=== PATIENT | female | born 1965 | race American Indian/Alaskan Native ===

== ENCOUNTER 2017-12-29 16:37 | Emergency (ER) | payer MEDICAID ==
[2017-12-29 17:24] LABS: Hematocrit 40.2 % (30.3-42.9); Mean Corpuscular HGB Conc 32 % (30-34); Mean Corpuscular Hemoglobin 30 pg (28-32); Mean Corpuscular Volume 94 fl (79-97); Platelet Count 356 K/mm3 (140-440); Red Blood Count 4.29 M/mm3 (3.65-5.03); Red Cell Distribution Width 12.6 % (13.2-15.2)
[2017-12-29 17:25] LABS: Eosinophils # (Auto) 0.4 K/mm3 (0.0-0.4); Eosinophils % (Auto) 2.8 % (0.0-4.3); Lymphocytes % (Auto) 14.1 % (13.4-35.0); Monocytes # (Auto) 0.8 K/mm3 (0.0-0.8); Monocytes % (Auto) 5.6 % (0.0-7.3)
--- NOTE | 2017-12-29 17:28 | XRay Report ---
FINAL REPORT PROCEDURE: XR CHEST ROUTINE 2V TECHNIQUE: PA and lateral chest radiographs were obtained. CPT 20824 HISTORY: Shortness of breath. COMPARISON: No prior studies are available for comparison. FINDINGS: Heart: Normal. Mediastinum/Vessels: Normal. Lungs/Pleural space: Normal. Bony thorax: Cervical spine fusion. Other: IMPRESSION: No radiographic evidence of acute cardiopulmonary disease..
[2017-12-29 17:38] LABS: BUN/Creatinine Ratio 18; Blood Urea Nitrogen 18 mg/dL (7-17); Calcium 9.4 mg/dL (8.4-10.2); Hemolysis Index 0
[2017-12-29] MEDS ORDERED: CLEOCIN 600 MG/50 mL 600 MG/50 ML BAG IV ONE (20:20)
[2017-12-29] MEDS ORDERED: NACL 0.9% 1000 ML IV ONE (20:20)
[2017-12-29] MEDS ORDERED: TORADOL IV ONE (20:22)
[2017-12-29] MEDS ORDERED: XYLOCAINE 1% 20 mL ONE (21:30)
[2017-12-29] MEDS ORDERED: NACL 0.9% 500 ML IR ONE (21:56)
[2017-12-29] MEDS ORDERED: NACL 0.9% IR ONE (22:00)
[2017-12-29] MEDS ORDERED: XYLOCAINE 1% 20 mL INFILTRATI ONE (22:00)
[2017-12-29 22:52] VITALS: BP 115/70
[2017-12-29 23:32] LABS: Bacteria,Urine 3+ /HPF (Negative); Bilirubin,Urine NEG (Negative); Blood,Urine NEG (Negative); Color,Urine Yellow (Yellow); Mucus,Urine FEW /HPF; Urobilinogen,Urine < 2.0 mg/dL (<2.0)
[2017-12-29 23:33] LABS: WBC,Urine > 182.0 /HPF (0.0-6.0)
--- NOTE | 2017-12-29 23:34 | Emergency Department Report ---
- General Chief complaint: Skin/Abscess/Foreign Body Stated complaint: BOIL ON BUTTOCKS Time Seen by Provider: 12/29/17 20:16 Source: patient Mode of arrival: Ambulatory Limitations: No Limitations - History of Present Illness Initial comments: Patient is a 52-year-old [place] female who has a past medical history of diabetes who is presenting with an abscess on her left buttock. Abscess present for approximately 2 weeks and is now draining. Patient states she has 1010 pain in this area as well. Patient denies fever chills nausea vomiting. Patient also states that she has had a cough for approximately 1 month that is productive of green sputum. Patient states she's had some mild body aches were also appetite with this cough. Patient was not seen in for any of these symptoms. Patient states she also is no longer taking her medication for her diabetes. Patient states she threw the pills away. - Related Data Previous Rx's Medication Instructions Recorded Last Taken Type Meloxicam [Mobic] 7.5 mg PO QDAY #30 tablet 02/23/14 Unknown Rx Clindamycin [Clindamycin CAP] 300 mg PO Q8H #30 cap 12/29/17 Unknown Rx HYDROcodone/APAP 7.5-325 [[place] 1 each PO Q6HR PRN #20 tablet 12/29/17 Unknown Rx 7.5-325 mg TAB] metFORMIN [Glucophage] 1,000 mg PO BID #60 tablet 12/29/17 Unknown Rx Allergies Allergy/AdvReac Type Severity Reaction Status Date / Time No Known Allergies Allergy Verified 12/29/17 21:32 Abscess Boil HPI - HPI Chief Complaint: Skin/Abscess/Foreign Body Stated Complaint: BOIL ON BUTTOCKS Time Seen by Provider: 12/29/17 20:16 Home Medications: Previous Rx's Medication Instructions Recorded Last Taken Type Meloxicam [Mobic] 7.5 mg PO QDAY #30 tablet 02/23/14 Unknown Rx Clindamycin [Clindamycin CAP] 300 mg PO Q8H #30 cap 12/29/17 Unknown Rx HYDROcodone/APAP 7.5-325 [[place] 1 each PO Q6HR PRN #20 tablet 12/29/17 Unknown Rx 7.5-325 mg TAB] metFORMIN [Glucophage] 1,000 mg PO BID #60 tablet 12/29/17 Unknown Rx Allergies/Adverse Reactions: Allergies Allergy/AdvReac Type Severity Reaction Status Date / Time No Known Allergies Allergy Verified 12/29/17 21:32 ED Review of Systems ROS: Stated complaint: BOIL ON BUTTOCKS Other details as noted in HPI Comment: All other systems reviewed and negative ED Past Medical Hx - Past Medical History Previous Medical History?: Yes Hx Diabetes: Yes Hx Psychiatric Treatment: Yes (bipolar, schizophrenic, depression) Additional medical history: high cholesterol, - Surgical History Past Surgical History?: No - Social History Smoking Status: Never Smoker - Medications Home Medications: Home Medications Medication Instructions Recorded Confirmed Last Taken Type Meloxicam [Mobic] 7.5 mg PO QDAY #30 tablet 02/23/14 Unknown Rx Clindamycin [Clindamycin CAP] 300 mg PO Q8H #30 cap 12/29/17 Unknown Rx HYDROcodone/APAP 7.5-325 [[place] 1 each PO Q6HR PRN #20 tablet 12/29/17 Unknown Rx 7.5-325 mg TAB] metFORMIN [Glucophage] 1,000 mg PO BID #60 tablet 12/29/17 Unknown Rx ED Physical Exam - General Limitations: No Limitations General appearance: alert, in no apparent distress - Head Head exam: Present: atraumatic, normocephalic - Eye Eye exam: Present: normal appearance - ENT ENT exam: Present: mucous membranes moist - Neck Neck exam: Present: normal inspection - Respiratory Respiratory exam: Present: normal lung sounds bilaterally. Absent: respiratory distress, wheezes, rales - Cardiovascular Cardiovascular Exam: Present: normal rhythm, tachycardia. Absent: systolic murmur, diastolic murmur, rubs, gallop - GI/Abdominal GI/Abdominal exam: Present: soft, normal bowel sounds. Absent: distended, tenderness, guarding, rebound - Extremities Exam Extremities exam: Present: normal inspection - Back Exam Back exam: Present: normal inspection - Neurological Exam Neurological exam: Present: alert, oriented X3 - Psychiatric Psychiatric exam: Present: normal affect, normal mood - Skin Skin exam: Present: warm, dry, intact, normal color, other (patient has a large abscess in the left buttock at the gluteal cleft.). Absent: rash ED Course Vital Signs 12/29/17 12/29/17 12/29/17 16:52 19:17 19:34 Temperature 98 F 99 F Pulse Rate 110 H 102 H Respiratory 18 16 Rate Blood Pressure 92/64 108/78 Blood Pressure 108/78 [Right] O2 Sat by Pulse 100 98 100 Oximetry 12/29/17 12/29/17 12/29/17 20:00 20:15 20:30 Temperature Pulse Rate Respiratory Rate Blood Pressure 110/61 102/63 102/63 Blood Pressure [Right] O2 Sat by Pulse 98 99 Oximetry 12/29/17 12/29/17 12/29/17 20:45 21:01 21:15 Temperature Pulse Rate Respiratory 16 16 Rate Blood Pressure 118/71 124/69 Blood Pressure [Right] O2 Sat by Pulse 99 100 Oximetry 12/29/17 12/29/17 12/29/17 21:16 21:25 21:30 Temperature Pulse Rate Respiratory 16 Rate Blood Pressure 124/69 116/84 Blood Pressure [Right] O2 Sat by Pulse 100 100 100 Oximetry 12/29/17 12/29/17 12/29/17 21:45 22:00 22:15 Temperature Pulse Rate Respiratory Rate Blood Pressure 115/70 108/65 124/80 Blood Pressure [Right] O2 Sat by Pulse 100 100 100 Oximetry 12/29/17 12/29/17 22:30 22:45 Temperature Pulse Rate Respiratory Rate Blood Pressure 122/72 115/70 Blood Pressure [Right] O2 Sat by Pulse 100 Oximetry - I & D Left Buttocks Type of Procedure: Complex Site: 4 Blade Size: 11 I & D Procedure: betadine prep, sterile drapes applied, sterile dressing applied , gauze wick placed ED Medical Decision Making - Lab Data Result diagrams: 12/29/17 17:06 12/29/17 17:06 - Medical Decision Making Patient was started on IV antibiotics and given 2 bags of normal saline. Patient's blood pressure did improve dramatically after fluids and heart rate improved as well. Patient's glucose dropped to 170. I&D was performed. Patient is stable for discharge at this time. Patient will be started on antibiotics pain meds with primary care follow-up. Patient chest x-ray was within normal limits most likely represents a chronic bronchitis. Critical care attestation.: If time is entered above; I have spent that time in minutes in the direct care of this critically ill patient, excluding procedure time. ED Disposition Clinical Impression: Medically noncompliant, Abscess, Hyperglycemia Chronic bronchitis Qualifiers: Chronic bronchitis type: unspecified Qualified Code(s): J42 - Unspecified chronic bronchitis Disposition: DC-01 TO HOME OR SELFCARE Is pt being admited?: No Does the pt Need Aspirin: No Condition: Stable Instructions: Chronic Bronchitis (ED), Abscess (ED) Additional Instructions: Please have drain ribbon removed after 3 days Prescriptions: Clindamycin [Clindamycin CAP] 300 mg PO Q8H #30 cap HYDROcodone/APAP 7.5-325 [[place] 7.5-325 mg TAB] 1 each PO Q6HR PRN #20 tablet PRN Reason: Pain metFORMIN [Glucophage] 1,000 mg PO BID #60 tablet Referrals: ARGELIA JORDAN MD [Staff Physician] - 3-5 Days
[2017-12-29] MEDS ORDERED: NORCO 7.5/325 PO ONE (23:37)
== END 2017-12-30 00:17 | disposition home or self-care (01) ==
LOC: ED 16:37
DX: L02.31 Cutaneous abscess of buttock (principal); J42 Unspecified chronic bronchitis; E11.65 Type 2 diabetes mellitus with hyperglycemia; E78.00 Pure hypercholesterolemia, unspecified; F31.9 Bipolar disorder, unspecified; F20.9 Schizophrenia, unspecified
CPT/HCPCS: 10061; 36415; 71046; 80048; 81001; 82140; 82962; 85025; 87040; 96365; 96366; 96367; 96375; 99284; J1885; J7030

== ENCOUNTER 2020-03-08 15:15 | Emergency (ER) | payer OTHER, MEDICAID ==
[2020-03-08 15:23] VITALS: BP 120/83
== END 2020-03-08 16:11 | disposition left against medical advice (07) ==
LOC: ED 15:15
DX: M54.2 Cervicalgia (principal); M25.511 Pain in right shoulder; V49.59XA Passenger injured in collision with other motor vehicles in traffic accident, initial encounter; Y93.89 Activity, other specified; Y92.410 Unspecified street and highway as the place of occurrence of the external cause; Y99.8 Other external cause status
CPT/HCPCS: 99282

== ENCOUNTER 2021-10-01 10:52 | Emergency (ER) | payer MEDICAID, OTHER ==
[2021-10-01 11:45] VITALS: BP 140/83
--- NOTE | 2021-10-01 13:59 | Emergency Department Report ---
Minor Respiratory - HPI Chief Complaint: Upper Respiratory Infection Stated Complaint: COUGH Time Seen by Provider: 10/01/21 13:42 Duration: one month Severity: mild Minor Respiratory: Yes Able to Tolerate Fluids, Yes Cough, No Rhinorrhea, No Sore Throat, No Sick Contacts, No Shortness of Breath, No Fever Other History: Chief complaint: "I have been sick for a month. I do not like hospitals.". HPI: This is a 56-year-old female with history of tobacco dependence, bipolar disorder, schizophrenia hyperlipidemia who presents with cough body aches. Cough has been present for 1 month. She has had sputum production. She denies shortness of breath. She denies wheezing. She denies chest pain. ED Review of Systems ROS: Stated complaint: COUGH Other details as noted in HPI Comment: All other systems reviewed and negative Constitutional: denies: fever, malaise Eyes: denies: as per HPI Respiratory: cough Gastrointestinal: denies: abdominal pain, nausea, vomiting ED Past Medical Hx - Past Medical History Previous Medical History?: Yes Hx Diabetes: Yes Hx Psychiatric Treatment: Yes (bipolar, schizophrenic, depression) Additional medical history: high cholesterol, - Surgical History Past Surgical History?: No - Social History Smoking Status: Current Every Day Smoker Substance Use Type: Marijuana - Medications Home Medications: Home Medications Medication Instructions Recorded Confirmed Last Taken Type Meloxicam [Mobic] 7.5 mg PO QDAY #30 tablet 02/23/14 Unknown Rx Clindamycin [Clindamycin CAP] 300 mg PO Q8H #30 cap 12/29/17 Unknown Rx HYDROcodone/APAP 7.5-325 [[place] 1 each PO Q6HR PRN #20 tablet 12/29/17 Unknown Rx 7.5-325 mg TAB] metFORMIN [Glucophage] 1,000 mg PO BID #60 tablet 12/29/17 Unknown Rx DOXYCYCLINE Hyclate [Vibramycin 100 mg PO Q12HR 7 Days #14 capsule 10/01/21 Unknown Rx CAP] Minor Respiratory Exam - Exam General: Vital signs noted. No distress. Alert and acting appropriately. HEENT: Yes Moist Mucous Membranes, No Rhinorrhea, No Conjuctival Injection Neck: Yes Supple, No Adenopathy Lungs: Yes Good Air Exchange, No Wheezes, No [place], No Stridor, No Cough, No Labored Respirations, No Retractions, No Use of Accessory Muscles, No Other Abnormal Lung Sounds Heart: Yes Regular, No Murmur Abdomen: Yes Normal Bowel Sounds, No Tenderness, No Peritoneal Signs Skin: No Rash, No Edema Neurologic: Alert and oriented, no deficits. Musculoskeletal: Unremarkable. ED Course Vital Signs 10/01/21 11:43 Temperature 98.5 F Pulse Rate 95 H Respiratory 17 Rate Blood Pressure 140/83 O2 Sat by Pulse 97 Oximetry ED Medical Decision Making - Medical Decision Making Acute bronchitis, antibiotics indicated with history of 1 month of symptoms and tobacco use. Patient prescribed doxycycline. Discharged home. Critical care attestation.: If time is entered above; I have spent that time in minutes in the direct care of this critically ill patient, excluding procedure time. ED Disposition Clinical Impression: Acute bronchitis Disposition: HOME / SELF CARE / HOMELESS Is pt being admited?: No Does the pt Need Aspirin: No Condition: Stable Instructions: Acute Bronchitis (ED), Acute Bronchitis, Adult, Pctd-kg-Jtim Prescriptions: DOXYCYCLINE Hyclate [Vibramycin CAP] 100 mg PO Q12HR 7 Days #14 capsule Referrals: KENDRICK SHAH MD [Staff Physician] - 3-5 Days
== END 2021-10-01 14:09 | disposition home or self-care (01) ==
LOC: ED 10:52
DX: J20.9 Acute bronchitis, unspecified (principal); E11.9 Type 2 diabetes mellitus without complications; F31.9 Bipolar disorder, unspecified
CPT/HCPCS: 99282

== ENCOUNTER 2022-04-17 12:04 | Emergency (ER) | payer MEDICAID ==
[2022-04-17 16:06] LABS: Basophils # (Auto) 0.1 K/mm3 (0.0-0.1); Basophils % (Auto) 0.8 % (0.0-1.8); Eosinophils # (Auto) 0.2 K/mm3 (0.0-0.4); Eosinophils % (Auto) 1.6 % (0.0-4.3); Hematocrit 31.8 % (30.3-42.9); Hemoglobin 10.3 gm/dl (10.1-14.3); Lymphocytes # (Auto) 3.3 K/mm3 (1.2-5.4); Lymphocytes % (Auto) 30.1 % (13.4-35.0); Mean Corpuscular HGB Conc 32 % (30-34); Mean Corpuscular Volume 94 fl (79-97); Monocytes # (Auto) 0.8 K/mm3 (0.0-0.8); Monocytes % (Auto) 7.7 % (0.0-7.3); Platelet Count 409 K/mm3 (140-440); Red Blood Count 3.39 M/mm3 (3.65-5.03); Red Cell Distribution Width 13.7 % (13.2-15.2)
[2022-04-17 16:15] VITALS: BP 132/59
[2022-04-17 16:16] LABS: INR 0.85 (0.87-1.13); Partial Thromboplastin Time 29.1 Sec. (24.2-36.6)
[2022-04-17 16:19] LABS: Alanine Aminotransferase 14 units/L (7-56); Albumin 3.5 g/dL (3.9-5); BUN/Creatinine Ratio 18; Blood Urea Nitrogen 45 mg/dL (7-17); Calcium 9.1 mg/dL (8.4-10.2); Hemolysis Index 4
== END 2022-04-18 15:58 | disposition left against medical advice (07) ==
LOC: ED 12:04
DX: M79.673 Pain in unspecified foot (principal); Z53.21 Procedure and treatment not carried out due to patient leaving prior to being seen by health care provider
CPT/HCPCS: 36415; 80053; 85025; 85610; 85730

== ENCOUNTER 2022-05-05 04:49 | Emergency (ER) | payer MEDICAID ==
[2022-05-05 05:02] VITALS: BP 154/62
[2022-05-05] MEDS ORDERED: KETOROLAC 10 MG TAB PO ONE (09:19)
[2022-05-05] MEDS ORDERED: predniSONE 20 MG TAB PO ONE (09:19)
--- NOTE | 2022-05-05 09:53 | XRay Report ---
LEFT FOOT 2 VIEWS INDICATION / CLINICAL INFORMATION: FOOT PAIN. COMPARISON: None available. FINDINGS: BONES / JOINT(S): No acute fracture or subluxation. Lytic change throughout the distal phalanx of the first digit. SOFT TISSUES: Atherosclerotic vascular calcification. ADDITIONAL FINDINGS: None. Impression: Lytic change throughout the distal phalanx of the first digit. Infection versus tumor. Signer Name: Ezra Madison MD Signed: 05/05/2022 9:49 AM Workstation Name: [email or web address]
[2022-05-05 10:58] LABS: Hematocrit 32.6 % (30.3-42.9); Hemoglobin 10.5 gm/dl (10.1-14.3); Mean Corpuscular HGB Conc 32 % (30-34); Mean Corpuscular Volume 94 fl (79-97); Platelet Count 444 K/mm3 (140-440); Red Blood Count 3.48 M/mm3 (3.65-5.03); Red Cell Distribution Width 13.8 % (13.2-15.2)
[2022-05-05 11:37] LABS: Calcium 8.4 mg/dL (8.4-10.2); Uric Acid 6.1 mg/dL (3.5-7.6)
--- NOTE | 2022-05-05 11:42 | Emergency Department Report ---
<YONG KENYON Thomas - Last Filed: 05/05/22 17:56> ED General Adult HPI - General Chief complaint: Extremity Problem,Nontraumatic Stated complaint: LEFT TOE HURTS Time Seen by Provider: 05/05/22 09:18 Source: patient Mode of arrival: Ambulatory Limitations: No Limitations - History of Present Illness Initial comments: 56 yo comes to ER with toe pain. No trauma. no hx gout. She is ambulatory with a limp. -: Gradual, days(s) Severity scale (0 -10): 8 Associated Symptoms: denies other symptoms Treatments Prior to Arrival: none - Related Data Previous Rx's Medication Instructions Recorded Last Taken Type metFORMIN [Glucophage] 1,000 mg PO BID #60 tablet 12/29/17 Unknown Rx Allergies Allergy/AdvReac Type Severity Reaction Status Date / Time No Known Allergies Allergy Verified 12/29/17 21:32 ED Review of Systems Comment: All other systems reviewed and negative ED Past Medical Hx - Past Medical History Previous Medical History?: Yes Hx Diabetes: Yes Hx Psychiatric Treatment: Yes (bipolar, schizophrenic, depression) Additional medical history: high cholesterol, - Surgical History Past Surgical History?: Yes - Family History Family history: no significant - Social History Smoking Status: Unknown if ever smoked Substance Use Type: Alcohol - Medications Home Medications: Home Medications Medication Instructions Recorded Confirmed Last Taken Type metFORMIN [Glucophage] 1,000 mg PO BID #60 tablet 12/29/17 Unknown Rx ED Physical Exam - General Limitations: No Limitations General appearance: alert, in no apparent distress - Head Head exam: Present: atraumatic, normocephalic - Eye Eye exam: Present: normal appearance - ENT ENT exam: Present: mucous membranes moist - Neck Neck exam: Present: normal inspection - Respiratory Respiratory exam: Present: normal lung sounds bilaterally. Absent: respiratory distress - Cardiovascular Cardiovascular Exam: Present: regular rate, normal rhythm. Absent: systolic murmur, diastolic murmur, rubs, gallop - GI/Abdominal GI/Abdominal exam: Present: soft, normal bowel sounds - Extremities Exam Extremities exam: Present: normal inspection - Back Exam Back exam: Present: normal inspection - Neurological Exam Neurological exam: Present: alert, oriented X3 - Psychiatric Psychiatric exam: Present: normal affect, normal mood - Skin Skin exam: Present: warm, dry, intact, normal color, other (brusing toe). Absent: rash ED Medical Decision Making - Lab Data Result diagrams: 05/05/22 10:05 05/05/22 10:05 - Radiology Data Radiology results: report reviewed, image reviewed see report - Medical Decision Making Lab Results 05/05/22 05/05/22 Range/Units 10:05 10:05 WBC 12.2 H (4.5-11.0) K/mm3 RBC 3.48 L (3.65-5.03) M/mm3 Hgb 10.5 (10.1-14.3) gm/dl Hct 32.6 (30.3-42.9) % MCV 94 (79-97) fl MCH 30 (28-32) pg MCHC 32 (30-34) % RDW 13.8 (13.2-15.2) % Plt Count 444 H (140-440) K/mm3 Sodium 136 L (137-145) mmol/L Potassium 5.1 H (3.6-5.0) mmol/L Chloride 108.9 H (98-107) mmol/L Carbon Dioxide 11 L (22-30) mmol/L Anion Gap 21 mmol/L BUN 67 H (7-17) mg/dL Creatinine 4.5 H (0.6-1.2) mg/dL Estimated GFR 12 ml/min BUN/Creatinine Ratio 15 % Glucose 263 H (65-100) mg/dL Uric Acid 6.1 (3.5-7.6) mg/dL Calcium 8.4 (8.4-10.2) mg/dL Vital Signs 05/05/22 05:00 Temperature 98.3 F Pulse Rate 104 H Respiratory 18 Rate Blood Pressure 154/62 O2 Sat by Pulse 100 Oximetry unable to find pt sp labs being drawn. Last seen in reassessment room. Not in room or wait area. Myself as well as nurses have looked numerous times. Attempt to call pt for Cr unsuccessful. - Differential Diagnosis ro fx/trauma/gout ED Disposition Clinical Impression: Arthritis Disposition: 07 LEFT AWOL/ELOPED Is pt being admited?: No Does the pt Need Aspirin: No Condition: Stable Referrals: KENDRICK SHAH MD [Primary Care Provider] - 3-5 Days <MICHELLE LARSEN - Last Filed: 05/06/22 16:08> ED Review of Systems ROS: Stated complaint: LEFT TOE HURTS Other details as noted in HPI ED Course Vital Signs 05/05/22 05:00 Temperature 98.3 F Pulse Rate 104 H Respiratory 18 Rate Blood Pressure 154/62 O2 Sat by Pulse 100 Oximetry ED Medical Decision Making - Lab Data Result diagrams: 05/05/22 10:05 05/05/22 10:05 - Medical Decision Making Patient was managed independently by the mid level below , I was available for consult but i wasn't directly involved in the care of this patient Critical care attestation.: If time is entered above; I have spent that time in minutes in the direct care of this critically ill patient, excluding procedure time. ED Disposition Is pt being admited?: No Does the pt Need Aspirin: No
[2022-05-05] MEDS ORDERED: CLINDAMYCIN 600 MG/50 mL 600 MG/50 ML BAG IV ONE (12:01)
[2022-05-05] MEDS ORDERED: SODIUM CHLORIDE 0.9% 1000 ML 1,000 ML IV ONE (12:01)
== END 2022-05-05 14:01 | disposition left against medical advice (07) ==
LOC: ED 04:49
DX: S90.112A Contusion of left great toe without damage to nail, initial encounter (principal); M19.90 Unspecified osteoarthritis, unspecified site; E11.9 Type 2 diabetes mellitus without complications; F20.9 Schizophrenia, unspecified; F31.9 Bipolar disorder, unspecified; E78.00 Pure hypercholesterolemia, unspecified; Z72.89 Other problems related to lifestyle; Z79.899 Other long term (current) drug therapy; Z79.84 Long term (current) use of oral hypoglycemic drugs; X58.XXXA Exposure to other specified factors, initial encounter; Y93.89 Activity, other specified; Y92.89 Other specified places as the place of occurrence of the external cause; Y99.8 Other external cause status
CPT/HCPCS: 36415; 80048; 84550; 85027; 99283

== ENCOUNTER 2022-05-18 15:24 | Inpatient (IN) | payer MEDICAID ==
[2022-05-18] MEDS ORDERED: TETANUS,DIPH,PERTUSS(ACELL) VACCINE 0.5 ML SYRINGE IM ONE (16:35)
[2022-05-18] MEDS ORDERED: ONDANSETRON 4 MG/2 ML INJ IV ONE (16:35)
[2022-05-18] MEDS ORDERED: MORPHINE 4 MG/1 ML INJ IV ONE (16:35)
--- NOTE | 2022-05-18 16:53 | XRay Report ---
CHEST 1 VIEW 05/18/2022 3:46 PM INDICATION / CLINICAL INFORMATION: sob, mild wheezing. COMPARISON: One day prior. FINDINGS: SUPPORT DEVICES: Unchanged. HEART / MEDIASTINUM: Stable. LUNGS / PLEURA: Lungs are hyperlucent consistent with emphysematous change. No consolidation. No effu elsa. No pneumothorax. ADDITIONAL FINDINGS: No significant additional findings. IMPRESSION: 1. No acute findings. Signer Name: Zac Catalan MD Signed: 05/18/2022 4:48 PM Workstation Name: [email or web address]
[2022-05-18 17:21] LABS: Basophils # (Auto) 0.1 K/mm3 (0.0-0.1); Basophils % (Auto) 0.6 % (0.0-1.8); Eosinophils # (Auto) 0.2 K/mm3 (0.0-0.4); Eosinophils % (Auto) 1.6 % (0.0-4.3); Hematocrit 29.2 % (30.3-42.9); Hemoglobin 9.3 gm/dl (10.1-14.3); Lymphocytes # (Auto) 2.4 K/mm3 (1.2-5.4); Lymphocytes % (Auto) 15.8 % (13.4-35.0); Mean Corpuscular HGB Conc 32 % (30-34); Mean Corpuscular Volume 93 fl (79-97); Monocytes # (Auto) 1.3 K/mm3 (0.0-0.8); Monocytes % (Auto) 8.4 % (0.0-7.3); Platelet Count 598 K/mm3 (140-440); Red Blood Count 3.13 M/mm3 (3.65-5.03); Red Cell Distribution Width 13.8 % (13.2-15.2)
[2022-05-18 17:32] LABS: Albumin 3.2 g/dL (3.9-5)
[2022-05-18 17:42] LABS: Erythrocyte Sedimentation Rate > 140.0 mm/Hr (0-20)
--- NOTE | 2022-05-18 18:02 | XRay Report ---
Left foot 3 views INDICATION: Left foot pain following infection IMPRESSION: Severe acute osteomyelitis involving the distal phalanx of the great toe with moderate ov erlying soft tissue edema and some areas of subcutaneous gas concerning for adjacent soft tissue infe ction. There is severe osseous destruction involving the great toe distal phalanx. Signer Name: Negro Leigh MD Signed: 05/18/2022 5:57 PM Workstation Name: [email or web address]
[2022-05-18] MEDS ORDERED: VANCOMYCIN 1,250 MG in SODIUM CHLORIDE 0.9% 500 ML 250 ML IV ONE (18:30)
[2022-05-18] MEDS ORDERED: ceFAZolin/Water 2 GM/20 ML 2 GM/20 ML SYRINGE IV ONE (19:44)
[2022-05-18] MEDS ORDERED: SODIUM CHLORIDE 0.9% 1000 ML 1,000 ML IV ONE (19:46)
--- NOTE | 2022-05-18 19:48 | Emergency Department Report ---
ED Extremity Problem HPI - General Chief complaint: Extremity Injury, Lower Stated complaint: LEFT TOE PAIN Source: patient, EMS, old records reviewed Mode of arrival: Stretcher Limitations: No Limitations - History of Present Illness Initial comments: 56-year female the past medical history [id number] diabetes and smoker not currently taking any medications presents to the hospital complain of progressively worsening left great toe pain and infection for the last 1 month.. Patient complains of left foot numbness but pain occurs with pressure during ambulation. Patient denies fever or infectious symptoms. As per medical record review appears that patient was here on April 17 and May 05 for foot pain but left the department both times prior to completing her ED evaluation. Patient has noted purulent drainage to toe area with redness extending to the distal foot. Tetanus status unknown. As per medical record review patient has had progressively worsening renal insufficiency since her April 17 ED visit. Severity scale (0 -10): 3 - Related Data Home Medications Medication Instructions Recorded Confirmed Last Taken No Known Home Medications [No 05/20/22 05/20/22 Unknown Reported Home Medications] Allergies Allergy/AdvReac Type Severity Reaction Status Date / Time No Known Allergies Allergy Verified 05/18/22 15:31 ED Review of Systems ROS: Stated complaint: LEFT TOE PAIN Other details as noted in HPI Comment: All other systems reviewed and negative ED Past Medical Hx - Past Medical History Hx Diabetes: Yes Hx Psychiatric Treatment: Yes (bipolar, schizophrenic, depression) Additional medical history: high cholesterol, - Social History Smoking Status: Current Every Day Smoker Substance Use Type: Marijuana - Medications Home Medications: Home Medications Medication Instructions Recorded Confirmed Last Taken Type No Known Home Medications [No 05/20/22 05/20/22 Unknown History Reported Home Medications] ED Physical Exam - General Limitations: No Limitations - Other Other exam information: General: No acute distress Head: Atraumatic Eyes: normal appearance ENT: Moist mucous membranes Neck: Normal appearance, no midline tenderness Chest: Mild wheeze noted to left lung field without tachypnea CV: Regular rate and rhythm Abdomen: Soft, normal bowel sounds, nontender, nondistended, no rebound or guarding Back: Normal inspection Extremity: Left great toe he yellow skin discoloration with mild purulent drainage. Maggots noted at the lateral side of the left great toe. Limited movement secondary to pain. Erythema extending more proximal to the distal foot area. Mild tenderness to palpation. Mild bleeding noted medially. Unable to palpate left DP pulse but it is audible with Doppler. maggots noted at the medial great toe. 1+ right DP pulse noted. Neuro: Alert O x 3, no facial asymmetry, speech clear, no gross motor sensory deficit Psych: Appropriate behavior Skin: See extremity exam ED Course Vital Signs 05/18/22 05/18/22 05/18/22 15:29 17:08 19:20 Temperature 98.7 F 97.7 F Pulse Rate 109 H 95 H 85 Respiratory 14 14 15 Rate Blood Pressure 163/79 Blood Pressure 126/72 135/71 [Left] O2 Sat by Pulse 98 93 64 L Oximetry 05/18/22 05/18/22 05/18/22 19:30 19:40 19:50 Temperature Pulse Rate 78 74 74 Respiratory 13 15 13 Rate Blood Pressure 173/82 173/82 162/72 Blood Pressure [Left] O2 Sat by Pulse 95 79 L 78 L Oximetry 05/18/22 05/18/22 05/18/22 20:00 20:08 20:10 Temperature 98.4 F Pulse Rate 88 70 74 Respiratory 12 18 17 Rate Blood Pressure 138/42 138/42 Blood Pressure 136/72 [Left] O2 Sat by Pulse 91 97 98 Oximetry 05/18/22 05/18/22 05/18/22 20:18 20:20 20:30 Temperature 98.4 F Pulse Rate 75 83 Respiratory 15 19 Rate Blood Pressure 170/89 158/84 Blood Pressure [Left] O2 Sat by Pulse Oximetry 05/18/22 05/18/22 05/18/22 20:40 20:50 21:00 Temperature Pulse Rate 96 H 74 73 Respiratory 14 17 14 Rate Blood Pressure 158/84 128/63 164/80 Blood Pressure [Left] O2 Sat by Pulse 99 98 Oximetry 05/18/22 05/18/22 05/18/22 21:10 21:20 21:23 Temperature Pulse Rate 83 76 Respiratory 12 12 20 Rate Blood Pressure 164/80 176/77 Blood Pressure [Left] O2 Sat by Pulse 98 98 Oximetry 05/18/22 05/18/22 05/18/22 21:30 21:40 21:50 Temperature Pulse Rate 94 H 106 H 103 H Respiratory 12 15 30 H Rate Blood Pressure 154/101 154/101 154/101 Blood Pressure [Left] O2 Sat by Pulse 90 Oximetry 05/18/22 05/18/22 05/18/22 22:00 22:10 22:20 Temperature Pulse Rate 77 73 75 Respiratory 16 13 12 Rate Blood Pressure 176/77 176/77 176/77 Blood Pressure [Left] O2 Sat by Pulse Oximetry 05/18/22 05/18/22 05/18/22 22:30 22:40 22:50 Temperature Pulse Rate 77 96 H 75 Respiratory 13 14 12 Rate Blood Pressure 154/101 154/101 154/101 Blood Pressure [Left] O2 Sat by Pulse Oximetry 05/18/22 05/18/22 05/18/22 23:00 23:10 23:20 Temperature Pulse Rate 74 80 77 Respiratory 12 13 9 L Rate Blood Pressure 154/101 154/101 150/78 Blood Pressure 150/78 [Left] O2 Sat by Pulse 99 Oximetry 05/18/22 05/18/22 05/18/22 23:30 23:40 23:50 Temperature Pulse Rate 90 101 H 86 Respiratory 17 18 14 Rate Blood Pressure 147/81 147/81 133/79 Blood Pressure [Left] O2 Sat by Pulse 98 89 99 Oximetry 05/19/22 05/19/22 05/19/22 00:00 00:10 00:20 Temperature Pulse Rate 76 77 77 Respiratory 13 12 13 Rate Blood Pressure 153/60 153/60 159/68 Blood Pressure [Left] O2 Sat by Pulse 100 100 100 Oximetry 05/19/22 05/19/22 05/19/22 00:30 00:40 00:50 Temperature Pulse Rate 79 101 H 80 Respiratory 12 16 15 Rate Blood Pressure 161/58 161/58 161/58 Blood Pressure [Left] O2 Sat by Pulse 100 100 Oximetry 05/19/22 05/19/22 05/19/22 01:00 01:10 01:20 Temperature Pulse Rate 95 H 82 Respiratory 14 15 Rate Blood Pressure 161/58 154/101 161/58 Blood Pressure [Left] O2 Sat by Pulse 87 Oximetry - Consultations Consultation #1: 05/18/22 7:30p spoke to DR Sweeney. Recommends vascular consult and possibly Dr Licona to be consulted regarding possible amputation 7:34p Dr Poncho erickson, awaiting call back 05/18/22 20:06 case d/w Dr Isaac, will consult, requests that surgery and ID be consulted 05/18/22 20:16 case d/w DR Silver, she states her partner DR Green can perform amputation if necessary and the will consult. recomemds a wet bulky dressing to the area to help with maggots 05/18/22 20:39 case d/w Dr Nix agree with cefapime and vancomycin as opposed to zosyn due to renal faiilure, will consult ED Medical Decision Making - Lab Data Result diagrams: 05/19/22 06:56 05/20/22 06:13 Lab Results 05/18/22 05/18/22 05/18/22 Range/Units 16:40 16:40 16:40 WBC 15.4 H (4.5-11.0) K/mm3 RBC 3.13 L (3.65-5.03) M/mm3 Hgb 9.3 L (10.1-14.3) gm/dl Hct 29.2 L (30.3-42.9) % MCV 93 (79-97) fl MCH 30 (28-32) pg MCHC 32 (30-34) % RDW 13.8 (13.2-15.2) % Plt Count 598 H (140-440) K/mm3 Lymph % (Auto) 15.8 (13.4-35.0) % [place] % (Auto) 8.4 H (0.0-7.3) % Eos % (Auto) 1.6 (0.0-4.3) % Baso % (Auto) 0.6 (0.0-1.8) % Lymph # (Auto) 2.4 (1.2-5.4) K/mm3 [place] # (Auto) 1.3 H (0.0-0.8) K/mm3 Eos # (Auto) 0.2 (0.0-0.4) K/mm3 Baso # (Auto) 0.1 (0.0-0.1) K/mm3 Seg Neutrophils % 73.6 H (40.0-70.0) % Seg Neutrophils # 11.3 H (1.8-7.7) K/mm3 ESR > 140.0 (0-20) mm/Hr Sodium 134 L (137-145) mmol/L Potassium 4.0 (3.6-5.0) mmol/L Chloride 107.0 (98-107) mmol/L Carbon Dioxide 14 L (22-30) mmol/L Anion Gap 17 mmol/L BUN 75 H (7-17) mg/dL Creatinine 4.1 H (0.6-1.2) mg/dL Estimated GFR 14 ml/min BUN/Creatinine Ratio 18 % Glucose 165 H (65-100) mg/dL Lactic Acid 0.60 L (0.7-2.0) mmol/L Calcium 9.0 (8.4-10.2) mg/dL Total Bilirubin 0.20 (0.1-1.2) mg/dL AST 6 (5-40) units/L ALT 5 L (7-56) units/L Alkaline Phosphatase 118 (35-129) units/L Total Protein 6.4 (6.3-8.2) g/dL Albumin 3.2 L (3.9-5) g/dL Albumin/Globulin Ratio 1.0 % - Radiology Data Radiology results: report reviewed Left foot 3 views INDICATION: Left foot pain following infection IMPRESSION: Severe acute osteomyelitis involving the distal phalanx of the great toe with moderate overlying soft tissue edema and some areas of subcutaneous gas concerning for adjacent soft tissue infection. There is severe osseous destruction involving the great toe distal phalanx. CHEST 1 VIEW 05/18/2022 3:46 PM INDICATION / CLINICAL INFORMATION: sob, mild wheezing. COMPARISON: One day prior. FINDINGS: SUPPORT DEVICES: Unchanged. HEART / MEDIASTINUM: Stable. LUNGS / PLEURA: Lungs are hyperlucent consistent with emphysematous change. No consolidation. No effusion. No pneumothorax. ADDITIONAL FINDINGS: No significant additional findings. IMPRESSION: 1. No acute findings - Medical Decision Making Patient has a progressive worsening left great toe infection for greater than 1 month with signs of osteomyelitis and gas gangrene on x-ray. Patient does not have any findings of severe sepsis or septic shock and has a normal lactic acid. Patient has a diminished but present left DP pulse. Patient's glucose is only mildly elevated without signs of DKA. Patient was treated with IVF, cefepime and vancomycin in the ER. Consults were discussed with vascular surgeon and general surgery. Patient will likely require amputation. ID consult recommended and to be ordered by hospitalist. 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 Critical Care Time: No Critical care attestation.: If time is entered above; I have spent that time in minutes in the direct care of this critically ill patient, excluding procedure time. ED Disposition Clinical Impression: Gangrene of toe, Diabetes, Osteomyelitis of great toe, Noncompliance with medication regimen, Acute renal insufficiency, Smoker Disposition: 09 ADMITTED INPATIENT Is pt being admited?: Yes Condition: Stable Time of Disposition: 20:19 (Dr Caro/hospitalist)
--- NOTE | 2022-05-18 20:17 | History and Physical Report ---
History of Present Illness Chief complaint: My foot hurts and is swollen History of present illness: 56 YO Female with DM, HLD, Schizophrenia, Nicotine Dependence presents to ED for evaluation. Patient reports "my foot hurts and it is really swollen". Patient states that she has experienced pain and swelling to her left foot over the past 1 month with worsening symptoms over the past 3 days. Patient acknowledges redness, purulent discharge, as well as pain. Patient states the pain has gotten progressively worse and she is unable to ambulate due to pain. Patient states that pain is 8/10, constant, worsened with ambulation and weightbearing, relieved with weightbearing. EMS was notified and upon arrival the patient was found to be in distress and subsequent transported to [facility] for further care and evaluation of the aforementioned symptoms. The patient was seen and evaluated in the emergency department. All lab and imaging studies reviewed. Patient underwent x-ray of the left foot and was found to have left foot osteomyelitis complicated by cellulitis as well as sepsis complicated by acute kidney injury. Patient admitted to medical floor due to increased risk of worsening symptoms and for medical stabilization. Patient initiated on sepsis protocol. Nephrology team consulted, surgery team consulted, vascular surgery team consulted. Patient denies fever, chills, chest pain, palpitation, pro ductive cough, skin rash, recent contact, known exposure to COVID-19. No prior admission for review. All medication listed at time of admission has been reconciled. Advanced care planning conducted in ED. Past History Past Medical History: hypertension, hyperlipidemia, other (See HPI) Past Surgical History: No surgical history, Other (Reviewed) Social history: single, smoking. denies: alcohol abuse, prescription drug abuse Family history: diabetes, hypertension Medications and Allergies Allergies Allergy/AdvReac Type Severity Reaction Status Date / Time No Known Allergies Allergy Verified 05/18/22 15:31 Home Medications Medication Instructions Recorded Confirmed Last Taken Type metFORMIN [Glucophage] 1,000 mg PO BID #60 tablet 12/29/17 Unknown Rx Active Meds: Active Medications Vancomycin HCl 1,250 mg/ (Sodium Chloride) 275 mls @ 137.5 mls/hr IV ONCE ONE; Protocol Stop: 05/18/22 20:29 Last Admin: 05/18/22 18:45 Dose: 137.5 mls/hr Sodium Chloride (Nacl 0.9% 1000 Ml) 1,000 mls @ 250 mls/hr IV ONCE ONE Stop: 05/18/22 23:45 Review of Systems Constitutional: no weight gain, no fever, no chills Ears, nose, mouth and throat: no ear pain, no ear discharge, no tinnitis, no no se pain, no nasal congestion, no nasal discharge Breasts: no change in shape, no swelling, no mass Cardiovascular: no chest pain, no orthopnea, no palpitations, no edema, no syncope Respiratory: no cough, no cough with sputum, no excessive sputum, no shortness of breath, no dyspnea on exertion Gastrointestinal: no abdominal pain, no nausea, no vomiting, no diarrhea, no constipation Genitourinary Female: no pelvic pain, no flank pain, no dysuria, no urinary frequency, no urgency Rectal: no pain, no incontinence, no bleeding Musculoskeletal: no neck stiffness, no neck pain, no shooting arm pain, no arm numbness/tingling, no shooting leg pain, no leg numbness/tingling Integumentary: no rash, no pruritis, no redness, no sores, no wounds Neurological: no head injury, no transient paralysis, no weakness, no parathesias, no tingling, no seizures, no syncope Psychiatric: no anxiety, no memory loss, no sleep disturbances, no change in libido, no suicidal ideation Endocrine: no cold intolerance, no heat intolerance, no polyphagia, no excessive thirst, no polydipsia, no polyuria, no nocturia Hematologic/Lymphatic: no easy bruising, no easy bleeding Allergic/Immunologic: no urticaria Exam - Constitutional Vitals: Temp Pulse Resp BP Pulse Ox 97.7 F 95 H 14 135/71 93 05/18/22 17:08 05/18/22 17:08 05/18/22 17:08 05/18/22 17:08 05/18/22 17:08 General appearance: Present: mild distress - EENT Eyes: Present: PERRL ENT: hearing intact, clear oral mucosa - Neck Neck: Present: supple, normal ROM - Respiratory Respiratory effort: normal Respiratory: bilateral: CTA - Cardiovascular Rhythm: other (Tachycardia) Heart Sounds: Present: S1 & S2. Absent: rub, click - Extremities Extremity abnormal: edema, ulceration, erythema, black, tenderness Peripheral Pulses: abnormal (Capillary refill greater than 3.5 seconds) - Abdominal General gastrointestinal: Present: soft, non-tender, non-distended, normal bowel sounds Female genitourinary: Present: normal - Integumentary Integumentary: Present: clear, dry - Musculoskeletal Musculoskeletal: gait normal, strength equal bilaterally - Psychiatric Psychiatric: appropriate mood/affect, intact judgment & insight - Neurologic Neurologic: CNII-XII intact, moves all extremities Results - Labs CBC & Chem 7: 05/18/22 16:40 05/18/22 16:40 Labs: Abnormal lab results 05/18/22 05/18/22 05/18/22 Range/Units 16:40 16:40 16:40 WBC 15.4 H (4.5-11.0) K/mm3 RBC 3.13 L (3.65-5.03) M/mm3 Hgb 9.3 L (10.1-14.3) gm/dl Hct 29.2 L (30.3-42.9) % Plt Count 598 H (140-440) K/mm3 [place] % (Auto) 8.4 H (0.0-7.3) % [place] # (Auto) 1.3 H (0.0-0.8) K/mm3 Seg Neutrophils % 73.6 H (40.0-70.0) % Seg Neutrophils # 11.3 H (1.8-7.7) K/mm3 Sodium 134 L (137-145) mmol/L Carbon Dioxide 14 L (22-30) mmol/L BUN 75 H (7-17) mg/dL Creatinine 4.1 H (0.6-1.2) mg/dL Glucose 165 H (65-100) mg/dL Lactic Acid 0.60 L (0.7-2.0) mmol/L ALT 5 L (7-56) units/L Albumin 3.2 L (3.9-5) g/dL Assessment and Plan - Patient Problems (1) Sepsis Current Visit: Yes Status: Acute Qualifiers: Acute renal failure type: with acute tubular necrosis Plan to address problem: Sepsis Protocol: CBC, foot x-ray, IV antibiotic therapy, IV fluid resuscitation therapy, monitor urine output every shift, blood culture, serial lactic acid level, maintain mean arterial pressure greater than equal to 65, monitor fluid balance. (2) Cellulitis of left foot Current Visit: Yes Status: Acute Plan to address problem: Foot x-ray, IV antibiotic therapy, serial physical exam, serial FAST exam, supportive care. Surgical team consulted. (3) Nicotine dependence Current Visit: Yes Status: Acute Qualifiers: Nicotine product type: cigarettes Substance use status: in withdrawal Qualified Code(s): F17.213 - Nicotine dependence, cigarettes, with withdrawal Plan to address problem: Smoking cessation counseling, supportive care, behavior change counseling, +15 minutes. (4) Diabetes Current Visit: Yes Status: Acute Plan to address problem: Consistent carbohydrate diet, Accu-Chek, insulin protocol, hypoglycemia protocol. (5) Acute kidney injury (CELY) with acute tubular necrosis (ATN) Current Visit: Yes Status: Acute Plan to address problem: Urine electrolytes, IV fluid resuscitation therapy, BMP, repeat BMP in a.m., nephrology team consulted in ED. (6) Metabolic acidosis Current Visit: Yes Status: Acute Plan to address problem: IV fluid resuscitation therapy, BMP, repeat BMP in AM. IV bicarbonate therapy x1. (7) Osteomyelitis of great toe Current Visit: Yes Status: Acute Plan to address problem: X-ray left foot, IV antibiotic therapy, supportive care, vascular team consulted, surgery team consulted. Further care and evaluation as per surgical team. (8) DVT prophylaxis Current Visit: Yes Status: Acute Plan to address problem: SCD to bilateral lower extremities while in bed (9) Advance care planning Current Visit: Yes Status: Acute Plan to address problem: Disease education done, care plan discussed, diagnoses discussed, prognosis discussed, patient is full code. Patient acknowledges understanding and agreement with care plan, +30 minutes. (10) Preventative health care Current Visit: Yes Status: Acute Plan to address problem: Patient counseled regarding smoking cessation, risk factor reduction, blood glucose control, outpatient follow-up with primary care physician for all age and risk factor appropriate screening test. +30 minutes.
[2022-05-18] MEDS ORDERED: ACETAMINOPHEN 325 MG TAB PO PRN (20:20)
[2022-05-18] MEDS ORDERED: ALBUTEROL 2.5 MG/3 ML NEBU IH PRN (20:20)
[2022-05-18] MEDS ORDERED: SODIUM CHLORIDE 0.9% 1000 ML IV SOLN IV SCH (20:20)
[2022-05-18] MEDS ORDERED: ONDANSETRON 4 MG/2 ML INJ IV PRN (20:20)
[2022-05-18] MEDS ORDERED: HYDROmorphone 0.5 MG/0.5 ML INJ IV PRN (20:20)
[2022-05-18] MEDS ORDERED: DEXTROSE 50% IN WATER (25GM) 50 ML SYRINGE IV PRN (20:25)
[2022-05-18] MEDS ORDERED: SODIUM BICARB 8.4% 50 MEQ/50 ML SYRINGE IV ONE (21:00)
[2022-05-18] MEDS ORDERED: PIPERACIL/TAZOBACTA 4.5/NS 100 4.5 GM/100 ML VIAL IV SCH (21:00)
[2022-05-18] MEDS ORDERED: PIPERACIL-TAZO 2.25 GM/50 ML 2.25 GM/50 ML BAG IV SCH (21:00)
[2022-05-18] MEDS ORDERED: CEFEPIME/NS 1 GM/100 ML 1 GM/100 ML BAG IV SCH ×2 (22:00)
[2022-05-18] MEDS: INSULIN LISPRO 100 UNIT/ML SUB-Q SCH (23:24)
[2022-05-18] MEDS: oxyCODONE /ACETAMINOPHEN 5-325MG TAB PO PRN (23:40)
[2022-05-19 00:08] LABS: Color,Urine Colorless (Yellow)
[2022-05-19 00:13] LABS: Mucus,Urine FEW /HPF
[2022-05-19 00:14] LABS: WBC,Urine > 182.0 /HPF (0.0-6.0)
[2022-05-19 07:58] LABS: Hematocrit 28.4 % (30.3-42.9); Hemoglobin 9.3 gm/dl (10.1-14.3); Mean Corpuscular HGB Conc 33 % (30-34); Mean Corpuscular Volume 92 fl (79-97); Platelet Count 642 K/mm3 (140-440); Red Blood Count 3.09 M/mm3 (3.65-5.03); Red Cell Distribution Width 13.6 % (13.2-15.2)
[2022-05-19 07:59] LABS: Mean Platelet Volume 8.1 fl (6-12); Monocytes % (Auto) 6.1 % (0.0-7.3)
[2022-05-19 08:00] LABS: Basophils % (Auto) 0.7 % (0.0-1.8); Eosinophils % (Auto) 1.8 % (0.0-4.3)
[2022-05-19] MEDS ORDERED: VANCOMYCIN PHARMACY TO DOSE IV SCH (08:00)
[2022-05-19 08:01] LABS: Basophils # (Auto) 0.1 K/mm3 (0.0-0.1); Eosinophils # (Auto) 0.3 K/mm3 (0.0-0.4); Lymphocytes # (Auto) 1.9 K/mm3 (1.2-5.4)
[2022-05-19] MEDS: oxyCODONE /ACETAMINOPHEN 5-325MG TAB PO PRN (08:36)
[2022-05-19] MEDS: INSULIN LISPRO 100 UNIT/ML SUB-Q SCH ×4 (09:02→22:08)
[2022-05-19 09:18] LABS: Creatinine,Urine 73.3 mg/dL (0.1-20.0)
[2022-05-19] MEDS ORDERED: SODIUM BICARB 8.4% 50 MEQ/50 ML SYRINGE IV NR (09:20)
[2022-05-19] MEDS ORDERED: SODIUM CHLORIDE 0.9% 1000 ML 1,000 ML IV SCH (09:45)
[2022-05-19] MEDS ORDERED: HYDROmorphone 0.5 MG/0.5 ML INJ IV PRN (09:46)
[2022-05-19] MEDS: HYDROmorphone 1 MG/1 ML INJ IV PRN ×2 (10:27→22:15)
[2022-05-19 10:53] LABS: Alanine Aminotransferase 6 units/L (7-56); Albumin 3.2 g/dL (3.9-5); BUN/Creatinine Ratio 19; Blood Urea Nitrogen 56 mg/dL (7-17); Calcium 8.4 mg/dL (8.4-10.2); Hemolysis Index 16
--- NOTE | 2022-05-19 11:14 | Consultation ---
History of Present Illness - Reason for Consult Consult date: 05/19/22 Left First Toe Ischemia Requesting physician: ANUJA ZAVALA - History of Present Illness The patient is a 56-year-old female with a history of diabetes and diabetic neuropathy. She presented to the emergency department with complaints of left first toe pain and swelling. Per the record she presented to the emergency department 2 previous times within the past 4 weeks however during those times she left the emergency department before evaluation. She states that she hit her left toe, multiple times, while at home and developed dark discoloration and pain of the left toe that progressively worsened over the past several weeks. She does have a history of smoking with approximately half to 1 pack of cigarettes per day. She denies any previous history of claudication but does states she has had burning and pain in the feet which is likely secondary to her diabetic neuropathy. She has significant pain in the left toe but has no additional complaints at this time. Past History Past Medical History: diabetes, hypertension, hyperlipidemia Past Surgical History: No surgical history Social history: single, smoking. denies: alcohol abuse, prescription drug abuse Family history: diabetes, hypertension Medications and Allergies Allergies Allergy/AdvReac Type Severity Reaction Status Date / Time No Known Allergies Allergy Verified 05/18/22 15:31 Home Medications Medication Instructions Recorded Confirmed Last Taken Type metFORMIN [Glucophage] 1,000 mg PO BID #60 tablet 12/29/17 05/19/22 05/18/22 06:00 Rx Active Meds: Active Medications Acetaminophen (Acetaminophen 325 Mg Tab) 650 mg PO Q4H PRN PRN Reason: Pain MILD(1-3)/Fever >100.5/AVILA Albuterol (Albuterol 2.5 Mg/3 Ml Nebu) 2.5 mg IH Q4HRT PRN PRN Reason: Shortness Of Breath Dextrose (Dextrose 50% In Water (25gm) 50 Ml Syringe) 50 ml IV Q30MIN PRN; Protocol PRN Reason: Hypoglycemia Docusate Sodium (Docusate Sodium 100 Mg Cap) 100 mg PO BID [facility] Hydromorphone HCl (Hydromorphone 1 Mg/1 Ml Inj) 1 mg IV Q8H PRN PRN Reason: Pain , Severe (7-10) Last Admin: 05/19/22 10:27 Dose: 1 mg Cefepime HCl (Cefepime/Ns 2 Gm/100 Ml) 2 gm in 100 mls @ 200 mls/hr IV Q24H [facility] Sodium Bicarbonate 150 meq/ (Sterile Water) 1,150 mls @ 150 mls/hr IV DIRECT [facility] Stop: 05/23/22 18:39 Sodium Chloride (Nacl 0.9% 1000 Ml) 1,000 mls @ 100 mls/hr IV DIRECT [facility] Stop: 05/20/22 09:44 Last Admin: 05/19/22 10:24 Dose: 100 mls/hr Insulin Human Lispro (Insulin Lispro 100 Unit/Ml) 0 unit SUB-Q ACHS [facility]; Protocol Last Admin: 05/19/22 09:02 Dose: Not Given Ondansetron HCl (Ondansetron 4 Mg/2 Ml Inj) 4 mg IV Q8H PRN PRN Reason: Nausea And Vomiting Oxycodone/Acetaminophen (Oxycodone /Acetaminophen 5-325mg Tab) 2 tab PO Q6H PRN PRN Reason: Pain, Moderate (4-6) Sodium Bicarbonate (Sodium Bicarb 8.4% 50 Meq/50 Ml Syringe) 100 meq IV ONCE@0920 NR Stop: 05/19/22 14:00 Sodium Chloride (Sodium Chloride 0.9% 10 Ml Flush Syringe) 10 ml IV BID [facility] Last Admin: 05/19/22 10:29 Dose: 10 ml Sodium Chloride (Sodium Chloride 0.9% 10 Ml Flush Syringe) 10 ml IV PRN PRN PRN Reason: LINE FLUSH Review of Systems All systems: negative Exam - Constitutional Vitals: Temp Pulse Resp BP Pulse Ox 97.6 F 64 10 L 119/92 98 05/19/22 04:51 05/19/22 05:40 05/19/22 05:40 05/19/22 05:40 05/19/22 08:42 General appearance: Present: no acute distress - EENT ENT: other (Missing multiple teeth throughout her mouth.) - Respiratory Respiratory effort: normal - Cardiovascular Rhythm: regular - Extremities Extremities: pulses intact (Palpable left posterior tibial pulse with a nonpalpa ble dorsalis pedis pulse. Nonpalpable right pedal pulses), abnormal (Left first toe with cyanotic changes, swelling, and serosanguineous drainage from the nailbed) - Abdominal General gastrointestinal: Present: soft, non-tender Female genitourinary: Present: deferred - Rectal Rectal Exam: deferred Results - Labs CBC & Chem 7: 05/19/22 06:56 05/19/22 06:56 Labs: Abnormal lab results 05/18/22 05/18/22 05/18/22 Range/Units 16:40 16:40 16:40 WBC 15.4 H (4.5-11.0) K/mm3 RBC 3.13 L (3.65-5.03) M/mm3 Hgb 9.3 L (10.1-14.3) gm/dl Hct 29.2 L (30.3-42.9) % Plt Count 598 H (140-440) K/mm3 Lymph % (Auto) (13.4-35.0) % [place] % (Auto) 8.4 H (0.0-7.3) % [place] # (Auto) 1.3 H (0.0-0.8) K/mm3 Seg Neutrophils % 73.6 H (40.0-70.0) % Seg Neutrophils # 11.3 H (1.8-7.7) K/mm3 Sodium 134 L (137-145) mmol/L Carbon Dioxide 14 L (22-30) mmol/L BUN 75 H (7-17) mg/dL Creatinine 4.1 H (0.6-1.2) mg/dL Glucose 165 H (65-100) mg/dL Lactic Acid 0.60 L (0.7-2.0) mmol/L ALT 5 L (7-56) units/L Albumin 3.2 L (3.9-5) g/dL Urine WBC (Auto) (0.0-6.0) /HPF Urine Creatinine (0.1-20.0) mg/dL 05/18/22 05/18/22 05/19/22 Range/Units 23:18 23:18 06:56 WBC 17.3 H (4.5-11.0) K/mm3 RBC 3.09 L (3.65-5.03) M/mm3 Hgb 9.3 L (10.1-14.3) gm/dl Hct 28.4 L (30.3-42.9) % Plt Count 642 H (140-440) K/mm3 Lymph % (Auto) 11.0 L (13.4-35.0) % [place] % (Auto) (0.0-7.3) % [place] # (Auto) 1.0 H (0.0-0.8) K/mm3 Seg Neutrophils % 80.4 H (40.0-70.0) % Seg Neutrophils # 13.9 H (1.8-7.7) K/mm3 Sodium (137-145) mmol/L Carbon Dioxide (22-30) mmol/L BUN (7-17) mg/dL Creatinine (0.6-1.2) mg/dL Glucose (65-100) mg/dL Lactic Acid (0.7-2.0) mmol/L ALT (7-56) units/L Albumin (3.9-5) g/dL Urine WBC (Auto) > 182.0 H (0.0-6.0) /HPF Urine Creatinine 73.3 H (0.1-20.0) mg/dL / Range/Units 06:56 WBC (4.5-11.0) K/mm3 RBC (3.65-5.03) M/mm3 Hgb (10.1-14.3) gm/dl Hct (30.3-42.9) % Plt Count (140-440) K/mm3 Lymph % (Auto) (13.4-35.0) % [place] % (Auto) (0.0-7.3) % [place] # (Auto) (0.0-0.8) K/mm3 Seg Neutrophils % (40.0-70.0) % Seg Neutrophils # (1.8-7.7) K/mm3 Sodium 133 L (137-145) mmol/L Carbon Dioxide 14 L (22-30) mmol/L BUN 56 H (7-17) mg/dL Creatinine 2.9 H (0.6-1.2) mg/dL Glucose 240 H (65-100) mg/dL Lactic Acid (0.7-2.0) mmol/L ALT 6 L (7-56) units/L Albumin 3.2 L (3.9-5) g/dL Urine WBC (Auto) (0.0-6.0) /HPF Urine Creatinine (0.1-20.0) mg/dL Assessment and Plan The patient is a 56-year-old female with diabetes and diabetic neuropathy who presents with ulceration and cyanotic changes to her left first toe. Although she has a palpable posterior tibial pulse I am unable to palpate the dorsalis pedis pulse. The patient will require an arterial duplex with ABIs to evaluate for adequate arterial flow to heal a left first toe amputation. I discussed this plan with the patient including the need for a left first toe amputation and possible angiogram depending on the findings of the ultrasound. The patient has expressed understanding and agrees with the plan.
[2022-05-19] MEDS: CEFEPIME/NS 2 GM/100 ML 2 GM/100 ML BAG IV SCH (12:52)
[2022-05-19] MEDS: DOCUSATE SODIUM 100 MG CAP PO SCH ×3 (12:52→21:55)
--- NOTE | 2022-05-19 13:13 | Consultation ---
History of Present Illness Consult date: 05/19/22 Chief complaint: left great toe infection - History of present illness History of present illness: 56 yo F with hx of poorly controlled DM, neuropathy who presented to ER with c/o pain and swelling in her left great toe. The symptoms have been ongoing for at least 1 month. She has hit the toe multiple times at home. The toe then became disolored and painful. No f/c, cp, sob. She has never had anything like this before. When she presented to ER, there was purulent drainage from the toe and maggots present per ER physician. The patient smoke 1 PPD. Past History Past Medical History: diabetes, hypertension, hyperlipidemia Past Surgical History: No surgical history Social history: single, smoking. denies: alcohol abuse, prescription drug abuse Family history: diabetes, hypertension Medications and Allergies Allergies Allergy/AdvReac Type Severity Reaction Status Date / Time No Known Allergies Allergy Verified 05/18/22 15:31 Home Medications Medication Instructions Recorded Confirmed Last Taken Type metFORMIN [Glucophage] 1,000 mg PO BID #60 tablet 12/29/17 05/19/22 05/18/22 06:00 Rx Active Meds: Active Medications Acetaminophen (Acetaminophen 325 Mg Tab) 650 mg PO Q4H PRN PRN Reason: Pain MILD(1-3)/Fever >100.5/AVILA Albuterol (Albuterol 2.5 Mg/3 Ml Nebu) 2.5 mg IH Q4HRT PRN PRN Reason: Shortness Of Breath Dextrose (Dextrose 50% In Water (25gm) 50 Ml Syringe) 50 ml IV Q30MIN PRN; Protocol PRN Reason: Hypoglycemia Docusate Sodium (Docusate Sodium 100 Mg Cap) 100 mg PO BID [facility] Last Admin: 05/19/22 12:52 Dose: 100 mg Hydromorphone HCl (Hydromorphone 1 Mg/1 Ml Inj) 1 mg IV Q8H PRN PRN Reason: Pain , Severe (7-10) Last Admin: 05/19/22 10:27 Dose: 1 mg Cefepime HCl (Cefepime/Ns 2 Gm/100 Ml) 2 gm in 100 mls @ 200 mls/hr IV Q24H [facility] Last Admin: 05/19/22 12:52 Dose: 200 mls/hr Sodium Bicarbonate 150 meq/ (Sterile Water) 1,150 mls @ 150 mls/hr IV DIRECT [facility] Stop: 05/23/22 18:39 Sodium Chloride (Nacl 0.9% 1000 Ml) 1,000 mls @ 100 mls/hr IV DIRECT [facility] Stop: 05/20/22 09:44 Last Admin: 05/19/22 10:24 Dose: 100 mls/hr Insulin Human Lispro (Insulin Lispro 100 Unit/Ml) 0 unit SUB-Q ACHS [facility]; Protocol Last Admin: 05/19/22 12:51 Dose: 2 unit Ondansetron HCl (Ondansetron 4 Mg/2 Ml Inj) 4 mg IV Q8H PRN PRN Reason: Nausea And Vomiting Oxycodone/Acetaminophen (Oxycodone /Acetaminophen 5-325mg Tab) 2 tab PO Q6H PRN PRN Reason: Pain, Moderate (4-6) Sodium Bicarbonate (Sodium Bicarb 8.4% 50 Meq/50 Ml Syringe) 100 meq IV ONCE@0920 NR Stop: 05/19/22 14:00 Last Admin: 05/19/22 13:04 Dose: 100 meq Sodium Chloride (Sodium Chloride 0.9% 10 Ml Flush Syringe) 10 ml IV BID [facility] Last Admin: 05/19/22 10:29 Dose: 10 ml Sodium Chloride (Sodium Chloride 0.9% 10 Ml Flush Syringe) 10 ml IV PRN PRN PRN Reason: LINE FLUSH Review of Systems All systems: negative (10 pt ros performed and negative except for that listed in HPI) Exam Vital Signs Temp Pulse Resp BP Pulse Ox 98.7 F 109 H 14 126/72 98 05/18/22 15:29 05/18/22 15:29 05/18/22 15:29 05/18/22 15:29 05/18/22 15:29 Narrative exam: Gen; AAOx3. NAD ENT: no scleral icterus or conjunctival pallor CV: S1, S2+ Resp; even and unlabored Ext; L great toe is swollen with erythema extending over MTP and cyanosis at distal aspect. No active drainage. Foot warm. Results - Labs 05/19/22 06:56 05/19/22 06:56 Abnormal lab results 05/18/22 05/18/22 05/18/22 Range/Units 16:40 16:40 16:40 WBC 15.4 H (4.5-11.0) K/mm3 RBC 3.13 L (3.65-5.03) M/mm3 Hgb 9.3 L (10.1-14.3) gm/dl Hct 29.2 L (30.3-42.9) % Plt Count 598 H (140-440) K/mm3 Lymph % (Auto) (13.4-35.0) % [place] % (Auto) 8.4 H (0.0-7.3) % [place] # (Auto) 1.3 H (0.0-0.8) K/mm3 Seg Neutrophils % 73.6 H (40.0-70.0) % Seg Neutrophils # 11.3 H (1.8-7.7) K/mm3 Sodium 134 L (137-145) mmol/L Carbon Dioxide 14 L (22-30) mmol/L BUN 75 H (7-17) mg/dL Creatinine 4.1 H (0.6-1.2) mg/dL Glucose 165 H (65-100) mg/dL Lactic Acid 0.60 L (0.7-2.0) mmol/L ALT 5 L (7-56) units/L Albumin 3.2 L (3.9-5) g/dL Urine WBC (Auto) (0.0-6.0) /HPF Urine Creatinine (0.1-20.0) mg/dL 05/18/22 05/18/22 05/19/22 Range/Units 23:18 23:18 06:56 WBC 17.3 H (4.5-11.0) K/mm3 RBC 3.09 L (3.65-5.03) M/mm3 Hgb 9.3 L (10.1-14.3) gm/dl Hct 28.4 L (30.3-42.9) % Plt Count 642 H (140-440) K/mm3 Lymph % (Auto) 11.0 L (13.4-35.0) % [place] % (Auto) (0.0-7.3) % [place] # (Auto) 1.0 H (0.0-0.8) K/mm3 Seg Neutrophils % 80.4 H (40.0-70.0) % Seg Neutrophils # 13.9 H (1.8-7.7) K/mm3 Sodium (137-145) mmol/L Carbon Dioxide (22-30) mmol/L BUN (7-17) mg/dL Creatinine (0.6-1.2) mg/dL Glucose (65-100) mg/dL Lactic Acid (0.7-2.0) mmol/L ALT (7-56) units/L Albumin (3.9-5) g/dL Urine WBC (Auto) > 182.0 H (0.0-6.0) /HPF Urine Creatinine 73.3 H (0.1-20.0) mg/dL 05/19/22 Range/Units 06:56 WBC (4.5-11.0) K/mm3 RBC (3.65-5.03) M/mm3 Hgb (10.1-14.3) gm/dl Hct (30.3-42.9) % Plt Count (140-440) K/mm3 Lymph % (Auto) (13.4-35.0) % [place] % (Auto) (0.0-7.3) % [place] # (Auto) (0.0-0.8) K/mm3 Seg Neutrophils % (40.0-70.0) % Seg Neutrophils # (1.8-7.7) K/mm3 Sodium 133 L (137-145) mmol/L Carbon Dioxide 14 L (22-30) mmol/L BUN 56 H (7-17) mg/dL Creatinine 2.9 H (0.6-1.2) mg/dL Glucose 240 H (65-100) mg/dL Lactic Acid (0.7-2.0) mmol/L ALT 6 L (7-56) units/L Albumin 3.2 L (3.9-5) g/dL Urine WBC (Auto) (0.0-6.0) /HPF Urine Creatinine (0.1-20.0) mg/dL Diabetes panel 05/18/22 05/19/22 Range/Units 16:40 06:56 Sodium 134 L 133 L (137-145) mmol/L Potassium 4.0 4.2 (3.6-5.0) mmol/L Chloride 107.0 106.0 (98-107) mmol/L Carbon Dioxide 14 L 14 L (22-30) mmol/L BUN 75 H 56 H (7-17) mg/dL Creatinine 4.1 H 2.9 H (0.6-1.2) mg/dL Glucose 165 H 240 H (65-100) mg/dL Calcium 9.0 8.4 (8.4-10.2) mg/dL AST 6 8 (5-40) units/L ALT 5 L 6 L (7-56) units/L Alkaline Phosphatase 118 120 (35-129) units/L Total Protein 6.4 6.3 (6.3-8.2) g/dL Albumin 3.2 L 3.2 L (3.9-5) g/dL Calcium panel 05/18/22 05/19/22 Range/Units 16:40 06:56 Calcium 9.0 8.4 (8.4-10.2) mg/dL Albumin 3.2 L 3.2 L (3.9-5) g/dL Pituitary panel 05/18/22 05/19/22 Range/Units 16:40 06:56 Sodium 134 L 133 L (137-145) mmol/L Potassium 4.0 4.2 (3.6-5.0) mmol/L Chloride 107.0 106.0 (98-107) mmol/L Carbon Dioxide 14 L 14 L (22-30) mmol/L BUN 75 H 56 H (7-17) mg/dL Creatinine 4.1 H 2.9 H (0.6-1.2) mg/dL Glucose 165 H 240 H (65-100) mg/dL Calcium 9.0 8.4 (8.4-10.2) mg/dL Adrenal panel 05/18/22 05/19/22 Range/Units 16:40 06:56 Sodium 134 L 133 L (137-145) mmol/L Potassium 4.0 4.2 (3.6-5.0) mmol/L Chloride 107.0 106.0 (98-107) mmol/L Carbon Dioxide 14 L 14 L (22-30) mmol/L BUN 75 H 56 H (7-17) mg/dL Creatinine 4.1 H 2.9 H (0.6-1.2) mg/dL Glucose 165 H 240 H (65-100) mg/dL Calcium 9.0 8.4 (8.4-10.2) mg/dL Total Bilirubin 0.20 < 0.20 (0.1-1.2) mg/dL AST 6 8 (5-40) units/L ALT 5 L 6 L (7-56) units/L Alkaline Phosphatase 118 120 (35-129) units/L Total Protein 6.4 6.3 (6.3-8.2) g/dL Albumin 3.2 L 3.2 L (3.9-5) g/dL - Imaging Additional studies: Xray L foot Assessment and Plan 56 yo F with 1. Gangrene of left great toe 2. PAD 3. Osteomyelitis 4. Diabetes mellitus 5. CELY Plan: 1. Vascular u/s pending 2. Vascular surgery on board 3. prn pain control 4. IV abx 5. wound care 6. strict glucose control. Obtain HbA1C 7. Nephro consult pending 8. Recommend ID consult 9. Recommend amputation of left great toe. Pending vascular eval to ensure this amp will heal. Thank you for this consultation, please call with questions
[2022-05-19] MEDS: SODIUM BICARBONATE 150 MEQ in WATER FOR INJECTION (PF) 1,000 ML IV SCH ×2 (13:25→23:30)
--- NOTE | 2022-05-19 15:51 | Vascular Lab Report ---
DUPLEX DOPPLER LOWER EXTREMITY ARTERIAL, BILATERAL INDICATION / CLINICAL INFORMATION: left foot gangrene. TECHNIQUE: Arterial duplex examination of both lower extremities performed using B-mode, color flow and spectral Doppler assessment. FINDINGS: RIGHT: Common Femoral Artery: PSV 384 cm/sec. Biphasic waveform. Proximal SFA: PSV 161 cm/sec. Monophasic waveform. Mid SFA: PSV 152 cm/sec. Monophasic waveform. Distal SFA: PSV 60 cm/sec. Monophasic waveform. Popliteal artery: PSV 39 cm/sec. Monophasic waveform. Posterior tibial artery: PSV 32 cm/sec. Monophasic waveform. Dorsalis Pedis Artery: PSV 18 cm/sec. Monophasic waveform. LEFT: Common Femoral Artery: PSV 253 cm/sec. Triphasic waveform. Proximal SFA: PSV 125 cm/sec. Monophasic waveform. Mid SFA: PSV 53 cm/sec. Monophasic waveform. Distal SFA: PSV 44 cm/sec. Monophasic waveform. Popliteal artery: PSV 50 cm/sec. Monophasic waveform. Posterior tibial artery: PSV 25 cm/sec. Monophasic waveform. Dorsalis Pedis Artery: PSV 31 cm/sec. Monophasic waveform. IMPRESSION: 1. Hemodynamically significant bilateral peripheral arterial disease with increased velocities in the femoral arteries and monophasic waveforms with decreased velocity in the distal arteries. Doppler Waveform: - Triphasic is normal. - Biphasic is abnormal if clear transition from triphasic signal along vascular tree. - Monophasic is abnormal. Signer Name: Román Mead MD Signed: 05/19/2022 3:46 PM Workstation Name: [id number]
--- NOTE | 2022-05-19 15:52 | Progress Note ---
Assessment and Plan 56 yo F with hx of poorly controlled DM, neuropathy, tobacco abuse who presented to ER with c/o pain and swelling in her left great toe for at least 1 month. When she presented to ER, there was purulent drainage from the toe and maggots present per ER physician. In the ER Patient underwent x-ray of the left foot and was found to have left foot osteomyelitis complicated by cellulitis, sepsis and also found to have acute kidney injury. 05/19: cont iv abx, follow blood cx. pending doppler study. Cr improving, cont bicarbonate fluid. may need amputation Assessment and plan: --Sepsis with cellulitis of left foot --Osteomylitis and Gangrene of left great toe -- PAD with tobacco abuse -- Diabetic neuropathy -- Diabetes mellitus type 2 uncontrolled -- CELY with possible ATN --Metabolic acidosis Plan: -- cont empiric abx --Vascular/GS/nephrology consult placed --Vascular u/s pending -- prn pain control -- Wound care, strict glucose control. Obtain HbA1C --will do ID consult, may need amputation of left great toe. Pending vascular eval to ensure this amp will heal. --Monitor BMP,iv fluid , avoid nephrotoxic -- follow blood cx Subjective Date of service: 05/19/22 Interval history: Patient seen and examined. Medical records and medication list reviewed. No acute event overnight noted by the RN. Patient denies any chest pain or difficulty breathing. Patient is tolerating diet. Complains of left foot pain Discussed plan of care at bedside with patient. Objective - Exam Narrative Exam: GENERAL: WF lying on bed appeared to be in no discomfort. HEENT: Normocephalic. Atraumatic. No conjunctival congestion or icterus. Patient has moist mucous membranes. NECK: Supple. Trachea midline. CHEST/LUNGS: Clear to auscultated bilaterally, breathing nonlabored. No wheezes crackles or rhonchi. HEART/CARDIOVASCULAR: Regular in rate and rhythm. S1 and S2 positive. ABDOMEN: Abdomen is soft, nontender. Patient has normal bowel sounds. SKIN: There is no rash. Warm and dry. NEURO: No focal motor deficit. Follows command. MUSCULOSKELETAL: left great toe swelling and tenderness EXTRIMITY: L great toe is swollen with erythema extending over MTP and cyanosis at distal aspect. No active drainage. Foot warm. PSYCH: Cooperative. - Constitutional Vitals: Vital Signs - 12hr 05/19/22 05/19/22 05/19/22 04:00 04:10 04:20 Temperature Pulse Rate 78 69 70 Respiratory 16 12 14 Rate Blood Pressure 119/92 119/92 119/92 O2 Sat by Pulse 97 96 96 Oximetry 05/19/22 05/19/22 05/19/22 04:30 04:40 04:50 Temperature Pulse Rate 69 71 76 Respiratory 13 11 L 14 Rate Blood Pressure 119/92 119/92 119/92 O2 Sat by Pulse 96 96 96 Oximetry 05/19/22 05/19/22 05/19/22 04:51 05:00 05:10 Temperature 97.6 F Pulse Rate 73 69 Respiratory 14 14 Rate Blood Pressure 119/92 119/92 O2 Sat by Pulse 96 96 Oximetry 05/19/22 05/19/22 05/19/22 05:20 05:30 05:40 Temperature Pulse Rate 76 68 64 Respiratory 14 14 10 L Rate Blood Pressure 119/92 119/92 119/92 O2 Sat by Pulse 97 97 98 Oximetry 05/19/22 08:42 Temperature Pulse Rate Respiratory Rate Blood Pressure O2 Sat by Pulse 98 Oximetry - Labs CBC & Chem 7: 05/19/22 06:56 05/21/22 05:41 Labs: Abnormal lab results 05/18/22 05/18/22 05/18/22 Range/Units 16:40 16:40 16:40 WBC 15.4 H (4.5-11.0) K/mm3 RBC 3.13 L (3.65-5.03) M/mm3 Hgb 9.3 L (10.1-14.3) gm/dl Hct 29.2 L (30.3-42.9) % Plt Count 598 H (140-440) K/mm3 Lymph % (Auto) (13.4-35.0) % [place] % (Auto) 8.4 H (0.0-7.3) % [place] # (Auto) 1.3 H (0.0-0.8) K/mm3 Seg Neutrophils % 73.6 H (40.0-70.0) % Seg Neutrophils # 11.3 H (1.8-7.7) K/mm3 Sodium 134 L (137-145) mmol/L Carbon Dioxide 14 L (22-30) mmol/L BUN 75 H (7-17) mg/dL Creatinine 4.1 H (0.6-1.2) mg/dL Glucose 165 H (65-100) mg/dL Hemoglobin A1c (4-6) % Lactic Acid 0.60 L (0.7-2.0) mmol/L ALT 5 L (7-56) units/L Albumin 3.2 L (3.9-5) g/dL Urine WBC (Auto) (0.0-6.0) /HPF Urine Creatinine (0.1-20.0) mg/dL 05/18/22 05/18/22 05/19/22 Range/Units 23:18 23:18 06:56 WBC 17.3 H (4.5-11.0) K/mm3 RBC 3.09 L (3.65-5.03) M/mm3 Hgb 9.3 L (10.1-14.3) gm/dl Hct 28.4 L (30.3-42.9) % Plt Count 642 H (140-440) K/mm3 Lymph % (Auto) 11.0 L (13.4-35.0) % [place] % (Auto) (0.0-7.3) % [place] # (Auto) 1.0 H (0.0-0.8) K/mm3 Seg Neutrophils % 80.4 H (40.0-70.0) % Seg Neutrophils # 13.9 H (1.8-7.7) K/mm3 Sodium (137-145) mmol/L Carbon Dioxide (22-30) mmol/L BUN (7-17) mg/dL Creatinine (0.6-1.2) mg/dL Glucose (65-100) mg/dL Hemoglobin A1c (4-6) % Lactic Acid (0.7-2.0) mmol/L ALT (7-56) units/L Albumin (3.9-5) g/dL Urine WBC (Auto) > 182.0 H (0.0-6.0) /HPF Urine Creatinine 73.3 H (0.1-20.0) mg/dL 05/19/22 05/19/22 Range/Units 06:56 06:56 WBC (4.5-11.0) K/mm3 RBC (3.65-5.03) M/mm3 Hgb (10.1-14.3) gm/dl Hct (30.3-42.9) % Plt Count (140-440) K/mm3 Lymph % (Auto) (13.4-35.0) % [place] % (Auto) (0.0-7.3) % [place] # (Auto) (0.0-0.8) K/mm3 Seg Neutrophils % (40.0-70.0) % Seg Neutrophils # (1.8-7.7) K/mm3 Sodium 133 L (137-145) mmol/L Carbon Dioxide 14 L (22-30) mmol/L BUN 56 H (7-17) mg/dL Creatinine 2.9 H (0.6-1.2) mg/dL Glucose 240 H (65-100) mg/dL Hemoglobin A1c 9.1 H (4-6) % Lactic Acid (0.7-2.0) mmol/L ALT 6 L (7-56) units/L Albumin 3.2 L (3.9-5) g/dL Urine WBC (Auto) (0.0-6.0) /HPF Urine Creatinine (0.1-20.0) mg/dL
--- NOTE | 2022-05-19 18:07 | Vascular Lab Report ---
Limited JAYY Ultrasound HISTORY: left foot gangrene. TECHNIQUE: Grayscale and Doppler imaging performed. COMPARISON: Arterial ultrasound from the same date FINDINGS: Right-sided JAYY is 0.7 and the left is 1.0. IMPRESSION: Abnormal right-sided JAYY suggesting moderate atherosclerotic disease. The left-sided JAYY is technically normal. Signer Name: Urban Doshi MD Signed: 05/19/2022 6:03 PM Workstation Name: [id number]
--- NOTE | 2022-05-19 18:43 | Consultation ---
History of Present Illness - Reason for Consult Consult date: 05/19/22 acute renal failure - History of Present Illness This is a 56-year-old with history of hypertension, diabetes, hyperlipidemia and schizophrenia who presented to the emergency department with foot pain, patient was subsequently admitted with osteomyelitis. Nephrology was consulted for acute kidney injury. Patient notes history of NSAID use. She denies hematuria, dysuria and history of kidney stones Past History Past Medical History: diabetes, hypertension, hyperlipidemia Past Surgical History: No surgical history Social history: single, smoking. denies: alcohol abuse, prescription drug abuse Family history: diabetes, hypertension Medications and Allergies Allergies Allergy/AdvReac Type Severity Reaction Status Date / Time No Known Allergies Allergy Verified 05/18/22 15:31 Home Medications Medication Instructions Recorded Confirmed Last Taken Type metFORMIN [Glucophage] 1,000 mg PO BID #60 tablet 12/29/17 05/19/22 05/18/22 06:00 Rx Active Meds: Active Medications Acetaminophen (Acetaminophen 325 Mg Tab) 650 mg PO Q4H PRN PRN Reason: Pain MILD(1-3)/Fever >100.5/AVILA Albuterol (Albuterol 2.5 Mg/3 Ml Nebu) 2.5 mg IH Q4HRT PRN PRN Reason: Shortness Of Breath Dextrose (Dextrose 50% In Water (25gm) 50 Ml Syringe) 50 ml IV Q30MIN PRN; Protocol PRN Reason: Hypoglycemia Docusate Sodium (Docusate Sodium 100 Mg Cap) 100 mg PO BID [facility] Last Admin: 05/19/22 18:30 Dose: Not Given Hydromorphone HCl (Hydromorphone 1 Mg/1 Ml Inj) 1 mg IV Q8H PRN PRN Reason: Pain , Severe (7-10) Last Admin: 05/19/22 10:27 Dose: 1 mg Cefepime HCl (Cefepime/Ns 2 Gm/100 Ml) 2 gm in 100 mls @ 200 mls/hr IV Q24H [facility] Last Admin: 05/19/22 12:52 Dose: 200 mls/hr Sodium Bicarbonate 150 meq/ (Sterile Water) 1,150 mls @ 150 mls/hr IV DIRECT TATUM Stop: 05/23/22 18:39 Last Admin: 05/19/22 13:25 Dose: 150 mls/hr Sodium Chloride (Nacl 0.9% 1000 Ml) 1,000 mls @ 100 mls/hr IV DIRECT TATUM Stop: 05/20/22 09:44 Last Admin: 05/19/22 10:24 Dose: 100 mls/hr Insulin Human Lispro (Insulin Lispro 100 Unit/Ml) 0 unit SUB-Q ACHS TATUM; Protocol Last Admin: 05/19/22 17:06 Dose: 2 unit Ondansetron HCl (Ondansetron 4 Mg/2 Ml Inj) 4 mg IV Q8H PRN PRN Reason: Nausea And Vomiting Oxycodone/Acetaminophen (Oxycodone /Acetaminophen 5-325mg Tab) 2 tab PO Q6H PRN PRN Reason: Pain, Moderate (4-6) Sodium Chloride (Sodium Chloride 0.9% 10 Ml Flush Syringe) 10 ml IV BID [facility] Last Admin: 05/19/22 10:29 Dose: 10 ml Sodium Chloride (Sodium Chloride 0.9% 10 Ml Flush Syringe) 10 ml IV PRN PRN PRN Reason: LINE FLUSH Review of Systems All systems: negative Musculoskeletal: other (foot pain) Exam - Vital Signs Vital signs: Vital Signs Temp Pulse Resp BP Pulse Ox 98.7 F 109 H 14 126/72 98 05/18/22 15:29 05/18/22 15:29 05/18/22 15:29 05/18/22 15:29 05/18/22 15:29 - Physical Exam Narrative exam: General: No acute distress HEENT: Oral mucosa moist Neck: Supple, no JVD Chest: Clear to auscultation bilaterally Heart: RRR, S1 and S2, no pericardial rub Abdomen: Soft, nontender, no renal bruit Extremity: No peripheral cyanosis, edema Neurological: Alert, awake, no asterixis Dermatology: No skin rash Psych: No agitation Musculoskeletal: No joint effusion Results - Lab Results 05/19/22 06:56 05/19/22 06:56 Most recent lab results Calcium 8.4 mg/dL (8.4-10.2) 05/19/22 06:56 Urine Creatinine 73.3 mg/dL (0.1-20.0) H 05/18/22 23:18 Urine Sodium 55 mmol/L 05/18/22 23:18 Assessment and Plan Acute kidney injury Hyponatremia Acidosis Osteomyelitis Check urinalysis, UPCR Check renal ultrasound S/p sodium bicarb push 1 Start sodium bicarb tabs Renally dose medications Avoid nephrotoxins Renal diet Keep glucose < 180 mg/dl Strict I/O
[2022-05-19] MEDS: SODIUM BICARBONATE 650 MG TAB PO SCH (21:55)
[2022-05-20] MEDS: HYDROmorphone 1 MG/1 ML INJ IV PRN ×2 (06:17→17:47)
[2022-05-20 07:26] LABS: Calcium 8.2 mg/dL (8.4-10.2)
[2022-05-20] MEDS: INSULIN LISPRO 100 UNIT/ML SUB-Q SCH ×4 (07:30→22:16)
[2022-05-20] MEDS: SODIUM BICARBONATE 650 MG TAB PO SCH ×3 (08:00→22:15)
--- NOTE | 2022-05-20 08:34 | Ultrasound Report ---
ULTRASOUND RENAL INDICATION: CELY. COMPARISON: No relevant prior imaging study available. FINDINGS: RIGHT KIDNEY: Size: 11.3 cm. Echogenicity: Normal. Cortical thickness: Normal. Stones: None. Hydronephrosis: None. Cyst or mass: None. LEFT KIDNEY: Size: 10.2 cm. Echogenicity: Normal. Cortical thickness: Normal. Stones: None. Hydronephrosis: None. Cyst or mass: None. Urinary Bladder: No significant abnormality. Free Fluid: None. Additional Findings: None. IMPRESSION 1. Suboptimal visualization the left kidney due to overlying bowel gas. Accounting for this, no acute findings. Signer Name: Zac Catalan MD Signed: 05/20/2022 8:30 AM Workstation Name: [email or web address]
[2022-05-20] MEDS: oxyCODONE /ACETAMINOPHEN 5-325MG TAB PO PRN ×2 (09:04→22:19)
[2022-05-20] MEDS: DOCUSATE SODIUM 100 MG CAP PO SCH ×2 (09:08→22:15)
[2022-05-20] MEDS: POTASSIUM CHLORIDE 10 MEQ 10 MEQ/100 ML BAG IV SCH ×2 (10:58→12:00)
--- NOTE | 2022-05-20 11:50 | Event Note ---
Date: 05/20/22 Pt chart reviewed. B/L LE duplex revealed hemodynamically significant bilateral PAD with increased velocities in the femoral arteries and monophasic waveforms and decreased velocities in distal arteries. 56 yo F with 1. Gangrene of left great toe 2. PAD 3. Osteomyelitis 4. Poorly controlled diabetes mellitus - Hb 9.1 5. CELY Plan: 1. Vascular surgery on board 2. prn pain control 3. IV abx 4. wound care 5. strict glucose control. 6. Nephro on board 7. Recommend ID consult 8. Recommend amputation of left great toe. Await vascular surgery plans for revasc Thank you for this consultation, please call with questions
[2022-05-20] MEDS: CEFEPIME/NS 2 GM/100 ML 2 GM/100 ML BAG IV SCH (12:00)
--- NOTE | 2022-05-20 13:01 | Progress Note ---
Assessment and Plan Acute kidney injury Hyponatremia Hypokalemia Acidosis Osteomyelitis Toe gangrene Renal ultrasound unremarkable, concerns for poor visualization noted Replete K to goal range S/p sodium bicarb push 1 Stop sodium bicarb IVF Renally dose medications Avoid nephrotoxins Renal diet Keep glucose < 180 mg/dl Strict I/O Subjective Date of service: 05/20/22 Principal diagnosis: Gangerene Interval history: Sleeping on visit, awakens to verbal stimuli. Nursing, interdisciplinary and consult notes were reviewed Vitals, input and output, medications and labs were reviewed Objective - Exam Narrative Exam: General: No acute distress HEENT: Oral mucosa moist Neck: Supple, no JVD Chest: Clear to auscultation bilaterally Heart: RRR, S1 and S2, no pericardial rub Abdomen: Soft, nontender, no renal bruit Extremity: No peripheral cyanosis, edema Neurological: Alert, awake, no asterixis Dermatology: No skin rash Psych: No agitation Musculoskeletal: No joint effusion - Vital Signs Vital signs: Vital Signs - 12hr 05/20/22 03:34 Temperature 97.9 F Pulse Rate 78 Respiratory 16 Rate Blood Pressure 138/67 [Left] O2 Sat by Pulse 100 Oximetry - Lab 05/19/22 06:56 05/20/22 06:13 Most recent lab results Calcium 8.2 mg/dL (8.4-10.2) L 05/20/22 06:13 Urine Creatinine 73.3 mg/dL (0.1-20.0) H 05/18/22 23:18 Urine Sodium 55 mmol/L 05/18/22 23:18 Medications & Allergies - Medications Allergies/Adverse Reactions: Allergies No Known Allergies Allergy (Verified 05/18/22 15:31) Home Medications: Home Medications Medication Instructions Recorded Confirmed Last Taken Type No Known Home Medications [No 05/20/22 05/20/22 Unknown History Reported Home Medications] Active Medications: Generic Name Dose Route Start Last Admin Trade Name Freq PRN Reason Stop Dose Admin Acetaminophen 650 mg 05/18/22 20:20 Acetaminophen 325 Mg Tab PO Q4H PRN Pain MILD(1-3)/Fever >100.5/AVILA Albuterol 2.5 mg 05/18/22 20:20 Albuterol 2.5 Mg/3 Ml Nebu IH Q4HRT PRN Shortness Of Breath Dextrose 50 ml 05/18/22 20:25 Dextrose 50% In Water (25gm) 50 Ml Syringe IV Q30MIN PRN Hypoglycemia Protocol Docusate Sodium 100 mg 05/19/22 10:00 05/20/22 09:08 Docusate Sodium 100 Mg Cap PO Not Given BID TATUM Hydromorphone HCl 1 mg 05/19/22 09:55 05/20/22 06:17 Hydromorphone 1 Mg/1 Ml Inj IV 1 mg Q8H PRN Administration Pain , Severe (7-10) Cefepime HCl 2 gm in 100 mls @ 200 mls/hr 05/19/22 12:00 05/19/22 12:52 Cefepime/Ns 2 Gm/100 Ml IV 200 mls/hr Q24H [facility]ATUM Administration Sodium Bicarbonate 150 meq/ 1,150 mls @ 150 mls/hr 05/19/22 11:00 05/19/22 23:30 Sterile Water IV 05/23/22 18:39 150 mls/hr DIRECT TATUM Administration Potassium Chloride 10 meq in 100 mls @ 100 mls/hr 05/20/22 11:00 05/20/22 10:58 Kcl 10meq/100ml IV 05/20/22 12:59 100 mls/hr Q1H TATUM Administration Vancomycin HCl 1,250 mg/ 275 mls @ 166.667 mls/hr 05/20/22 18:00 Sodium Chloride IV 05/20/22 19:38 ONCE ONE Insulin Human Lispro 0 unit 05/18/22 22:00 05/20/22 07:30 Insulin Lispro 100 Unit/Ml SUB-Q Not Given ACHS TATUM Protocol Ondansetron HCl 4 mg 05/18/22 20:20 Ondansetron 4 Mg/2 Ml Inj IV Q8H PRN Nausea And Vomiting Oxycodone/Acetaminophen 2 tab 05/19/22 09:46 05/20/22 09:04 Oxycodone /Acetaminophen 5-325mg Tab PO 2 tab Q6H PRN Administration Pain, Moderate (4-6) Sodium Bicarbonate 1,300 mg 05/19/22 20:00 05/20/22 08:00 Sodium Bicarbonate 650 Mg Tab PO 1,300 mg TID TATUM Administration Sodium Chloride 10 ml 05/18/22 22:00 05/20/22 09:04 Sodium Chloride 0.9% 10 Ml Flush Syringe IV 10 ml BID TATUM Administration Sodium Chloride 10 ml 05/18/22 20:20 Sodium Chloride 0.9% 10 Ml Flush Syringe IV PRN PRN LINE FLUSH
--- NOTE | 2022-05-20 13:18 | Progress Note ---
Assessment and Plan Patient underwent arterial duplex with ABIs. She has elevated velocities proximally would likely falsely elevated ABIs on the left. Patient will be scheduled for a left lower extremity angiogram with possible revascularization tomorrow to allow adequate arterial inflow to heal a planned first toe amputation with general surgery. Subjective Date of service: 05/20/22 Principal diagnosis: Gangerene Interval history: Patient with a history of left first toe gangrene. On examination, the patient had infiltration of her right upper arm IV with preserved pulses in her wrist on the right. Patient does complain of some pain secondary to swelling in her upper arm. Bandage in place covering left first toe gangrene. Objective - Constitutional Vitals: Vital Signs - 12hr 05/20/22 03:34 Temperature 97.9 F Pulse Rate 78 Respiratory 16 Rate Blood Pressure 138/67 [Left] O2 Sat by Pulse 100 Oximetry General appearance: Present: no acute distress - EENT Eyes: EOM intact - Neck Neck: normal ROM - Respiratory Respiratory effort: normal Extremities: abnormal - Gastrointestinal General gastrointestinal: Present: deferred Rectal Exam: deferred - Genitourinary Female genitourinary: deferred - Psychiatric Psychiatric: cooperative - Labs CBC & Chem 7: 05/19/22 06:56 05/20/22 06:13 Labs: Abnormal lab results 05/19/22 05/19/22 05/19/22 Range/Units 06:56 08:59 11:40 Potassium (3.6-5.0) mmol/L BUN (7-17) mg/dL Creatinine (0.6-1.2) mg/dL POC Glucose 187 H 160 H (70-105) mg/dL Hemoglobin A1c 9.1 H (4-6) % Calcium (8.4-10.2) mg/dL 05/19/22 05/19/22 05/20/22 Range/Units 16:22 21:14 06:13 Potassium 3.2 L D (3.6-5.0) mmol/L BUN 38 H (7-17) mg/dL Creatinine 2.2 H (0.6-1.2) mg/dL POC Glucose 173 H 184 H (70-105) mg/dL Hemoglobin A1c (4-6) % Calcium 8.2 L (8.4-10.2) mg/dL 05/20/22 Range/Units 11:33 Potassium (3.6-5.0) mmol/L BUN (7-17) mg/dL Creatinine (0.6-1.2) mg/dL POC Glucose 132 H (70-105) mg/dL Hemoglobin A1c (4-6) % Calcium (8.4-10.2) mg/dL Medications & Allergies - Medications Allergies/Adverse Reactions: Allergies No Known Allergies Allergy (Verified 05/18/22 15:31) Home Medications: Home Medications Medication Instructions Recorded Confirmed Last Taken Type No Known Home Medications [No 05/20/22 05/20/22 Unknown History Reported Home Medications] Active Medications: Generic Name Dose Route Start Last Admin Trade Name Freq PRN Reason Stop Dose Admin Acetaminophen 650 mg 05/18/22 20:20 Acetaminophen 325 Mg Tab PO Q4H PRN Pain MILD(1-3)/Fever >100.5/AVILA Albuterol 2.5 mg 05/18/22 20:20 Albuterol 2.5 Mg/3 Ml Nebu IH Q4HRT PRN Shortness Of Breath Dextrose 50 ml 05/18/22 20:25 Dextrose 50% In Water (25gm) 50 Ml Syringe IV Q30MIN PRN Hypoglycemia Protocol Docusate Sodium 100 mg 05/19/22 10:00 05/20/22 09:08 Docusate Sodium 100 Mg Cap PO Not Given BID TATUM Hydromorphone HCl 1 mg 05/19/22 09:55 05/20/22 06:17 Hydromorphone 1 Mg/1 Ml Inj IV 1 mg Q8H PRN Administration Pain , Severe (7-10) Cefepime HCl 2 gm in 100 mls @ 200 mls/hr 05/19/22 12:00 05/19/22 12:52 Cefepime/Ns 2 Gm/100 Ml IV 200 mls/hr Q24H [facility] Administration Vancomycin HCl 1,250 mg/ 275 mls @ 166.667 mls/hr 05/20/22 18:00 Sodium Chloride IV 05/20/22 19:38 ONCE ONE Insulin Human Lispro 0 unit 05/18/22 22:00 05/20/22 11:30 Insulin Lispro 100 Unit/Ml SUB-Q Not Given ACHS TATUM Protocol Ondansetron HCl 4 mg 05/18/22 20:20 Ondansetron 4 Mg/2 Ml Inj IV Q8H PRN Nausea And Vomiting Oxycodone/Acetaminophen 2 tab 05/19/22 09:46 05/20/22 09:04 Oxycodone /Acetaminophen 5-325mg Tab PO 2 tab Q6H PRN Administration Pain, Moderate (4-6) Sodium Bicarbonate 1,300 mg 05/19/22 20:00 05/20/22 08:00 Sodium Bicarbonate 650 Mg Tab PO 1,300 mg TID TATUM Administration Sodium Chloride 10 ml 05/18/22 22:00 05/20/22 09:04 Sodium Chloride 0.9% 10 Ml Flush Syringe IV 10 ml BID [facility]ATUM Administration Sodium Chloride 10 ml 05/18/22 20:20 Sodium Chloride 0.9% 10 Ml Flush Syringe IV PRN PRN LINE FLUSH
--- NOTE | 2022-05-20 16:22 | Progress Note ---
Assessment and Plan 56 yo F with hx of poorly controlled DM, neuropathy, tobacco abuse who presented to ER with c/o pain and swelling in her left great toe for at least 1 month. When she presented to ER, there was purulent drainage from the toe and maggots present per ER physician. In the ER Patient underwent x-ray of the left foot and was found to have left foot osteomyelitis complicated by cellulitis, sepsis and also found to have acute kidney injury. 05/19: cont iv abx, follow blood cx. pending doppler study. Cr improving, cont bicarbonate fluid. may need amputation 05/20: blood cx neg. cont empiric abx. B/L LE duplex revealed hemodynamically significant bilateral PAD with increased velocities in the femoral arteries and monophasic waveforms and decreased velocities in distal arteries. Patient will be scheduled for a left lower extremity angiogram with possible revascularization tomorrow to allow adequate arterial inflow to heal a planned first toe amputation with general surgery. Assessment and plan: --Sepsis with cellulitis of left foot --Osteomylitis and Gangrene of left great toe -- PAD with tobacco abuse -- Diabetic neuropathy -- Diabetes mellitus type 2 uncontrolled -- CELY with possible ATN --Metabolic acidosis Plan: -- cont empiric abx --Vascular/GS/nephrology consult placed --Vascular u/s suggestive for sig b/l PAD -- prn pain control -- Wound care, strict glucose control. Obtain HbA1C --will do ID consult, will need amputation of left great toe. plan for vascularization tomorrow --Monitor BMP,iv fluid , avoid nephrotoxic -- follow blood cx Subjective Date of service: 05/20/22 Principal diagnosis: Gangerene Interval history: Patient seen and examined. Medical records and medication list reviewed. No acute event overnight noted by the RN. Patient denies any chest pain or difficulty breathing. Patient is tolerating diet. Complains of left foot pain Discussed plan of care at bedside with patient. Objective - Exam Narrative Exam: GENERAL: WF lying on bed appeared to be in no discomfort. HEENT: Normocephalic. Atraumatic. No conjunctival congestion or icterus. Patient has moist mucous membranes. NECK: Supple. Trachea midline. CHEST/LUNGS: Clear to auscultated bilaterally, breathing nonlabored. No wheezes crackles or rhonchi. HEART/CARDIOVASCULAR: Regular in rate and rhythm. S1 and S2 positive. ABDOMEN: Abdomen is soft, nontender. Patient has normal bowel sounds. SKIN: There is no rash. Warm and dry. NEURO: No focal motor deficit. Follows command. MUSCULOSKELETAL: left great toe swelling and tenderness EXTRIMITY: L great toe is swollen with erythema extending over MTP and cyanosis at distal aspect. No active drainage. Foot warm. PSYCH: Cooperative. - Constitutional Vitals: Vital Signs - 12hr 05/20/22 05/20/22 10:00 10:09 Temperature 98.7 F Pulse Rate 82 Respiratory 16 Rate Blood Pressure 121/64 O2 Sat by Pulse 100 99 Oximetry - Labs CBC & Chem 7: 05/19/22 06:56 05/21/22 05:41 Labs: Abnormal lab results 05/19/22 05/19/22 05/19/22 Range/Units 08:59 11:40 16:22 Potassium (3.6-5.0) mmol/L BUN (7-17) mg/dL Creatinine (0.6-1.2) mg/dL POC Glucose 187 H 160 H 173 H (70-105) mg/dL Calcium (8.4-10.2) mg/dL 05/19/22 05/20/22 05/20/22 Range/Units 21:14 06:13 11:33 Potassium 3.2 L D (3.6-5.0) mmol/L BUN 38 H (7-17) mg/dL Creatinine 2.2 H (0.6-1.2) mg/dL POC Glucose 184 H 132 H (70-105) mg/dL Calcium 8.2 L (8.4-10.2) mg/dL
[2022-05-20] MEDS ORDERED: VANCOMYCIN 1,250 MG in SODIUM CHLORIDE 0.9% 250ML 250 ML IV ONE (18:00)
[2022-05-21 07:23] LABS: Calcium 7.7 mg/dL (8.4-10.2)
[2022-05-21] MEDS: INSULIN LISPRO 100 UNIT/ML SUB-Q SCH ×4 (07:30→22:14)
[2022-05-21] MEDS: SODIUM BICARBONATE 650 MG TAB PO SCH ×3 (08:00→22:12)
[2022-05-21] MEDS ORDERED: SODIUM CHLORIDE 0.9% 500 ML 500 ML ONE (09:57)
[2022-05-21] MEDS ORDERED: SODIUM CHLORIDE 0.9% 500 ML 500 ML IV SCH (10:00)
[2022-05-21] MEDS: DOCUSATE SODIUM 100 MG CAP PO SCH (10:00)
--- NOTE | 2022-05-21 10:03 | Event Note ---
Date: 05/21/22 Went to see patient but off floor for procedure. Chart reviewed - no change in condition. 56 yo F with 1. Gangrene of left great toe 2. PAD 3. Osteomyelitis 4. Poorly controlled diabetes mellitus - Hb 9.1 5. CELY Plan: 1. Angiogram today 2. prn pain control 3. IV abx 4. daily wound care 5. strict glucose control. 6. Nephro on board 7. Recommend ID consult 8. Recommend amputation of left great toe. Await results of angio today. If blood flow adequate to heal left great toe amp, will schedule for early next week. Thank you for this consultation, please call with questions
[2022-05-21] MEDS ORDERED: HEPARIN/NS 5000 UNIT/500ML 1,000 ML IR ONE (10:24)
[2022-05-21] MEDS ORDERED: LIDOCAINE (2%) 20 MG/1 ML VIAL 20 ML MDV INFILTRATI ONE (10:25)
--- NOTE | 2022-05-21 10:33 | Event Note ---
Date: 05/21/22 ID consult received for left great toe gangrene. Patient is off the floor for procedure. Chart reviewed. No fever. Labs showed leukocytosis. General surgery and vascular are on board. Recommendations: Continue empiric cefepime and vancomycin, renally adjusted Belkis Milian MD, FACP, [facility] O: [phone] F: [phone] C: [phone]
--- NOTE | 2022-05-21 10:46 | Operative Report ---
Operative Report Operative Report: Date of Procedure: 05/21/2022 Pre-operative Diagnosis: Peripheral Vascular Disease with Left First Toe Gangren e Post-operative Diagnosis: Same Procedure(s): 1. Ultrasound-Guided Access Right Common Femoral Artery 2. Diagnostic Aortogram (No Previous Films for Comparison) 3. Diagnostic Left Lower Extremity Angiogram (No Previous Films or Comparison) 4. Atherectomy with Angioplasty of Left SFA and Popliteal Artery with 2.1/3.0 Jetstream Atherectomy Catheter and 5.0 x 200 Marston Drug-Coated Balloon (x3) 5. Angioplasty of Left Anterior Tibial Artery with 4.0 x 150 Marston Drug-Coated Balloon 6. Closure of Right Femoral Arteriotomy with PerClose ProStyle Closure Device 7. Radiologic Supervision with Interpretation 8. Monitored Moderate Sedation (Total Anesthesia Time: 60 Minutes) Surgeon: Marshall Douglas M.D. Entry Level Programmer: None Anesthesia: Local/Monitored Moderate Sedation Total Anesthesia Time: 60 Minutes EBL: Minimal Counts: Correct Complications: None Condition: Stable Specimen: None Indication: The patient is a 56-year-old female with a history of poorly controlled diabetes and severe diabetic neuropathy who presented with complaints of hitting her left first toe and developing pain and darkness in the toe. Her arterial duplex demonstrated monophasic flow within bilateral lower extremities. She will likely require an amputation of the left first toe however prior to that amputation she requires an angiogram with possible intervention to ensure healing of the amputation site. She was given the risk, benefits, and alternative procedures and consented to the procedure. Angiographic Findings: The diagnostic aortogram revealed approximately 30% stenosis of a short segment in the infrarenal aorta just proximal to the inferior mesenteric artery. The remainder of the aorta was patent without evidence of aneurysmal dilatation or flow-limiting stenosis. The diagnostic left lower extremity angiogram revealed approximately 40% stenosis of the common femoral artery. There was diffuse stenosis throughout the SFA with 50 to 90% stenosis in the proximal mid SFA and a short segment occlusion in the distal SFA. The popliteal artery was diffusely diseased with 40 to 60% stenosis as well as a short segment occlusion in the mid popliteal artery. The anterior tibial artery was diffusely diseased in the proximal segment with 70 to 95% stenosis. The mid and distal segments were patent without significant flow-limiting stenosis. The tibioperoneal trunk had approxi mately 60% stenosis. The the posterior tibial artery occluded in the midsegment and reconstituted through collaterals from the peroneal artery which had approximately 50 to 60% stenosis in the proximal segment. After intervention the common femoral artery was patent with less than 15% residual stenosis. The majority of the SFA was patent with less than 15% residual stenosis however there was a short segment with approximately 25% residual stenosis that was not flow-limiting. The popliteal artery was patent with less than 15% residual stenosis however there was a segment behind the knee with approximately 25% residual stenosis that was nonflow limiting. The anterior tibial artery and peroneal artery were both patent with less than 20% residual stenosis. Description of Procedure: The patient was brought to the Full Stack Web Developer and laid in supine position. After timeout was performed her right groin was prepped and draped in normal sterile fashion. Ultrasound was used to identify the right common femoral artery and confirm patency. Once patency was confirmed the overlying skin and soft tissue was anesthetized lidocaine. An 11 blade was used to make a small stab incision and then a curved hemostat was used with ultrasound guidance to bluntly dissect down to the anterior surface of the right common femoral artery. A 21-gauge micropuncture needle was used ultrasound guidance to access the right common femoral artery in retrograde fashion. 0.018 micropuncture wire was advanced to the artery and after removing the needle a micropuncture sheath was placed by Seldinger technique. The dilator and wire were removed and a 0.035 J-wire was advanced to the artery. The micropuncture sheath was exchanged for 5 Czech sheath by Seldinger technique. An Omni Flush catheter and Bentson wire were advanced into the infrarenal aorta and a diagnostic aortogram was performed to previously described findings. The catheter and wire were advanced up and over the bifurcation and the left lower extremity angiogram was performed to previously described findings. I advanced the Bentson wire into the SFA and exchanged the 5 Czech sheath for a 7 Czech 45 cm destination sheath and at t hat point the patient was systemically heparinized with 5000 units of heparin IV. I used a vertebral catheter and a 0.018 V18 wire to traverse all occlusions and advanced a wire and catheter into the anterior tibial artery which was confirmed by angiogram. I exchanged the V 18 wire for 0.014 Thruway wire and then performed atherectomy of the SFA and popliteal artery using a 2.1/3.0 Jetstream Atherectomy Catheter. I then performed angioplasty of the popliteal artery and SFA using 5.0 x 200 Marston Drug-Coated Balloons (x3). This resulted in less than 15% residual stenosis throughout both arteries except for 2 short segment areas with 1 in the mid SFA and the other in the mid popliteal artery with a proximal 25% residual stenosis however this would not flow-limiting. I then performed angioplasty of the anterior tibial artery using a 4.0 x 150 Marston Drug-Coated Balloon which resulted in less than 20% residual stenosis. I pulled the wire back and advanced into the peroneal artery and performed angioplasty with a 3.0 x 220 Mitch Balloon which resulted in less than 20% residual stenosis. There was a significant amount of spasm within the anterior tibial and peroneal arteries so I injected a total of 1200 mcg of nitroglycerin which resulted in breaking of the spasm. At that point the wire was removed and I pulled the sheath back into the right external iliac artery. I advanced the Flotypeson wire to the aorta and then remove the sheath and used a PerClose ProStyle Closure Device to close the right femoral arteriotomy. A sterile dressing was then applied to the groin entry site and the patient was transported to the recovery area in stable condition.
[2022-05-21] MEDS: fentaNYL 100 MCG/2 ML INJ ONE ×2 (11:01→11:29)
[2022-05-21] MEDS: MIDAZOLAM 2 MG/2 ML INJ ONE ×2 (11:01→11:29)
[2022-05-21] MEDS ORDERED: HEPARIN 10,000 UNITS/10 ML VIAL ONE (11:15)
[2022-05-21] MEDS ORDERED: SODIUM CHLORIDE 0.9% 1000 ML 1,000 ML ONE (11:18)
[2022-05-21] MEDS ORDERED: NITROGLYCERIN DRIP 50 MG/250 ML BOTTLE ONE (11:49)
[2022-05-21] MEDS ORDERED: MIDAZOLAM 2 MG/2 ML INJ ONE (11:50)
[2022-05-21] MEDS ORDERED: fentaNYL 100 MCG/2 ML INJ ONE (11:51)
[2022-05-21] MEDS: CEFEPIME/NS 2 GM/100 ML 2 GM/100 ML BAG IV SCH (12:00)
[2022-05-21] MEDS ORDERED: CLOPIDOGREL 300 MG TAB ONE (12:11)
[2022-05-21] MEDS: HYDROmorphone 1 MG/1 ML INJ IV PRN (13:59)
--- NOTE | 2022-05-21 18:46 | Progress Note ---
Assessment and Plan Acute kidney injury. Cr. 4.1-->2.9-->2.2 Hyponatremia Hypokalemia Acidosis Osteomyelitis Toe gangrene Renal ultrasound unremarkable, concerns for poor visualization noted S/p K repletion to goal range S/p sodium bicarb push 1 Encouraged PO hydration Renally dose medications Avoid nephrotoxins Renal diet Keep glucose < 180 mg/dl Strict I/O Subjective Date of service: 05/21/22 Principal diagnosis: Gangerene Interval history: Resting in bed, more alert today. Nursing, interdisciplinary and consult notes were reviewed Vitals, input and output, medications and labs were reviewed Objective - Exam Narrative Exam: General: No acute distress HEENT: Oral mucosa moist Neck: Supple, no JVD Chest: Clear to auscultation bilaterally Heart: RRR, S1 and S2, no pericardial rub Abdomen: Soft, nontender, no renal bruit Extremity: No peripheral cyanosis, edema Neurological: Alert, awake, no asterixis Dermatology: No skin rash Psych: No agitation Musculoskeletal: No joint effusion - Vital Signs Vital signs: Vital Signs - 12hr 05/21/22 10:00 O2 Sat by Pulse 99 Oximetry - Lab 05/19/22 06:56 05/21/22 05:41 Most recent lab results Calcium 7.7 mg/dL (8.4-10.2) L 05/21/22 05:41 Urine Creatinine 73.3 mg/dL (0.1-20.0) H 05/18/22 23:18 Urine Sodium 55 mmol/L 05/18/22 23:18 Medications & Allergies - Medications Allergies/Adverse Reactions: Allergies No Known Allergies Allergy (Verified 05/18/22 15:31) Home Medications: Home Medications Medication Instructions Recorded Confirmed Last Taken Type No Known Home Medications [No 05/20/22 05/20/22 Unknown History Reported Home Medications] Active Medications: Generic Name Dose Route Start Last Admin Trade Name Freq PRN Reason Stop Dose Admin Acetaminophen 650 mg 05/18/22 20:20 Acetaminophen 325 Mg Tab PO Q4H PRN Pain MILD(1-3)/Fever >100.5/AVILA Albuterol 2.5 mg 05/18/22 20:20 Albuterol 2.5 Mg/3 Ml Nebu IH Q4HRT PRN Shortness Of Breath Apixaban 2.5 mg 05/21/22 22:00 Apixaban 2.5 Mg Tab PO Q12HR [facility] Protocol Aspirin 81 mg 05/22/22 10:00 Aspirin Ec 81 Mg Tab PO QDAY [facility] Atorvastatin Calcium 20 mg 05/21/22 22:00 Atorvastatin 20 Mg Tab PO QHS [facility] Clopidogrel Bisulfate 75 mg 05/22/22 10:00 Clopidogrel 75 Mg Tab PO QDAY [facility] Dextrose 50 ml 05/18/22 20:25 Dextrose 50% In Water (25gm) 50 Ml Syringe IV Q30MIN PRN Hypoglycemia Protocol Docusate Sodium 100 mg 05/19/22 10:00 05/21/22 10:00 Docusate Sodium 100 Mg Cap PO Not Given BID [facility] Hydromorphone HCl 1 mg 05/19/22 09:55 05/21/22 13:59 Hydromorphone 1 Mg/1 Ml Inj IV 1 mg Q8H PRN Administration Pain , Severe (7-10) Cefepime HCl 2 gm in 100 mls @ 200 mls/hr 05/19/22 12:00 05/21/22 12:00 Cefepime/Ns 2 Gm/100 Ml IV 200 mls/hr Q24H [facility] Administration Sodium Chloride 500 mls @ 50 mls/hr 05/21/22 10:00 Nacl 0.9% 500 Ml IV DIRECT [facility] Sodium Chloride 1,000 mls @ 75 mls/hr 05/21/22 12:45 Nacl 0.9% 1000 Ml IV DIRECT [facility] Insulin Glargine 10 units 05/21/22 22:00 Insulin Glargine 100 Units/Ml SUB-Q QHS [facility] Insulin Human Lispro 0 unit 05/18/22 22:00 05/21/22 16:30 Insulin Lispro 100 Unit/Ml SUB-Q Not Given ACHS [facility] Protocol Ondansetron HCl 4 mg 05/18/22 20:20 Ondansetron 4 Mg/2 Ml Inj IV Q8H PRN Nausea And Vomiting Oxycodone/Acetaminophen 2 tab 05/19/22 09:46 05/20/22 22:19 Oxycodone /Acetaminophen 5-325mg Tab PO 2 tab Q6H PRN Administration Pain, Moderate (4-6) Pantoprazole Sodium 40 mg 05/22/22 07:30 Pantoprazole 40 Mg Tab PO QDAC [facility] Sodium Bicarbonate 1,300 mg 05/19/22 20:00 05/21/22 14:03 Sodium Bicarbonate 650 Mg Tab PO 1,300 mg TID [facility] Administration Sodium Chloride 10 ml 05/18/22 22:00 05/21/22 10:00 Sodium Chloride 0.9% 10 Ml Flush Syringe IV 10 ml BID [facility] Administration Sodium Chloride 10 ml 05/18/22 20:20 Sodium Chloride 0.9% 10 Ml Flush Syringe IV PRN PRN LINE FLUSH
[2022-05-21] MEDS ORDERED: INSULIN GLARGINE 100 UNITS/ML SUB-Q SCH (22:00)
[2022-05-21] MEDS: APIXABAN 2.5 MG TAB PO SCH (22:13)
[2022-05-22] MEDS: oxyCODONE /ACETAMINOPHEN 5-325MG TAB PO PRN ×3 (01:15→21:30)
[2022-05-22] MEDS: DOCUSATE SODIUM 100 MG CAP PO SCH ×2 (01:18→09:26)
[2022-05-22] MEDS: INSULIN LISPRO 100 UNIT/ML SUB-Q SCH ×4 (08:36→22:31)
[2022-05-22] MEDS: SODIUM BICARBONATE 650 MG TAB PO SCH ×4 (08:37→22:29)
[2022-05-22] MEDS: PANTOPRAZOLE 40 MG TAB PO SCH (08:38)
[2022-05-22] MEDS: ASPIRIN EC 81 MG TAB PO SCH (09:26)
[2022-05-22] MEDS: CLOPIDOGREL 75 MG TAB PO SCH (09:26)
[2022-05-22] MEDS: APIXABAN 2.5 MG TAB PO SCH ×2 (09:26→21:28)
[2022-05-22] MEDS: SODIUM CHLORIDE 0.9% 1000 ML 1,000 ML IV SCH (12:14)
[2022-05-22] MEDS: CEFEPIME/NS 2 GM/100 ML 2 GM/100 ML BAG IV SCH (12:14)
--- NOTE | 2022-05-22 12:50 | Progress Note ---
Assessment and Plan Assessment and plan: --Sepsis with cellulitis of left foot --Osteomylitis and Gangrene of left great toe -- PAD with tobacco abuse -- Diabetic neuropathy -- Diabetes mellitus type 2 uncontrolled -- CELY with possible ATN --Metabolic acidosis Plan: --S/p Angioplasty --LLE -- cont empiric abx --Vascular/GS/nephrology consult and f/u appreciated --Vascular u/s suggestive for sig b/l PAD -- prn pain control -- Wound care, strict glucose control. 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 Patient reports "my foot hurts and it is really swollen". Patient states that she has experienced pain and swelling to her left foot over the past 1 month with worsening symptoms over the past 3 days. Patient acknowledges redness, purulent discharge, as well as pain. Patient states the pain has gotten progressively worse and she is unable to ambulate due to pain. Patient states that pain is 8/10, constant, worsened with ambulation and weightbearing, relieved with weightbearing. EMS was notified and upon arrival the patient was found to be in distress and subsequent transported to [facility] for further care and evaluation of the aforementioned symptoms. The patient was see n and evaluated in the emergency department. All lab and imaging studies reviewed. Patient underwent x-ray of the left foot and was found to have left foot osteomyelitis complicated by cellulitis as well as sepsis complicated by acute kidney injury. Patient admitted to medical floor due to increased risk of worsening symptoms and for medical stabilization. Patient initiated on sepsis protocol. Nephrology team consulted, surgery team consulted, vascular surgery team consulted. Patient denies fever, chills, chest pain, palpitation, productive cough, skin rash, recent contact, known exposure to COVID-19. No prior admission for review. All medication listed at time of admission has been reconciled. Advanced care planning conducted in ED. 05/21/22 S/p Angioplasty of LLE Pre-operative Diagnosis: Peripheral Vascular Disease with Left First Toe Gangrene Post-operative Diagnosis: Same Procedure(s): 1. Ultrasound-Guided Access Right Common Femoral Artery 2. Diagnostic Aortogram (No Previous Films for Comparison) 3. Diagnostic Left Lower Extremity Angiogram (No Previous Films or Comparison) 4. Atherectomy with Angioplasty of Left SFA and Popliteal Artery with 2.1/3.0 Jetstream Atherectomy Catheter and 5.0 x 200 [place] Drug-Coated Balloon (x3) 5. Angioplasty of Left Anterior Tibial Artery with 4.0 x 150 [place] Drug-Coated Balloon 6. Closure of Right Femoral Arteriotomy with PerClose ProStyle Closure Device Objective - Constitutional Vitals: Vital Signs - 12hr 05/22/22 05/22/22 05/22/22 01:15 02:15 05:54 Temperature 100.2 F H Pulse Rate 101 H Respiratory 17 17 17 Rate Blood Pressure Blood Pressure 140/65 [Left] O2 Sat by Pulse 98 Oximetry 05/22/22 05/22/22 06:05 11:14 Temperature 98.1 F Pulse Rate 100 H Respiratory 17 18 Rate Blood Pressure 107/48 Blood Pressure [Left] O2 Sat by Pulse 98 Oximetry General appearance: Present: no acute distress, well-nourished - EENT Eyes: PERRL, EOM intact ENT: hearing intact, clear oral mucosa Ears: bilateral: normal - Neck Neck: supple, normal ROM - Respiratory Respiratory effort: normal Respiratory: bilateral: CTA - Breasts Breasts: normal - Cardiovascular Heart rate: 78 Rhythm: regular Heart Sounds: Present: S1 & S2. Absent: gallop, rub Extremities: pulses intact, No edema, normal color, Full ROM, abnormal (Left great toe gangrene) Extremity abnormal: other (Left great toe gangrene) - Gastrointestinal General gastrointestinal: Present: soft, non-tender, non-distended, normal bowel sounds - Genitourinary Female genitourinary: normal - Integumentary Integumentary: clear, warm, dry - Musculoskeletal Musculoskeletal: 1, strength equal bilaterally - Neurologic Neurologic: moves all extremities - Psychiatric Psychiatric: memory intact, appropriate mood/affect, intact judgment & insight - Labs CBC & Chem 7: 05/19/22 06:56 05/21/22 05:41 Labs: Abnormal lab results 05/21/22 05/21/22 05/21/22 Range/Units 07:41 13:26 16:48 POC Glucose 220 H 183 H 159 H (70-105) mg/dL 05/21/22 05/22/22 Range/Units 21:09 07:19 POC Glucose 289 H 391 H (70-105) mg/dL
--- NOTE | 2022-05-22 13:11 | Progress Note ---
Assessment and Plan Patient without any new complaints. She understands the plans for amputation of first left toe. We will see the patient again tomorrow to make n.p.o. after midnight. Plan amputation first toe on Tuesday. Subjective Date of service: 05/22/22 Narrative: Patient without any new complaints. She understands the plans for amputation of first left toe. We will see the patient again tomorrow to make n.p.o. after midnight. Plan amputation first toe on Tuesday. Objective Vital Signs - 12hr 05/22/22 05/22/22 05/22/22 01:15 02:15 05:54 Temperature 100.2 F H Pulse Rate 101 H Respiratory 17 17 17 Rate Blood Pressure Blood Pressure 140/65 [Left] O2 Sat by Pulse 98 Oximetry 05/22/22 05/22/22 06:05 11:14 Temperature 98.1 F Pulse Rate 100 H Respiratory 17 18 Rate Blood Pressure 107/48 Blood Pressure [Left] O2 Sat by Pulse 98 Oximetry - Labs 05/19/22 06:56 05/21/22 05:41
--- NOTE | 2022-05-22 13:15 | Progress Note ---
Assessment and Plan Assessment and plan: --Sepsis with cellulitis of left foot --Osteomylitis and Gangrene of left great toe -- PAD with tobacco abuse -- Diabetic neuropathy -- Diabetes mellitus type 2 uncontrolled -- CELY with possible ATN --Metabolic acidosis Plan: --S/p Angioplasty --LLE -- cont empiric abx --Vascular/GS/nephrology consult and f/u appreciated --Vascular u/s suggestive for sig b/l PAD -- prn pain control -- Wound care, strict glucose control. 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 Patient reports "my foot hurts and it is really swollen". Patient states that she has experienced pain and swelling to her left foot over the past 1 month with worsening symptoms over the past 3 days. Patient acknowledges redness, purulent discharge, as well as pain. Patient states the pain has gotten progressively worse and she is unable to ambulate due to pain. Patient states that pain is 8/10, constant, worsened with ambulation and weightbearing, relieved with weightbearing. EMS was notified and upon arrival the patient was found to be in distress and subsequent transported to [facility] for further care and evaluation of the aforementioned symptoms. The patient was seen and evaluated in the emergency department. All lab and imaging studies reviewed. Patient underwent x-ray of the left foot and was found to have left foot osteomyelitis complicated by cellulitis as well as sepsis complicated by acute kidney injury. Patient admitted to medical floor due to increased risk of worsening symptoms and for medical stabilization. Patient initiated on sepsis protocol. Nephrology team consulted, surgery team consulted, vascular surgery team consulted. Patient denies fever, chills, chest pain, palpitation, productive cough, skin rash, recent contact, known exposure to COVID-19. No prior admission for review. All medication listed at time of admission has been reconciled. Advanced care planning conducted in ED. 05/21/22 S/p Angioplasty of LLE Pre-operative Diagnosis: Peripheral Vascular Disease with Left First Toe Gangrene Post-operative Diagnosis: Same Procedure(s): 1. Ultrasound-Guided Access Right Common Femoral Artery 2. Diagnostic Aortogram (No Previous Films for Comparison) 3. Diagnostic Left Lower Extremity Angiogram (No Previous Films or Comparison) 4. Atherectomy with Angioplasty of Left SFA and Popliteal Artery with 2.1/3.0 Jetstream Atherectomy Catheter and 5.0 x 200 [place] Drug-Coated Balloon (x3) 5. Angioplasty of Left Anterior Tibial Artery with 4.0 x 150 [place] Drug-Coated Balloon 6. Closure of Right Femoral Arteriotomy with PerClose ProStyle Closure Device 05/22/2022 S/p angioplasty of left lower extremity yesterday Scheduled for amputation of left great toe on 05/24/2022 Objective - Constitutional Vitals: Vital Signs - 12hr 05/22/22 05/22/22 05/22/22 01:15 02:15 05:54 Temperature 100.2 F H Pulse Rate 101 H Respiratory 17 17 17 Rate Blood Pressure Blood Pressure 140/65 [Left] O2 Sat by Pulse 98 Oximetry 05/22/22 05/22/22 06:05 11:14 Temperature 98.1 F Pulse Rate 100 H Respiratory 17 18 Rate Blood Pressure 107/48 Blood Pressure [Left] O2 Sat by Pulse 98 Oximetry General appearance: Present: no acute distress, well-nourished - EENT Eyes: PERRL, EOM intact ENT: hearing intact, clear oral mucosa Ears: bilateral: normal - Neck Neck: supple, normal ROM - Respiratory Respiratory effort: normal Respiratory: bilateral: CTA - Breasts Breasts: normal - Cardiovascular Heart rate: 78 Rhythm: regular Heart Sounds: Present: S1 & S2. Absent: gallop, rub Extremities: pulses intact, No edema, normal color, Full ROM, abnormal (Left great toe gangrene) Extremity abnormal: other (Left great toe gangrene) - Gastrointestinal General gastrointestinal: Present: soft, non-tender, non-distended, normal bowel sounds - Genitourinary Female genitourinary: normal - Integumentary Integumentary: clear, warm, dry - Musculoskeletal Musculoskeletal: 1, strength equal bilaterally - Neurologic Neurologic: moves all extremities - Psychiatric Psychiatric: memory intact, appropriate mood/affect, intact judgment & insight - Labs CBC & Chem 7: 05/19/22 06:56 05/21/22 05:41 Labs: Abnormal lab results 05/21/22 05/21/22 05/21/22 Range/Units 07:41 13:26 16:48 POC Glucose 220 H 183 H 159 H (70-105) mg/dL 05/21/22 05/22/22 Range/Units 21:09 07:19 POC Glucose 289 H 391 H (70-105) mg/dL
[2022-05-22] MEDS: HYDROmorphone 1 MG/1 ML INJ IV PRN (14:59)
--- NOTE | 2022-05-22 15:10 | Progress Note ---
Assessment and Plan 56-year-old female with severe peripheral vascular disease and left first digit gangrene and PVD status post revascularization with palpable left dorsalis pedis pulse. Cleared from vascular perspective for left first digit amputation. Betadine applied to left first digit. Left first digit is nonsalvageable. Follow-up with Dr. Douglas in 2 weeks. Continue antiplatelet therapy. Subjective Date of service: 05/22/22 Principal diagnosis: Gangerene L Great toe,S/p Angiogram ,PVD Interval history: Palpable left dorsalis pedis artery. No hematoma or pseudoaneurysm of the right groin. Left first digit edematous and purulent. Asked nurse to apply Betadine to the wound. Instructed patient on follow-up and importance of antiplatelet therapy. Objective - Constitutional Vitals: Vital Signs - 12hr 05/22/22 05/22/22 05/22/22 05:54 06:05 10:00 Temperature 100.2 F H Pulse Rate 101 H Respiratory 17 17 Rate Blood Pressure Blood Pressure 140/65 [Left] O2 Sat by Pulse 98 99 Oximetry 05/22/22 11:14 Temperature 98.1 F Pulse Rate 100 H Respiratory 18 Rate Blood Pressure 107/48 Blood Pressure [Left] O2 Sat by Pulse 98 Oximetry General appearance: Present: mild distress (Left first digit pain.) - EENT Eyes: EOM intact ENT: hearing intact - Neck Neck: supple - Respiratory Respiratory effort: normal Extremities: pulses intact (Left dorsalis pedis palpable), normal temperature, normal color, abnormal (Left first digit edematous and purulent) Extremity abnormal: pulses diminished (Right pedal pulses nonpalpable, no hematoma, or pseudoaneurysm of the right common femoral artery.) - Gastrointestinal General gastrointestinal: Present: soft, non-tender - Psychiatric Psychiatric: appropriate mood/affect, cooperative - Labs CBC & Chem 7: 05/19/22 06:56 05/21/22 05:41 Labs: Abnormal lab results 05/21/22 05/21/22 05/21/22 Range/Units 07:41 13:26 16:48 POC Glucose 220 H 183 H 159 H (70-105) mg/dL 05/21/22 05/22/22 Range/Units 21:09 07:19 POC Glucose 289 H 391 H (70-105) mg/dL Medications & Allergies - Medications Allergies/Adverse Reactions: Allergies No Known Allergies Allergy (Verified 05/18/22 15:31) Home Medications: Home Medications Medication Instructions Recorded Confirmed Last Taken Type No Known Home Medications [No 05/20/22 05/20/22 Unknown History Reported Home Medications] Active Medications: Generic Name Dose Route Start Last Admin Trade Name Freq PRN Reason Stop Dose Admin Acetaminophen 650 mg 05/18/22 20:20 05/22/22 06:05 Acetaminophen 325 Mg Tab PO 650 mg Q4H PRN Administration Pain MILD(1-3)/Fever >100.5/AVILA Albuterol 2.5 mg 05/18/22 20:20 Albuterol 2.5 Mg/3 Ml Nebu IH Q4HRT PRN Shortness Of Breath Apixaban 2.5 mg 05/21/22 22:00 05/22/22 09:26 Apixaban 2.5 Mg Tab PO 2.5 mg Q12HR [facility] Administration Protocol Aspirin 81 mg 05/22/22 10:00 05/22/22 09:26 Aspirin Ec 81 Mg Tab PO 81 mg QDAY [facility] Administration Atorvastatin Calcium 20 mg 05/21/22 22:00 05/21/22 22:13 Atorvastatin 20 Mg Tab PO 20 mg QHS [facility] Administration Clopidogrel Bisulfate 75 mg 05/22/22 10:00 05/22/22 09:26 Clopidogrel 75 Mg Tab PO 75 mg QDAY [facility] Administration Dextrose 50 ml 05/18/22 20:25 Dextrose 50% In Water (25gm) 50 Ml Syringe IV Q30MIN PRN Hypoglycemia Protocol Docusate Sodium 100 mg 05/19/22 10:00 05/22/22 09:26 Docusate Sodium 100 Mg Cap PO 100 mg BID [facility] Administration Hydromorphone HCl 1 mg 05/19/22 09:55 05/22/22 14:59 Hydromorphone 1 Mg/1 Ml Inj IV 1 mg Q8H PRN Administration Pain , Severe (7-10) Cefepime HCl 2 gm in 100 mls @ 200 mls/hr 05/19/22 12:00 05/22/22 12:14 Cefepime/Ns 2 Gm/100 Ml IV 200 mls/hr Q24H [facility] Administration Sodium Chloride 500 mls @ 50 mls/hr 05/21/22 10:00 Nacl 0.9% 500 Ml IV DIRECT [facility] Sodium Chloride 1,000 mls @ 75 mls/hr 05/21/22 12:45 05/22/22 12:14 Nacl 0.9% 1000 Ml IV 75 mls/hr DIRECT [facility] Administration Vancomycin HCl 1 gm in 250 mls @ 167.007 mls/hr 05/22/22 18:00 Vancomycin/Ns 1 Gm/250 Ml IV 05/22/22 19:29 ONCE ONE Insulin Glargine 30 units 05/22/22 13:15 Insulin Glargine 100 Units/Ml SUB-Q QHS [facility] Insulin Human Lispro 0 unit 05/18/22 22:00 05/22/22 12:15 Insulin Lispro 100 Unit/Ml SUB-Q 2 unit ACHS [facility] Administration Protocol Ondansetron HCl 4 mg 05/18/22 20:20 Ondansetron 4 Mg/2 Ml Inj IV Q8H PRN Nausea And Vomiting Oxycodone/Acetaminophen 2 tab 05/19/22 09:46 05/22/22 09:26 Oxycodone /Acetaminophen 5-325mg Tab PO 2 tab Q6H PRN Administration Pain, Moderate (4-6) Pantoprazole Sodium 40 mg 05/22/22 07:30 05/22/22 08:38 Pantoprazole 40 Mg Tab PO 40 mg QDAC [facility] Administration Sodium Bicarbonate 1,300 mg 05/19/22 20:00 05/22/22 14:33 Sodium Bicarbonate 650 Mg Tab PO Not Given TID [facility] Sodium Chloride 10 ml 05/18/22 22:00 05/22/22 15:01 Sodium Chloride 0.9% 10 Ml Flush Syringe IV 10 ml BID [facility] Administration Sodium Chloride 10 ml 05/18/22 20:20 Sodium Chloride 0.9% 10 Ml Flush Syringe IV PRN PRN LINE FLUSH
[2022-05-22] MEDS ORDERED: VANCOMYCIN/NS 1 GM/250 ML 1 GM/250 ML BAG IV ONE (18:00)
--- NOTE | 2022-05-22 22:05 | Progress Note ---
Assessment and Plan Acute kidney injury. Cr. 4.1-->2.9-->2.2-->2.2 Hyponatremia Hypokalemia Acidosis Osteomyelitis Toe gangrene Renal ultrasound unremarkable, concerns for poor visualization noted S/p K repletion to goal range S/p sodium bicarb push 1 Encouraged PO hydration Renally dose medications Avoid nephrotoxins Renal diet Keep glucose < 180 mg/dl Strict I/O Subjective Date of service: 05/22/22 Principal diagnosis: Gangerene L Great toe,S/p Angiogram ,PVD Interval history: Resting in bed, conversant this morning. Nursing, interdisciplinary and consult notes were reviewed Vitals, input and output, medications and labs were reviewed Objective - Exam Narrative Exam: General: No acute distress HEENT: Oral mucosa moist Neck: Supple, no JVD Chest: Clear to auscultation bilaterally Heart: RRR, S1 and S2, no pericardial rub Abdomen: Soft, nontender, no renal bruit Extremity: No peripheral cyanosis, edema Neurological: Alert, awake, no asterixis Dermatology: No skin rash Psych: No agitation Musculoskeletal: No joint effusion - Vital Signs Vital signs: Vital Signs - 12hr 05/22/22 05/22/22 05/22/22 11:14 15:59 20:49 Temperature 98.1 F 98.3 F Pulse Rate 100 H 91 H Respiratory 18 18 Rate Blood Pressure 107/48 116/53 Blood Pressure [Left] O2 Sat by Pulse 98 96 97 Oximetry 05/22/22 21:32 Temperature 97.9 F Pulse Rate 103 H Respiratory 17 Rate Blood Pressure Blood Pressure 129/100 [Left] O2 Sat by Pulse 97 Oximetry - Lab 05/19/22 06:56 05/21/22 05:41 Most recent lab results Calcium 7.7 mg/dL (8.4-10.2) L 05/21/22 05:41 Urine Creatinine 73.3 mg/dL (0.1-20.0) H 05/18/22 23:18 Urine Sodium 55 mmol/L 05/18/22 23:18 Medications & Allergies - Medications Allergies/Adverse Reactions: Allergies No Known Allergies Allergy (Verified 05/18/22 15:31) Home Medications: Home Medications Medication Instructions Recorded Confirmed Last Taken Type No Known Home Medications [No 05/20/22 05/20/22 Unknown History Reported Home Medications] Active Medications: Generic Name Dose Route Start Last Admin Trade Name Freq PRN Reason Stop Dose Admin Acetaminophen 650 mg 05/18/22 20:20 05/22/22 06:05 Acetaminophen 325 Mg Tab PO 650 mg Q4H PRN Administration Pain MILD(1-3)/Fever >100.5/AVILA Albuterol 2.5 mg 05/18/22 20:20 Albuterol 2.5 Mg/3 Ml Nebu IH Q4HRT PRN Shortness Of Breath Apixaban 2.5 mg 05/21/22 22:00 05/22/22 21:28 Apixaban 2.5 Mg Tab PO 2.5 mg Q12HR [facility] Administration Protocol Aspirin 81 mg 05/22/22 10:00 05/22/22 09:26 Aspirin Ec 81 Mg Tab PO 81 mg QDAY [facility] Administration Atorvastatin Calcium 20 mg 05/21/22 22:00 05/22/22 21:28 Atorvastatin 20 Mg Tab PO 20 mg QHS [facility] Administration Clopidogrel Bisulfate 75 mg 05/22/22 10:00 05/22/22 09:26 Clopidogrel 75 Mg Tab PO 75 mg QDAY [facility] Administration Dextrose 50 ml 05/18/22 20:25 Dextrose 50% In Water (25gm) 50 Ml Syringe IV Q30MIN PRN Hypoglycemia Protocol Docusate Sodium 100 mg 05/19/22 10:00 05/22/22 09:26 Docusate Sodium 100 Mg Cap PO 100 mg BID [facility] Administration Hydromorphone HCl 1 mg 05/19/22 09:55 05/22/22 14:59 Hydromorphone 1 Mg/1 Ml Inj IV 1 mg Q8H PRN Administration Pain , Severe (7-10) Cefepime HCl 2 gm in 100 mls @ 200 mls/hr 05/19/22 12:00 05/22/22 12:14 Cefepime/Ns 2 Gm/100 Ml IV 200 mls/hr Q24H [facility] Administration Sodium Chloride 500 mls @ 50 mls/hr 05/21/22 10:00 Nacl 0.9% 500 Ml IV DIRECT [facility] Sodium Chloride 1,000 mls @ 75 mls/hr 05/21/22 12:45 05/22/22 12:14 Nacl 0.9% 1000 Ml IV 75 mls/hr DIRECT [facility] Administration Insulin Glargine 30 units 05/22/22 13:15 Insulin Glargine 100 Units/Ml SUB-Q QHS [facility] Insulin Human Lispro 0 unit 05/18/22 22:00 05/22/22 18:15 Insulin Lispro 100 Unit/Ml SUB-Q Not Given ACHS [facility] Protocol Ondansetron HCl 4 mg 05/18/22 20:20 Ondansetron 4 Mg/2 Ml Inj IV Q8H PRN Nausea And Vomiting Oxycodone/Acetaminophen 2 tab 05/19/22 09:46 05/22/22 21:30 Oxycodone /Acetaminophen 5-325mg Tab PO 2 tab Q6H PRN Administration Pain, Moderate (4-6) Pantoprazole Sodium 40 mg 05/22/22 07:30 05/22/22 08:38 Pantoprazole 40 Mg Tab PO 40 mg QDAC [facility] Administration Sodium Bicarbonate 1,300 mg 05/19/22 20:00 05/22/22 14:33 Sodium Bicarbonate 650 Mg Tab PO Not Given TID [facility] Sodium Chloride 10 ml 05/18/22 22:00 05/22/22 21:30 Sodium Chloride 0.9% 10 Ml Flush Syringe IV 10 ml BID [facility] Administration Sodium Chloride 10 ml 05/18/22 20:20 Sodium Chloride 0.9% 10 Ml Flush Syringe IV PRN PRN LINE FLUSH
[2022-05-22] MEDS: INSULIN GLARGINE 100 UNITS/ML SUB-Q SCH (22:30)
[2022-05-23] MEDS: HYDROmorphone 1 MG/1 ML INJ IV PRN ×3 (02:54→23:56)
[2022-05-23] MEDS: DOCUSATE SODIUM 100 MG CAP PO SCH ×3 (02:57→21:36)
[2022-05-23] MEDS: oxyCODONE /ACETAMINOPHEN 5-325MG TAB PO PRN ×2 (06:17→17:00)
[2022-05-23] MEDS: INSULIN LISPRO 100 UNIT/ML SUB-Q SCH ×4 (08:30→21:36)
[2022-05-23] MEDS: SODIUM BICARBONATE 650 MG TAB PO SCH ×3 (09:26→21:35)
[2022-05-23] MEDS: PANTOPRAZOLE 40 MG TAB PO SCH (11:25)
[2022-05-23] MEDS: APIXABAN 2.5 MG TAB PO SCH ×2 (11:26→21:35)
[2022-05-23] MEDS: CLOPIDOGREL 75 MG TAB PO SCH (11:26)
[2022-05-23] MEDS: ASPIRIN EC 81 MG TAB PO SCH (11:27)
--- NOTE | 2022-05-23 12:43 | Progress Note ---
Assessment and Plan Patient without any new complaints. She understands the plans for amputation of first left toe. 56 yo with gangrene of the left first toe. Pt with pvd and a smoker. Plan amputation of the left first toe in the am. NPO post midnight. Pl an amputation first toe on Tuesday. Subjective Date of service: 05/23/22 Patient Reports: Positive: no new complaints Narrative: 56 yo with gangrene of the left first toe. Pt with pvd and a smoker. Plan amputa tion of the left first toe in the am. NPO post midnight. Objective Vital Signs - 12hr 05/23/22 05/23/22 05/23/22 02:54 03:24 06:16 Temperature 98.7 F Pulse Rate 97 H Respiratory 17 17 17 Rate Blood Pressure 141/70 [Left] 05/23/22 06:17 Temperature Pulse Rate Respiratory 17 Rate Blood Pressure [Left] - Labs 05/19/22 06:56 05/21/22 05:41
--- NOTE | 2022-05-23 13:13 | Progress Note ---
Assessment and Plan 56 yo F with hx of poorly controlled DM, neuropathy, tobacco abuse who presented to ER with c/o pain and swelling in her left great toe for at least 1 month. When she presented to ER, there was purulent drainage from the toe and maggots present per ER physician. In the ER Patient underwent x-ray of the left foot and was found to have left foot osteomyelitis complicated by cellulitis, sepsis and also found to have acute kidney injury. 05/19: cont iv abx, follow blood cx. pending doppler study. Cr improving, cont bicarbonate fluid. may need amputation 05/20: blood cx neg. cont empiric abx. B/L LE duplex revealed hemodynamically significant bilateral PAD with increased velocities in the femoral arteries and monophasic waveforms and decreased velocities in distal arteries. Patient will be scheduled for a left lower extremity angiogram with possible revascularization tomorrow to allow adequate arterial inflow to heal a planned first toe amputation with general surgery. 05/21: s/p angioplasy, cont empiric abx, follow clinically, will need amputation 05/22: Glucose levels are high--Lantus increased from 10 units to 30 units subcu at bedtime, also high-dose sliding scale coverage. Guillotine amputation of left great toe on Tuesday. 05/23: cont abx, follow BG level. plan for amputation tomorrow Assessment and plan: --Sepsis with cellulitis of left foot --Osteomylitis and Gangrene of left great toe -- PAD with tobacco abuse -- Diabetic neuropathy -- Diabetes mellitus type 2 uncontrolled -- CELY with possible ATN --Metabolic acidosis Plan: -- cont empiric abx, consulted ID --Vascular/GS/nephrology consult placed --Vascular u/s suggestive for sig b/l PAD --S/p Angioplasty --LLE -- prn pain control -- Wound care, strict glucose control. Obtain HbA1C --Monitor BMP,iv fluid , avoid nephrotoxic -- follow blood cx Subjective Date of service: 05/23/22 Principal diagnosis: Gangerene L Great toe,S/p Angiogram ,PVD Interval history: Patient seen and examined. Medical records and medication list reviewed. No acute event overnight noted by the RN. Patient denies any chest pain or difficulty breathing. Patient is tolerating diet. Complains of left foot pain Discussed plan of care at bedside with patient. Objective - Exam Narrative Exam: GENERAL: WF lying on bed appeared to be in no discomfort. HEENT: Normocephalic. Atraumatic. No conjunctival congestion or icterus. Patient has moist mucous membranes. NECK: Supple. Trachea midline. CHEST/LUNGS: Clear to auscultated bilaterally, breathing nonlabored. No wheezes crackles or rhonchi. HEART/CARDIOVASCULAR: Regular in rate and rhythm. S1 and S2 positive. ABDOMEN: Abdomen is soft, nontender. Patient has normal bowel sounds. SKIN: There is no rash. Warm and dry. NEURO: No focal motor deficit. Follows command. MUSCULOSKELETAL: left great toe swelling and tenderness EXTRIMITY: left foot with wound dressing. Foot warm. PSYCH: Cooperative. - Constitutional Vitals: Vital Signs - 12hr 05/23/22 05/23/22 05/23/22 02:54 03:24 06:16 Temperature 98.7 F Pulse Rate 97 H Respiratory 17 17 17 Rate Blood Pressure 141/70 [Left] 05/23/22 06:17 Temperature Pulse Rate Respiratory 17 Rate Blood Pressure [Left] - Labs CBC & Chem 7: 05/24/22 05:53 05/24/22 05:53 Labs: Abnormal lab results 05/22/22 05/22/22 05/23/22 Range/Units 12:04 21:20 08:05 POC Glucose 190 H 263 H 153 H (70-105) mg/dL
[2022-05-23] MEDS: CEFEPIME/NS 2 GM/100 ML 2 GM/100 ML BAG IV SCH (14:46)
--- NOTE | 2022-05-23 18:47 | Progress Note ---
Assessment and Plan Acute kidney injury. Cr. 4.1-->2.9-->2.2-->2.2 Hyponatremia Hypokalemia Acidosis Osteomyelitis Toe gangrene Renal ultrasound unremarkable, concerns for poor visualization noted Check BMP tomorrow morning S/p K repletion to goal range S/p sodium bicarb push 1 Encouraged PO hydration Renally dose medications Avoid nephrotoxins Renal diet Keep glucose < 180 mg/dl Strict I/O Plans for left toe amputation noted Subjective Date of service: 05/23/22 Principal diagnosis: Gangerene L Great toe,S/p Angiogram ,PVD Interval history: Resting in bed Left toe amputation planned for tomorrow morning Nursing, interdisciplinary and consult notes were reviewed Vitals, input and output, medications and labs were reviewed Objective - Exam Narrative Exam: General: No acute distress HEENT: Oral mucosa moist Neck: Supple, no JVD Chest: Clear to auscultation bilaterally Heart: RRR, S1 and S2, no pericardial rub Abdomen: Soft, nontender, no renal bruit Extremity: No peripheral cyanosis, edema Neurological: Alert, awake, no asterixis Dermatology: No skin rash Psych: No agitation Musculoskeletal: No joint effusion - Lab 05/19/22 06:56 05/21/22 05:41 Most recent lab results Calcium 7.7 mg/dL (8.4-10.2) L 05/21/22 05:41 Urine Creatinine 73.3 mg/dL (0.1-20.0) H 05/18/22 23:18 Urine Sodium 55 mmol/L 05/18/22 23:18 Medications & Allergies - Medications Allergies/Adverse Reactions: Allergies No Known Allergies Allergy (Verified 05/18/22 15:31) Home Medications: Home Medications Medication Instructions Recorded Confirmed Last Taken Type No Known Home Medications [No 05/20/22 05/20/22 Unknown History Reported Home Medications] Active Medications: Generic Name Dose Route Start Last Admin Trade Name Freq PRN Reason Stop Dose Admin Acetaminophen 650 mg 05/18/22 20:20 05/22/22 06:05 Acetaminophen 325 Mg Tab PO 650 mg Q4H PRN Administration Pain MILD(1-3)/Fever >100.5/AVILA Albuterol 2.5 mg 05/18/22 20:20 Albuterol 2.5 Mg/3 Ml Nebu IH Q4HRT PRN Shortness Of Breath Apixaban 2.5 mg 05/21/22 22:00 05/23/22 11:26 Apixaban 2.5 Mg Tab PO 2.5 mg Q12HR TATUM Administration Protocol Aspirin 81 mg 05/22/22 10:00 05/23/22 11:27 Aspirin Ec 81 Mg Tab PO 81 mg QDAY TATUM Administration Atorvastatin Calcium 20 mg 05/21/22 22:00 05/22/22 21:28 Atorvastatin 20 Mg Tab PO 20 mg QHS TATUM Administration Clopidogrel Bisulfate 75 mg 05/22/22 10:00 05/23/22 11:26 Clopidogrel 75 Mg Tab PO 75 mg QDAY TATUM Administration Dextrose 50 ml 05/18/22 20:25 Dextrose 50% In Water (25gm) 50 Ml Syringe IV Q30MIN PRN Hypoglycemia Protocol Docusate Sodium 100 mg 05/19/22 10:00 05/23/22 11:29 Docusate Sodium 100 Mg Cap PO Not Given BID TATUM Hydromorphone HCl 1 mg 05/19/22 09:55 05/23/22 11:15 Hydromorphone 1 Mg/1 Ml Inj IV 1 mg Q8H PRN Administration Pain , Severe (7-10) Cefepime HCl 2 gm in 100 mls @ 200 mls/hr 05/19/22 12:00 05/22/22 12:14 Cefepime/Ns 2 Gm/100 Ml IV 200 mls/hr Q24H TATUM Administration Sodium Chloride 1,000 mls @ 75 mls/hr 05/21/22 12:45 05/22/22 12:14 Nacl 0.9% 1000 Ml IV 75 mls/hr DIRECT TATUM Administration Insulin Glargine 30 units 05/22/22 13:15 05/22/22 22:30 Insulin Glargine 100 Units/Ml SUB-Q 30 units QHS TATUM Administration Insulin Human Lispro 0 unit 05/18/22 22:00 05/23/22 11:30 Insulin Lispro 100 Unit/Ml SUB-Q 3 unit ACHS TATUM Administration Protocol Ondansetron HCl 4 mg 05/18/22 20:20 Ondansetron 4 Mg/2 Ml Inj IV Q8H PRN Nausea And Vomiting Oxycodone/Acetaminophen 2 tab 05/19/22 09:46 05/23/22 17:00 Oxycodone /Acetaminophen 5-325mg Tab PO 2 tab Q6H PRN Administration Pain, Moderate (4-6) Pantoprazole Sodium 40 mg 05/22/22 07:30 05/23/22 11:25 Pantoprazole 40 Mg Tab PO 40 mg QDAC TATUM Administration Sodium Bicarbonate 1,300 mg 05/19/22 20:00 05/23/22 09:26 Sodium Bicarbonate 650 Mg Tab PO 1,300 mg TID TATUM Administration Sodium Chloride 10 ml 05/18/22 22:00 05/23/22 11:27 Sodium Chloride 0.9% 10 Ml Flush Syringe IV 10 ml BID TATUM Administration Sodium Chloride 10 ml 05/18/22 20:20 Sodium Chloride 0.9% 10 Ml Flush Syringe IV PRN PRN LINE FLUSH
[2022-05-23] MEDS: INSULIN GLARGINE 100 UNITS/ML SUB-Q SCH (21:35)
[2022-05-24 06:21] LABS: Hematocrit 25.3 % (30.3-42.9); Hemoglobin 8.1 gm/dl (10.1-14.3); Mean Corpuscular HGB Conc 32 % (30-34); Mean Corpuscular Volume 92 fl (79-97); Platelet Count 540 K/mm3 (140-440); Red Blood Count 2.76 M/mm3 (3.65-5.03)
[2022-05-24 06:32] LABS: Calcium 8.3 mg/dL (8.4-10.2)
--- NOTE | 2022-05-24 10:12 | Progress Note ---
Assessment and Plan Impression: Acute kidney injury Hyponatremia Hypokalemia - likely exacerbated by metabolic alkalosis Metabolic alkalosis Osteomyelitis Toe gangrene Plan: Renal function gradually improved. No indication for renal replacement therapy Will order KCl 20meq x 1 dose Discontinue NaBicarbonate for now Dose meidcations for renal function Glycemic control Avoid nephrotoxins Subjective Date of service: 05/24/22 Principal diagnosis: Gangerene L Great toe,S/p Angiogram ,PVD Interval history: Patient has no complaints. Objective - Vital Signs Vital signs: Vital Signs - 12hr 05/23/22 05/24/22 05/24/22 23:56 00:26 05:35 Temperature 99.3 F Pulse Rate 100 H Respiratory 17 17 17 Rate Blood Pressure 150/64 [Left] O2 Sat by Pulse 100 Oximetry - General Appearance General appearance: well-developed, well-nourished EENT: ATNC Respiratory: Present: Clear to Ascultation Cardiology: regular, S1S2 Gastrointestinal: normal, no tenderness, no distended Integumentary: warm and dry Musculoskeletal: other (left foot bandaged) - Lab 05/24/22 05:53 05/24/22 05:53 Most recent lab results Calcium 8.3 mg/dL (8.4-10.2) L 05/24/22 05:53 Urine Creatinine 73.3 mg/dL (0.1-20.0) H 05/18/22 23:18 Urine Sodium 55 mmol/L 05/18/22 23:18 Medications & Allergies - Medications Allergies/Adverse Reactions: Allergies No Known Allergies Allergy (Verified 05/18/22 15:31) Home Medications: Home Medications Medication Instructions Recorded Confirmed Last Taken Type No Known Home Medications [No 05/20/22 05/20/22 Unknown History Reported Home Medications] Active Medications: Generic Name Dose Route Start Last Admin Trade Name Freq PRN Reason Stop Dose Admin Acetaminophen 650 mg 05/18/22 20:20 05/22/22 06:05 Acetaminophen 325 Mg Tab PO 650 mg Q4H PRN Administration Pain MILD(1-3)/Fever >100.5/AVILA Albuterol 2.5 mg 05/18/22 20:20 Albuterol 2.5 Mg/3 Ml Nebu IH Q4HRT PRN Shortness Of Breath Apixaban 2.5 mg 05/21/22 22:00 05/23/22 21:35 Apixaban 2.5 Mg Tab PO 2.5 mg Q12HR TATUM Administration Protocol Aspirin 81 mg 05/22/22 10:00 05/23/22 11:27 Aspirin Ec 81 Mg Tab PO 81 mg QDAY TATUM Administration Atorvastatin Calcium 20 mg 05/21/22 22:00 05/23/22 21:35 Atorvastatin 20 Mg Tab PO 20 mg QHS TATUM Administration Clopidogrel Bisulfate 75 mg 05/22/22 10:00 05/23/22 11:26 Clopidogrel 75 Mg Tab PO 75 mg QDAY TATUM Administration Dextrose 50 ml 05/18/22 20:25 Dextrose 50% In Water (25gm) 50 Ml Syringe IV Q30MIN PRN Hypoglycemia Protocol Docusate Sodium 100 mg 05/19/22 10:00 05/23/22 21:36 Docusate Sodium 100 Mg Cap PO Not Given BID TATUM Hydromorphone HCl 1 mg 05/19/22 09:55 05/23/22 23:56 Hydromorphone 1 Mg/1 Ml Inj IV 1 mg Q8H PRN Administration Pain , Severe (7-10) Cefepime HCl 2 gm in 100 mls @ 200 mls/hr 05/19/22 12:00 05/23/22 14:46 Cefepime/Ns 2 Gm/100 Ml IV 200 mls/hr Q24H TATUM Administration Sodium Chloride 1,000 mls @ 75 mls/hr 05/21/22 12:45 05/22/22 12:14 Nacl 0.9% 1000 Ml IV 75 mls/hr DIRECT TATUM Administration Insulin Glargine 30 units 05/22/22 13:15 05/23/22 21:35 Insulin Glargine 100 Units/Ml SUB-Q 30 units QHS TATUM Administration Insulin Human Lispro 0 unit 05/18/22 22:00 05/23/22 21:36 Insulin Lispro 100 Unit/Ml SUB-Q Not Given ACHS [facility] Protocol Ondansetron HCl 4 mg 05/18/22 20:20 Ondansetron 4 Mg/2 Ml Inj IV Q8H PRN Nausea And Vomiting Oxycodone/Acetaminophen 2 tab 05/19/22 09:46 05/23/22 17:00 Oxycodone /Acetaminophen 5-325mg Tab PO 2 tab Q6H PRN Administration Pain, Moderate (4-6) Pantoprazole Sodium 40 mg 05/22/22 07:30 05/23/22 11:25 Pantoprazole 40 Mg Tab PO 40 mg QDAC TATUM Administration Sodium Bicarbonate 1,300 mg 05/19/22 20:00 05/23/22 21:35 Sodium Bicarbonate 650 Mg Tab PO 1,300 mg TID TATUM Administration Sodium Chloride 10 ml 05/18/22 22:00 05/23/22 21:36 Sodium Chloride 0.9% 10 Ml Flush Syringe IV 10 ml BID TATUM Administration Sodium Chloride 10 ml 05/18/22 20:20 Sodium Chloride 0.9% 10 Ml Flush Syringe IV PRN PRN LINE FLUSH
[2022-05-24] MEDS: INSULIN LISPRO 100 UNIT/ML SUB-Q SCH ×4 (10:21→22:14)
[2022-05-24] MEDS ORDERED: POTASSIUM CHLORIDE ER 20 MEQ TAB PO NR (11:00)
[2022-05-24] MEDS: CLOPIDOGREL 75 MG TAB PO SCH (13:03)
[2022-05-24] MEDS: DOCUSATE SODIUM 100 MG CAP PO SCH ×2 (13:03→22:13)
[2022-05-24] MEDS: ASPIRIN EC 81 MG TAB PO SCH (13:03)
[2022-05-24] MEDS: PANTOPRAZOLE 40 MG TAB PO SCH (13:03)
[2022-05-24] MEDS: APIXABAN 2.5 MG TAB PO SCH ×2 (13:03→22:13)
[2022-05-24] MEDS: SODIUM BICARBONATE 650 MG TAB PO SCH (13:04)
[2022-05-24] MEDS: SODIUM CHLORIDE 0.9% 1000 ML 1,000 ML IV SCH (14:20)
--- NOTE | 2022-05-24 14:37 | Anesthesia Consultation ---
Anesthesia Consult and Med Hx Date of service: 05/24/22 - Airway Anesthetic Teeth Evaluation: Poor (multiple missing teeth) ROM Head & Neck: Adequate Mental/Hyoid Distance: Adequate Mallampati Class: Class II Intubation Access Assessment: Probably Good - Pre-Operative Health Status ASA Pre-Surgery Classification: ASA3 Proposed Anesthetic Plan: General - Pulmonary Hx Smoking: Yes (1/2 pack/day x 40 years) Hx Asthma: No COPD: No Hx Pneumonia: No - Cardiovascular System Hx Peripheral Vascular Disease: Yes (left great toe gangrene) - Central Nervous System Hx Psychiatric Problems: Yes (schizophrenia) - Endocrine Hx End Stage Renal Disease: No Hx Non-Insulin Dependent Diabetes: Yes (poorly controlled, on sliding scale) - Other Systems Hx Alcohol Use: No Hx Cancer: No
--- NOTE | 2022-05-24 14:38 | Anesthesia Day of Surgery ---
Anesthesia Day of Surgery - Day of Surgery Patient Examined: Yes Patient H&P Reviewed: Yes Patient is NPO: Yes
[2022-05-24] MEDS ORDERED: LIDOCAINE MPF (2%) 20 MG/1 ML VIAL 5 ML ONE (15:02)
[2022-05-24] MEDS ORDERED: HYDROmorphone 1 MG/1 ML INJ ONE (15:02)
[2022-05-24] MEDS ORDERED: propofoL 200 MG/20 ML VIAL IV ONE (15:02)
--- NOTE | 2022-05-24 15:15 | Progress Note ---
Assessment and Plan 56 yo F with hx of poorly controlled DM, neuropathy, tobacco abuse who presented to ER with c/o pain and swelling in her left great toe for at least 1 month. When she presented to ER, there was purulent drainage from the toe and maggots present per ER physician. In the ER Patient underwent x-ray of the left foot and was found to have left foot osteomyelitis complicated by cellulitis, sepsis and also found to have acute kidney injury. 05/19: cont iv abx, follow blood cx. pending doppler study. Cr improving, cont bicarbonate fluid. may need amputation 05/20: blood cx neg. cont empiric abx. B/L LE duplex revealed hemodynamically significant bilateral PAD with increased velocities in the femoral arteries and monophasic waveforms and decreased velocities in distal arteries. Patient will be scheduled for a left lower extremity angiogram with possible revascularization tomorrow to allow adequate arterial inflow to heal a planned first toe amputation with general surgery. 05/21: s/p angioplasy, cont empiric abx, follow clinically, will need amputation 05/22: Glucose levels are high--Lantus increased from 10 units to 30 units subcu at bedtime, also high-dose sliding scale coverage. Guillotine amputation of left great toe on Tuesday. 05/23: cont abx, follow BG level. plan for amputation tomorrow 05/24: plan for amputation today, cont iv abx. follow blood cx Assessment and plan: -- Sepsis with cellulites of left foot -- Osteomylitis and Gangrene of left great toe -- PAD with tobacco abuse -- Diabetic neuropathy -- Diabetes mellitus type 2 uncontrolled -- CELY with possible ATN -- Metabolic acidosis Plan: -- cont empiric abx, consulted ID --Vascular/GS/nephrology consult placed --Vascular u/s suggestive for sig b/l PAD --S/p Angioplasty --LLE -- prn pain control -- Wound care, strict glucose control. Obtain HbA1C --Monitor BMP,iv fluid , avoid nephrotoxic -- follow blood cx Subjective Date of service: 05/24/22 Principal diagnosis: Gangerene L Great toe,S/p Angiogram ,PVD Interval history: Patient seen and examined. Medical records and medication list reviewed. No acute event overnight noted by the RN. Patient denies any chest pain or difficulty breathing. Patient is tolerating diet. Complains of left foot pain, planned for amputation today Discussed plan of care at bedside with patient. Objective - Exam Narrative Exam: GENERAL: WF lying on bed appeared to be in no discomfort. HEENT: Normocephalic. Atraumatic. No conjunctival congestion or icterus. Patient has moist mucous membranes. NECK: Supple. Trachea midline. CHEST/LUNGS: Clear to auscultated bilaterally, breathing nonlabored. No wheezes crackles or rhonchi. HEART/CARDIOVASCULAR: Regular in rate and rhythm. S1 and S2 positive. ABDOMEN: Abdomen is soft, nontender. Patient has normal bowel sounds. SKIN: There is no rash. Warm and dry. NEURO: No focal motor deficit. Follows command. MUSCULOSKELETAL: left great toe swelling and tenderness EXTRIMITY: left foot with wound dressing. Foot warm. PSYCH: Cooperative. - Constitutional Vitals: Vital Signs - 12hr 05/24/22 05/24/22 05/24/22 05:35 10:00 12:45 Temperature 99.3 F 99.1 F Pulse Rate 100 H 95 H Respiratory 17 16 Rate Blood Pressure 109/54 Blood Pressure 150/64 [Left] O2 Sat by Pulse 100 97 95 Oximetry - Labs CBC & Chem 7: 05/24/22 05:53 05/24/22 05:53 Labs: Abnormal lab results 05/23/22 05/23/22 05/23/22 Range/Units 11:29 16:15 21:03 WBC (4.5-11.0) K/mm3 RBC (3.65-5.03) M/mm3 Hgb (10.1-14.3) gm/dl Hct (30.3-42.9) % RDW (13.2-15.2) % Plt Count (140-440) K/mm3 Potassium (3.6-5.0) mmol/L BUN (7-17) mg/dL Creatinine (0.6-1.2) mg/dL Glucose (65-100) mg/dL POC Glucose 198 H 113 H 197 H (70-105) mg/dL Calcium (8.4-10.2) mg/dL 05/24/22 05/24/22 05/24/22 Range/Units 05:53 05:53 07:26 WBC 15.7 H (4.5-11.0) K/mm3 RBC 2.76 L (3.65-5.03) M/mm3 Hgb 8.1 L (10.1-14.3) gm/dl Hct 25.3 L (30.3-42.9) % RDW 13.0 L (13.2-15.2) % Plt Count 540 H (140-440) K/mm3 Potassium 3.2 L D (3.6-5.0) mmol/L BUN 30 H (7-17) mg/dL Creatinine 2.0 H (0.6-1.2) mg/dL Glucose 159 H (65-100) mg/dL POC Glucose 121 H (70-105) mg/dL Calcium 8.3 L (8.4-10.2) mg/dL
[2022-05-24] MEDS ORDERED: PHENYLEPHRINE/NS 1,000 MCG/10 ML SYRINGE (OR USE) IV ONE (16:02)
[2022-05-24] MEDS ORDERED: SODIUM CHLORIDE 0.9% 1000 ML 1,000 ML ONE (16:06)
[2022-05-24] MEDS ORDERED: ONDANSETRON 4 MG/2 ML INJ ONE (16:49)
[2022-05-24] MEDS ORDERED: KETOROLAC 30 MG/1 ML INJ ONE (16:49)
--- NOTE | 2022-05-24 16:50 | Operative Report ---
Operative Report Operative Report: Date of procedure: 05/24/2022 Preop diagnosis: Gas gangrene of left first toe with osteomyelitis and periphera l vascular disease Postop diagnosis: Same Procedure: Transmetatarsal amputation of first toe of left foot Surgeon: Dr. Salvador Anesthesia: General endotracheal anesthesia Estimated blood blood loss: 10 cc Specimen: First toe left foot. Culture sensitivity of deep tissue from gas gangrene area. Findings: The patient is taken to the OR and under general endotracheal anesthesia timeouts completed consents on the chart. The left foot is prepped with Betadine draped in the station sterile fashion. Trapped gas is evident under the skin of the first toe. Teardrop incision with extension down the medial aspect of the left foot is made with a #10 scalpel. Clearly necrotic tissue is excised sharply with a scalpel. Initial area of the amputation is through the first metatarsal phalangeal joint. After debridement of the soft tissue it was clear that a transmit amputation of the first metatarsal was required for soft tissue approximation. Periosteal elevators were used to lift the periosteum and soft tissue away from the distal end of the first metatarsal. Oscillating bone saw was used to divide the first metatarsal bone at its distal one third. The tissue was then irrigated with copious amounts of saline. Electrocautery was used for hemostasis. A loose approximation of the tissue over the metatarsal is done with 2-0 nylon sutures in a vertical mattress stitch. The remaining open areas left open. Dressing is applied using Xeroform gauze followed by dry gauze applied sterilely.
[2022-05-24] MEDS ORDERED: DEXTROSE 50% IN WATER (25GM) 50 ML SYRINGE IV ONE (17:06)
[2022-05-24] MEDS: HYDROmorphone 0.5 MG/0.5 ML INJ IV PRN ×2 (17:31→17:44)
[2022-05-24] MEDS: CEFEPIME/NS 2 GM/100 ML 2 GM/100 ML BAG IV SCH (17:39)
--- NOTE | 2022-05-24 20:13 | Consultation ---
History of Present Illness - Reason for Consult Consult date: 05/24/22 - History of Present Illness 56-year-old female past medical history diabetes, schizophrenia, nicotine dependence presented to hospital complaining of foot pain. The pains been in her left foot for the past 1 month, but is acutely worsened over the past 3 days. She complains of redness, purulent discharge from the wound. She is been unable to ambulate due to the pain. She did have osteomyelitis on admission, and was taken to the OR today for transmetatarsal amputation of the hallux of the left foot. Afebrile since admission with a white count of 15.7. Decreased renal function, EGFR 31. Currently on cefepime, vancomycin. Blood cultures no growth so far. Imaging personally reviewed: Foot x-ray: Severe acute osteomyelitis of the distal phalanx of the great toe with subcutaneous gas. Review of Systems: Bold if positive, otherwise negative General: fevers, chills, rigors HEENT: visual disturbance, diplopia, eye pain Respiratory: cough, sputum, hemoptysis, shortness of breath Cardiovascular: chest pain, syncope Gastrointestinal: nausea, vomiting, diarrhea, abdominal pain Genitourinary: dysuria, hematuria, flank pain Musculoskeletal: neck pain, back pain, joint pain, edema Neurologic: headaches, seizures Hematologic: easy bruising or bleeding Endocrine: night sweats, acute weight loss Skin: rash, jaundice, redness Psychiatric: suicidal, homicidal ideation Past History Past Medical History: diabetes, hypertension, hyperlipidemia Past Surgical History: No surgical history Social history: single, smoking. denies: alcohol abuse, prescription drug abuse Family history: diabetes, hypertension Medications and Allergies Allergies Allergy/AdvReac Type Severity Reaction Status Date / Time No Known Allergies Allergy Verified 05/18/22 15:31 Home Medications Medication Instructions Recorded Confirmed Last Taken Type No Known Home Medications [No 05/20/22 05/20/22 Unknown History Reported Home Medications] Active Meds: Active Medications Acetaminophen (Acetaminophen 325 Mg Tab) 650 mg PO Q4H PRN PRN Reason: Pain MILD(1-3)/Fever >100.5/AVILA Last Admin: 05/22/22 06:05 Dose: 650 mg Albuterol (Albuterol 2.5 Mg/3 Ml Nebu) 2.5 mg IH Q4HRT PRN PRN Reason: Shortness Of Breath Apixaban (Apixaban 2.5 Mg Tab) 2.5 mg PO Q12HR [facility]; Protocol Last Admin: 05/24/22 13:03 Dose: Not Given Aspirin (Aspirin Ec 81 Mg Tab) 81 mg PO QDAY [facility] Last Admin: 05/24/22 13:03 Dose: Not Given Atorvastatin Calcium (Atorvastatin 20 Mg Tab) 20 mg PO QHS [facility] Last Admin: 05/23/22 21:35 Dose: 20 mg Clopidogrel Bisulfate (Clopidogrel 75 Mg Tab) 75 mg PO QDAY [facility] Last Admin: 05/24/22 13:03 Dose: Not Given Dextrose (Dextrose 50% In Water (25gm) 50 Ml Syringe) 50 ml IV Q30MIN PRN; Protocol PRN Reason: Hypoglycemia Docusate Sodium (Docusate Sodium 100 Mg Cap) 100 mg PO BID [facility] Last Admin: 05/24/22 13:03 Dose: Not Given Hydromorphone HCl (Hydromorphone 1 Mg/1 Ml Inj) 1 mg IV Q8H PRN PRN Reason: Pain , Severe (7-10) Last Admin: 05/23/22 23:56 Dose: 1 mg Hydromorphone HCl (Hydromorphone 0.5 Mg/0.5 Ml Inj) 0.5 mg IV Q10MIN PRN PRN Reason: Pain , Severe (7-10) Last Admin: 05/24/22 17:44 Dose: 0.5 mg Cefepime HCl (Cefepime/Ns 2 Gm/100 Ml) 2 gm in 100 mls @ 200 mls/hr IV Q24H [facility] Last Admin: 05/24/22 17:39 Dose: Not Given Sodium Chloride (Nacl 0.9% 1000 Ml) 1,000 mls @ 75 mls/hr IV DIRECT [facility] Last Admin: 05/24/22 14:20 Dose: 75 mls/hr Vancomycin HCl (Vancomycin/Ns 1 Gm/250 Ml) 1 gm in 250 mls @ 167.007 mls/hr IV ONCE ONE Stop: 05/24/22 23:29 Insulin Glargine (Insulin Glargine 100 Units/Ml) 30 units SUB-Q QHS [facility] Last Admin: 05/23/22 21:35 Dose: 30 units Insulin Human Lispro (Insulin Lispro 100 Unit/Ml) 0 unit SUB-Q ACHS [facility]; Protocol Last Admin: 05/24/22 17:39 Dose: Not Given Ondansetron HCl (Ondansetron 4 Mg/2 Ml Inj) 4 mg IV Q8H PRN PRN Reason: Nausea And Vomiting Oxycodone/Acetaminophen (Oxycodone /Acetaminophen 5-325mg Tab) 2 tab PO Q6H PRN PRN Reason: Pain, Moderate (4-6) Last Admin: 05/23/22 17:00 Dose: 2 tab Pantoprazole Sodium (Pantoprazole 40 Mg Tab) 40 mg PO QDAC [facility] Last Admin: 05/24/22 13:03 Dose: Not Given Sodium Chloride (Sodium Chloride 0.9% 10 Ml Flush Syringe) 10 ml IV BID [facility] Last Admin: 05/24/22 13:03 Dose: 10 ml Sodium Chloride (Sodium Chloride 0.9% 10 Ml Flush Syringe) 10 ml IV PRN PRN PRN Reason: LINE FLUSH Physical Examination - Physical Exam Narrative exam: Physical Exam: Constitutional: Alert, cooperative. No acute distress Head, Ears, Nose: Normocephalic, atraumatic. External ears, nose normal Eyes: Conjunctivae/corneas clear. No icterus. No ptosis. Neck: Supple, no meningeal signs Oral: dentition fair, no thrush Cardiovascular: S1, S2 normal. Respiratory: Good air entry, clear to auscultation bilaterally GI: Soft, non-tender; bowel sounds normal. No peritoneal signs. Musculoskeletal: Dusky left great toe Skin: No rash or abscess Hem/Lymphatic: No palpable cervical or supraclavicular nodes. No lymphangitis Psych: Mood ok. Affect normal Neurological: Awake, alert, oriented. No gross abnormality - Constitutional Vitals: Vital Signs Temp Pulse Resp BP Pulse Ox 98.8 F 87 12 139/72 100 05/24/22 17:45 05/24/22 17:45 05/24/22 17:45 05/24/22 17:45 05/24/22 17:45 Temperature -Last 24 Hours Temperature 98.8 F Temperature 96.8 F Temperature 99.1 F Temperature 99.3 F Temperature 98.9 F Results - Labs CBC & Chem 7: 05/24/22 05:53 05/24/22 05:53 Labs: Abnormal lab results 05/23/22 05/23/22 05/24/22 Range/Units 16:15 21:03 05:53 WBC (4.5-11.0) K/mm3 RBC (3.65-5.03) M/mm3 Hgb (10.1-14.3) gm/dl Hct (30.3-42.9) % RDW (13.2-15.2) % Plt Count (140-440) K/mm3 Potassium 3.2 L D (3.6-5.0) mmol/L BUN 30 H (7-17) mg/dL Creatinine 2.0 H (0.6-1.2) mg/dL Glucose 159 H (65-100) mg/dL POC Glucose 113 H 197 H (70-105) mg/dL Calcium 8.3 L (8.4-10.2) mg/dL 05/24/22 05/24/22 05/24/22 Range/Units 05:53 07:26 11:29 WBC 15.7 H (4.5-11.0) K/mm3 RBC 2.76 L (3.65-5.03) M/mm3 Hgb 8.1 L (10.1-14.3) gm/dl Hct 25.3 L (30.3-42.9) % RDW 13.0 L (13.2-15.2) % Plt Count 540 H (140-440) K/mm3 Potassium (3.6-5.0) mmol/L BUN (7-17) mg/dL Creatinine (0.6-1.2) mg/dL Glucose (65-100) mg/dL POC Glucose 121 H 68 L (70-105) mg/dL Calcium (8.4-10.2) mg/dL 05/24/22 05/24/22 05/24/22 Range/Units 17:02 17:09 17:42 WBC (4.5-11.0) K/mm3 RBC (3.65-5.03) M/mm3 Hgb (10.1-14.3) gm/dl Hct (30.3-42.9) % RDW (13.2-15.2) % Plt Count (140-440) K/mm3 Potassium (3.6-5.0) mmol/L BUN (7-17) mg/dL Creatinine (0.6-1.2) mg/dL Glucose (65-100) mg/dL POC Glucose 58 L 50 L 128 H (70-105) mg/dL Calcium (8.4-10.2) mg/dL Assessment and Plan Cultures: Blood culture no growth so far A/P: 56-year-old female past medical history diabetes, nicotine abuse, schizophrenia now with: #Acute sepsis: With leukocytosis, tachycardia. 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 Per operative note, cultures obtained. We will follow-up. Hopefully surgical cure obtained given transmetatarsal amputation performed. #Diabetes type 2: Glycemic control for best outcomes #CELY: Renally dose medications Recs: -Continue vancomycin, cefepime for now. Renally dose medications -Follow-up surgical cultures from amputation -Follow-up surgical pathology Thank you for the consult, we will continue to follow. MD [facility] ([facility]) O: [phone] F: [phone]
[2022-05-24] MEDS ORDERED: VANCOMYCIN/NS 1 GM/250 ML 1 GM/250 ML BAG IV ONE (22:00)
[2022-05-24] MEDS: INSULIN GLARGINE 100 UNITS/ML SUB-Q SCH (22:14)
[2022-05-24] MEDS: oxyCODONE /ACETAMINOPHEN 5-325MG TAB PO PRN (22:40)
[2022-05-25 07:18] LABS: Basophils # (Auto) 0.1 K/mm3 (0.0-0.1); Basophils % (Auto) 0.9 % (0.0-1.8); Eosinophils # (Auto) 0.6 K/mm3 (0.0-0.4); Eosinophils % (Auto) 4.2 % (0.0-4.3); Hematocrit 22.2 % (30.3-42.9); Hemoglobin 7.1 gm/dl (10.1-14.3); Lymphocytes % (Auto) 15.6 % (13.4-35.0); Mean Corpuscular HGB Conc 32 % (30-34); Mean Corpuscular Volume 92 fl (79-97); Monocytes # (Auto) 0.8 K/mm3 (0.0-0.8); Monocytes % (Auto) 6.5 % (0.0-7.3); Platelet Count 496 K/mm3 (140-440); Red Blood Count 2.41 M/mm3 (3.65-5.03); Red Cell Distribution Width 13.3 % (13.2-15.2)
[2022-05-25 07:41] LABS: Calcium 7.8 mg/dL (8.4-10.2)
[2022-05-25] MEDS: oxyCODONE /ACETAMINOPHEN 5-325MG TAB PO PRN ×2 (08:59→21:49)
[2022-05-25] MEDS: CLOPIDOGREL 75 MG TAB PO SCH (09:20)
[2022-05-25] MEDS: APIXABAN 2.5 MG TAB PO SCH ×2 (09:20→21:33)
[2022-05-25] MEDS: PANTOPRAZOLE 40 MG TAB PO SCH (09:20)
[2022-05-25] MEDS: INSULIN LISPRO 100 UNIT/ML SUB-Q SCH ×4 (09:21→21:46)
[2022-05-25] MEDS: DOCUSATE SODIUM 100 MG CAP PO SCH ×2 (09:21→21:33)
[2022-05-25] MEDS: ASPIRIN EC 81 MG TAB PO SCH (09:21)
--- NOTE | 2022-05-25 09:30 | Progress Note ---
Assessment and Plan Impression: * Acute kidney injury secondary to ATN * Hyponatremia * Hypokalemia - likely exacerbated by metabolic alkalosis, resolved * Metabolic alkalosis, resolved * Osteomyelitis * Gangrene, left toe --s/pTransmetatarsal amputation of first toe of left foot Plan: * Stop IVF * Give Lasix 20mg IV x 1 dose * Renal function gradually improved. No indication for renal replacement therapy * Dose medications for renal function * Glycemic control * Avoid nephrotoxins Subjective Date of service: 05/25/22 Principal diagnosis: Gangerene L Great toe,S/p Angiogram ,PVD Interval history: Patient c/o SOB. On 4L NC oxygen Objective - Vital Signs Vital signs: Vital Signs - 12hr 05/24/22 05/25/22 22:00 08:47 Respiratory 20 Rate O2 Sat by Pulse 98 96 Oximetry - General Appearance General appearance: well-developed Respiratory: Present: Other (inspiratory crackles) Cardiology: regular, S1S2 Gastrointestinal: normal, no tenderness, no distended Integumentary: warm and dry Neurologic: alert and oriented x3 Psychiatric: cooperative - Lab 05/25/22 06:32 05/25/22 06:32 Most recent lab results Calcium 7.8 mg/dL (8.4-10.2) L 05/25/22 06:32 Urine Creatinine 73.3 mg/dL (0.1-20.0) H 05/18/22 23:18 Urine Sodium 55 mmol/L 05/18/22 23:18 Medications & Allergies - Medications Allergies/Adverse Reactions: Allergies No Known Allergies Allergy (Verified 05/18/22 15:31) Home Medications: Home Medications Medication Instructions Recorded Confirmed Last Taken Type No Known Home Medications [No 05/20/22 05/20/22 Unknown History Reported Home Medications] Active Medications: Generic Name Dose Route Start Last Admin Trade Name Freq PRN Reason Stop Dose Admin Acetaminophen 650 mg 05/18/22 20:20 05/22/22 06:05 Acetaminophen 325 Mg Tab PO 650 mg Q4H PRN Administration Pain MILD(1-3)/Fever >100.5/AVILA Albuterol 2.5 mg 05/18/22 20:20 Albuterol 2.5 Mg/3 Ml Nebu IH Q4HRT PRN Shortness Of Breath Apixaban 2.5 mg 05/21/22 22:00 05/25/22 09:20 Apixaban 2.5 Mg Tab PO 2.5 mg Q12HR [facility] Administration Protocol Aspirin 81 mg 05/22/22 10:00 05/25/22 09:21 Aspirin Ec 81 Mg Tab PO 81 mg QDAY [facility] Administration Atorvastatin Calcium 20 mg 05/21/22 22:00 05/24/22 22:13 Atorvastatin 20 Mg Tab PO 20 mg QHS [facility] Administration Clopidogrel Bisulfate 75 mg 05/22/22 10:00 05/25/22 09:20 Clopidogrel 75 Mg Tab PO 75 mg QDAY [facility] Administration Dextrose 50 ml 05/18/22 20:25 Dextrose 50% In Water (25gm) 50 Ml Syringe IV Q30MIN PRN Hypoglycemia Protocol Docusate Sodium 100 mg 05/19/22 10:00 05/25/22 09:21 Docusate Sodium 100 Mg Cap PO 100 mg BID [facility] Administration Hydromorphone HCl 1 mg 05/19/22 09:55 05/23/22 23:56 Hydromorphone 1 Mg/1 Ml Inj IV 1 mg Q8H PRN Administration Pain , Severe (7-10) Hydromorphone HCl 0.5 mg 05/24/22 16:58 05/24/22 17:44 Hydromorphone 0.5 Mg/0.5 Ml Inj IV 0.5 mg Q10MIN PRN Administration Pain , Severe (7-10) Cefepime HCl 2 gm in 100 mls @ 200 mls/hr 05/19/22 12:00 05/24/22 17:39 Cefepime/Ns 2 Gm/100 Ml IV Not Given Q24H [facility] Sodium Chloride 1,000 mls @ 75 mls/hr 05/21/22 12:45 05/24/22 14:20 Nacl 0.9% 1000 Ml IV 75 mls/hr DIRECT [facility] Administration Insulin Glargine 30 units 05/22/22 13:15 05/24/22 22:14 Insulin Glargine 100 Units/Ml SUB-Q Not Given QHS [facility] Insulin Human Lispro 0 unit 05/18/22 22:00 05/25/22 09:21 Insulin Lispro 100 Unit/Ml SUB-Q Not Given ACHS [facility] Protocol Ondansetron HCl 4 mg 05/18/22 20:20 Ondansetron 4 Mg/2 Ml Inj IV Q8H PRN Nausea And Vomiting Oxycodone/Acetaminophen 2 tab 05/19/22 09:46 05/25/22 08:59 Oxycodone /Acetaminophen 5-325mg Tab PO 2 tab Q6H PRN Administration Pain, Moderate (4-6) Pantoprazole Sodium 40 mg 05/22/22 07:30 05/25/22 09:20 Pantoprazole 40 Mg Tab PO 40 mg QDAC [facility] Administration Sodium Chloride 10 ml 05/18/22 22:00 05/25/22 09:20 Sodium Chloride 0.9% 10 Ml Flush Syringe IV 10 ml BID [facility] Administration Sodium Chloride 10 ml 05/18/22 20:20 Sodium Chloride 0.9% 10 Ml Flush Syringe IV PRN PRN LINE FLUSH
--- NOTE | 2022-05-25 10:20 | Progress Note ---
Assessment and Plan Marianna is postop day #1 status post amputation of her left first toe and the distal metatarsal. Extensive soft tissue necrosis and air forming organisms were encountered. Patient will need IV antibiotics and local wound care intensively for the next few days. She will also need help with discharge because she lives at home without electricity. She has cold running water only. She will need home health nursing potentially resources for postop and wound care. Subjective Date of service: 05/25/22 Patient Reports: Positive: still having pain Narrative: Marianna is postop day #1 status post amputation of her left first toe and the distal metatarsal. Extensive soft tissue necrosis and air forming organisms were encountered. Patient will need IV antibiotics and local wound care intensively for the next few days. She will also need help with discharge because she lives at home without electricity. She has cold running water only. She will need home health nursing potentially resources for postop and wound care. Objective Vital Signs - 12hr 05/25/22 08:47 O2 Sat by Pulse 96 Oximetry - Labs 05/25/22 06:32 05/25/22 06:32 Diabetes panel 05/25/22 Range/Units 06:32 Sodium 142 (137-145) mmol/L Potassium 3.8 (3.6-5.0) mmol/L Chloride 104.1 (98-107) mmol/L Carbon Dioxide 25 (22-30) mmol/L BUN 28 H (7-17) mg/dL Creatinine 2.2 H (0.6-1.2) mg/dL Glucose 145 H (65-100) mg/dL Calcium 7.8 L (8.4-10.2) mg/dL Calcium panel 05/25/22 Range/Units 06:32 Calcium 7.8 L (8.4-10.2) mg/dL Pituitary panel 05/25/22 Range/Units 06:32 Sodium 142 (137-145) mmol/L Potassium 3.8 (3.6-5.0) mmol/L Chloride 104.1 (98-107) mmol/L Carbon Dioxide 25 (22-30) mmol/L BUN 28 H (7-17) mg/dL Creatinine 2.2 H (0.6-1.2) mg/dL Glucose 145 H (65-100) mg/dL Calcium 7.8 L (8.4-10.2) mg/dL Adrenal panel 05/25/22 Range/Units 06:32 Sodium 142 (137-145) mmol/L Potassium 3.8 (3.6-5.0) mmol/L Chloride 104.1 (98-107) mmol/L Carbon Dioxide 25 (22-30) mmol/L BUN 28 H (7-17) mg/dL Creatinine 2.2 H (0.6-1.2) mg/dL Glucose 145 H (65-100) mg/dL Calcium 7.8 L (8.4-10.2) mg/dL
[2022-05-25] MEDS ORDERED: FUROSEMIDE 40 MG/4 ML INJ IV NR (10:30)
[2022-05-25] MEDS: CEFEPIME/NS 2 GM/100 ML 2 GM/100 ML BAG IV SCH (12:19)
--- NOTE | 2022-05-25 13:25 | Progress Note ---
Assessment and Plan Cultures: Blood culture no growth so far A/P: 56-year-old female past medical history diabetes, nicotine abuse, schizophrenia now with: #Acute sepsis: With leukocytosis, tachycardia. 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 Per operative note, cultures obtained. We will follow-up. Hopefully surgical cure obtained given transmetatarsal amputation performed. #Diabetes type 2: Glycemic control for best outcomes #CELY: Renally dose medications Recs: -Continue vancomycin, cefepime for now. Renally dose medications -added PO metronidazole -Follow-up surgical cultures from amputation -Follow-up surgical pathology Thank you for the consult, we will continue to follow. Cristy Barraza MD [facility] ([facility]) O: [phone] F: [phone] Subjective Date of service: 05/25/22 Principal diagnosis: Gangerene L Great toe,S/p Angiogram ,PVD Interval history: Afebrile, white count 13.1. Blood cultures no growth so far. Of note she does not have electricity at home. Objective - Exam Narrative Exam: Physical Exam: Constitutional: Alert, cooperative. No acute distress Head, Ears, Nose: Normocephalic, atraumatic. External ears, nose normal Eyes: Conjunctivae/corneas clear. No icterus. No ptosis. Neck: Supple, no meningeal signs Oral: dentition fair, no thrush Cardiovascular: S1, S2 normal. Respiratory: Good air entry, clear to auscultation bilaterally GI: Soft, non-tender; bowel sounds normal. No peritoneal signs. Musculoskeletal: s/p left hallux amputation Skin: No rash or abscess Hem/Lymphatic: No palpable cervical or supraclavicular nodes. No lymphangitis Psych: Mood ok. Affect normal Neurological: Awake, alert, oriented. No gross abnormality - Constitutional Vitals: Vital Signs Temp Pulse Resp BP Pulse Ox 97.4 F L 88 20 113/54 97 05/24/22 21:10 05/24/22 21:10 05/24/22 22:00 05/24/22 21:10 05/25/22 10:00 Temperature -Last 24 Hours Temperature 97.4 F Temperature 98.8 F Temperature 96.8 F - Labs CBC & Chem 7: 05/25/22 06:32 05/25/22 06:32 Labs: Abnormal lab results 05/24/22 05/24/22 05/24/22 Range/Units 11:29 17:02 17:09 WBC (4.5-11.0) K/mm3 RBC (3.65-5.03) M/mm3 Hgb (10.1-14.3) gm/dl Hct (30.3-42.9) % Plt Count (140-440) K/mm3 Eos # (Auto) (0.0-0.4) K/mm3 Seg Neutrophils % (40.0-70.0) % Seg Neutrophils # (1.8-7.7) K/mm3 BUN (7-17) mg/dL Creatinine (0.6-1.2) mg/dL Glucose (65-100) mg/dL POC Glucose 68 L 58 L 50 L (70-105) mg/dL Calcium (8.4-10.2) mg/dL 05/24/22 05/24/22 05/25/22 Range/Units 17:42 21:59 06:32 WBC 13.1 H (4.5-11.0) K/mm3 RBC 2.41 L (3.65-5.03) M/mm3 Hgb 7.1 L (10.1-14.3) gm/dl Hct 22.2 L (30.3-42.9) % Plt Count 496 H (140-440) K/mm3 Eos # (Auto) 0.6 H (0.0-0.4) K/mm3 Seg Neutrophils % 72.8 H (40.0-70.0) % Seg Neutrophils # 9.5 H (1.8-7.7) K/mm3 BUN (7-17) mg/dL Creatinine (0.6-1.2) mg/dL Glucose (65-100) mg/dL POC Glucose 128 H 148 H (70-105) mg/dL Calcium (8.4-10.2) mg/dL 05/25/22 Range/Units 06:32 WBC (4.5-11.0) K/mm3 RBC (3.65-5.03) M/mm3 Hgb (10.1-14.3) gm/dl Hct (30.3-42.9) % Plt Count (140-440) K/mm3 Eos # (Auto) (0.0-0.4) K/mm3 Seg Neutrophils % (40.0-70.0) % Seg Neutrophils # (1.8-7.7) K/mm3 BUN 28 H (7-17) mg/dL Creatinine 2.2 H (0.6-1.2) mg/dL Glucose 145 H (65-100) mg/dL POC Glucose (70-105) mg/dL Calcium 7.8 L (8.4-10.2) mg/dL
[2022-05-25] MEDS: metroNIDAZOLE 500 MG TAB PO SCH ×2 (14:21→21:32)
[2022-05-25] MEDS: HYDROmorphone 1 MG/1 ML INJ IV PRN ×2 (15:01→19:56)
[2022-05-25] MEDS: SODIUM HYPOCHLORITE, DAKIN'S 1/2 STRENGTH (0.25%) 473 ML TOPICAL SOLN TP SCH ×2 (15:07→21:40)
--- NOTE | 2022-05-25 18:15 | Progress Note ---
Assessment and Plan Assessment and plan: 56 yo F with hx of poorly controlled DM, neuropathy, tobacco abuse who presented to ER with c/o pain and swelling in her left great toe for at least 1 month. When she presented to ER, there was purulent drainage from the toe and maggots present per ER physician. In the ER Patient underwent x-ray of the left foot and was found to have left foot osteomyelitis complicated by cellulitis, sepsis and also found to have acute kidney injury. 05/19: cont iv abx, follow blood cx. pending doppler study. Cr improving, cont bicarbonate fluid. may need amputation 05/20: blood cx neg. cont empiric abx. B/L LE duplex revealed hemodynamically significant bilateral PAD with increased velocities in the femoral arteries and monophasic waveforms and decreased velocities in distal arteries. Patient will be scheduled for a left lower extremity angiogram with possible revascularization tomorrow to allow adequate arterial inflow to heal a planned first toe amputation with general surgery. 05/21: s/p angioplasy, cont empiric abx, follow clinically, will need amputation 05/22: Glucose levels are high--Lantus increased from 10 units to 30 units subcu at bedtime, also high-dose sliding scale coverage. Guillotine amputation of left great toe on Tuesday. 05/23: cont abx, follow BG level. plan for amputation tomorrow 05/24: plan for amputation today, cont iv abx. follow blood cx 05/25;s/p TMA left great toe[first toe] Assessment and plan: -- Sepsis with cellulites of left foot; Elevate the limb, status post TMA amputation of the left first toe Continue IV antibiotics, pain medications, supportive care -- Osteomylitis and Gangrene of left great toe 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 Elevate the limb, pain medications, wound dressing PT OT -- PAD with tobacco abuse; --S/p Angioplasty --LLE Smoking cessation counseling Nicotine patch as needed Strongly advised the importance of quitting tobacco use Sequelae of chronic tobacco use explained to the patient and discussed in detail I spent 25 minutes counseling the patient -- Diabetic neuropathy; Continue gabapentin, supportive care -- Diabetes mellitus type 2 uncontrolled; Accu-Chek, sliding scale coverage, ADA diet Insulin as needed -- CELY with possible ATN; Closely monitor renal function, avoid nephrotoxin Renal dose of medications, renal ultrasound if needed -- Metabolic acidosis; IV fluids and supportive care --DVT prophylaxis;SCDs Hold subcu heparin[patient postop.] Closely monitor the patient and adjust management as needed Plan of care reviewed with the patient, her nurse, and the case database management specialist recommendations noted and appreciated Advance care planning; +35 minutes Discussed in detail with the patient his condition, patient's tests and reports discussed Patient's diagnosis discussed with him, I discussed treatment plan, I also discussed consultants input I discussed treatment plan, I discussed prognosis, I also discussed discharge planning when patient is medically stable. I discussed with the patient case management's recommendations and DC planning. Patient had some questions , I answered all of them .patient verbalized understanding, History Interval history: I have seen and examined the patient at the bedside Patient's chart and medications reviewed Patient had amputation of first toe of the left foot status post TMA on 05/24/2022 Patient has an open wound[wound care Patient complains of pain at the surgical site No fever Vital signs noted Hospitalist Physical - Constitutional Vitals: Temp Pulse Resp BP Pulse Ox 97.4 F L 88 20 113/54 97 05/24/22 21:10 05/24/22 21:10 05/24/22 22:00 05/24/22 21:10 05/25/22 10:00 General appearance: Present: mild distress (Left first toe TMA amputation), well-nourished - EENT Eyes: Present: PERRL, EOM intact - Neck Neck: Present: supple, normal ROM - Respiratory Respiratory effort: normal Respiratory: bilateral: diminished, negative: rales, rhonchi, wheezing - Cardiovascular Rhythm: regular Heart Sounds: Present: S1 & S2 - Extremities Extremities: no ischemia, No edema - Abdominal General gastrointestinal: soft, non-tender, non-distended, normal bowel sounds - Integumentary Integumentary: Present: clear, warm - Psychiatric Psychiatric: appropriate mood/affect, cooperative - Neurologic Neurologic: CNII-XII intact, moves all extremities Results - Labs CBC & Chem 7: 05/25/22 06:32 05/25/22 06:32 Labs: Laboratory Last Values WBC 13.1 K/mm3 (4.5-11.0) H 05/25/22 06:32 RBC 2.41 M/mm3 (3.65-5.03) L 05/25/22 06:32 Hgb 7.1 gm/dl (10.1-14.3) L 05/25/22 06:32 Hct 22.2 % (30.3-42.9) L 05/25/22 06:32 MCV 92 fl (79-97) 05/25/22 06:32 MCH 30 pg (28-32) 05/25/22 06:32 MCHC 32 % (30-34) 05/25/22 06:32 RDW 13.3 % (13.2-15.2) 05/25/22 06:32 Plt Count 496 K/mm3 (140-440) H 05/25/22 06:32 Lymph % (Auto) 15.6 % (13.4-35.0) 05/25/22 06:32 [place] % (Auto) 6.5 % (0.0-7.3) 05/25/22 06:32 Eos % (Auto) 4.2 % (0.0-4.3) 05/25/22 06:32 Baso % (Auto) 0.9 % (0.0-1.8) 05/25/22 06:32 Lymph # (Auto) 2.0 K/mm3 (1.2-5.4) 05/25/22 06:32 [place] # (Auto) 0.8 K/mm3 (0.0-0.8) 05/25/22 06:32 Eos # (Auto) 0.6 K/mm3 (0.0-0.4) H 05/25/22 06:32 Baso # (Auto) 0.1 K/mm3 (0.0-0.1) 05/25/22 06:32 Seg Neutrophils % 72.8 % (40.0-70.0) H 05/25/22 06:32 Seg Neutrophils # 9.5 K/mm3 (1.8-7.7) H 05/25/22 06:32 ESR > 140.0 mm/Hr (0-20) 05/18/22 16:40 Sodium 142 mmol/L (137-145) 05/25/22 06:32 Potassium 3.8 mmol/L (3.6-5.0) 05/25/22 06:32 Chloride 104.1 mmol/L (98-107) 05/25/22 06:32 Carbon Dioxide 25 mmol/L (22-30) 05/25/22 06:32 Anion Gap 17 mmol/L 05/25/22 06:32 BUN 28 mg/dL (7-17) H 05/25/22 06:32 Creatinine 2.2 mg/dL (0.6-1.2) H 05/25/22 06:32 Estimated GFR 28 ml/min 05/25/22 06:32 BUN/Creatinine Ratio 13 % 05/25/22 06:32 Glucose 145 mg/dL (65-100) H 05/25/22 06:32 POC Glucose 148 mg/dL (70-105) H 05/24/22 21:59 Hemoglobin A1c 9.1 % (4-6) H 05/19/22 06:56 Lactic Acid 0.80 mmol/L (0.7-2.0) 05/19/22 06:56 Calcium 7.8 mg/dL (8.4-10.2) L 05/25/22 06:32 Total Bilirubin < 0.20 mg/dL (0.1-1.2) 05/19/22 06:56 AST 8 units/L (5-40) 05/19/22 06:56 ALT 6 units/L (7-56) L 05/19/22 06:56 Alkaline Phosphatase 120 units/L (35-129) 05/19/22 06:56 Total Protein 6.3 g/dL (6.3-8.2) 05/19/22 06:56 Albumin 3.2 g/dL (3.9-5) L 05/19/22 06:56 Albumin/Globulin Ratio 1.0 % 05/19/22 06:56 Urine Color Colorless (Yellow) 05/18/22 23:18 Urine Turbidity Cloudy (Clear) 05/18/22 23:18 Specific [place] (Man) 1.015 (1.003-1.030) 05/18/22 23:18 Ur Protein (Man) 3+ mg/dL (Negative) 05/18/22 23:18 Ur Ketones (Man) Negative (Negative) 05/18/22 23:18 Urine Bilirubin (Man) Negative (Negative) 05/18/22 23:18 Urine WBC (Auto) > 182.0 /HPF (0.0-6.0) H 05/18/22 23:18 Urine RBC (Auto) 2.0 /HPF (0.0-6.0) 05/18/22 23:18 U Epithel Cells (Auto) < 1.0 /HPF (0-13.0) 05/18/22 23:18 Urine RBC (Manual) 1+ (Negative) 05/18/22 23:18 Urine Mucus Few /HPF 05/18/22 23:18 Urine Creatinine 73.3 mg/dL (0.1-20.0) H 05/18/22 23:18 Urine Sodium 55 mmol/L 05/18/22 23:18 Random Vancomycin 14.3 ug/mL (0-40.0) 05/24/22 05:53 Blood Type O POSITIVE 05/18/22 Unknown Antibody Screen Negative 05/18/22 Unknown Strickland/IV: Voiding Method External Female Catheter Active Medications - Current Medications Current Medications: Generic Name Dose Route Start Last Admin Trade Name Freq PRN Reason Stop Dose Admin Acetaminophen 650 mg 05/18/22 20:20 05/22/22 06:05 Acetaminophen 325 Mg Tab PO 650 mg Q4H PRN Administration Pain MILD(1-3)/Fever >100.5/AVILA Albuterol 2.5 mg 05/18/22 20:20 Albuterol 2.5 Mg/3 Ml Nebu IH Q4HRT PRN Shortness Of Breath Apixaban 2.5 mg 05/21/22 22:00 05/25/22 09:20 Apixaban 2.5 Mg Tab PO 2.5 mg Q12HR TATUM Administration Protocol Aspirin 81 mg 05/22/22 10:00 05/25/22 09:21 Aspirin Ec 81 Mg Tab PO 81 mg QDAY TATUM Administration Atorvastatin Calcium 20 mg 05/21/22 22:00 05/24/22 22:13 Atorvastatin 20 Mg Tab PO 20 mg QHS TATUM Administration Clopidogrel Bisulfate 75 mg 05/22/22 10:00 05/25/22 09:20 Clopidogrel 75 Mg Tab PO 75 mg QDAY TATUM Administration Dextrose 50 ml 05/18/22 20:25 Dextrose 50% In Water (25gm) 50 Ml Syringe IV Q30MIN PRN Hypoglycemia Protocol Docusate Sodium 100 mg 05/19/22 10:00 05/25/22 09:21 Docusate Sodium 100 Mg Cap PO 100 mg BID TATUM Administration Hydromorphone HCl 1 mg 05/19/22 09:55 05/25/22 15:01 Hydromorphone 1 Mg/1 Ml Inj IV 1 mg Q8H PRN Administration Pain , Severe (7-10) Hydromorphone HCl 0.5 mg 05/24/22 16:58 05/24/22 17:44 Hydromorphone 0.5 Mg/0.5 Ml Inj IV 0.5 mg Q10MIN PRN Administration Pain , Severe (7-10) Cefepime HCl 2 gm in 100 mls @ 200 mls/hr 05/19/22 12:00 05/25/22 12:19 Cefepime/Ns 2 Gm/100 Ml IV 200 mls/hr Q24H TATUM Administration Insulin Glargine 30 units 05/22/22 13:15 05/24/22 22:14 Insulin Glargine 100 Units/Ml SUB-Q Not Given QHS [facility] Insulin Human Lispro 0 unit 05/18/22 22:00 05/25/22 16:20 Insulin Lispro 100 Unit/Ml SUB-Q 6 unit ACHS TATUM Administration Protocol Metronidazole 500 mg 05/25/22 14:00 05/25/22 14:21 Metronidazole 500 Mg Tab PO 500 mg Q8HR [facility] Administration Protocol Ondansetron HCl 4 mg 05/18/22 20:20 Ondansetron 4 Mg/2 Ml Inj IV Q8H PRN Nausea And Vomiting Oxycodone/Acetaminophen 2 tab 05/19/22 09:46 05/25/22 08:59 Oxycodone /Acetaminophen 5-325mg Tab PO 2 tab Q6H PRN Administration Pain, Moderate (4-6) Pantoprazole Sodium 40 mg 05/22/22 07:30 05/25/22 09:20 Pantoprazole 40 Mg Tab PO 40 mg QDAC TATUM Administration Sodium Chloride 10 ml 05/18/22 22:00 05/25/22 09:20 Sodium Chloride 0.9% 10 Ml Flush Syringe IV 10 ml BID TATUM Administration Sodium Chloride 10 ml 05/18/22 20:20 Sodium Chloride 0.9% 10 Ml Flush Syringe IV PRN PRN LINE FLUSH Sodium Hypochlorite 1 applic 05/25/22 12:00 05/25/22 15:07 Sodium Hypochlorite, Dakin's 1/2 Strength (0.25%) 473 Ml Topical Soln TP 1 1000units BID TATUM Administration Nutrition/Malnutrition Assess - Dietary Evaluation Nutrition/Malnutrition Findings: Nutrition Notes Start: 05/20/22 11:53 Freq: Status: Active Protocol: Document 05/20/22 11:53 GEOVANY (Rec: 05/20/22 12:24 GEOVANY [email or web address]) Nutrition Notes Need for Assessment generated from: school psychometrist Initial or Follow up Assessment Current Diagnosis Acute Kidney Injury,Diabetes, Sepsis,Hypertension Other Pertinent Diagnosis L-Foot Osteomyelitis/ Cellulitis/Gangrene, PAD, Schizophrenia. Current Diet Consistent Carbohydrates - Renal, Chopped Meats- Diet+D Suppl (from D 05/20) Labs/Tests 05/20: K 3.2, BUN 38, Crea 2.2 , Ca 8.2, HbA1c 9.1%. Pertinent Medications 05/20: KCl 10mEq, others nutritionally unremarkable. Height 5 ft 5 in Weight 61.2 kg [place] Body Weight (kg) 56.81 BMI 22.4 Intake Prior to Admission Good Weight change and time frame Pt denies having loss body weight [employer]. Weight Status Appropriate Subjective/Other Information RD consult for difficulty chewing and skin risk assessments. Pt's PO intake of meals has been Poor (25%), according to ADL notes. I will prescribe dietary supplements to compensate for poor or onsufficient PO intake of meals during LOS. Pt has missing teeth, according to Physical Assessment History notes. I will recommend mechanical modification to Pt's meals to facilitate chewing process during LOS. I will prescribe Consistent Carbohydrates restriction to Pt's current diet to support Pt's T2DM condition during LOS . Pt is on Room Air, o2 saturation @ 96%, according to Physical Assessment History notes. Pt presents a diabetic ulcer on her L-Foot as sign of concern for skin risk at the time, according to Physical Assessment History notes. Pt presents L-Foot non-pitting edema 1+, according to Physical Assessment History notes. Percent of energy/protein needs met: Prescribed Consistent Carbohydrates -Renal, Chopped Meats- Diet provides for energy/protein needs (2,061 Kcal/91 g) during LOS; additionally, Dietary Supplements will compensate for possible poor or insufficient PO intake of meals with 660 Kcal and 30 g of protein. Burn Absent Trauma Absent GI Symptoms None Difficulty In Chewing Food Allergy No Skin Integrity/Comment Diabetic ulcer on her L-Foot. Current % PO Poor (25-49%) Minimum of two criteria No Fluid Accumulation N/A Reduced [place] Inspector Strength N/A (non-severe) Protein-Calorie Malnutrition N\A #3 Nutrition Diagnosis Altered nutrition-related laboratory values Etiology CELY, T2DM. As Evidenced by Signs and Symptoms 05/20: K 3.2, BUN 38, Crea 2.2 , Ca 8.2, HbA1c 9.1%. #2 Nutrition Diagnosis Inadequate protein-energy intake Etiology Possibly associated with missing teeth. As Evidenced by Signs and Symptoms Pt's PO intake of meals has been Poor (25%), according to ADL notes. #1 Nutrition Diagnosis Inadequate protein-energy intake Etiology Uncertain. As Evidenced by Signs and Symptoms Pt has missing teeth, according to Physical Assessment History notes. Is patient on ventilator? No Is Patient Ambulatory and/or Out of Bed No REE-([facility]-confined to bed) 1453.992 Kcal/Kg value to use for calculation 25 Approximate Energy Requirements Using 1530 kcal/Kg Calculation Used for Recommendations Kcal/kg Additional Notes Protein: 0.8-1.2 g/Kg ABW; 49- 73 g/day. Fluids: 1 ml/Kcal, or as per MD. Nutrition Intervention Change Diet Order: Modify to Consistent Carbohydrates -Renal, Chopped Meats- Diet as tolerated. Add Supplement/Snack (indicate name/kcal Start 8 fl oz Glucerna; TID /protein ) Provides kCal: 660 Provides Protein (gm) 30 Goal #1 Compensate, through dietary supplementation, for possible poor or insufficient PO intake of meals during LOS. Goal #2 Facilitate PO intake of meals with elemental, textural, or mechanical modification during LOS. Goal #3 Help reach and maintain acceptable chemistry lab values during LOS. Goal #4 Adjust the dietary intervention to better serve Pt's needs and clinical conditions during LOS. Follow-Up By: 05/27/22 Additional Comments Continue monitoring food tolerance, %PO intake of meals , dietary supplements, and BM.
[2022-05-25] MEDS: INSULIN GLARGINE 100 UNITS/ML SUB-Q SCH (21:35)
[2022-05-26] MEDS: metroNIDAZOLE 500 MG TAB PO SCH ×3 (05:10→21:37)
[2022-05-26] MEDS: HYDROmorphone 1 MG/1 ML INJ IV PRN ×2 (05:16→13:01)
[2022-05-26 07:23] LABS: Calcium 8.1 mg/dL (8.4-10.2)
[2022-05-26] MEDS: INSULIN LISPRO 100 UNIT/ML SUB-Q SCH ×4 (08:27→21:39)
--- NOTE | 2022-05-26 09:06 | Progress Note ---
Assessment and Plan Assessment and plan: 56 yo F with hx of poorly controlled DM, neuropathy, tobacco abuse who presented to ER with c/o pain and swelling in her left great toe for at least 1 month. When she presented to ER, there was purulent drainage from the toe and maggots present per ER physician. In the ER Patient underwent x-ray of the left foot and was found to have left foot osteomyelitis complicated by cellulitis, sepsis and also found to have acute kidney injury. 05/19: cont iv abx, follow blood cx. pending doppler study. Cr improving, cont bicarbonate fluid. may need amputation 05/20: blood cx neg. cont empiric abx. B/L LE duplex revealed hemodynamically significant bilateral PAD with increased velocities in the femoral arteries and monophasic waveforms and decreased velocities in distal arteries. Patient will be scheduled for a left lower extremity angiogram with possible revascularization tomorrow to allow adequate arterial inflow to heal a planned first toe amputation with general surgery. 05/21: s/p angioplasy, cont empiric abx, follow clinically, will need amputation 05/22: Glucose levels are high--Lantus increased from 10 units to 30 units subcu at bedtime, also high-dose sliding scale coverage. Guillotine amputation of left great toe on Tuesday. 05/23: cont abx, follow BG level. plan for amputation tomorrow 05/24: plan for amputation today, cont iv abx. follow blood cx 05/25;s/p TMA left great toe[first toe] 05/26; follow cultures, identification of organism and sensitivities Continue Vanco cefepime and adjust as needed ID recommendations noted and appreciated Assessment and plan: -- Sepsis with cellulites of left foot; Elevate the limb, status post TMA amputation of the left first toe Continue IV antibiotics, pain medications, supportive care -- Osteomylitis and Gangrene of left great toe 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 Elevate the limb, pain medications, wound dressing PT OT -- PAD with tobacco abuse; --S/p Angioplasty --LLE Smoking cessation counseling Nicotine patch as needed Strongly advised the importance of quitting tobacco use Sequelae of chronic tobacco use explained to the patient and discussed in detail I spent 25 minutes counseling the patient -- Diabetic neuropathy; Continue gabapentin, supportive care -- Diabetes mellitus type 2 uncontrolled; Accu-Chek, sliding scale coverage, ADA diet Insulin as needed -- CELY with possible ATN; Closely monitor renal function, avoid nephrotoxin Renal dose of medications, renal ultrasound if needed -- Metabolic acidosis; IV fluids and supportive care --DVT prophylaxis;SCDs Hold subcu heparin[patient postop.] Closely monitor the patient and adjust management as needed Plan of care reviewed with the patient, her nurse, and the case senior safety management consultant recommendations noted and appreciated Advance care planning; +35 minutes Discussed in detail with the patient his condition, patient's tests and reports discussed Patient's diagnosis discussed with him, I discussed treatment plan, I also discussed consultants input I discussed treatment plan, I discussed prognosis, I also discussed discharge planning when patient is medically stable. I discussed with the patient case management's recommendations and DC planning. Patient had some questions , I answered all of them .patient verbalized understanding, Preventive health care counseling; 30 minutes Patient strongly advised to be compliant with medications, diet, follow-up visits Patient advised smoking cessation, patient also advised, to adhere to diabetic diet plan And closely monitor blood sugars and adjust insulin as needed Patient had some questions answered all of them History Interval history: I have seen and examined the patient at the bedside Patient's chart and medications reviewed Patient complains of some pain at the amputated toe Afebrile, vital signs reviewed Hospitalist Physical - Constitutional Vitals: Temp Pulse Resp BP Pulse Ox 98.6 F 101 H 18 124/74 97 05/26/22 04:48 05/26/22 04:48 05/26/22 07:10 05/26/22 04:48 05/26/22 08:33 General appearance: Present: mild distress (Left first toe TMA amputation), well-nourished - EENT Eyes: Present: PERRL, EOM intact - Neck Neck: Present: supple, normal ROM - Respiratory Respiratory effort: normal Respiratory: bilateral: diminished, negative: rales, rhonchi, wheezing - Cardiovascular Rhythm: regular Heart Sounds: Present: S1 & S2 - Extremities Extremities: no ischemia, No edema, abnormal (TMA left first toe) Extremity abnormal: other (Dressing in place) - Abdominal General gastrointestinal: soft, non-tender, non-distended, normal bowel sounds - Integumentary Integumentary: Present: clear, warm - Psychiatric Psychiatric: appropriate mood/affect, cooperative - Neurologic Neurologic: moves all extremities Results - Labs CBC & Chem 7: 05/25/22 06:32 05/26/22 06:22 Labs: Laboratory Last Values WBC 13.1 K/mm3 (4.5-11.0) H 05/25/22 06:32 RBC 2.41 M/mm3 (3.65-5.03) L 05/25/22 06:32 Hgb 7.1 gm/dl (10.1-14.3) L 05/25/22 06:32 Hct 22.2 % (30.3-42.9) L 05/25/22 06:32 MCV 92 fl (79-97) 05/25/22 06:32 MCH 30 pg (28-32) 05/25/22 06:32 MCHC 32 % (30-34) 05/25/22 06:32 RDW 13.3 % (13.2-15.2) 05/25/22 06:32 Plt Count 496 K/mm3 (140-440) H 05/25/22 06:32 Lymph % (Auto) 15.6 % (13.4-35.0) 05/25/22 06:32 [place] % (Auto) 6.5 % (0.0-7.3) 05/25/22 06:32 Eos % (Auto) 4.2 % (0.0-4.3) 05/25/22 06:32 Baso % (Auto) 0.9 % (0.0-1.8) 05/25/22 06:32 Lymph # (Auto) 2.0 K/mm3 (1.2-5.4) 05/25/22 06:32 [place] # (Auto) 0.8 K/mm3 (0.0-0.8) 05/25/22 06:32 Eos # (Auto) 0.6 K/mm3 (0.0-0.4) H 05/25/22 06:32 Baso # (Auto) 0.1 K/mm3 (0.0-0.1) 05/25/22 06:32 Seg Neutrophils % 72.8 % (40.0-70.0) H 05/25/22 06:32 Seg Neutrophils # 9.5 K/mm3 (1.8-7.7) H 05/25/22 06:32 ESR > 140.0 mm/Hr (0-20) 05/18/22 16:40 Sodium 136 mmol/L (137-145) L 05/26/22 06:22 Potassium 4.2 mmol/L (3.6-5.0) 05/26/22 06:22 Chloride 101.3 mmol/L (98-107) 05/26/22 06:22 Carbon Dioxide 26 mmol/L (22-30) 05/26/22 06:22 Anion Gap 13 mmol/L 05/26/22 06:22 BUN 36 mg/dL (7-17) H 05/26/22 06:22 Creatinine 2.6 mg/dL (0.6-1.2) H 05/26/22 06:22 Estimated GFR 23 ml/min 05/26/22 06:22 BUN/Creatinine Ratio 14 % 05/26/22 06:22 Glucose 113 mg/dL (65-100) H 05/26/22 06:22 POC Glucose 233 mg/dL (70-105) H 05/25/22 21:19 Hemoglobin A1c 9.1 % (4-6) H 05/19/22 06:56 Lactic Acid 0.80 mmol/L (0.7-2.0) 05/19/22 06:56 Calcium 8.1 mg/dL (8.4-10.2) L 05/26/22 06:22 Total Bilirubin < 0.20 mg/dL (0.1-1.2) 05/19/22 06:56 AST 8 units/L (5-40) 05/19/22 06:56 ALT 6 units/L (7-56) L 05/19/22 06:56 Alkaline Phosphatase 120 units/L (35-129) 05/19/22 06:56 Total Protein 6.3 g/dL (6.3-8.2) 05/19/22 06:56 Albumin 3.2 g/dL (3.9-5) L 05/19/22 06:56 Albumin/Globulin Ratio 1.0 % 05/19/22 06:56 Urine Color Colorless (Yellow) 05/18/22 23:18 Urine Turbidity Cloudy (Clear) 05/18/22 23:18 Specific [place] (Man) 1.015 (1.003-1.030) 05/18/22 23:18 Ur Protein (Man) 3+ mg/dL (Negative) 05/18/22 23:18 Ur Ketones (Man) Negative (Negative) 05/18/22 23:18 Urine Bilirubin (Man) Negative (Negative) 05/18/22 23:18 Urine WBC (Auto) > 182.0 /HPF (0.0-6.0) H 05/18/22 23:18 Urine RBC (Auto) 2.0 /HPF (0.0-6.0) 05/18/22 23:18 U Epithel Cells (Auto) < 1.0 /HPF (0-13.0) 05/18/22 23:18 Urine RBC (Manual) 1+ (Negative) 05/18/22 23:18 Urine Mucus Few /HPF 05/18/22 23:18 Urine Creatinine 73.3 mg/dL (0.1-20.0) H 05/18/22 23:18 Urine Sodium 55 mmol/L 05/18/22 23:18 Random Vancomycin 17.0 ug/mL (0-40.0) 05/26/22 06:22 Blood Type O POSITIVE 05/18/22 Unknown Antibody Screen Negative 05/18/22 Unknown Strickland/IV: Voiding Method External Female Catheter Active Medications - Current Medications Current Medications: Generic Name Dose Route Start Last Admin Trade Name Freq PRN Reason Stop Dose Admin Acetaminophen 650 mg 05/18/22 20:20 05/22/22 06:05 Acetaminophen 325 Mg Tab PO 650 mg Q4H PRN Administration Pain MILD(1-3)/Fever >100.5/AVILA Albuterol 2.5 mg 05/18/22 20:20 Albuterol 2.5 Mg/3 Ml Nebu IH Q4HRT PRN Shortness Of Breath Apixaban 2.5 mg 05/21/22 22:00 05/25/22 21:33 Apixaban 2.5 Mg Tab PO 2.5 mg Q12HR TATUM Administration Protocol Aspirin 81 mg 05/22/22 10:00 05/25/22 09:21 Aspirin Ec 81 Mg Tab PO 81 mg QDAY TATUM Administration Atorvastatin Calcium 20 mg 05/21/22 22:00 05/25/22 21:33 Atorvastatin 20 Mg Tab PO 20 mg QHS TATUM Administration Clopidogrel Bisulfate 75 mg 05/22/22 10:00 05/25/22 09:20 Clopidogrel 75 Mg Tab PO 75 mg QDAY TATUM Administration Dextrose 50 ml 05/18/22 20:25 Dextrose 50% In Water (25gm) 50 Ml Syringe IV Q30MIN PRN Hypoglycemia Protocol Docusate Sodium 100 mg 05/19/22 10:00 05/25/22 21:33 Docusate Sodium 100 Mg Cap PO 100 mg BID TATUM Administration Hydromorphone HCl 1 mg 05/19/22 09:55 05/26/22 05:16 Hydromorphone 1 Mg/1 Ml Inj IV 1 mg Q8H PRN Administration Pain , Severe (7-10) Hydromorphone HCl 0.5 mg 05/24/22 16:58 05/24/22 17:44 Hydromorphone 0.5 Mg/0.5 Ml Inj IV 0.5 mg Q10MIN PRN Administration Pain , Severe (7-10) Cefepime HCl 2 gm in 100 mls @ 200 mls/hr 05/19/22 12:00 05/25/22 21:39 Cefepime/Ns 2 Gm/100 Ml IV Infused Q24H TATUM Infusion Insulin Glargine 30 units 05/22/22 13:15 05/25/22 21:35 Insulin Glargine 100 Units/Ml SUB-Q 30 units QHS TATUM Administration Insulin Human Lispro 0 unit 05/18/22 22:00 05/26/22 08:27 Insulin Lispro 100 Unit/Ml SUB-Q Not Given ACHS [facility] Protocol Metronidazole 500 mg 05/25/22 14:00 05/26/22 05:10 Metronidazole 500 Mg Tab PO 500 mg Q8HR TATUM Administration Protocol Ondansetron HCl 4 mg 05/18/22 20:20 Ondansetron 4 Mg/2 Ml Inj IV Q8H PRN Nausea And Vomiting Oxycodone/Acetaminophen 2 tab 05/19/22 09:46 05/25/22 21:49 Oxycodone /Acetaminophen 5-325mg Tab PO 2 tab Q6H PRN Administration Pain, Moderate (4-6) Pantoprazole Sodium 40 mg 05/22/22 07:30 05/25/22 09:20 Pantoprazole 40 Mg Tab PO 40 mg QDAC TATUM Administration Sodium Chloride 10 ml 05/18/22 22:00 05/25/22 21:47 Sodium Chloride 0.9% 10 Ml Flush Syringe IV 10 ml BID TATUM Administration Sodium Chloride 10 ml 05/18/22 20:20 Sodium Chloride 0.9% 10 Ml Flush Syringe IV PRN PRN LINE FLUSH Sodium Hypochlorite 1 applic 05/25/22 12:00 05/25/22 21:40 Sodium Hypochlorite, Dakin's 1/2 Strength (0.25%) 473 Ml Topical Soln TP 1 1000units BID TATUM Administration Nutrition/Malnutrition Assess - Dietary Evaluation Nutrition/Malnutrition Findings: Nutrition Notes Start: 05/20/22 11:53 Freq: Status: Active Protocol: Document 05/20/22 11:53 GEOVANY (Rec: 05/20/22 12:24 GEOVANY [email or web address]) Nutrition Notes Need for Assessment generated from: supervisor food checkers and cashiers Initial or Follow up Assessment Current Diagnosis Acute Kidney Injury,Diabetes, Sepsis,Hypertension Other Pertinent Diagnosis L-Foot Osteomyelitis/ Cellulitis/Gangrene, PAD, Schizophrenia. Current Diet Consistent Carbohydrates - Renal, Chopped Meats- Diet+D Suppl (from D 05/20) Labs/Tests 05/20: K 3.2, BUN 38, Crea 2.2 , Ca 8.2, HbA1c 9.1%. Pertinent Medications 05/20: KCl 10mEq, others nutritionally unremarkable. 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 Weight Status Appropriate Subjective/Other Information RD consult for difficulty chewing and skin risk assessments. Pt's PO intake of meals has been Poor (25%), according to ADL notes. I will prescribe dietary supplements to compensate for poor or onsufficient PO intake of meals during LOS. Pt has missing teeth, according to Physical Assessment History notes. I will recommend mechanical modification to Pt's meals to facilitate chewing process during LOS. I will prescribe Consistent Carbohydrates restriction to Pt's current diet to support Pt's T2DM condition during LOS . Pt is on Room Air, o2 saturation @ 96%, according to Physical Assessment History notes. Pt presents a diabetic ulcer on her L-Foot as sign of concern for skin risk at the time, according to Physical Assessment History notes. Pt presents L-Foot non-pitting edema 1+, according to Physical Assessment History notes. Percent of energy/protein needs met: Prescribed Consistent Carbohydrates -Renal, Chopped Meats- Diet provides for energy/protein needs (2,061 Kcal/91 g) during LOS; additionally, Dietary Supplements will compensate for possible poor or insufficient PO intake of meals with 660 Kcal and 30 g of protein. Burn Absent Trauma Absent GI Symptoms None Difficulty In Chewing Food Allergy No Skin Integrity/Comment Diabetic ulcer on her L-Foot. Current % PO Poor (25-49%) Minimum of two criteria No Fluid Accumulation N/A Reduced [employer] Strength N/A (non-severe) Protein-Calorie Malnutrition N\A #3 Nutrition Diagnosis Altered nutrition-related laboratory values Etiology CELY, T2DM. As Evidenced by Signs and Symptoms 05/20: K 3.2, BUN 38, Crea 2.2 , Ca 8.2, HbA1c 9.1%. #2 Nutrition Diagnosis Inadequate protein-energy intake Etiology Possibly associated with missing teeth. As Evidenced by Signs and Symptoms Pt's PO intake of meals has been Poor (25%), according to ADL notes. #1 Nutrition Diagnosis Inadequate protein-energy intake Etiology Uncertain. As Evidenced by Signs and Symptoms Pt has missing teeth, according to Physical Assessment History notes. Is patient on ventilator? No Is Patient Ambulatory and/or Out of Bed No REE-([facility]-confined to bed) 1453.992 Kcal/Kg value to use for calculation 25 Approximate Energy Requirements Using 1530 kcal/Kg Calculation Used for Recommendations Kcal/kg Additional Notes Protein: 0.8-1.2 g/Kg ABW; 49- 73 g/day. Fluids: 1 ml/Kcal, or as per MD. Nutrition Intervention Change Diet Order: Modify to Consistent Carbohydrates -Renal, Chopped Meats- Diet as tolerated. Add Supplement/Snack (indicate name/kcal Start 8 fl oz Glucerna; TID /protein ) Provides kCal: 660 Provides Protein (gm) 30 Goal #1 Compensate, through dietary supplementation, for possible poor or insufficient PO intake of meals during LOS. Goal #2 Facilitate PO intake of meals with elemental, textural, or mechanical modification during LOS. Goal #3 Help reach and maintain acceptable chemistry lab values during LOS. Goal #4 Adjust the dietary intervention to better serve Pt's needs and clinical conditions during LOS. Follow-Up By: 05/27/22 Additional Comments Continue monitoring food tolerance, %PO intake of meals , dietary supplements, and BM.
--- NOTE | 2022-05-26 09:47 | Progress Note ---
Assessment and Plan Impression: * Acute kidney injury secondary to ATN * Hyponatremia * Hypokalemia - likely exacerbated by metabolic alkalosis, resolved * Metabolic alkalosis, resolved * Osteomyelitis * Gangrene, left toe --s/pTransmetatarsal amputation of first toe of left foot Plan: * Note rise in SCr - patient is s/p IV lasix yesterday for fluid overload * Hold additional IV diuretics * No indication for renal replacement therapy * Dose medications for renal function * Glycemic control * Avoid nephrotoxins Subjective Date of service: 05/26/22 Principal diagnosis: Gangerene L Great toe,S/p Angiogram ,PVD Objective - Vital Signs Vital signs: Vital Signs - 12hr 05/25/22 05/26/22 05/26/22 22:00 04:48 07:10 Temperature 98.6 F Pulse Rate 101 H Respiratory 16 18 Rate Blood Pressure 124/74 O2 Sat by Pulse 97 98 Oximetry 05/26/22 08:33 Temperature Pulse Rate Respiratory Rate Blood Pressure O2 Sat by Pulse 97 Oximetry - General Appearance General appearance: well-developed, well-nourished EENT: ATNC Respiratory: Present: Clear to Ascultation Cardiology: regular, S1S2 Gastrointestinal: normal, no tenderness, no distended - Lab 05/25/22 06:32 05/27/22 07:12 Most recent lab results Calcium 8.1 mg/dL (8.4-10.2) L 05/26/22 06:22 Urine Creatinine 73.3 mg/dL (0.1-20.0) H 05/18/22 23:18 Urine Sodium 55 mmol/L 05/18/22 23:18 Medications & Allergies - Medications Allergies/Adverse Reactions: Allergies No Known Allergies Allergy (Verified 05/18/22 15:31) Home Medications: Home Medications Medication Instructions Recorded Confirmed Last Taken Type No Known Home Medications [No 05/20/22 05/20/22 Unknown History Reported Home Medications] Active Medications: Generic Name Dose Route Start Last Admin Trade Name Freq PRN Reason Stop Dose Admin Acetaminophen 650 mg 05/18/22 20:20 05/22/22 06:05 Acetaminophen 325 Mg Tab PO 650 mg Q4H PRN Administration Pain MILD(1-3)/Fever >100.5/AVILA Albuterol 2.5 mg 05/18/22 20:20 Albuterol 2.5 Mg/3 Ml Nebu IH Q4HRT PRN Shortness Of Breath Apixaban 2.5 mg 05/21/22 22:00 05/25/22 21:33 Apixaban 2.5 Mg Tab PO 2.5 mg Q12HR TATUM Administration Protocol Aspirin 81 mg 05/22/22 10:00 05/25/22 09:21 Aspirin Ec 81 Mg Tab PO 81 mg QDAY TATUM Administration Atorvastatin Calcium 20 mg 05/21/22 22:00 05/25/22 21:33 Atorvastatin 20 Mg Tab PO 20 mg QHS TATUM Administration Clopidogrel Bisulfate 75 mg 05/22/22 10:00 05/25/22 09:20 Clopidogrel 75 Mg Tab PO 75 mg QDAY TATUM Administration Dextrose 50 ml 05/18/22 20:25 Dextrose 50% In Water (25gm) 50 Ml Syringe IV Q30MIN PRN Hypoglycemia Protocol Docusate Sodium 100 mg 05/19/22 10:00 05/25/22 21:33 Docusate Sodium 100 Mg Cap PO 100 mg BID TATUM Administration Hydromorphone HCl 1 mg 05/19/22 09:55 05/26/22 05:16 Hydromorphone 1 Mg/1 Ml Inj IV 1 mg Q8H PRN Administration Pain , Severe (7-10) Hydromorphone HCl 0.5 mg 05/24/22 16:58 05/24/22 17:44 Hydromorphone 0.5 Mg/0.5 Ml Inj IV 0.5 mg Q10MIN PRN Administration Pain , Severe (7-10) Cefepime HCl 2 gm in 100 mls @ 200 mls/hr 05/19/22 12:00 05/25/22 21:39 Cefepime/Ns 2 Gm/100 Ml IV Infused Q24H TATUM Infusion Insulin Glargine 30 units 05/22/22 13:15 05/25/22 21:35 Insulin Glargine 100 Units/Ml SUB-Q 30 units QHS TATUM Administration Insulin Human Lispro 0 unit 05/18/22 22:00 05/26/22 08:27 Insulin Lispro 100 Unit/Ml SUB-Q Not Given ACHS [facility] Protocol Metronidazole 500 mg 05/25/22 14:00 05/26/22 05:10 Metronidazole 500 Mg Tab PO 500 mg Q8HR TATUM Administration Protocol Ondansetron HCl 4 mg 05/18/22 20:20 Ondansetron 4 Mg/2 Ml Inj IV Q8H PRN Nausea And Vomiting Oxycodone/Acetaminophen 2 tab 05/19/22 09:46 05/25/22 21:49 Oxycodone /Acetaminophen 5-325mg Tab PO 2 tab Q6H PRN Administration Pain, Moderate (4-6) Pantoprazole Sodium 40 mg 05/22/22 07:30 05/25/22 09:20 Pantoprazole 40 Mg Tab PO 40 mg QDAC TATUM Administration Sodium Chloride 10 ml 05/18/22 22:00 05/25/22 21:47 Sodium Chloride 0.9% 10 Ml Flush Syringe IV 10 ml BID TATUM Administration Sodium Chloride 10 ml 05/18/22 20:20 Sodium Chloride 0.9% 10 Ml Flush Syringe IV PRN PRN LINE FLUSH Sodium Hypochlorite 1 applic 05/25/22 12:00 05/25/22 21:40 Sodium Hypochlorite, Dakin's 1/2 Strength (0.25%) 473 Ml Topical Soln TP 1 1000units BID TATUM Administration
[2022-05-26] MEDS: oxyCODONE /ACETAMINOPHEN 5-325MG TAB PO PRN ×3 (10:22→23:59)
[2022-05-26] MEDS: PANTOPRAZOLE 40 MG TAB PO SCH (10:23)
[2022-05-26] MEDS: DOCUSATE SODIUM 100 MG CAP PO SCH ×2 (10:23→21:37)
[2022-05-26] MEDS: ASPIRIN EC 81 MG TAB PO SCH (10:23)
[2022-05-26] MEDS: APIXABAN 2.5 MG TAB PO SCH ×2 (10:23→21:37)
[2022-05-26] MEDS: CLOPIDOGREL 75 MG TAB PO SCH (10:23)
--- NOTE | 2022-05-26 10:25 | Progress Note ---
Assessment and Plan Marianna is postop day #2 status post amputation of her left first toe and the distal metatarsal, dos 05/24/22. Extensive soft tissue necrosis and air forming organisms were encountered. Patient will need IV antibiotics and local wound ca re intensively for the next few days. She will also need help with discharge because she lives at home without electricity. She has cold running water only. She will need home health nursing potentially resources for postop and wound care. Patient is status post amputation of first toe on the left foot. She wants to try ambulating at this time. We will consult physical therapy. Continue local wound care for now with IV antibiotics. Subjective Date of service: 05/26/22 Patient Reports: Positive: no new complaints Narrative: Patient is status post amputation of first toe on the left foot. She wants to try ambulating at this time. We will consult physical therapy. Continue local wound care for now with IV antibiotics. Objective Vital Signs - 12hr 05/26/22 05/26/22 05/26/22 04:48 07:10 08:33 Temperature 98.6 F Pulse Rate 101 H Respiratory 16 18 Rate Blood Pressure 124/74 O2 Sat by Pulse 98 97 Oximetry - Labs 05/25/22 06:32 05/26/22 06:22 Diabetes panel 05/26/22 Range/Units 06:22 Sodium 136 L (137-145) mmol/L Potassium 4.2 (3.6-5.0) mmol/L Chloride 101.3 (98-107) mmol/L Carbon Dioxide 26 (22-30) mmol/L BUN 36 H (7-17) mg/dL Creatinine 2.6 H (0.6-1.2) mg/dL Glucose 113 H (65-100) mg/dL Calcium 8.1 L (8.4-10.2) mg/dL Calcium panel 05/26/22 Range/Units 06:22 Calcium 8.1 L (8.4-10.2) mg/dL Pituitary panel 05/26/22 Range/Units 06:22 Sodium 136 L (137-145) mmol/L Potassium 4.2 (3.6-5.0) mmol/L Chloride 101.3 (98-107) mmol/L Carbon Dioxide 26 (22-30) mmol/L BUN 36 H (7-17) mg/dL Creatinine 2.6 H (0.6-1.2) mg/dL Glucose 113 H (65-100) mg/dL Calcium 8.1 L (8.4-10.2) mg/dL Adrenal panel 05/26/22 Range/Units 06:22 Sodium 136 L (137-145) mmol/L Potassium 4.2 (3.6-5.0) mmol/L Chloride 101.3 (98-107) mmol/L Carbon Dioxide 26 (22-30) mmol/L BUN 36 H (7-17) mg/dL Creatinine 2.6 H (0.6-1.2) mg/dL Glucose 113 H (65-100) mg/dL Calcium 8.1 L (8.4-10.2) mg/dL
[2022-05-26] MEDS: CEFEPIME/NS 2 GM/100 ML 2 GM/100 ML BAG IV SCH (11:56)
[2022-05-26] MEDS: SODIUM HYPOCHLORITE, DAKIN'S 1/2 STRENGTH (0.25%) 473 ML TOPICAL SOLN TP SCH ×2 (11:57→21:38)
--- NOTE | 2022-05-26 18:26 | Progress Note ---
Assessment and Plan Cultures: Blood culture no growth so far A/P: 56-year-old female past medical history diabetes, nicotine abuse, schizophrenia now with: #Acute sepsis: With leukocytosis, tachycardia. 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 Per operative note, cultures obtained. We will follow-up. Hopefully surgical cure obtained given transmetatarsal amputation performed. #Diabetes type 2: Glycemic control for best outcomes #CELY: Renally dose medications Recs: -Continue vancomycin, cefepime for now. Renally dose medications -added PO metronidazole -Follow-up surgical cultures from amputation -Follow-up surgical pathology Thank you for the consult, we will continue to follow. Cristy Barraza MD [facility] ([facility]) O: [phone] F: [phone] Subjective Date of service: 05/26/22 Principal diagnosis: Gangerene L Great toe,S/p Angiogram ,PVD Interval history: Afebrile, normal white count. Surgical culture remains pending Objective - Exam Narrative Exam: Physical Exam: Constitutional: Alert, cooperative. No acute distress Head, Ears, Nose: Normocephalic, atraumatic. External ears, nose normal Eyes: Conjunctivae/corneas clear. No icterus. No ptosis. Neck: Supple, no meningeal signs Oral: dentition fair, no thrush Cardiovascular: S1, S2 normal. Respiratory: Good air entry, clear to auscultation bilaterally GI: Soft, non-tender; bowel sounds normal. No peritoneal signs. Musculoskeletal: s/p left hallux amputation Skin: No rash or abscess Hem/Lymphatic: No palpable cervical or supraclavicular nodes. No lymphangitis Psych: Mood ok. Affect normal Neurological: Awake, alert, oriented. No gross abnormality - Constitutional Vitals: Vital Signs Temp Pulse Resp BP Pulse Ox 98.7 F 99 H 18 139/74 98 05/26/22 16:45 05/26/22 16:45 05/26/22 17:04 05/26/22 16:45 05/26/22 16:45 Temperature -Last 24 Hours Temperature 98.7 F Temperature 97.8 F Temperature 98.6 F Temperature 99.4 F - Labs CBC & Chem 7: 05/25/22 06:32 05/26/22 06:22 Labs: Abnormal lab results 05/25/22 05/25/22 05/25/22 Range/Units 07:19 11:18 15:55 Sodium (137-145) mmol/L BUN (7-17) mg/dL Creatinine (0.6-1.2) mg/dL Glucose (65-100) mg/dL POC Glucose 110 H 277 H 279 H (70-105) mg/dL Calcium (8.4-10.2) mg/dL 05/25/22 05/26/22 05/26/22 Range/Units 21:19 06:22 11:22 Sodium 136 L (137-145) mmol/L BUN 36 H (7-17) mg/dL Creatinine 2.6 H (0.6-1.2) mg/dL Glucose 113 H (65-100) mg/dL POC Glucose 233 H 172 H (70-105) mg/dL Calcium 8.1 L (8.4-10.2) mg/dL
[2022-05-26] MEDS: INSULIN GLARGINE 100 UNITS/ML SUB-Q SCH (21:38)
[2022-05-27] MEDS ORDERED: GLUCAGON (HUMAN RECOMBINANT) 1 MG/ML INJ IV ONE (04:41)
[2022-05-27] MEDS: metroNIDAZOLE 500 MG TAB PO SCH ×3 (05:26→22:32)
[2022-05-27 08:19] LABS: Calcium 8.6 mg/dL (8.4-10.2)
--- NOTE | 2022-05-27 09:43 | Progress Note ---
Assessment and Plan Impression: * Acute kidney injury secondary to ATN * Hyponatremia * Hypokalemia - likely exacerbated by metabolic alkalosis, resolved * Metabolic alkalosis, resolved * Osteomyelitis * Gangrene, left toe --s/pTransmetatarsal amputation of first toe of left foot Plan: * SCr improved * Continue to hold additional IV diuretics * Kayexelate x 1 dose * No indication for renal replacement therapy * Dose medications for renal function * Glycemic control * Avoid nephrotoxins Subjective Date of service: 05/27/22 Principal diagnosis: Gangerene L Great toe,S/p Angiogram ,PVD Interval history: Patient has no complaints today Objective - Vital Signs Vital signs: Vital Signs - 12hr 05/26/22 22:00 O2 Sat by Pulse 95 Oximetry - General Appearance General appearance: well-developed EENT: ATNC Respiratory: Present: Clear to Ascultation Cardiology: regular, S1S2 Gastrointestinal: normal, no tenderness Integumentary: warm and dry - Lab 05/25/22 06:32 05/27/22 07:12 Most recent lab results Calcium 8.6 mg/dL (8.4-10.2) 05/27/22 07:12 Urine Creatinine 73.3 mg/dL (0.1-20.0) H 05/18/22 23:18 Urine Sodium 55 mmol/L 05/18/22 23:18 Medications & Allergies - Medications Allergies/Adverse Reactions: Allergies No Known Allergies Allergy (Verified 05/18/22 15:31) Home Medications: Home Medications Medication Instructions Recorded Confirmed Last Taken Type No Known Home Medications [No 05/20/22 05/20/22 Unknown History Reported Home Medications] Active Medications: Generic Name Dose Route Start Last Admin Trade Name Freq PRN Reason Stop Dose Admin Acetaminophen 650 mg 05/18/22 20:20 05/22/22 06:05 Acetaminophen 325 Mg Tab PO 650 mg Q4H PRN Administration Pain MILD(1-3)/Fever >100.5/AVILA Albuterol 2.5 mg 05/18/22 20:20 Albuterol 2.5 Mg/3 Ml Nebu IH Q4HRT PRN Shortness Of Breath Apixaban 2.5 mg 05/21/22 22:00 05/26/22 21:37 Apixaban 2.5 Mg Tab PO 2.5 mg Q12HR TATUM Administration Protocol Aspirin 81 mg 05/22/22 10:00 05/26/22 10:23 Aspirin Ec 81 Mg Tab PO 81 mg QDAY TATUM Administration Atorvastatin Calcium 20 mg 05/21/22 22:00 05/26/22 21:37 Atorvastatin 20 Mg Tab PO 20 mg QHS TATUM Administration Clopidogrel Bisulfate 75 mg 05/22/22 10:00 05/26/22 10:23 Clopidogrel 75 Mg Tab PO 75 mg QDAY TATUM Administration Dextrose 50 ml 05/18/22 20:25 05/27/22 03:45 Dextrose 50% In Water (25gm) 50 Ml Syringe IV 50 ml Q30MIN PRN Administration Hypoglycemia Protocol Docusate Sodium 100 mg 05/19/22 10:00 05/26/22 21:37 Docusate Sodium 100 Mg Cap PO 100 mg BID TATUM Administration Hydromorphone HCl 1 mg 05/19/22 09:55 05/26/22 13:01 Hydromorphone 1 Mg/1 Ml Inj IV 1 mg Q8H PRN Administration Pain , Severe (7-10) Hydromorphone HCl 0.5 mg 05/24/22 16:58 05/24/22 17:44 Hydromorphone 0.5 Mg/0.5 Ml Inj IV 0.5 mg Q10MIN PRN Administration Pain , Severe (7-10) Cefepime HCl 2 gm in 100 mls @ 200 mls/hr 05/19/22 12:00 05/27/22 04:14 Cefepime/Ns 2 Gm/100 Ml IV Infused Q24H [facility] Infusion Insulin Glargine 30 units 05/22/22 13:15 05/26/22 21:38 Insulin Glargine 100 Units/Ml SUB-Q 30 units QHS [facility] Administration Insulin Human Lispro 0 unit 05/18/22 22:00 05/26/22 21:39 Insulin Lispro 100 Unit/Ml SUB-Q 3 unit ACHS [facility] Administration Protocol Metronidazole 500 mg 05/25/22 14:00 05/27/22 05:26 Metronidazole 500 Mg Tab PO 500 mg Q8HR [facility] Administration Protocol Ondansetron HCl 4 mg 05/18/22 20:20 Ondansetron 4 Mg/2 Ml Inj IV Q8H PRN Nausea And Vomiting Oxycodone/Acetaminophen 2 tab 05/19/22 09:46 05/26/22 23:59 Oxycodone /Acetaminophen 5-325mg Tab PO 2 tab Q6H PRN Administration Pain, Moderate (4-6) Pantoprazole Sodium 40 mg 05/22/22 07:30 05/26/22 10:23 Pantoprazole 40 Mg Tab PO 40 mg QDAC TATUM Administration Sodium Chloride 10 ml 05/18/22 22:00 05/26/22 21:40 Sodium Chloride 0.9% 10 Ml Flush Syringe IV 10 ml BID TATUM Administration Sodium Chloride 10 ml 05/18/22 20:20 Sodium Chloride 0.9% 10 Ml Flush Syringe IV PRN PRN LINE FLUSH Sodium Hypochlorite 1 applic 05/25/22 12:00 05/26/22 21:38 Sodium Hypochlorite, Dakin's 1/2 Strength (0.25%) 473 Ml Topical Soln TP Not Given BID TATUM
[2022-05-27] MEDS: ASPIRIN EC 81 MG TAB PO SCH (09:45)
[2022-05-27] MEDS: APIXABAN 2.5 MG TAB PO SCH ×2 (09:45→22:49)
[2022-05-27] MEDS: PANTOPRAZOLE 40 MG TAB PO SCH (09:45)
[2022-05-27] MEDS: DOCUSATE SODIUM 100 MG CAP PO SCH ×2 (09:45→22:50)
[2022-05-27] MEDS: SODIUM HYPOCHLORITE, DAKIN'S 1/2 STRENGTH (0.25%) 473 ML TOPICAL SOLN TP SCH ×2 (09:45→22:49)
[2022-05-27] MEDS: CLOPIDOGREL 75 MG TAB PO SCH (09:46)
[2022-05-27] MEDS: INSULIN LISPRO 100 UNIT/ML SUB-Q SCH ×4 (09:49→22:00)
[2022-05-27] MEDS: SODIUM POLYSTYRENE 15 GM/60 ML ORAL LIQD PO SCH ×2 (09:56→12:18)
[2022-05-27] MEDS: HYDROmorphone 1 MG/1 ML INJ IV PRN (12:00)
[2022-05-27] MEDS: CEFEPIME/NS 2 GM/100 ML 2 GM/100 ML BAG IV SCH (12:17)
[2022-05-27] MEDS: oxyCODONE /ACETAMINOPHEN 5-325MG TAB PO PRN ×2 (13:45→22:33)
--- NOTE | 2022-05-27 17:38 | Progress Note ---
Assessment and Plan Cultures: Blood culture no growth so far A/P: 56-year-old female past medical history diabetes, nicotine abuse, schizophrenia now with: #Acute sepsis: With leukocytosis, tachycardia. 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 Per operative note, cultures obtained. We will follow-up. Hopefully surgical cure obtained given transmetatarsal amputation performed. #Diabetes type 2: Glycemic control for best outcomes #CELY: Renally dose medications Recs: -Continue cefepime for now. Renally dose medications -added PO metronidazole -Stop vancomycin, no gram-positive's on surgical culture. -Follow-up surgical cultures from amputation -Follow-up surgical pathology Thank you for the consult, we will continue to follow. Cristy Barraza MD [facility] O: [phone] F: [phone] Subjective Date of service: 05/27/22 Principal diagnosis: Gangerene L Great toe,S/p Angiogram ,PVD Interval history: Afebrile, white count improving at 13.1. Surgical culture with Proteus. Objective - Exam Narrative Exam: Physical Exam: Constitutional: Alert, cooperative. No acute distress Head, Ears, Nose: Normocephalic, atraumatic. External ears, nose normal Eyes: Conjunctivae/corneas clear. No icterus. No ptosis. Neck: Supple, no meningeal signs Oral: dentition fair, no thrush Cardiovascular: S1, S2 normal. Respiratory: Good air entry, clear to auscultation bilaterally GI: Soft, non-tender; bowel sounds normal. No peritoneal signs. Musculoskeletal: s/p left hallux amputation Skin: No rash or abscess Hem/Lymphatic: No palpable cervical or supraclavicular nodes. No lymphangitis Psych: Mood ok. Affect normal Neurological: Awake, alert, oriented. No gross abnormality - Constitutional Vitals: Vital Signs Temp Pulse Resp BP Pulse Ox 97.8 F 100 H 18 135/68 96 05/26/22 21:08 05/26/22 21:08 05/27/22 13:45 05/26/22 21:08 05/27/22 10:00 Temperature -Last 24 Hours Temperature 97.8 F - Labs CBC & Chem 7: 05/25/22 06:32 05/27/22 07:12 Labs: Abnormal lab results 05/26/22 05/26/22 05/27/22 Range/Units 16:56 21:17 03:39 Sodium (137-145) mmol/L Potassium (3.6-5.0) mmol/L BUN (7-17) mg/dL Creatinine (0.6-1.2) mg/dL Glucose (65-100) mg/dL POC Glucose 201 H 194 H 42 L (70-105) mg/dL 05/27/22 05/27/22 05/27/22 Range/Units 03:58 04:13 06:38 Sodium (137-145) mmol/L Potassium (3.6-5.0) mmol/L BUN (7-17) mg/dL Creatinine (0.6-1.2) mg/dL Glucose (65-100) mg/dL POC Glucose 39 L 46 L 201 H (70-105) mg/dL 05/27/22 05/27/22 05/27/22 Range/Units 07:12 07:28 11:37 Sodium 136 L (137-145) mmol/L Potassium 5.3 H D (3.6-5.0) mmol/L BUN 39 H (7-17) mg/dL Creatinine 2.4 H (0.6-1.2) mg/dL Glucose 294 H (65-100) mg/dL POC Glucose 228 H 245 H (70-105) mg/dL
--- NOTE | 2022-05-27 17:41 | Progress Note ---
Assessment and Plan Assessment and plan: 56 yo F with hx of poorly controlled DM, neuropathy, tobacco abuse who presented to ER with c/o pain and swelling in her left great toe for at least 1 month. When she presented to ER, there was purulent drainage from the toe and maggots present per ER physician. In the ER Patient underwent x-ray of the left foot and was found to have left foot osteomyelitis complicated by cellulitis, sepsis and also found to have acute kidney injury. 05/19: cont iv abx, follow blood cx. pending doppler study. Cr improving, cont bicarbonate fluid. may need amputation 05/20: blood cx neg. cont empiric abx. B/L LE duplex revealed hemodynamically significant bilateral PAD with increased velocities in the femoral arteries and monophasic waveforms and decreased velocities in distal arteries. Patient will be scheduled for a left lower extremity angiogram with possible revascularization tomorrow to allow adequate arterial inflow to heal a planned first toe amputation with general surgery. 05/21: s/p angioplasy, cont empiric abx, follow clinically, will need amputation 05/22: Glucose levels are high--Lantus increased from 10 units to 30 units subcu at bedtime, also high-dose sliding scale coverage. Guillotine amputation of left great toe on Tuesday. 05/23: cont abx, follow BG level. plan for amputation tomorrow 05/24: plan for amputation today, cont iv abx. 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/s/p TMA 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 Elevate the limb, pain medications, wound dressing, PT OT -- PAD with tobacco abuse; --S/p Angioplasty --LLE Smoking cessation counseling Nicotine patch as needed Strongly advised the importance of quitting tobacco use Sequelae of chronic tobacco use explained to the patient and discussed in detail I spent 25 minutes counseling the patient -- Diabetic neuropathy; Continue gabapentin, supportive care -- Diabetes mellitus type 2 uncontrolled; Accu-Chek, sliding scale coverage, ADA diet Insulin as needed -- CELY with possible ATN; Closely monitor renal function, avoid nephrotoxin Renal dose of medications, renal ultrasound if needed -- Metabolic acidosis; IV fluids and supportive care --DVT prophylaxis;SCDs Hold subcu heparin[patient postop.] PT evaluation; home health PT rolling walker OT evaluation; home health PT follow-up Closely monitor the patient and adjust management as needed Plan of care reviewed with the patient, her nurse, and the case document management consultant recommendations noted and appreciated Advance care planning; +35 minutes Discussed in detail with the patient his condition, patient's tests and reports discussed Patient's diagnosis discussed with him, I discussed treatment plan, I also discussed consultants input I discussed treatment plan, I discussed prognosis, I also discussed discharge planning when patient is medically stable. I discussed with the patient case management's recommendations and DC planning. Patient had some questions , I answered all of them .patient verbalized understanding, Preventive health care counseling; 30 minutes Patient strongly advised to be compliant with medications, diet, follow-up visits Patient advised smoking cessation, patient also advised, to adhere to diabetic diet plan And closely monitor blood sugars and adjust insulin as needed Patient had some questions answered all of them History Interval history: I have seen and examined the patient in the bedside Patient's chart and medications reviewed Patient complains of severe pain at the surgical site Requesting more pain medications Vital signs noted Surgical cultures report reviewed Antibiotics per ID Hospitalist Physical - Constitutional Vitals: Temp Pulse Resp BP Pulse Ox 97.8 F 100 H 18 135/68 96 05/26/22 21:08 05/26/22 21:08 05/27/22 13:45 05/26/22 21:08 05/27/22 10:00 General appearance: Present: mild distress (Left first toe TMA amputation), well-nourished - EENT Eyes: Present: PERRL, EOM intact - Neck Neck: Present: supple, normal ROM - Respiratory Respiratory effort: normal Respiratory: bilateral: diminished, negative: rales, rhonchi, wheezing - Cardiovascular Rhythm: regular Heart Sounds: Present: S1 & S2 - Extremities Extremities: no ischemia, No edema, abnormal (Left first wound dressing intact) - Abdominal General gastrointestinal: soft, non-tender, non-distended, normal bowel sounds - Integumentary Integumentary: Present: clear, warm - Psychiatric Psychiatric: appropriate mood/affect, cooperative - Neurologic Neurologic: moves all extremities Results - Labs CBC & Chem 7: 05/25/22 06:32 05/27/22 07:12 Labs: Laboratory Last Values WBC 13.1 K/mm3 (4.5-11.0) H 05/25/22 06:32 RBC 2.41 M/mm3 (3.65-5.03) L 05/25/22 06:32 Hgb 7.1 gm/dl (10.1-14.3) L 05/25/22 06:32 Hct 22.2 % (30.3-42.9) L 05/25/22 06:32 MCV 92 fl (79-97) 05/25/22 06:32 MCH 30 pg (28-32) 05/25/22 06:32 MCHC 32 % (30-34) 05/25/22 06:32 RDW 13.3 % (13.2-15.2) 05/25/22 06:32 Plt Count 496 K/mm3 (140-440) H 05/25/22 06:32 Lymph % (Auto) 15.6 % (13.4-35.0) 05/25/22 06:32 [place] % (Auto) 6.5 % (0.0-7.3) 05/25/22 06:32 Eos % (Auto) 4.2 % (0.0-4.3) 05/25/22 06:32 Baso % (Auto) 0.9 % (0.0-1.8) 05/25/22 06:32 Lymph # (Auto) 2.0 K/mm3 (1.2-5.4) 05/25/22 06:32 [place] # (Auto) 0.8 K/mm3 (0.0-0.8) 05/25/22 06:32 Eos # (Auto) 0.6 K/mm3 (0.0-0.4) H 05/25/22 06:32 Baso # (Auto) 0.1 K/mm3 (0.0-0.1) 05/25/22 06:32 Seg Neutrophils % 72.8 % (40.0-70.0) H 05/25/22 06:32 Seg Neutrophils # 9.5 K/mm3 (1.8-7.7) H 05/25/22 06:32 ESR > 140.0 mm/Hr (0-20) 05/18/22 16:40 Sodium 136 mmol/L (137-145) L 05/27/22 07:12 Potassium 5.3 mmol/L (3.6-5.0) H D 05/27/22 07:12 Chloride 100.5 mmol/L (98-107) 05/27/22 07:12 Carbon Dioxide 24 mmol/L (22-30) 05/27/22 07:12 Anion Gap 17 mmol/L 05/27/22 07:12 BUN 39 mg/dL (7-17) H 05/27/22 07:12 Creatinine 2.4 mg/dL (0.6-1.2) H 05/27/22 07:12 Estimated GFR 25 ml/min 05/27/22 07:12 BUN/Creatinine Ratio 16 % 05/27/22 07:12 Glucose 294 mg/dL (65-100) H 05/27/22 07:12 POC Glucose 245 mg/dL (70-105) H 05/27/22 11:37 Hemoglobin A1c 9.1 % (4-6) H 05/19/22 06:56 Lactic Acid 0.80 mmol/L (0.7-2.0) 05/19/22 06:56 Calcium 8.6 mg/dL (8.4-10.2) 05/27/22 07:12 Total Bilirubin < 0.20 mg/dL (0.1-1.2) 05/19/22 06:56 AST 8 units/L (5-40) 05/19/22 06:56 ALT 6 units/L (7-56) L 05/19/22 06:56 Alkaline Phosphatase 120 units/L (35-129) 05/19/22 06:56 Total Protein 6.3 g/dL (6.3-8.2) 05/19/22 06:56 Albumin 3.2 g/dL (3.9-5) L 05/19/22 06:56 Albumin/Globulin Ratio 1.0 % 05/19/22 06:56 Urine Color Colorless (Yellow) 05/18/22 23:18 Urine Turbidity Cloudy (Clear) 05/18/22 23:18 Specific [place] (Man) 1.015 (1.003-1.030) 05/18/22 23:18 Ur Protein (Man) 3+ mg/dL (Negative) 05/18/22 23:18 Ur Ketones (Man) Negative (Negative) 05/18/22 23:18 Urine Bilirubin (Man) Negative (Negative) 05/18/22 23:18 Urine WBC (Auto) > 182.0 /HPF (0.0-6.0) H 05/18/22 23:18 Urine RBC (Auto) 2.0 /HPF (0.0-6.0) 05/18/22 23:18 U Epithel Cells (Auto) < 1.0 /HPF (0-13.0) 05/18/22 23:18 Urine RBC (Manual) 1+ (Negative) 05/18/22 23:18 Urine Mucus Few /HPF 05/18/22 23:18 Urine Creatinine 73.3 mg/dL (0.1-20.0) H 05/18/22 23:18 Urine Sodium 55 mmol/L 05/18/22 23:18 Random Vancomycin 17.0 ug/mL (0-40.0) 05/26/22 06:22 Blood Type O POSITIVE 05/18/22 Unknown Antibody Screen Negative 05/18/22 Unknown Microbiology: Microbiology 05/24/22 17:00 Toe - Left Big Anaerobic Culture - Preliminary 05/24/22 17:00 Toe - Left Big Surgical Culture - Final Proteus Penneri Strickland/IV: Voiding Method External Female Catheter Active Medications - Current Medications Current Medications: Generic Name Dose Route Start Last Admin Trade Name Freq PRN Reason Stop Dose Admin Acetaminophen 650 mg 05/18/22 20:20 05/22/22 06:05 Acetaminophen 325 Mg Tab PO 650 mg Q4H PRN Administration Pain MILD(1-3)/Fever >100.5/AVILA Albuterol 2.5 mg 05/18/22 20:20 Albuterol 2.5 Mg/3 Ml Nebu IH Q4HRT PRN Shortness Of Breath Apixaban 2.5 mg 05/21/22 22:00 05/27/22 09:45 Apixaban 2.5 Mg Tab PO 2.5 mg Q12HR [facility]UM Administration Protocol Aspirin 81 mg 05/22/22 10:00 05/27/22 09:45 Aspirin Ec 81 Mg Tab PO 81 mg QDAY [facility]UM Administration Atorvastatin Calcium 20 mg 05/21/22 22:00 05/26/22 21:37 Atorvastatin 20 Mg Tab PO 20 mg QHS [facility] Administration Clopidogrel Bisulfate 75 mg 05/22/22 10:00 05/27/22 09:46 Clopidogrel 75 Mg Tab PO 75 mg QDAY [facility] Administration Dextrose 50 ml 05/18/22 20:25 05/27/22 03:45 Dextrose 50% In Water (25gm) 50 Ml Syringe IV 50 ml Q30MIN PRN Administration Hypoglycemia Protocol Docusate Sodium 100 mg 05/19/22 10:00 05/27/22 09:45 Docusate Sodium 100 Mg Cap PO 100 mg BID TATUM Administration Hydromorphone HCl 1 mg 05/19/22 09:55 05/27/22 12:00 Hydromorphone 1 Mg/1 Ml Inj IV 1 mg Q8H PRN Administration Pain , Severe (7-10) Cefepime HCl 2 gm in 100 mls @ 200 mls/hr 05/19/22 12:00 05/27/22 12:17 Cefepime/Ns 2 Gm/100 Ml IV 200 mls/hr Q24H [facility] Administration Insulin Glargine 30 units 05/22/22 13:15 05/26/22 21:38 Insulin Glargine 100 Units/Ml SUB-Q 30 units QHS [facility] Administration Insulin Human Lispro 0 unit 05/18/22 22:00 05/27/22 12:18 Insulin Lispro 100 Unit/Ml SUB-Q 4 unit ACHS [facility] Administration Protocol Metronidazole 500 mg 05/25/22 14:00 05/27/22 13:47 Metronidazole 500 Mg Tab PO 500 mg Q8HR [facility]ATUM Administration Protocol Ondansetron HCl 4 mg 05/18/22 20:20 Ondansetron 4 Mg/2 Ml Inj IV Q8H PRN Nausea And Vomiting Oxycodone/Acetaminophen 2 tab 05/19/22 09:46 05/27/22 13:45 Oxycodone /Acetaminophen 5-325mg Tab PO 2 tab Q6H PRN Administration Pain, Moderate (4-6) Pantoprazole Sodium 40 mg 05/22/22 07:30 05/27/22 09:45 Pantoprazole 40 Mg Tab PO 40 mg QDAC TATUM Administration Sodium Chloride 10 ml 05/18/22 22:00 05/27/22 09:46 Sodium Chloride 0.9% 10 Ml Flush Syringe IV 10 ml BID TATUM Administration Sodium Chloride 10 ml 05/18/22 20:20 Sodium Chloride 0.9% 10 Ml Flush Syringe IV PRN PRN LINE FLUSH Sodium Hypochlorite 1 applic 05/25/22 12:00 05/27/22 09:45 Sodium Hypochlorite, Dakin's 1/2 Strength (0.25%) 473 Ml Topical Soln TP Not Given BID TATUM Nutrition/Malnutrition Assess - Dietary Evaluation Nutrition/Malnutrition Findings: Nutrition Notes Start: 05/20/22 11:53 Freq: Status: Active Protocol: Document 05/27/22 10:54 GEOVANY (Rec: 05/27/22 11:28 GEOVANY [id number]) Nutrition Notes Initial or Follow up Reassessment Current Diagnosis Acute Kidney Injury,Diabetes, Sepsis,Hypertension Other Pertinent Diagnosis s/p L-1st Toe TMA, Hyponatremia, Hypokalemia, PAD , PVD, Schizophrenia... Current Diet Consistent Carbohydrates - Renal, Chopped Meats- Diet ( from D 05/27) Labs/Tests 05/27: Na 136, K 5.3, BUN 39, Crea 2.4, Glu 294. Pertinent Medications 05/27: Lantus 30U, others nutritionally unremarkable. Height 5 ft 5 in Weight 62.2 kg [place] Body Weight (kg) 56.81 BMI 22.8 Weight change and time frame 1 Kg body weight gain reported in 1 week. Weight Status Appropriate Subjective/Other Information RD consult for routine F/U on dietary advancement. Diet resumed after surgery on 05/24, Pt's PO intake of meals has been Good (>75%) and well tolerated, according to ADL notes. I will recommend mechanical modification to Pt's meals to facilitate chewing process during LOS. I will prescribe Consistent Carbohydrates restriction to Pt's current diet to support Pt's T2DM condition during LOS . Pt is on Room Air, O2 saturation @ 97%, according to Physical Assessment History notes. Procedure on 05/24: L-1st Toe Transmetatarsal Amputation, well tolerated, according to Operative Report notes. Pt eager to ambulate, PT assessment pewnding, according to Progress notes. Percent of energy/protein needs met: Prescribed Consistent Carbohydrates -Renal, Chopped Meats- Diet provides for energy/protein needs (2,061 Kcal/91 g) during LOS. Burn Absent Trauma Absent GI Symptoms None Difficulty In Chewing Food Allergy No Skin Integrity/Comment L-Foot surgical wound. Current % PO Good (75-100%) Minimum of two criteria No Fluid Accumulation N/A Reduced Fine Arts Chair Strength N/A (non-severe) Protein-Calorie Malnutrition N\A #3 Nutrition Diagnosis Altered nutrition-related laboratory values Comments: 05/27: Na 136, K 5.3, BUN 39, Crea 2.4, Glu 294. Diagnosis Progress(for reassessment Continues documentation) #2 Nutrition Diagnosis Inadequate protein-energy intake Comments: Diet resumed after surgery on 05/24, Pt's PO intake of meals has been Good (>75%) and well tolerated, according to ADL notes. Diagnosis Progress(for reassessment Resolved documentation) #1 Nutrition Diagnosis Biting/Chewing (masticatory) difficulty Diagnosis Progress(for reassessment Continues documentation) Is patient on ventilator? No Is Patient Ambulatory and/or Out of Bed No REE-([facility]-confined to bed) 1465.980 Kcal/Kg value to use for calculation 25 Approximate Energy Requirements Using 1555 kcal/Kg Calculation Used for Recommendations Kcal/kg Additional Notes Protein: 0.8-1.2 g/Kg ABW; 49- 73 g/day. Fluids: 1 ml/Kcal, or as per MD. Nutrition Intervention Change Diet Order: Modify to Consistent Carbohydrates -Renal, Chopped Meats- Diet as tolerated. Add Supplement/Snack (indicate name/kcal Discontinued. /protein ) Goal #1 Facilitate PO intake of meals with elemental, textural, or mechanical modification during LOS. Goal #2 Help reach and maintain acceptable chemistry lab values during LOS. Goal #3 Adjust the dietary intervention to better serve Pt's needs and clinical conditions during LOS. Follow-Up By: 06/03/22 Additional Comments Continue monitoring food tolerance, %PO intake of meals , and BM.
[2022-05-27] MEDS: INSULIN GLARGINE 100 UNITS/ML SUB-Q SCH (22:00)
[2022-05-28] MEDS: metroNIDAZOLE 500 MG TAB PO SCH ×3 (06:17→21:36)
[2022-05-28] MEDS: oxyCODONE /ACETAMINOPHEN 5-325MG TAB PO PRN ×3 (06:28→21:44)
[2022-05-28] MEDS: INSULIN LISPRO 100 UNIT/ML SUB-Q SCH ×4 (08:30→21:38)
[2022-05-28] MEDS: PANTOPRAZOLE 40 MG TAB PO SCH (09:03)
[2022-05-28] MEDS: CLOPIDOGREL 75 MG TAB PO SCH (09:03)
[2022-05-28] MEDS: DOCUSATE SODIUM 100 MG CAP PO SCH ×2 (09:03→21:37)
[2022-05-28] MEDS: ASPIRIN EC 81 MG TAB PO SCH (09:03)
[2022-05-28] MEDS: APIXABAN 2.5 MG TAB PO SCH ×2 (09:04→21:41)
[2022-05-28] MEDS: SODIUM HYPOCHLORITE, DAKIN'S 1/2 STRENGTH (0.25%) 473 ML TOPICAL SOLN TP SCH ×2 (09:04→21:37)
[2022-05-28] MEDS: HYDROmorphone 1 MG/1 ML INJ IV PRN (09:10)
[2022-05-28] MEDS: CEFEPIME/NS 2 GM/100 ML 2 GM/100 ML BAG IV SCH (12:31)
--- NOTE | 2022-05-28 16:58 | Progress Note ---
Assessment and Plan Assessment and plan: 56 yo F with hx of poorly controlled DM, neuropathy, tobacco abuse who presented to ER with c/o pain and swelling in her left great toe for at least 1 month. When she presented to ER, there was purulent drainage from the toe and maggots present per ER physician. In the ER Patient underwent x-ray of the left foot and was found to have left foot osteomyelitis complicated by cellulitis, sepsis and also found to have acute kidney injury. 05/19: cont iv abx, follow blood cx. pending doppler study. Cr improving, cont bicarbonate fluid. may need amputation 05/20: blood cx neg. cont empiric abx. B/L LE duplex revealed hemodynamically significant bilateral PAD with increased velocities in the femoral arteries and monophasic waveforms and decreased velocities in distal arteries. Patient will be scheduled for a left lower extremity angiogram with possible revascularization tomorrow to allow adequate arterial inflow to heal a planned first toe amputation with general surgery. 05/21: s/p angioplasy, cont empiric abx, follow clinically, will need amputation 05/22: Glucose levels are high--Lantus increased from 10 units to 30 units subcu at bedtime, also high-dose sliding scale coverage. Guillotine amputation of left great toe on Tuesday. 05/23: cont abx, follow BG level. plan for amputation tomorrow 05/24: plan for amputation today, cont iv abx. 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/s/p TMA 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 Elevate the limb, pain medications, wound dressing, PT OT -- PAD with tobacco abuse; --S/p Angioplasty --LLE Smoking cessation counseling Nicotine patch as needed Strongly advised the importance of quitting tobacco use Sequelae of chronic tobacco use explained to the patient and discussed in detail I spent 25 minutes counseling the patient -- Diabetic neuropathy; Continue gabapentin, supportive care -- Diabetes mellitus type 2 uncontrolled; Accu-Chek, sliding scale coverage, ADA diet Insulin as needed -- CELY with possible ATN; Closely monitor renal function, avoid nephrotoxin Renal dose of medications, renal ultrasound if needed -- Metabolic acidosis; IV fluids and supportive care --DVT prophylaxis;SCDs Hold subcu heparin[patient postop.] PT evaluation; home health PT rolling walker OT evaluation; home health PT follow-up Closely monitor the patient and adjust management as needed Plan of care reviewed with the patient, her nurse, and the case systems management consultant recommendations noted and appreciated Advance care planning; +35 minutes Discussed in detail with the patient his condition, patient's tests and reports discussed Patient's diagnosis discussed with him, I discussed treatment plan, I also discussed consultants input I discussed treatment plan, I discussed prognosis, I also discussed discharge planning when patient is medically stable. I discussed with the patient case management's recommendations and DC planning. Patient had some questions , I answered all of them .patient verbalized understanding, Preventive health care counseling; 30 minutes Patient strongly advised to be compliant with medications, diet, follow-up visits Patient advised smoking cessation, patient also advised, to adhere to diabetic diet plan And closely monitor blood sugars and adjust insulin as needed Patient had some questions answered all of them History Interval history: I have seen and examined the patient at the bedside Patient complains of severe toe pain Asking for more pain medications Vital signs noted Hospitalist Physical - Constitutional Vitals: Temp Pulse Resp BP Pulse Ox 98.0 F 96 H 18 120/65 97 05/28/22 04:38 05/28/22 04:38 05/28/22 10:00 05/28/22 04:38 05/28/22 10:00 General appearance: Present: no acute distress, well-nourished - EENT Eyes: Present: PERRL, EOM intact - Neck Neck: Present: supple, normal ROM - Respiratory Respiratory effort: normal Respiratory: bilateral: diminished, negative: rales, rhonchi, wheezing - Cardiovascular Rhythm: regular Heart Sounds: Present: S1 & S2 - Extremities Extremities: no ischemia, No edema, abnormal (Foot dressing in place) - Abdominal General gastrointestinal: soft, non-tender, non-distended, normal bowel sounds - Integumentary Integumentary: Present: clear, warm - Psychiatric Psychiatric: appropriate mood/affect, cooperative - Neurologic Neurologic: moves all extremities Results - Labs CBC & Chem 7: 05/25/22 06:32 05/27/22 07:12 Labs: Laboratory Last Values WBC 13.1 K/mm3 (4.5-11.0) H 05/25/22 06:32 RBC 2.41 M/mm3 (3.65-5.03) L 05/25/22 06:32 Hgb 7.1 gm/dl (10.1-14.3) L 05/25/22 06:32 Hct 22.2 % (30.3-42.9) L 05/25/22 06:32 MCV 92 fl (79-97) 05/25/22 06:32 MCH 30 pg (28-32) 05/25/22 06:32 MCHC 32 % (30-34) 05/25/22 06:32 RDW 13.3 % (13.2-15.2) 05/25/22 06:32 Plt Count 496 K/mm3 (140-440) H 05/25/22 06:32 Lymph % (Auto) 15.6 % (13.4-35.0) 05/25/22 06:32 [place] % (Auto) 6.5 % (0.0-7.3) 05/25/22 06:32 Eos % (Auto) 4.2 % (0.0-4.3) 05/25/22 06:32 Baso % (Auto) 0.9 % (0.0-1.8) 05/25/22 06:32 Lymph # (Auto) 2.0 K/mm3 (1.2-5.4) 05/25/22 06:32 [place] # (Auto) 0.8 K/mm3 (0.0-0.8) 05/25/22 06:32 Eos # (Auto) 0.6 K/mm3 (0.0-0.4) H 05/25/22 06:32 Baso # (Auto) 0.1 K/mm3 (0.0-0.1) 05/25/22 06:32 Seg Neutrophils % 72.8 % (40.0-70.0) H 05/25/22 06:32 Seg Neutrophils # 9.5 K/mm3 (1.8-7.7) H 05/25/22 06:32 ESR > 140.0 mm/Hr (0-20) 05/18/22 16:40 Sodium 136 mmol/L (137-145) L 05/27/22 07:12 Potassium 5.3 mmol/L (3.6-5.0) H D 05/27/22 07:12 Chloride 100.5 mmol/L (98-107) 05/27/22 07:12 Carbon Dioxide 24 mmol/L (22-30) 05/27/22 07:12 Anion Gap 17 mmol/L 05/27/22 07:12 BUN 39 mg/dL (7-17) H 05/27/22 07:12 Creatinine 2.4 mg/dL (0.6-1.2) H 05/27/22 07:12 Estimated GFR 25 ml/min 05/27/22 07:12 BUN/Creatinine Ratio 16 % 05/27/22 07:12 Glucose 294 mg/dL (65-100) H 05/27/22 07:12 POC Glucose 200 mg/dL (70-105) H 05/28/22 12:24 Hemoglobin A1c 9.1 % (4-6) H 05/19/22 06:56 Lactic Acid 0.80 mmol/L (0.7-2.0) 05/19/22 06:56 Calcium 8.6 mg/dL (8.4-10.2) 05/27/22 07:12 Total Bilirubin < 0.20 mg/dL (0.1-1.2) 05/19/22 06:56 AST 8 units/L (5-40) 05/19/22 06:56 ALT 6 units/L (7-56) L 05/19/22 06:56 Alkaline Phosphatase 120 units/L (35-129) 05/19/22 06:56 Total Protein 6.3 g/dL (6.3-8.2) 05/19/22 06:56 Albumin 3.2 g/dL (3.9-5) L 05/19/22 06:56 Albumin/Globulin Ratio 1.0 % 05/19/22 06:56 Urine Color Colorless (Yellow) 05/18/22 23:18 Urine Turbidity Cloudy (Clear) 05/18/22 23:18 Specific [place] (Man) 1.015 (1.003-1.030) 05/18/22 23:18 Ur Protein (Man) 3+ mg/dL (Negative) 05/18/22 23:18 Ur Ketones (Man) Negative (Negative) 05/18/22 23:18 Urine Bilirubin (Man) Negative (Negative) 05/18/22 23:18 Urine WBC (Auto) > 182.0 /HPF (0.0-6.0) H 05/18/22 23:18 Urine RBC (Auto) 2.0 /HPF (0.0-6.0) 05/18/22 23:18 U Epithel Cells (Auto) < 1.0 /HPF (0-13.0) 05/18/22 23:18 Urine RBC (Manual) 1+ (Negative) 05/18/22 23:18 Urine Mucus Few /HPF 05/18/22 23:18 Urine Creatinine 73.3 mg/dL (0.1-20.0) H 05/18/22 23:18 Urine Sodium 55 mmol/L 05/18/22 23:18 Random Vancomycin 17.0 ug/mL (0-40.0) 05/26/22 06:22 Blood Type O POSITIVE 05/18/22 Unknown Antibody Screen Negative 05/18/22 Unknown Microbiology: Microbiology 05/24/22 17:00 Toe - Left Big Anaerobic Culture - Preliminary 05/24/22 17:00 Toe - Left Big Surgical Culture - Final Proteus Penneri Strickland/IV: Voiding Method External Female Catheter Active Medications - Current Medications Current Medications: Generic Name Dose Route Start Last Admin Trade Name Freq PRN Reason Stop Dose Admin Acetaminophen 650 mg 05/18/22 20:20 05/22/22 06:05 Acetaminophen 325 Mg Tab PO 650 mg Q4H PRN Administration Pain MILD(1-3)/Fever >100.5/AVILA Albuterol 2.5 mg 05/18/22 20:20 Albuterol 2.5 Mg/3 Ml Nebu IH Q4HRT PRN Shortness Of Breath Apixaban 2.5 mg 05/21/22 22:00 05/28/22 09:04 Apixaban 2.5 Mg Tab PO 2.5 mg Q12HR TATUM Administration Protocol Aspirin 81 mg 05/22/22 10:00 05/28/22 09:03 Aspirin Ec 81 Mg Tab PO 81 mg QDAY TATUM Administration Atorvastatin Calcium 20 mg 05/21/22 22:00 05/27/22 22:32 Atorvastatin 20 Mg Tab PO 20 mg QHS TATUM Administration Clopidogrel Bisulfate 75 mg 05/22/22 10:00 05/28/22 09:03 Clopidogrel 75 Mg Tab PO 75 mg QDAY TATUM Administration Dextrose 50 ml 05/18/22 20:25 05/27/22 03:45 Dextrose 50% In Water (25gm) 50 Ml Syringe IV 50 ml Q30MIN PRN Administration Hypoglycemia Protocol Docusate Sodium 100 mg 05/19/22 10:00 05/28/22 09:03 Docusate Sodium 100 Mg Cap PO 100 mg BID TATUM Administration Hydromorphone HCl 1 mg 05/19/22 09:55 05/28/22 09:10 Hydromorphone 1 Mg/1 Ml Inj IV 1 mg Q8H PRN Administration Pain , Severe (7-10) Cefepime HCl 2 gm in 100 mls @ 200 mls/hr 05/19/22 12:00 05/28/22 12:31 Cefepime/Ns 2 Gm/100 Ml IV 200 mls/hr Q24H TATUM Administration Insulin Glargine 30 units 05/22/22 13:15 05/27/22 22:00 Insulin Glargine 100 Units/Ml SUB-Q Not Given QHS [facility] Insulin Human Lispro 0 unit 05/18/22 22:00 05/28/22 12:30 Insulin Lispro 100 Unit/Ml SUB-Q 4 unit ACHS TATUM Administration Protocol Metronidazole 500 mg 05/25/22 14:00 05/28/22 13:20 Metronidazole 500 Mg Tab PO 500 mg Q8HR TATUM Administration Protocol Ondansetron HCl 4 mg 05/18/22 20:20 Ondansetron 4 Mg/2 Ml Inj IV Q8H PRN Nausea And Vomiting Oxycodone/Acetaminophen 2 tab 05/19/22 09:46 05/28/22 13:31 Oxycodone /Acetaminophen 5-325mg Tab PO 2 tab Q6H PRN Administration Pain, Moderate (4-6) Pantoprazole Sodium 40 mg 05/22/22 07:30 05/28/22 09:03 Pantoprazole 40 Mg Tab PO 40 mg QDAC TATUM Administration Sodium Chloride 10 ml 05/18/22 22:00 05/28/22 09:04 Sodium Chloride 0.9% 10 Ml Flush Syringe IV 10 ml BID TATUM Administration Sodium Chloride 10 ml 05/18/22 20:20 Sodium Chloride 0.9% 10 Ml Flush Syringe IV PRN PRN LINE FLUSH Sodium Hypochlorite 1 applic 05/25/22 12:00 05/28/22 09:04 Sodium Hypochlorite, Dakin's 1/2 Strength (0.25%) 473 Ml Topical Soln TP 1 1000units BID TATUM Administration Nutrition/Malnutrition Assess - Dietary Evaluation Nutrition/Malnutrition Findings: Nutrition Notes Start: 05/20/22 11:53 Freq: Status: Active Protocol: Document 05/27/22 10:54 GEOVANY (Rec: 05/27/22 11:28 GEOVANY [id number]) Nutrition Notes Initial or Follow up Reassessment Current Diagnosis Acute Kidney Injury,Diabetes, Sepsis,Hypertension Other Pertinent Diagnosis s/p L-1st Toe TMA, Hyponatremia, Hypokalemia, PAD , PVD, Schizophrenia... Current Diet Consistent Carbohydrates - Renal, Chopped Meats- Diet ( from D 05/27) Labs/Tests 05/27: Na 136, K 5.3, BUN 39, Crea 2.4, Glu 294. Pertinent Medications 05/27: Lantus 30U, others nutritionally unremarkable. Height 5 ft 5 in Weight 62.2 kg [place] Body Weight (kg) 56.81 BMI 22.8 Weight change and time frame 1 Kg body weight gain reported in 1 week. Weight Status Appropriate Subjective/Other Information RD consult for routine F/U on dietary advancement. Diet resumed after surgery on 05/24, Pt's PO intake of meals has been Good (>75%) and well tolerated, according to ADL notes. I will recommend mechanical modification to Pt's meals to facilitate chewing process during LOS. I will prescribe Consistent Carbohydrates restriction to Pt's current diet to support Pt's T2DM condition during LOS . Pt is on Room Air, O2 saturation @ 97%, according to Physical Assessment History notes. Procedure on 05/24: L-1st Toe Transmetatarsal Amputation, well tolerated, according to Operative Report notes. Pt eager to ambulate, PT assessment pewnding, according to Progress notes. Percent of energy/protein needs met: Prescribed Consistent Carbohydrates -Renal, Chopped Meats- Diet provides for energy/protein needs (2,061 Kcal/91 g) during LOS. Burn Absent Trauma Absent GI Symptoms None Difficulty In Chewing Food Allergy No Skin Integrity/Comment L-Foot surgical wound. Current % PO Good (75-100%) Minimum of two criteria No Fluid Accumulation N/A Reduced Loom Tuner Strength N/A (non-severe) Protein-Calorie Malnutrition N\A #3 Nutrition Diagnosis Altered nutrition-related laboratory values Comments: 05/27: Na 136, K 5.3, BUN 39, Crea 2.4, Glu 294. Diagnosis Progress(for reassessment Continues documentation) #2 Nutrition Diagnosis Inadequate protein-energy intake Comments: Diet resumed after surgery on 05/24, Pt's PO intake of meals has been Good (>75%) and well tolerated, according to ADL notes. Diagnosis Progress(for reassessment Resolved documentation) #1 Nutrition Diagnosis Biting/Chewing (masticatory) difficulty Diagnosis Progress(for reassessment Continues documentation) Is patient on ventilator? No Is Patient Ambulatory and/or Out of Bed No REE-([facility]-confined to bed) 1465.980 Kcal/Kg value to use for calculation 25 Approximate Energy Requirements Using 1555 kcal/Kg Calculation Used for Recommendations Kcal/kg Additional Notes Protein: 0.8-1.2 g/Kg ABW; 49- 73 g/day. Fluids: 1 ml/Kcal, or as per MD. Nutrition Intervention Change Diet Order: Modify to Consistent Carbohydrates -Renal, Chopped Meats- Diet as tolerated. Add Supplement/Snack (indicate name/kcal Discontinued. /protein ) Goal #1 Facilitate PO intake of meals with elemental, textural, or mechanical modification during LOS. Goal #2 Help reach and maintain acceptable chemistry lab values during LOS. Goal #3 Adjust the dietary intervention to better serve Pt's needs and clinical conditions during LOS. Follow-Up By: 06/03/22 Additional Comments Continue monitoring food tolerance, %PO intake of meals , and BM.
--- NOTE | 2022-05-28 17:39 | Progress Note ---
Assessment and Plan Cultures: Blood culture no growth so far A/P: 56-year-old female past medical history diabetes, nicotine abuse, schizophrenia now with: #Acute sepsis: With leukocytosis, tachycardia. 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 Per operative note, cultures obtained. We will follow-up. Hopefully surgical cure obtained given transmetatarsal amputation performed. #Diabetes type 2: Glycemic control for best outcomes #CELY: Renally dose medications Recs: -Continue cefepime for now. Renally dose medications -added PO metronidazole -Follow-up surgical cultures from amputation -Follow-up surgical pathology -OK to DC with Levaquin 750mg q24h ad metronidazole 500mg q8h for 2 weeks -Follow upsurg path as an outpatient Thank you for the consult, ID will sign off. Cristy Barraza MD [facility] ([facility]) O: [phone] F: [phone] Subjective Date of service: 05/28/22 Principal diagnosis: Gangerene L Great toe,S/p Angiogram ,PVD Interval history: afebrile, no new issues. Objective - Exam Narrative Exam: Physical Exam: Constitutional: Alert, cooperative. No acute distress Head, Ears, Nose: Normocephalic, atraumatic. External ears, nose normal Eyes: Conjunctivae/corneas clear. No icterus. No ptosis. Neck: Supple, no meningeal signs Oral: dentition fair, no thrush Cardiovascular: S1, S2 normal. Respiratory: Good air entry, clear to auscultation bilaterally GI: Soft, non-tender; bowel sounds normal. No peritoneal signs. Musculoskeletal: s/p left hallux amputation Skin: No rash or abscess Hem/Lymphatic: No palpable cervical or supraclavicular nodes. No lymphangitis Psych: Mood ok. Affect normal Neurological: Awake, alert, oriented. No gross abnormality - Constitutional Vitals: Vital Signs Temp Pulse Resp BP Pulse Ox 98.0 F 96 H 18 120/65 97 05/28/22 04:38 05/28/22 04:38 05/28/22 10:00 05/28/22 04:38 05/28/22 10:00 Temperature -Last 24 Hours Temperature 98.0 F Temperature 98.3 F Temperature 98.3 F - Labs CBC & Chem 7: 05/25/22 06:32 05/27/22 07:12 Labs: Abnormal lab results 05/27/22 05/27/22 05/28/22 Range/Units 15:27 18:22 07:42 POC Glucose 151 H 128 H 125 H (70-105) mg/dL 05/28/22 05/28/22 Range/Units 12:24 16:46 POC Glucose 200 H 145 H (70-105) mg/dL
[2022-05-28] MEDS: INSULIN GLARGINE 100 UNITS/ML SUB-Q SCH (21:37)
[2022-05-29] MEDS: HYDROmorphone 1 MG/1 ML INJ IV PRN ×2 (00:57→09:51)
--- NOTE | 2022-05-29 05:23 | Progress Note ---
Assessment and Plan Impression: * Acute kidney injury secondary to ATN * Hyponatremia * Hypokalemia - likely exacerbated by metabolic alkalosis, resolved * Metabolic alkalosis, resolved * Osteomyelitis * Gangrene, left toe --s/pTransmetatarsal amputation of first toe of left foot Plan: * AM labs not available at time of visit * Diuretics prn * Abx per ID * Dose medications for renal function * Glycemic control * Avoid nephrotoxins Subjective Date of service: 05/28/22 Principal diagnosis: Gangerene L Great toe,S/p Angiogram ,PVD Interval history: Patient has no complaints. Objective - Vital Signs Vital signs: Vital Signs - 12hr 05/28/22 05/28/22 05/29/22 22:00 22:44 00:57 Respiratory 17 17 Rate O2 Sat by Pulse 97 Oximetry - General Appearance General appearance: well-developed, well-nourished EENT: ATNC Respiratory: Present: Clear to Ascultation Cardiology: regular, S1S2 Gastrointestinal: normal, no tenderness, no distended Neurologic: alert and oriented x3 - Lab 05/25/22 06:32 05/27/22 07:12 Most recent lab results Calcium 8.6 mg/dL (8.4-10.2) 05/27/22 07:12 Urine Creatinine 73.3 mg/dL (0.1-20.0) H 05/18/22 23:18 Urine Sodium 55 mmol/L 05/18/22 23:18 Medications & Allergies - Medications Allergies/Adverse Reactions: Allergies No Known Allergies Allergy (Verified 05/18/22 15:31) Home Medications: Home Medications Medication Instructions Recorded Confirmed Last Taken Type No Known Home Medications [No 05/20/22 05/20/22 Unknown History Reported Home Medications] Active Medications: Generic Name Dose Route Start Last Admin Trade Name Freq PRN Reason Stop Dose Admin Acetaminophen 650 mg 05/18/22 20:20 05/22/22 06:05 Acetaminophen 325 Mg Tab PO 650 mg Q4H PRN Administration Pain MILD(1-3)/Fever >100.5/AVILA Albuterol 2.5 mg 05/18/22 20:20 Albuterol 2.5 Mg/3 Ml Nebu IH Q4HRT PRN Shortness Of Breath Apixaban 2.5 mg 05/21/22 22:00 05/28/22 21:41 Apixaban 2.5 Mg Tab PO 2.5 mg Q12HR TATUM Administration Protocol Aspirin 81 mg 05/22/22 10:00 05/28/22 09:03 Aspirin Ec 81 Mg Tab PO 81 mg QDAY TATUM Administration Atorvastatin Calcium 20 mg 05/21/22 22:00 05/28/22 21:36 Atorvastatin 20 Mg Tab PO 20 mg QHS TATUM Administration Clopidogrel Bisulfate 75 mg 05/22/22 10:00 05/28/22 09:03 Clopidogrel 75 Mg Tab PO 75 mg QDAY TATUM Administration Dextrose 50 ml 05/18/22 20:25 05/27/22 03:45 Dextrose 50% In Water (25gm) 50 Ml Syringe IV 50 ml Q30MIN PRN Administration Hypoglycemia Protocol Docusate Sodium 100 mg 05/19/22 10:00 05/28/22 21:37 Docusate Sodium 100 Mg Cap PO Not Given BID TATUM Hydromorphone HCl 1 mg 05/19/22 09:55 05/29/22 00:57 Hydromorphone 1 Mg/1 Ml Inj IV 1 mg Q8H PRN Administration Pain , Severe (7-10) Cefepime HCl 2 gm in 100 mls @ 200 mls/hr 05/19/22 12:00 05/28/22 12:31 Cefepime/Ns 2 Gm/100 Ml IV 200 mls/hr Q24H TATUM Administration Insulin Glargine 30 units 05/22/22 13:15 05/28/22 21:37 Insulin Glargine 100 Units/Ml SUB-Q 30 units QHS [facility] Administration Insulin Human Lispro 0 unit 05/18/22 22:00 05/28/22 21:38 Insulin Lispro 100 Unit/Ml SUB-Q Not Given ACHS TATUM Protocol Metronidazole 500 mg 05/25/22 14:00 05/28/22 21:36 Metronidazole 500 Mg Tab PO 500 mg Q8HR TATUM Administration Protocol Ondansetron HCl 4 mg 05/18/22 20:20 Ondansetron 4 Mg/2 Ml Inj IV Q8H PRN Nausea And Vomiting Oxycodone/Acetaminophen 2 tab 05/19/22 09:46 05/28/22 21:44 Oxycodone /Acetaminophen 5-325mg Tab PO 2 tab Q6H PRN Administration Pain, Moderate (4-6) Pantoprazole Sodium 40 mg 05/22/22 07:30 05/28/22 09:03 Pantoprazole 40 Mg Tab PO 40 mg QDAC TATUM Administration Sodium Chloride 10 ml 05/18/22 22:00 05/28/22 21:38 Sodium Chloride 0.9% 10 Ml Flush Syringe IV 10 ml BID TATUM Administration Sodium Chloride 10 ml 05/18/22 20:20 Sodium Chloride 0.9% 10 Ml Flush Syringe IV PRN PRN LINE FLUSH Sodium Hypochlorite 1 applic 05/25/22 12:00 05/28/22 21:37 Sodium Hypochlorite, Dakin's 1/2 Strength (0.25%) 473 Ml Topical Soln TP Not Given BID TATUM
[2022-05-29] MEDS: metroNIDAZOLE 500 MG TAB PO SCH ×2 (07:00→14:00)
[2022-05-29 07:39] LABS: Calcium 8.4 mg/dL (8.4-10.2)
[2022-05-29] MEDS: INSULIN LISPRO 100 UNIT/ML SUB-Q SCH ×2 (08:00→12:35)
[2022-05-29] MEDS: APIXABAN 2.5 MG TAB PO SCH (09:36)
[2022-05-29] MEDS: PANTOPRAZOLE 40 MG TAB PO SCH (09:36)
[2022-05-29] MEDS: DOCUSATE SODIUM 100 MG CAP PO SCH (09:36)
[2022-05-29] MEDS: ASPIRIN EC 81 MG TAB PO SCH (09:36)
[2022-05-29] MEDS: CLOPIDOGREL 75 MG TAB PO SCH (09:36)
[2022-05-29] MEDS: CEFEPIME/NS 2 GM/100 ML 2 GM/100 ML BAG IV SCH (12:35)
--- NOTE | 2022-05-29 13:03 | Discharge Summary ---
Providers - Providers Date of Admission: 05/18/22 20:20 Date of discharge: 05/29/22 Attending physician: JULY HENRIQUEZ 05/18/22 20:07 Consult to Physician [CONS] Urgent Comment: Consulting Provider: ANAHI ZIMMER Physician Instructions: Reason For Exam: left great toe gangrene 05/18/22 20:18 Consult to Physician [CONS] Urgent Comment: Consulting Provider: DELORIS CRANDALL Physician Instructions: Reason For Exam: left great toe gangrene Consult to Physician [CONS] Urgent Comment: Consulting Provider: DAVID CARABALLO Physician Instructions: Reason For Exam: acute renal failure 05/21/22 09:26 Consult to Physician [CONS] Routine Comment: Consulting Provider: KAITLYNN GAGNON Physician Instructions: Reason For Exam: left foot gangrene 05/26/22 09:08 Occupational Therapy Evaluate and Treat [CONS] Routine Comment: DC needs Reason For Exam: Gangrene left first toe/s/p TMA/evaluate and treat Physical Therapy Evaluation and Treat [CONS] Routine Comment: Evaluate and treat/DC needs Reason For Exam: Gangrene toe/TMA left first toe Primary care physician: IN HOME AIDE Hospitalization Reason for admission: Cellulitis left foot Condition: Stable Pertinent studies: Foot x-ray Chest x-ray renal ultrasound Lower extremity arterial Doppler Venous Doppler Procedures: Vascular procedure; revascularization 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 Hospital course: -- Sepsis with cellulites of left foot; Elevate the limb, status post TMA amputation of the left first toe Continue IV cefepime, Vanco discontinued, ID added oral metronidazole pain medications, supportive care -- Osteomylitis and Gangrene of left great toe/s/p TMA 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 Elevate the limb, pain medications, wound dressing, PT OT -- PAD with tobacco abuse; --S/p Angioplasty --LLE Smoking cessation counseling Nicotine patch as needed Strongly advised the importance of quitting tobacco use Sequelae of chronic tobacco use explained to the patient and discussed in detail I spent 25 minutes counseling the patient -- Diabetic neuropathy; Continue gabapentin, supportive care -- Diabetes mellitus type 2 uncontrolled; Accu-Chek, sliding scale coverage, ADA diet Insulin as needed -- CELY with possible ATN; Closely monitor renal function, avoid nephrotoxin Renal dose of medications, renal ultrasound if needed -- Metabolic acidosis; IV fluids and supportive care --DVT prophylaxis;SCDs Hold subcu heparin[patient postop.] PT evaluation; home health PT rolling walker OT evaluation; home health PT follow-up Closely monitor the patient and adjust management as needed Plan of care reviewed with the patient, her nurse, and the case portfolio management marketing recommendations noted and appreciated Advance care planning; +35 minutes Discussed in detail with the patient his condition, patient's tests and reports discussed Patient's diagnosis discussed with him, I discussed treatment plan, I also discussed consultants input I discussed treatment plan, I discussed prognosis, I also discussed discharge planning when patient is medically stable. I discussed with the patient case management's recommendations and DC planning. Patient had some questions , I answered all of them .patient verbalized understanding, Preventive health care counseling; 30 minutes Patient strongly advised to be compliant with medications, diet, follow-up visits Patient advised smoking cessation, patient also advised, to adhere to diabetic diet plan And closely monitor blood sugars and adjust insulin as needed Patient had some questions answered all of them Disposition: 06 HOME HEALTH CARE SERVICE Final Discharge Diagnosis (Prints w/discharge instructions): Sepsis with cellulitis of the left foot treated. Osteomyelitis and gangrene of the left great toe. 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 Peripheral arterial disease. Ongoing tobacco use. Diabetic neuropathy. Type 2 diabetes mellitus. Acute kidney injury possible ATN. Metabolic acidosis. DVT prophylaxis Time spent for discharge: 35 min Core Measure Documentation - Palliative Care Palliative Care/ Comfort Measures: Not Applicable - Core Measures Any of the following diagnoses?: none Exam - Constitutional Vitals: Temp Pulse Resp BP Pulse Ox 97.9 F 92 H 17 141/77 98 05/29/22 06:09 05/29/22 06:09 05/29/22 06:09 05/29/22 06:09 05/29/22 11:34 General appearance: Present: no acute distress, well-nourished - EENT Eyes: Present: PERRL, EOM intact - Neck Neck: Present: supple, normal ROM - Respiratory Respiratory effort: normal Respiratory: bilateral: diminished, negative: rales, rhonchi, wheezing - Cardiovascular Rhythm: regular Heart Sounds: Present: S1 & S2 - Extremities Extremities: abnormal (Left foot dressing in place) - Abdominal General gastrointestinal: Present: soft, non-tender, non-distended, normal bowel sounds - Integumentary Integumentary: Present: clear, warm - Musculoskeletal Musculoskeletal: strength equal bilaterally - Psychiatric Psychiatric: appropriate mood/affect, cooperative - Neurologic Neurologic: moves all extremities Plan Activity: advance as tolerated, fall precautions Diet: low carbohydrate Additional Instructions: If you have worsening symptoms contact MD or go to emergency room as needed. Fall precautions. Wound care per instructions. Follow-up primary care physician in [address] Salvador in 1 week Follow up with: PRIMARY CARE, [Primary Care Provider] - 3-5 Days DAVID CARABALLO MD [Staff Physician] - 7 Days CHRISTIAN SALVADOR MD [Staff Physician] - 7 Days Prescriptions: Docusate Sodium [Colace CAP] 100 mg PO BID #60 capsule Sodium Hypochlorite [Dakin's Half Strength] 1 applic TP BID #2 bottle Apixaban [Eliquis] 2.5 mg PO Q12HR #60 tablet Aspirin EC [Halfprin EC] 81 mg PO QDAY #30 tablet Lispro Insulin [HumaLOG] 5 unit SUB-Q ACHS 30 Days #2 vial Insulin Glargine [Lantus VIAL] 30 units SUB-Q QHS 30 Days #2 vial AtorvaSTATin [Lipitor] 20 mg PO QHS #30 tablet oxyCODONE /ACETAMINOPHEN [Percocet 5/325 mg] 1 tab PO Q6H PRN #20 tablet PRN Reason: Pain, Moderate (4-6) Clopidogrel [Plavix] 75 mg PO QDAY #30 tablet Pantoprazole [Protonix TAB] 40 mg PO QDAC #14 tablet
[2022-05-29 13:53] VITALS: BP 143/75
== END 2022-05-29 16:09 | disposition home health service (06) | DRG 853 ==
LOC: ED 15:24 → 3A 20:20
PROVIDERS: ADMIT Internal Medicine; ATTEND Internal Medicine
PROC: 04CN3ZZ Extirpation of Matter from Left Popliteal Artery, Percutaneous Approach (ICD-10-PCS; principal; 2022-05-21)
PROC: 04CL3ZZ Extirpation of Matter from Left Femoral Artery, Percutaneous Approach (ICD-10-PCS; 2022-05-21)
PROC: 047N3Z1 Dilation of Left Popliteal Artery using Drug-Coated Balloon, Percutaneous Approach (ICD-10-PCS; 2022-05-21)
PROC: 047L3Z1 Dilation of Left Femoral Artery using Drug-Coated Balloon, Percutaneous Approach (ICD-10-PCS; 2022-05-21)
PROC: 047Q3Z1 Dilation of Left Anterior Tibial Artery using Drug-Coated Balloon, Percutaneous Approach (ICD-10-PCS; 2022-05-21)
PROC: B4101ZZ Fluoroscopy of Abdominal Aorta using Low Osmolar Contrast (ICD-10-PCS; 2022-05-21)
PROC: B41G1ZZ Fluoroscopy of Left Lower Extremity Arteries using Low Osmolar Contrast (ICD-10-PCS; 2022-05-21)
PROC: 0Y6N0Z9 Detachment at Left Foot, Partial 1st Ray, Open Approach (ICD-10-PCS; 2022-05-24)
DX: A41.9 Sepsis, unspecified organism (principal); N17.0 Acute kidney failure with tubular necrosis; A48.0 Gas gangrene; L03.116 Cellulitis of left lower limb; E87.1 Hypo-osmolality and hyponatremia; E11.40 Type 2 diabetes mellitus with diabetic neuropathy, unspecified; E11.65 Type 2 diabetes mellitus with hyperglycemia; I10 Essential (primary) hypertension; E87.3 Alkalosis; E87.6 Hypokalemia; E78.5 Hyperlipidemia, unspecified; B96.89 Other specified bacterial agents as the cause of diseases classified elsewhere; M86.8X7 Other osteomyelitis, ankle and foot; F31.9 Bipolar disorder, unspecified; F20.9 Schizophrenia, unspecified; E78.00 Pure hypercholesterolemia, unspecified; E11.52 Type 2 diabetes mellitus with diabetic peripheral angiopathy with gangrene; Z91.19 Patient's noncompliance with other medical treatment and regimen; E11.69 Type 2 diabetes mellitus with other specified complication; F17.213 Nicotine dependence, cigarettes, with withdrawal; Z79.84 Long term (current) use of oral hypoglycemic drugs; Z83.3 Family history of diabetes mellitus; Z82.49 Family history of ischemic heart disease and other diseases of the circulatory system
CPT/HCPCS: 36415; 37225; 37228; 71045; 75625; 75710; 76770; 76937; 80048; 80053; 80202; 81001; 82140; 82570; 82962; 83036; 84300; 85025; 85027; 85652; 86850; 86900; 86901; 87040; 87075; 87076; 87116; 87186; 88305; 88311; 90715; 93922; 93925; 94760; G0378; J3490; Q9967; C1724; C1725; C1760; C1769; C1887; C2623; J0690; J0692; J1170; J1610; J1644; J1815; J1885; J1940; J2250; J2270; J2370; J2405; J2704; J3010; J3370; J3480; J7030; J7040; J7050

== ENCOUNTER 2022-06-10 10:03 | Inpatient (IN) | payer MEDICAID ==
--- NOTE | 2022-06-10 11:34 | Emergency Department Report ---
ED General Adult HPI - General Chief complaint: Dyspnea/Respdistress Stated complaint: SOB Time Seen by Provider: 06/10/22 11:00 Source: patient, EMS Mode of arrival: Stretcher Limitations: No Limitations - History of Present Illness Initial comments: The patient presents to the emergency department chief complaint of increased shortness of breath over the last 7 to 10 days. Patient states she has been short of breath since she was discharged from the hospital on May 30 for left great toe amputation. Patient states at that time she was diagnosed with a DVT and is not aware of which anticoagulant she is on. Patient states her shortness of breath is worse with ambulation and also complains of mild chest pain. Patient's O2 sats on arrival to the ED was 89% thus the patient was placed on O2 -: unknown Location: chest Radiation: non-radiation Severity scale (0 -10): 2 Quality: sharp Consistency: constant Improves with: none Worsens with: none Associated Symptoms: denies other symptoms Treatments Prior to Arrival: none - Related Data Previous Rx's Medication Instructions Recorded Last Taken Type Apixaban [Eliquis] 2.5 mg PO Q12HR #60 tablet 05/29/22 Unknown Rx Aspirin EC [Halfprin EC] 81 mg PO QDAY #30 tablet 05/29/22 Unknown Rx AtorvaSTATin [Lipitor] 20 mg PO QHS #30 tablet 05/29/22 Unknown Rx Clopidogrel [Plavix] 75 mg PO QDAY #30 tablet 05/29/22 Unknown Rx Docusate Sodium [Colace CAP] 100 mg PO BID #60 capsule 05/29/22 Unknown Rx Insulin Glargine [Lantus VIAL] 30 units SUB-Q QHS 30 Days #2 vial 05/29/22 Unknown Rx Lispro Insulin [HumaLOG] 5 unit SUB-Q ACHS 30 Days #2 vial 05/29/22 Unknown Rx Pantoprazole [Protonix TAB] 40 mg PO QDAC #14 tablet 05/29/22 Unknown Rx Sodium Hypochlorite [Dakin's Half 1 applic TP BID #2 bottle 05/29/22 Unknown Rx Strength] levoFLOXacin [Levaquin TAB] 500 mg PO QDAY #14 tablet 05/29/22 Unknown Rx metroNIDAZOLE [Flagyl] 500 mg PO Q8HR 14 Days #42 tablet 05/29/22 Unknown Rx oxyCODONE /ACETAMINOPHEN [Percocet 1 tab PO Q6H PRN #20 tablet 05/29/22 Unknown Rx 5/325 mg] Allergies Allergy/AdvReac Type Severity Reaction Status Date / Time No Known Allergies Allergy Verified 05/18/22 15:31 ED Review of Systems ROS: Stated complaint: SOB Other details as noted in HPI Comment: All other systems reviewed and negative Constitutional: denies: chills, fever Eyes: denies: eye pain, eye discharge, vision change ENT: denies: ear pain, throat pain Respiratory: shortness of breath. denies: cough, wheezing Cardiovascular: denies: chest pain, palpitations Endocrine: no symptoms reported Gastrointestinal: denies: abdominal pain, nausea, diarrhea Genitourinary: denies: urgency, dysuria, discharge Musculoskeletal: denies: back pain, joint swelling, arthralgia Skin: denies: rash, lesions Neurological: denies: headache, weakness, paresthesias Psychiatric: denies: anxiety, depression Hematological/Lymphatic: denies: easy bleeding, easy bruising ED Past Medical Hx - Past Medical History Previous Medical History?: Yes Hx Congestive Heart Failure: No Hx Diabetes: Yes Hx Psychiatric Treatment: Yes (bipolar, schizophrenic, depression) Hx Asthma: No Hx COPD: No Additional medical history: high cholesterol, - Social History Smoking Status: Never Smoker Substance Use Type: None - Medications Home Medications: Home Medications Medication Instructions Recorded Confirmed Last Taken Type Apixaban [Eliquis] 2.5 mg PO Q12HR #60 tablet 05/29/22 Unknown Rx Aspirin EC [Halfprin EC] 81 mg PO QDAY #30 tablet 05/29/22 Unknown Rx AtorvaSTATin [Lipitor] 20 mg PO QHS #30 tablet 05/29/22 Unknown Rx Clopidogrel [Plavix] 75 mg PO QDAY #30 tablet 05/29/22 Unknown Rx Docusate Sodium [Colace CAP] 100 mg PO BID #60 capsule 05/29/22 Unknown Rx Insulin Glargine [Lantus VIAL] 30 units SUB-Q QHS 30 Days #2 vial 05/29/22 Unknown Rx Lispro Insulin [HumaLOG] 5 unit SUB-Q ACHS 30 Days #2 vial 05/29/22 Unknown Rx Pantoprazole [Protonix TAB] 40 mg PO QDAC #14 tablet 05/29/22 Unknown Rx Sodium Hypochlorite [Dakin's Half 1 applic TP BID #2 bottle 05/29/22 Unknown Rx Strength] levoFLOXacin [Levaquin TAB] 500 mg PO QDAY #14 tablet 05/29/22 Unknown Rx metroNIDAZOLE [Flagyl] 500 mg PO Q8HR 14 Days #42 tablet 05/29/22 Unknown Rx oxyCODONE /ACETAMINOPHEN [Percocet 1 tab PO Q6H PRN #20 tablet 05/29/22 Unknown Rx 5/325 mg] ED Physical Exam - General Limitations: No Limitations General appearance: alert, in no apparent distress - Head Head exam: Present: atraumatic, normocephalic - Eye Eye exam: Present: normal appearance, PERRL, EOMI - ENT ENT exam: Present: mucous membranes moist - Neck Neck exam: Present: normal inspection - Respiratory Respiratory exam: Present: respiratory distress (Patient is in mild respiratory distress with tachypnea), decreased breath sounds - Cardiovascular Cardiovascular Exam: Present: normal rhythm, tachycardia. Absent: systolic murmur, diastolic murmur, rubs, gallop - GI/Abdominal GI/Abdominal exam: Present: soft, normal bowel sounds. Absent: distended, tenderness - Extremities Exam Extremities exam: Present: normal inspection - Back Exam Back exam: Present: normal inspection - Neurological Exam Neurological exam: Present: alert, oriented X3, CN II-XII intact. Absent: motor sensory deficit - Psychiatric Psychiatric exam: Present: normal affect, normal mood - Skin Skin exam: Present: warm, dry, intact, normal color. Absent: rash ED Course Vital Signs 06/10/22 06/10/22 06/10/22 10:03 10:21 10:45 Temperature 98.0 F Pulse Rate 92 H 102 H Respiratory 18 24 Rate Blood Pressure 167/99 Blood Pressure 150/89 167/99 [Left] O2 Sat by Pulse 100 94 92 Oximetry 06/10/22 06/10/22 06/10/22 11:00 11:15 11:30 Temperature Pulse Rate 102 H 105 H 104 H Respiratory 20 24 28 H Rate Blood Pressure 167/99 166/96 Blood Pressure [Left] O2 Sat by Pulse 91 95 Oximetry 06/10/22 06/10/22 06/10/22 11:45 12:01 12:15 Temperature Pulse Rate 104 H 105 H 104 H Respiratory 24 29 H 26 H Rate Blood Pressure 166/96 166/96 166/96 Blood Pressure [Left] O2 Sat by Pulse 100 96 94 Oximetry 06/10/22 06/10/22 06/10/22 12:31 12:45 13:01 Temperature Pulse Rate 103 H 99 H 113 H Respiratory 19 22 31 H Rate Blood Pressure 166/96 166/96 166/96 Blood Pressure [Left] O2 Sat by Pulse 94 100 100 Oximetry 06/10/22 06/10/22 06/10/22 13:15 13:31 13:45 Temperature Pulse Rate 100 H 104 H 112 H Respiratory 23 26 H 29 H Rate Blood Pressure 166/96 166/96 163/97 Blood Pressure [Left] O2 Sat by Pulse 99 99 100 Oximetry 06/10/22 06/10/22 06/10/22 14:01 14:16 14:57 Temperature Pulse Rate 112 H 111 H 109 H Respiratory 24 27 H 19 Rate Blood Pressure 163/97 163/97 163/97 Blood Pressure [Left] O2 Sat by Pulse 96 100 100 Oximetry 06/10/22 06/10/22 06/10/22 15:01 15:15 15:31 Temperature Pulse Rate 107 H 114 H 105 H Respiratory 39 H 21 19 Rate Blood Pressure 163/97 161/95 161/95 Blood Pressure [Left] O2 Sat by Pulse 98 100 Oximetry 06/10/22 06/10/22 15:45 16:01 Temperature Pulse Rate 104 H 107 H Respiratory 22 21 Rate Blood Pressure 161/95 161/95 Blood Pressure [Left] O2 Sat by Pulse Oximetry ED Medical Decision Making - Lab Data Result diagrams: 06/10/22 12:08 06/10/22 12:08 Lab Results 06/10/22 06/10/22 06/10/22 Range/Units 12:08 12:08 12:08 WBC 8.7 (4.5-11.0) K/mm3 RBC 2.64 L (3.65-5.03) M/mm3 Hgb 7.9 L (10.1-14.3) gm/dl Hct 25.3 L (30.3-42.9) % MCV 96 (79-97) fl MCH 30 (28-32) pg MCHC 31 (30-34) % RDW 15.7 H (13.2-15.2) % Plt Count 766 H (140-440) K/mm3 Lymph % (Auto) 23.9 (13.4-35.0) % [place] % (Auto) 6.9 (0.0-7.3) % Eos % (Auto) 2.9 (0.0-4.3) % Baso % (Auto) 0.9 (0.0-1.8) % Lymph # (Auto) 2.1 (1.2-5.4) K/mm3 [place] # (Auto) 0.6 (0.0-0.8) K/mm3 Eos # (Auto) 0.3 (0.0-0.4) K/mm3 Baso # (Auto) 0.1 (0.0-0.1) K/mm3 Seg Neutrophils % 65.4 (40.0-70.0) % Seg Neutrophils # 5.7 (1.8-7.7) K/mm3 PT 16.0 H (12.2-14.9) Sec. INR 1.15 H (0.87-1.13) APTT 31.7 (24.2-36.6) Sec. Sodium 138 (137-145) mmol/L Potassium 4.6 (3.6-5.0) mmol/L Chloride 104.6 (98-107) mmol/L Carbon Dioxide 25 (22-30) mmol/L Anion Gap 13 mmol/L BUN 25 H (7-17) mg/dL Creatinine 2.3 H (0.6-1.2) mg/dL Estimated GFR 27 ml/min BUN/Creatinine Ratio 11 % Glucose 245 H (65-100) mg/dL Calcium 8.1 L (8.4-10.2) mg/dL Magnesium 1.60 L (1.7-2.3) mg/dL Total Bilirubin 0.30 (0.1-1.2) mg/dL AST 20 (5-40) units/L ALT 68 H (7-56) units/L Alkaline Phosphatase 209 H (35-129) units/L Troponin T 0.039 H (0.00-0.029) ng/mL NT-Pro-B Natriuret Pep 77596 H (0-900) pg/mL Total Protein 6.7 (6.3-8.2) g/dL Albumin 3.3 L (3.9-5) g/dL Albumin/Globulin Ratio 1.0 % Triglycerides 82 (2-149) mg/dL Cholesterol 146 (50-199) mg/dL LDL Cholesterol Direct 72 (50-130) mg/dL HDL Cholesterol 62 H (40-59) mg/dL Cholesterol/HDL Ratio 2.35 % - EKG Data -: EKG Interpreted by Me EKG shows normal: sinus rhythm Rate: tachycardia - Radiology Data Radiology results: report reviewed - Medical Decision Making Results discussed with patient Elevated troponin is likely secondary to new onset congestive heart failure VQ scan is concerning for PE and with the patient recently being diagnosed with a DVT and with hypoxia patient was started on a heparin drip Critical Care Time: Yes Critical care time in (mins) excluding proc time.: 35 Critical care attestation.: If time is entered above; I have spent that time in minutes in the direct care of this critically ill patient, excluding procedure time. ED Disposition Clinical Impression: Pulmonary edema, Dyspnea Disposition: 09 ADMITTED INPATIENT Is pt being admited?: Yes Does the pt Need Aspirin: Yes Condition: Fair Instructions: Pulmonary Edema (ED) Referrals: KENDRICK SHAH MD [Primary Care Provider] - 3-5 Days
[2022-06-10 12:21] LABS: Basophils # (Auto) 0.1 K/mm3 (0.0-0.1); Basophils % (Auto) 0.9 % (0.0-1.8); Eosinophils # (Auto) 0.3 K/mm3 (0.0-0.4); Eosinophils % (Auto) 2.9 % (0.0-4.3); Hematocrit 25.3 % (30.3-42.9); Hemoglobin 7.9 gm/dl (10.1-14.3); Lymphocytes # (Auto) 2.1 K/mm3 (1.2-5.4); Lymphocytes % (Auto) 23.9 % (13.4-35.0); Mean Corpuscular HGB Conc 31 % (30-34); Mean Corpuscular Volume 96 fl (79-97); Monocytes # (Auto) 0.6 K/mm3 (0.0-0.8); Monocytes % (Auto) 6.9 % (0.0-7.3); Platelet Count 766 K/mm3 (140-440); Red Blood Count 2.64 M/mm3 (3.65-5.03); Red Cell Distribution Width 15.7 % (13.2-15.2)
--- NOTE | 2022-06-10 12:24 | XRay Report ---
CHEST 1 VIEW 06/10/2022 11:09 AM INDICATION / CLINICAL INFORMATION: sob. COMPARISON: Chest radiograph 05/18/2022 FINDINGS: SUPPORT DEVICES: None. HEART / MEDIASTINUM: Moderate cardiomegaly with central pulmonary vascular prominence. LUNGS / PLEURA: Basilar predominant diffuse interstitial prominence with likely right greater than th e left pleural effusions. No pneumothorax. ADDITIONAL FINDINGS: No significant additional findings. IMPRESSION: 1. Cardiomegaly with findings of pulmonary edema, indicative of CHF. Signer Name: Pasha Louie MD Signed: 06/10/2022 12:20 PM Workstation Name: [id number]
[2022-06-10 12:30] LABS: INR 1.15 (0.87-1.13)
[2022-06-10 12:31] LABS: Partial Thromboplastin Time 31.7 Sec. (24.2-36.6)
[2022-06-10 12:43] LABS: Albumin 3.3 g/dL (3.9-5); Calcium 8.1 mg/dL (8.4-10.2)
[2022-06-10 12:55] LABS: Chol/HDL Ratio 2.35 %
--- NOTE | 2022-06-10 15:09 | Nuclear Medicine Report ---
NUCLEAR MEDICINE PERFUSION LUNG SCAN INDICATION / CLINICAL INFORMATION: sob/hypoxia/dvt. TECHNIQUE: 5.0 mCi of Tc-99m MAA were given by IV. COMPARISON: Chest radiograph dated 06/10/2022. FINDINGS: PERFUSION: There are multiple perfusion defects involving the regions of the left apical posterior, s uperior lingular, and inferior lingular segments of the left upper lobe. This could be seen in the se tting of acute pulmonary emboli. There is relative hypoperfusion to the bilateral lung apices, which could be seen in the setting of c hronic lung disease. ADDITIONAL FINDINGS: None. IMPRESSION: 1. Intermediate probability for pulmonary embolism although this study is less sensitive in the absen ce of ventilation imaging. Signer Name: Pasha Louie MD Signed: 06/10/2022 3:05 PM Workstation Name: [id number]
[2022-06-10] MEDS ORDERED: FUROSEMIDE 20 MG/2 ML INJ IV ONE (16:44)
[2022-06-10] MEDS ORDERED: HEPARIN 10,000 UNITS/10 ML VIAL IV ONE ×3 (16:48→16:55)
[2022-06-10] MEDS ORDERED: HEPARIN 10,000 UNITS/10 ML VIAL IV PRN (16:48)
[2022-06-10] MEDS ORDERED: ONDANSETRON 4 MG/2 ML INJ IV PRN ×2 (16:59→22:06)
[2022-06-10] MEDS ORDERED: ACETAMINOPHEN 325 MG TAB PO PRN ×2 (16:59→22:06)
[2022-06-10] MEDS ORDERED: HEPARIN/ 0.45% NACL DRIP 25,000 UNIT/500 ML BAG IV SCH (17:00)
[2022-06-10] MEDS ORDERED: ASPIRIN 81 MG TAB CHEW PO ONE (17:06)
[2022-06-10] MEDS ORDERED: ASPIRIN 81 MG TAB CHEW ONE (20:44)
[2022-06-10] MEDS ORDERED: METOCLOPRAMIDE 10 MG/2 ML INJ IV PRN ×2 (22:06→22:15)
--- NOTE | 2022-06-10 22:13 | History and Physical Report ---
History of Present Illness Date of examination: 06/10/22 Date of admission: 06/10/22 17:00 Chief complaint: Increasing shortness of breath 2 days History of present illness: 55-year-old -Citizen Of [place] female with history of congestive heart failure, insulin-dependent diabetes, GERD and DVT comes in for increasing shortness of breath for the last 7 to 10 days. Patient has orthopnea. Patient was recently discharged on May 30 after left great toe amputation. Patient had DVT at that time. Patient is noncompliant with her Eliquis. Shortness of breath and o rthopnea present. Shortness of breath on minimal exertion. No fever or chills. Minimal exercises are exacerbating factor. Rest is an relieving factor. No chest pain or diaphoresis. - Past Medical History --Congestive Heart Failure --Diabetes: Yes --Psychiatric Treatment: Yes (bipolar, schizophrenic, depression) --Additional medical history: high cholesterol, -Past surgical history --left great toe amputation -Family history --Htn - Social History --Smoking Status: Never Smoker --Substance Use Type: None --Review of Systems --ROS: --Stated complaint: SOB --Other details as noted in HPI Comment: All other systems reviewed and negative Constitutional: denies: chills, fever Eyes: denies: eye pain, eye discharge, vision change ENT: denies: ear pain, throat pain Respiratory: shortness of breath. denies: cough, wheezing Cardiovascular: Increasing shortness of breath and orthopnea. Endocrine: no symptoms reported Gastrointestinal: denies: abdominal pain, nausea, diarrhea Genitourinary: denies: urgency, dysuria, discharge Musculoskeletal: denies: back pain, joint swelling, arthralgia Skin: denies: rash, lesions Neurological: denies: headache, weakness, paresthesias Psychiatric: denies: anxiety, depression Hematological/Lymphatic: denies: easy bleeding, easy bruising Medications and Allergies Allergies Allergy/AdvReac Type Severity Reaction Status Date / Time No Known Allergies Allergy Verified 05/18/22 15:31 Home Medications Medication Instructions Recorded Confirmed Last Taken Type Apixaban [Eliquis] 2.5 mg PO Q12HR #60 tablet 05/29/22 06/11/22 Unknown Rx Aspirin EC [Halfprin EC] 81 mg PO QDAY #30 tablet 05/29/22 06/11/22 Unknown Rx AtorvaSTATin [Lipitor] 20 mg PO QHS #30 tablet 05/29/22 06/11/22 Unknown Rx Clopidogrel [Plavix] 75 mg PO QDAY #30 tablet 05/29/22 06/11/22 Unknown Rx Docusate Sodium [Colace CAP] 100 mg PO BID #60 capsule 05/29/22 06/11/22 Unknown Rx Insulin Glargine [Lantus VIAL] 30 units SUB-Q QHS 30 Days #2 vial 05/29/22 06/11/22 Unknown Rx Lispro Insulin [HumaLOG] 5 unit SUB-Q ACHS 30 Days #2 vial 05/29/22 06/11/22 Unknown Rx Pantoprazole [Protonix TAB] 40 mg PO QDAC #14 tablet 05/29/22 06/11/22 Unknown Rx Sodium Hypochlorite [Dakin's Half 1 applic TP BID #2 bottle 05/29/22 06/11/22 Unknown Rx Strength] levoFLOXacin [Levaquin TAB] 500 mg PO QDAY #14 tablet 05/29/22 06/11/22 Unknown Rx metroNIDAZOLE [Flagyl] 500 mg PO Q8HR 14 Days #42 tablet 05/29/22 06/11/22 Unknown Rx oxyCODONE /ACETAMINOPHEN [Percocet 1 tab PO Q6H PRN #20 tablet 05/29/22 06/11/22 Unknown Rx 5/325 mg] Active Meds: Active Medications Acetaminophen (Acetaminophen 325 Mg Tab) 650 mg PO Q4H PRN PRN Reason: Pain MILD(1-3)/Fever >100.5/AVILA Heparin Sodium/Sodium Chloride (Heparin/ 0.45% Nacl-25,000 Unit/500 Ml) 25,000 unit in 500 mls @ 18 mls/hr IV TITRATE TATUM; Protocol Last Admin: 06/10/22 17:28 Dose: 900 units/hr, 18 mls/hr Morphine Sulfate (Morphine 2 Mg/1 Ml Inj) 2 mg IV Q4H PRN PRN Reason: Pain, Moderate (4-6) Ondansetron HCl (Ondansetron 4 Mg/2 Ml Inj) 4 mg IV Q8H PRN PRN Reason: Nausea And Vomiting Sodium Chloride (Sodium Chloride 0.9% 10 Ml Flush Syringe) 10 ml IV BID TATUM Sodium Chloride (Sodium Chloride 0.9% 10 Ml Flush Syringe) 10 ml IV PRN PRN PRN Reason: LINE FLUSH Exam - Constitutional Vitals: Temp Pulse Resp BP Pulse Ox 98.0 F 104 H 20 172/112 95 06/10/22 10:03 06/10/22 19:15 06/10/22 19:15 06/10/22 19:15 06/10/22 19:15 General appearance: Present: no acute distress, well-nourished - EENT Eyes: Present: PERRL ENT: hearing intact, clear oral mucosa - Neck Neck: Present: supple, normal ROM - Respiratory Respiratory effort: normal Respiratory: bilateral: rales - Cardiovascular Heart rate: 78 Rhythm: regular Heart Sounds: Present: S1 & S2. Absent: rub, click - Extremities Extremities: no ischemia, pulses intact, pulses symmetrical, No edema Peripheral Pulses: within normal limits - Abdominal General gastrointestinal: Present: soft, non-tender, non-distended, normal bowel sounds Female genitourinary: Present: normal - Rectal Rectal Exam: deferred - Integumentary Integumentary: Present: clear, warm, dry - Musculoskeletal Musculoskeletal: gait normal, strength equal bilaterally - Psychiatric Psychiatric: appropriate mood/affect, intact judgment & insight - Neurologic Neurologic: CNII-XII intact, moves all extremities - Allied Health Allied health notes reviewed: nursing, case management HEART Score - HEART Score History: Moderately suspicious Age: 45-65 Risk factors: > 3 risk factors or hx of atherosclerotic disease Troponin: Troponin T 0.039 ng/mL (0.00-0.029) H 06/10/22 12:08 Troponin: 1-3x normal limit - Critical Actions Critical Actions: 4-6 pts:12-16.6% risk of adverse cardiac event. Should be admitted Results - Labs CBC & Chem 7: 06/11/22 04:53 06/11/22 04:53 Labs: Laboratory Last Values WBC 8.7 K/mm3 (4.5-11.0) 06/10/22 12:08 RBC 2.64 M/mm3 (3.65-5.03) L 06/10/22 12:08 Hgb 7.9 gm/dl (10.1-14.3) L 06/10/22 12:08 Hct 25.3 % (30.3-42.9) L 06/10/22 12:08 MCV 96 fl (79-97) 06/10/22 12:08 MCH 30 pg (28-32) 06/10/22 12:08 MCHC 31 % (30-34) 06/10/22 12:08 RDW 15.7 % (13.2-15.2) H 06/10/22 12:08 Plt Count 766 K/mm3 (140-440) H 06/10/22 12:08 Lymph % (Auto) 23.9 % (13.4-35.0) 06/10/22 12:08 [place] % (Auto) 6.9 % (0.0-7.3) 06/10/22 12:08 Eos % (Auto) 2.9 % (0.0-4.3) 06/10/22 12:08 Baso % (Auto) 0.9 % (0.0-1.8) 06/10/22 12:08 Lymph # (Auto) 2.1 K/mm3 (1.2-5.4) 06/10/22 12:08 [place] # (Auto) 0.6 K/mm3 (0.0-0.8) 06/10/22 12:08 Eos # (Auto) 0.3 K/mm3 (0.0-0.4) 06/10/22 12:08 Baso # (Auto) 0.1 K/mm3 (0.0-0.1) 06/10/22 12:08 Seg Neutrophils % 65.4 % (40.0-70.0) 06/10/22 12:08 Seg Neutrophils # 5.7 K/mm3 (1.8-7.7) 06/10/22 12:08 PT 16.0 Sec. (12.2-14.9) H 06/10/22 12:08 INR 1.15 (0.87-1.13) H 06/10/22 12:08 APTT 31.7 Sec. (24.2-36.6) 06/10/22 12:08 Sodium 138 mmol/L (137-145) 06/10/22 12:08 Potassium 4.6 mmol/L (3.6-5.0) 06/10/22 12:08 Chloride 104.6 mmol/L (98-107) 06/10/22 12:08 Carbon Dioxide 25 mmol/L (22-30) 06/10/22 12:08 Anion Gap 13 mmol/L 06/10/22 12:08 BUN 25 mg/dL (7-17) H 06/10/22 12:08 Creatinine 2.3 mg/dL (0.6-1.2) H 06/10/22 12:08 Estimated GFR 27 ml/min 06/10/22 12:08 BUN/Creatinine Ratio 11 % 06/10/22 12:08 Glucose 245 mg/dL (65-100) H 06/10/22 12:08 Calcium 8.1 mg/dL (8.4-10.2) L 06/10/22 12:08 Magnesium 1.60 mg/dL (1.7-2.3) L 06/10/22 12:08 Total Bilirubin 0.30 mg/dL (0.1-1.2) 06/10/22 12:08 AST 20 units/L (5-40) 06/10/22 12:08 ALT 68 units/L (7-56) H 06/10/22 12:08 Alkaline Phosphatase 209 units/L (35-129) H 06/10/22 12:08 Troponin T 0.039 ng/mL (0.00-0.029) H 06/10/22 12:08 NT-Pro-B Natriuret Pep 79116 pg/mL (0-900) H 06/10/22 12:08 Total Protein 6.7 g/dL (6.3-8.2) 06/10/22 12:08 Albumin 3.3 g/dL (3.9-5) L 06/10/22 12:08 Albumin/Globulin Ratio 1.0 % 06/10/22 12:08 Triglycerides 82 mg/dL (2-149) 06/10/22 12:08 Cholesterol 146 mg/dL (50-199) 06/10/22 12:08 LDL Cholesterol Direct 72 mg/dL (50-130) 06/10/22 12:08 HDL Cholesterol 62 mg/dL (40-59) H 06/10/22 12:08 Cholesterol/HDL Ratio 2.35 % 06/10/22 12:08 - Imaging and Cardiology EKG: report reviewed Imaging and Cardiology: Chest x-ray Cardiomegaly with findings of pulmonary edema indicative of CHF VQ scan Intermediate probability for pulmonary embolism although the study is less sensitive in the absence of ventilation imaging Assessment and Plan Advance Directives: Yes (Full code) VTE prophylaxis?: Chemical Plan of care discussed with patient/family: Yes - Patient Problems (1) Acute respiratory failure with hypoxia Current Visit: Yes Status: Acute Plan to address problem: Patient was hypoxic in the emergency room Improved with oxygen supplementation (2) Acute exacerbation of CHF (congestive heart failure) Current Visit: Yes Status: Acute Qualifiers: Heart failure type: combined systolic and diastolic Qualified Code(s): I50.43 - Acute on chronic combined systolic (congestive) and diastolic (congestive) heart failure Plan to address problem: IV Lasix and Aldactone initiated Cardiology consult requested Daily weights and intake and output Echocardiogram for ejection fraction and valvular abnormalities and wall motion abnormalities (3) Acute pulmonary embolism Current Visit: Yes Status: Acute Plan to address problem: VQ scan was medium probability Patient was started on IV heparin Will defer to primary team regarding stopping the heparin and restarting Eliquis (4) Acute kidney injury superimposed on CKD Current Visit: Yes Status: Acute Plan to address problem: Nephrology consult requested Could not give IV fluids because of the CHF (5) Hypertension Current Visit: Yes Status: Chronic Plan to address problem: Continue antihypertensives and adjust medications as necessary (6) T2DM (type 2 diabetes mellitus) Current Visit: Yes Status: Chronic Qualifiers: Diabetes mellitus intermediate insulin use: unspecified intermediate insulin use status Plan to address problem: Coverage for now Check hemoglobin A1c (7) Hyperlipidemia Current Visit: Yes Status: Chronic Qualifiers: Hyperlipidemia type: mixed hyperlipidemia Qualified Code(s): E78.2 - Mixed hyperlipidemia Plan to address problem: Continue statins (8) Anemia Current Visit: Yes Status: Chronic Qualifiers: Anemia type: unspecified type Qualified Code(s): D64.9 - Anemia, unspecified Plan to address problem: Anemia work-up (9) Malnutrition Current Visit: Yes Status: Acute Qualifiers: Malnutrition type: protein-calorie malnutrition Protein-calorie malnutrition severity: mild Qualified Code(s): E44.1 - Mild protein-calorie malnutrition Plan to address problem: Dietary supplements requested (10) DVT prophylaxis Current Visit: Yes Status: Acute Plan to address problem: On heparin and GI prophylaxis (11) Advance care planning Current Visit: Yes Status: Acute Plan to address problem: Disease education conducted care plan discussed prognosis discussed and diagnosis discussed. Patient acknowledged understanding with care plan. +30 minutes.
[2022-06-11] MEDS: FUROSEMIDE 40 MG/4 ML INJ IV SCH ×3 (01:23→17:38)
[2022-06-11] MEDS: oxyCODONE /ACETAMINOPHEN 5-325MG TAB PO PRN ×3 (01:35→17:38)
[2022-06-11 05:13] LABS: Basophils # (Auto) 0.1 K/mm3 (0.0-0.1); Basophils % (Auto) 1.4 % (0.0-1.8); Eosinophils # (Auto) 0.4 K/mm3 (0.0-0.4); Eosinophils % (Auto) 3.8 % (0.0-4.3); Hematocrit 23.3 % (30.3-42.9); Hemoglobin 7.5 gm/dl (10.1-14.3); Lymphocytes # (Auto) 2.5 K/mm3 (1.2-5.4); Mean Corpuscular HGB Conc 32 % (30-34); Mean Corpuscular Volume 93 fl (79-97); Monocytes # (Auto) 0.7 K/mm3 (0.0-0.8); Monocytes % (Auto) 7.1 % (0.0-7.3); Platelet Count 662 K/mm3 (140-440); Red Cell Distribution Width 15.2 % (13.2-15.2)
[2022-06-11 05:33] LABS: Albumin 2.6 g/dL (3.9-5); Calcium 7.6 mg/dL (8.4-10.2)
[2022-06-11] MEDS: FAMOTIDINE 10 MG TAB PO SCH ×2 (09:11→22:25)
[2022-06-11] MEDS: SPIRONOLACTONE 50 MG TAB PO SCH (09:12)
--- NOTE | 2022-06-11 09:14 | Progress Note ---
Assessment and Plan Assessment and plan: -- Acute respiratory failure with hypoxia Patient was hypoxic in the emergency room Improved with oxygen supplementation --Acute exacerbation of CHF (congestive heart failure) Unknown ejection fraction, follow equal for LV function ejection fraction IV Lasix and Aldactone initiated Daily weights and intake and output Echo; LV function and ejection fraction , abnormal wall motion Cardiology consult requested --Acute pulmonary embolism VQ scan was intermediate probability for PE Patient is already on Eliquis 2.5 mg twice a day for peripheral vascular disease Will DC heparin drip, increase dose to 5 mg every 12[check with pharmacy agreed] Home or to evaluation prior to discharge --Acute kidney injury superimposed on CKD Nephrology consult requested Gentle hydration, avoid nephrotoxins Renal dosing of medications -- Hypertension Continue current antihypertensives As needed medications --T2DM (type 2 diabetes mellitus) Accu-Chek, sliding scale coverage, ADA diet Insulin as needed --Hyperlipidemia Continue statins, low-cholesterol diet -- Anemia Probably iron deficiency anemia Closely monitor H&H and transfuse as needed Check stool for occult blood Patient on anticoagulation Eliquis at home for PVD -- Severe protein calorie malnutrition; Nutrition supplements, nutrition consult And supportive care -- DVT prophylaxis Patient is on Eliquis --Advance care planning Disease education conducted care plan discussed prognosis discussed and diagnosis discussed. Patient acknowledged understanding with care plan. +30 minutes. History Interval history: Have seen and examined the patient at the bedside Patient's chart and medications reviewed Patient was admitted medication shortness of gait VQ scan intermediate probability for PE Patient is started on heparin drip Patient was already on Eliquis for peripheral vascular disease Patient feels slightly better no new complaints Vital signs noted Hospitalist Physical - Constitutional Vitals: Temp Pulse Resp BP Pulse Ox 98.8 F 92 H 20 149/84 99 06/11/22 08:06 06/11/22 08:06 06/11/22 08:06 06/11/22 08:06 06/11/22 08:23 General appearance: Present: no acute distress, well-nourished - EENT Eyes: Present: PERRL, EOM intact - Neck Neck: Present: supple, normal ROM - Respiratory Respiratory effort: normal Respiratory: bilateral: diminished, negative: rales, rhonchi, wheezing - Cardiovascular Rhythm: regular Heart Sounds: Present: S1 & S2 - Extremities Extremities: no ischemia, No edema - Abdominal General gastrointestinal: soft, non-tender, non-distended, normal bowel sounds - Integumentary Integumentary: Present: clear, warm - Psychiatric Psychiatric: appropriate mood/affect, cooperative - Neurologic Neurologic: moves all extremities HEART Score - HEART Score Age: 45-65 Risk factors: > 3 risk factors or hx of atherosclerotic disease Troponin: Troponin T 0.039 ng/mL (0.00-0.029) H 06/10/22 12:08 Troponin: 1-3x normal limit - Critical Actions Critical Actions: 4-6 pts:12-16.6% risk of adverse cardiac event. Should be admitted Results - Labs CBC & Chem 7: 06/11/22 04:53 06/11/22 04:53 Labs: Laboratory Last Values WBC 9.6 K/mm3 (4.5-11.0) 06/11/22 04:53 RBC 2.50 M/mm3 (3.65-5.03) L 06/11/22 04:53 Hgb 7.5 gm/dl (10.1-14.3) L 06/11/22 04:53 Hct 23.3 % (30.3-42.9) L 06/11/22 04:53 MCV 93 fl (79-97) 06/11/22 04:53 MCH 30 pg (28-32) 06/11/22 04:53 MCHC 32 % (30-34) 06/11/22 04:53 RDW 15.2 % (13.2-15.2) 06/11/22 04:53 Plt Count 662 K/mm3 (140-440) H 06/11/22 04:53 Lymph % (Auto) 26.0 % (13.4-35.0) 06/11/22 04:53 [place] % (Auto) 7.1 % (0.0-7.3) 06/11/22 04:53 Eos % (Auto) 3.8 % (0.0-4.3) 06/11/22 04:53 Baso % (Auto) 1.4 % (0.0-1.8) 06/11/22 04:53 Lymph # (Auto) 2.5 K/mm3 (1.2-5.4) 06/11/22 04:53 [place] # (Auto) 0.7 K/mm3 (0.0-0.8) 06/11/22 04:53 Eos # (Auto) 0.4 K/mm3 (0.0-0.4) 06/11/22 04:53 Baso # (Auto) 0.1 K/mm3 (0.0-0.1) 06/11/22 04:53 Seg Neutrophils % 61.7 % (40.0-70.0) 06/11/22 04:53 Seg Neutrophils # 5.9 K/mm3 (1.8-7.7) 06/11/22 04:53 PT 16.0 Sec. (12.2-14.9) H 06/10/22 12:08 INR 1.15 (0.87-1.13) H 06/10/22 12:08 APTT 31.7 Sec. (24.2-36.6) 06/10/22 12:08 Heparin Anti-Xa Level 1.46 U.I./ml (0.3-0.7) H 06/10/22 23:05 Sodium 136 mmol/L (137-145) L 06/11/22 04:53 Potassium 4.7 mmol/L (3.6-5.0) 06/11/22 04:53 Chloride 102.9 mmol/L (98-107) 06/11/22 04:53 Carbon Dioxide 26 mmol/L (22-30) 06/11/22 04:53 Anion Gap 12 mmol/L 06/11/22 04:53 BUN 29 mg/dL (7-17) H 06/11/22 04:53 Creatinine 2.2 mg/dL (0.6-1.2) H 06/11/22 04:53 Estimated GFR 28 ml/min 06/11/22 04:53 BUN/Creatinine Ratio 13 % 06/11/22 04:53 Glucose 217 mg/dL (65-100) H 06/11/22 04:53 POC Glucose 158 mg/dL (70-105) H 06/11/22 01:25 Calcium 7.6 mg/dL (8.4-10.2) L 06/11/22 04:53 Magnesium 1.60 mg/dL (1.7-2.3) L 06/10/22 12:08 Total Bilirubin 0.20 mg/dL (0.1-1.2) 06/11/22 04:53 AST 16 units/L (5-40) 06/11/22 04:53 ALT 46 units/L (7-56) 06/11/22 04:53 Alkaline Phosphatase 174 units/L (35-129) H 06/11/22 04:53 Troponin T 0.039 ng/mL (0.00-0.029) H 06/10/22 12:08 NT-Pro-B Natriuret Pep 70021 pg/mL (0-900) H 06/10/22 12:08 Total Protein 5.4 g/dL (6.3-8.2) L 06/11/22 04:53 Albumin 2.6 g/dL (3.9-5) L 06/11/22 04:53 Albumin/Globulin Ratio 0.9 % 06/11/22 04:53 Triglycerides 82 mg/dL (2-149) 06/10/22 12:08 Cholesterol 146 mg/dL (50-199) 06/10/22 12:08 LDL Cholesterol Direct 72 mg/dL (50-130) 06/10/22 12:08 HDL Cholesterol 62 mg/dL (40-59) H 06/10/22 12:08 Cholesterol/HDL Ratio 2.35 % 06/10/22 12:08 [place]/IV: Voiding Method External Female Catheter Active Medications - Current Medications Current Medications: Generic Name Dose Route Start Last Admin Trade Name Freq PRN Reason Stop Dose Admin Acetaminophen 650 mg 06/10/22 22:06 Acetaminophen 325 Mg Tab PO Q4H PRN Pain MILD(1-3)/Fever >100.5/AVILA Famotidine 10 mg 06/11/22 10:00 06/11/22 09:11 Famotidine 10 Mg Tab PO 10 mg BID TATUM Administration Furosemide 40 mg 06/10/22 22:30 06/11/22 06:53 Furosemide 40 Mg/4 Ml Inj IV 40 mg 0600,1800 TATUM Administration Heparin Sodium/Sodium Chloride 25,000 unit in 500 mls @ 18 mls/hr 06/10/22 17:00 06/11/22 03:45 Heparin/ 0.45% Nacl-25,000 Unit/500 Ml IV 800 units/hr TITRATE TATUM 16 mls/hr Titration Protocol 900 UNITS/HR Metoclopramide HCl 5 mg 06/10/22 22:15 Metoclopramide 10 Mg/2 Ml Inj IV Q6H PRN Nausea And Vomiting Morphine Sulfate 2 mg 06/10/22 16:59 Morphine 2 Mg/1 Ml Inj IV Q4H PRN Pain, Moderate (4-6) Ondansetron HCl 4 mg 06/10/22 22:06 Ondansetron 4 Mg/2 Ml Inj IV Q8H PRN Nausea And Vomiting Oxycodone/Acetaminophen 1 tab 06/10/22 22:06 06/11/22 01:35 Oxycodone /Acetaminophen 5-325mg Tab PO 1 tab Q6H PRN Administration Pain, Moderate (4-6) Sodium Chloride 10 ml 06/11/22 10:00 Sodium Chloride 0.9% 10 Ml Flush Syringe IV BID TATUM Sodium Chloride 10 ml 06/10/22 22:06 06/11/22 01:26 Sodium Chloride 0.9% 10 Ml Flush Syringe IV 10 ml PRN PRN Administration LINE FLUSH Spironolactone 50 mg 06/11/22 10:00 06/11/22 09:12 Spironolactone 50 Mg Tab PO 50 mg QDAY TATUM Administration
[2022-06-11] MEDS ORDERED: FAMOTIDINE 20 MG TAB PO SCH (10:00)
[2022-06-11] MEDS ORDERED: NON-FORMULARY EACH (Apixaban 2.5 MG Tablet) PO SCH (10:00)
[2022-06-11] MEDS ORDERED: APIXABAN 2.5 MG TAB PO SCH (10:00)
--- NOTE | 2022-06-11 10:53 | Electrocardiograph Report ---
[facility] Test Date: 2022-06-10 Test Time: 11:41:03 Pat Name: DIEGO BLUE Department: Room: A465 Gender: F Improvement Director: CLAUDIA : [id number] Requested By: ODESSA COOPER Order Number: [id number] Reading MD: Yaniv Torres Measurements Intervals [place] Rate: 102 P: 57 TN: 140 QRS: 28 QRSD: 75 T: 73 QT: 346 QTc: 453 Interpretive Statements Sinus tachycardia Probable left atrial enlargement No previous ECG available for comparison Electronically Signed On 06-11-2022 10:52:25 EDT by Yaniv Torres
[2022-06-11] MEDS: INSULIN LISPRO 100 UNIT/ML SUB-Q SCH ×3 (12:03→22:24)
[2022-06-11] MEDS: ASPIRIN EC 81 MG TAB PO SCH (12:08)
[2022-06-11] MEDS: CLOPIDOGREL 75 MG TAB PO SCH (12:08)
[2022-06-11 12:55] LABS: Iron 33 ug/dL (37-170); Total Iron Binding Capacity 246 mcg/dL (250-450)
--- NOTE | 2022-06-11 14:06 | Consultation ---
History of Present Illness - Reason for Consult Consult date: 06/11/22 acute renal failure, chronic renal failure Requesting physician: JULY HENRIQUEZ - History of Present Illness The patient presents to the emergency department chief complaint of increased shortness of breath over the last 7 to 10 days. Patient states she has been short of breath since she was discharged from the hospital on May 30 for left great toe amputation. Patient states at that time she was diagnosed with a DVT and is not aware of which anticoagulant she is on. Patient states her shortness of breath is worse with ambulation and also complains of mild chest pain. Patient's O2 sats on arrival to the ED was 89% thus the patient was placed on O2 -: unknown Location: chest Radiation: non-radiation Severity scale (0 -10): 2 Quality: sharp Consistency: constant Improves with: none Worsens with: none Associated Symptoms: denies other symptoms Treatments Prior to Arrival: none ROS: Stated complaint: SOB Other details as noted in HPI Comment: All other systems reviewed and negative Constitutional: denies: chills, fever Eyes: denies: eye pain, eye discharge, vision change ENT: denies: ear pain, throat pain Respiratory: shortness of breath. denies: cough, wheezing Cardiovascular: denies: chest pain, palpitations Endocrine: no symptoms reported Gastrointestinal: denies: abdominal pain, nausea, diarrhea Genitourinary: denies: urgency, dysuria, discharge Musculoskeletal: denies: back pain, joint swelling, arthralgia Skin: denies: rash, lesions Neurological: denies: headache, weakness, paresthesias Psychiatric: denies: anxiety, depression Hematological/Lymphatic: denies: easy bleeding, easy bruising - Past Medical History Previous Medical History?: Yes Hx Congestive Heart Failure: No Hx Diabetes: Yes Hx Psychiatric Treatment: Yes (bipolar, schizophrenic, depression) Hx Asthma: No Hx COPD: No Additional medical history: high cholesterol, - Social History Smoking Status: Never Smoker Substance Use Type: None Medications and Allergies Allergies Allergy/AdvReac Type Severity Reaction Status Date / Time No Known Allergies Allergy Verified 05/18/22 15:31 Home Medications Medication Instructions Recorded Confirmed Last Taken Type Apixaban [Eliquis] 2.5 mg PO Q12HR #60 tablet 05/29/22 06/11/22 Unknown Rx Aspirin EC [Halfprin EC] 81 mg PO QDAY #30 tablet 05/29/22 06/11/22 Unknown Rx AtorvaSTATin [Lipitor] 20 mg PO QHS #30 tablet 05/29/22 06/11/22 Unknown Rx Clopidogrel [Plavix] 75 mg PO QDAY #30 tablet 05/29/22 06/11/22 Unknown Rx Docusate Sodium [Colace CAP] 100 mg PO BID #60 capsule 05/29/22 06/11/22 Unknown Rx Insulin Glargine [Lantus VIAL] 30 units SUB-Q QHS 30 Days #2 vial 05/29/22 06/11/22 Unknown Rx Lispro Insulin [HumaLOG] 5 unit SUB-Q ACHS 30 Days #2 vial 05/29/22 06/11/22 Unknown Rx Pantoprazole [Protonix TAB] 40 mg PO QDAC #14 tablet 05/29/22 06/11/22 Unknown Rx Sodium Hypochlorite [Dakin's Half 1 applic TP BID #2 bottle 05/29/22 06/11/22 Unknown Rx Strength] levoFLOXacin [Levaquin TAB] 500 mg PO QDAY #14 tablet 05/29/22 06/11/22 Unknown Rx metroNIDAZOLE [Flagyl] 500 mg PO Q8HR 14 Days #42 tablet 05/29/22 06/11/22 Unknown Rx oxyCODONE /ACETAMINOPHEN [Percocet 1 tab PO Q6H PRN #20 tablet 05/29/22 06/11/22 Unknown Rx 5/325 mg] Active Meds: Active Medications Acetaminophen (Acetaminophen 325 Mg Tab) 650 mg PO Q4H PRN PRN Reason: Pain MILD(1-3)/Fever >100.5/AVILA Apixaban (Apixaban 5 Mg Tab) 5 mg PO Q12HR [facility] Aspirin (Aspirin Ec 81 Mg Tab) 81 mg PO QDAY [facility] Last Admin: 06/11/22 12:08 Dose: 81 mg Atorvastatin Calcium (Atorvastatin 20 Mg Tab) 20 mg PO QHS [facility] Clopidogrel Bisulfate (Clopidogrel 75 Mg Tab) 75 mg PO QDAY [facility] Last Admin: 06/11/22 12:08 Dose: 75 mg Famotidine (Famotidine 10 Mg Tab) 10 mg PO BID [facility] Last Admin: 06/11/22 09:11 Dose: 10 mg Furosemide (Furosemide 40 Mg/4 Ml Inj) 40 mg IV 0600,1800 [facility] Last Admin: 06/11/22 06:53 Dose: 40 mg Insulin Glargine (Insulin Glargine 100 Units/Ml) 30 units SUB-Q QHS [facility] Insulin Human Lispro (Insulin Lispro 100 Unit/Ml) 5 unit SUB-Q ACHS [facility] Last Admin: 06/11/22 12:03 Dose: 5 unit Metoclopramide HCl (Metoclopramide 10 Mg/2 Ml Inj) 5 mg IV Q6H PRN PRN Reason: Nausea And Vomiting Morphine Sulfate (Morphine 2 Mg/1 Ml Inj) 2 mg IV Q4H PRN PRN Reason: Pain, Moderate (4-6) Ondansetron HCl (Ondansetron 4 Mg/2 Ml Inj) 4 mg IV Q8H PRN PRN Reason: Nausea And Vomiting Oxycodone/Acetaminophen (Oxycodone /Acetaminophen 5-325mg Tab) 1 tab PO Q6H PRN PRN Reason: Pain, Moderate (4-6) Last Admin: 06/11/22 09:21 Dose: 1 tab Sodium Chloride (Sodium Chloride 0.9% 10 Ml Flush Syringe) 10 ml IV BID [facility] Last Admin: 06/11/22 12:03 Dose: 10 ml Sodium Chloride (Sodium Chloride 0.9% 10 Ml Flush Syringe) 10 ml IV PRN PRN PRN Reason: LINE FLUSH Last Admin: 06/11/22 01:26 Dose: 10 ml Spironolactone (Spironolactone 50 Mg Tab) 50 mg PO QDAY [facility] Last Admin: 06/11/22 09:12 Dose: 50 mg Exam - Vital Signs Vital signs: Vital Signs Temp Pulse Resp BP Pulse Ox 98.0 F 92 H 18 150/89 100 06/10/22 10:03 06/10/22 10:03 06/10/22 10:03 06/10/22 10:03 06/10/22 10:03 - Physical Exam Narrative exam: - General Limitations: No Limitations General appearance: alert, in no apparent distress - Head Head exam: Present: atraumatic, normocephalic - Eye Eye exam: Present: normal appearance, PERRL, EOMI - ENT ENT exam: Present: mucous membranes moist - Neck Neck exam: Present: normal inspection - Respiratory Respiratory exam: Present: respiratory distress (Patient is in mild respiratory distress with tachypnea), decreased breath sounds - Cardiovascular Cardiovascular Exam: Present: normal rhythm, tachycardia. Absent: systolic murmur, diastolic murmur, rubs, gallop - GI/Abdominal GI/Abdominal exam: Present: soft, normal bowel sounds. Absent: distended, tenderness - Extremities Exam Extremities exam: Present: normal inspection - Back Exam Back exam: Present: normal inspection - Neurological Exam Neurological exam: Present: alert, oriented X3, CN II-XII intact. Absent: motor sensory deficit - Psychiatric Psychiatric exam: Present: normal affect, normal mood - Skin Skin exam: Present: warm, dry, intact, normal color. Absent: rash Results - Lab Results 06/11/22 04:53 06/11/22 04:53 Most recent lab results Calcium 7.6 mg/dL (8.4-10.2) L 06/11/22 04:53 Magnesium 1.60 mg/dL (1.7-2.3) L 06/10/22 12:08 Assessment and Plan Impression: * Acute kidney injury secondary to ATN on ckd3/4 * chf/pulmonary edema * Pulmonary embolism--int probability * Metabolic alkalosis, resolved * Osteomyelitis * Gangrene, left toe --s/pTransmetatarsal amputation of first toe of left foot Plan: * SCr 2.4 at hospital discharge and stable today * noted IV diuretics for chf * No indication for renal replacement therapy * Dose medications for renal function * Glycemic control * Avoid nephrotoxins
[2022-06-11] MEDS: APIXABAN 5 MG TAB PO SCH ×2 (14:32→22:25)
[2022-06-11 19:52] LABS: Bacteria,Urine 4+ /HPF (Negative)
[2022-06-11 20:18] LABS: Color,Urine Yellow (Yellow)
[2022-06-11] MEDS: INSULIN GLARGINE 100 UNITS/ML SUB-Q SCH (22:24)
[2022-06-12] MEDS: FUROSEMIDE 40 MG/4 ML INJ IV SCH ×2 (05:58→17:57)
[2022-06-12] MEDS: oxyCODONE /ACETAMINOPHEN 5-325MG TAB PO PRN ×3 (06:03→20:34)
[2022-06-12 06:23] LABS: Basophils # (Auto) 0.1 K/mm3 (0.0-0.1); Basophils % (Auto) 1.3 % (0.0-1.8); Eosinophils # (Auto) 0.5 K/mm3 (0.0-0.4); Eosinophils % (Auto) 4.6 % (0.0-4.3); Hematocrit 26.9 % (30.3-42.9); Hemoglobin 8.5 gm/dl (10.1-14.3); Lymphocytes # (Auto) 2.6 K/mm3 (1.2-5.4); Lymphocytes % (Auto) 25.2 % (13.4-35.0); Mean Corpuscular HGB Conc 32 % (30-34); Mean Corpuscular Volume 93 fl (79-97); Monocytes # (Auto) 0.8 K/mm3 (0.0-0.8); Monocytes % (Auto) 7.6 % (0.0-7.3); Platelet Count 701 K/mm3 (140-440); Red Cell Distribution Width 15.3 % (13.2-15.2)
[2022-06-12 06:57] LABS: Calcium 7.7 mg/dL (8.4-10.2)
[2022-06-12] MEDS: INSULIN LISPRO 100 UNIT/ML SUB-Q SCH ×4 (10:44→21:49)
[2022-06-12] MEDS: CLOPIDOGREL 75 MG TAB PO SCH (10:45)
[2022-06-12] MEDS: ASPIRIN EC 81 MG TAB PO SCH (10:45)
[2022-06-12] MEDS: SPIRONOLACTONE 50 MG TAB PO SCH (10:45)
[2022-06-12] MEDS: APIXABAN 5 MG TAB PO SCH ×2 (10:45→21:49)
[2022-06-12] MEDS: FAMOTIDINE 10 MG TAB PO SCH ×2 (10:45→21:49)
--- NOTE | 2022-06-12 10:49 | Progress Note ---
Assessment and Plan Assessment and plan: -- Acute respiratory failure with hypoxia Patient was hypoxic in the emergency room Improved with oxygen supplementation --Acute exacerbation of CHF (congestive heart failure) Unknown ejection fraction, follow equal for LV function ejection fraction IV Lasix and Aldactone initiated Daily weights and intake and output Echo; LV function and ejection fraction , abnormal wall motion Cardiology consult requested --Acute pulmonary embolism VQ scan was intermediate probability for PE Patient is already on Eliquis 2.5 mg twice a day for peripheral vascular disease Will DC heparin drip, increase dose to 5 mg every 12[check with pharmacy agreed] Home or to evaluation prior to discharge --Acute kidney injury superimposed on CKD Nephrology consult requested Gentle hydration, avoid nephrotoxins Renal dosing of medications -- Hypertension Continue current antihypertensives As needed medications --T2DM (type 2 diabetes mellitus) Accu-Chek, sliding scale coverage, ADA diet Insulin as needed --Hyperlipidemia Continue statins, low-cholesterol diet -- Anemia Probably iron deficiency anemia Closely monitor H&H and transfuse as needed Check stool for occult blood Patient on anticoagulation Eliquis at home for PVD -- Severe protein calorie malnutrition; Nutrition supplements, nutrition consult And supportive care -- DVT prophylaxis Patient is on Eliquis --Advance care planning Disease education conducted care plan discussed prognosis discussed and diagnosis discussed. Patient acknowledged understanding with care plan. +30 minutes. 06/12; will check home O2 evaluation prior to discharge History Interval history: I have seen and examined the patient at the bedside Patient's chart and medications reviewed No new events reported by nursing Patient feels better complains of mild shortness of breath Vital signs noted Hospitalist Physical - Constitutional Vitals: Temp Pulse Resp BP Pulse Ox 98.0 F 95 H 18 144/82 94 06/12/22 07:57 06/12/22 07:57 06/12/22 07:57 06/12/22 07:57 06/12/22 07:57 General appearance: Present: no acute distress, well-nourished - EENT Eyes: Present: PERRL, EOM intact - Neck Neck: Present: supple, normal ROM - Respiratory Respiratory effort: normal Respiratory: bilateral: diminished, negative: rales, rhonchi, wheezing - Cardiovascular Rhythm: regular Heart Sounds: Present: S1 & S2 - Extremities Extremities: no ischemia, No edema - Abdominal General gastrointestinal: soft, non-tender, non-distended, normal bowel sounds - Integumentary Integumentary: Present: clear, warm - Psychiatric Psychiatric: appropriate mood/affect, cooperative - Neurologic Neurologic: moves all extremities HEART Score - HEART Score Age: 45-65 Risk factors: > 3 risk factors or hx of atherosclerotic disease Troponin: Troponin T 0.039 ng/mL (0.00-0.029) H 06/10/22 12:08 Troponin: 1-3x normal limit - Critical Actions Critical Actions: 4-6 pts:12-16.6% risk of adverse cardiac event. Should be admitted Results - Labs CBC & Chem 7: 06/12/22 05:48 06/12/22 05:48 Labs: Laboratory Last Values WBC 10.3 K/mm3 (4.5-11.0) 06/12/22 05:48 RBC 2.90 M/mm3 (3.65-5.03) L 06/12/22 05:48 Hgb 8.5 gm/dl (10.1-14.3) L 06/12/22 05:48 Hct 26.9 % (30.3-42.9) L 06/12/22 05:48 MCV 93 fl (79-97) 06/12/22 05:48 MCH 29 pg (28-32) 06/12/22 05:48 MCHC 32 % (30-34) 06/12/22 05:48 RDW 15.3 % (13.2-15.2) H 06/12/22 05:48 Plt Count 701 K/mm3 (140-440) H 06/12/22 05:48 Lymph % (Auto) 25.2 % (13.4-35.0) 06/12/22 05:48 Ashley % (Auto) 7.6 % (0.0-7.3) H 06/12/22 05:48 Eos % (Auto) 4.6 % (0.0-4.3) H 06/12/22 05:48 Baso % (Auto) 1.3 % (0.0-1.8) 06/12/22 05:48 Lymph # (Auto) 2.6 K/mm3 (1.2-5.4) 06/12/22 05:48 Ashley # (Auto) 0.8 K/mm3 (0.0-0.8) 06/12/22 05:48 Eos # (Auto) 0.5 K/mm3 (0.0-0.4) H 06/12/22 05:48 Baso # (Auto) 0.1 K/mm3 (0.0-0.1) 06/12/22 05:48 Seg Neutrophils % 61.3 % (40.0-70.0) 06/12/22 05:48 Seg Neutrophils # 6.3 K/mm3 (1.8-7.7) 06/12/22 05:48 PT 16.0 Sec. (12.2-14.9) H 06/10/22 12:08 INR 1.15 (0.87-1.13) H 06/10/22 12:08 APTT 31.7 Sec. (24.2-36.6) 06/10/22 12:08 Heparin Anti-Xa Level 0.73 U.I./ml (0.3-0.7) H 06/11/22 11:38 Sodium 137 mmol/L (137-145) 06/12/22 05:48 Potassium 4.8 mmol/L (3.6-5.0) 06/12/22 05:48 Chloride 103.7 mmol/L (98-107) 06/12/22 05:48 Carbon Dioxide 22 mmol/L (22-30) 06/12/22 05:48 Anion Gap 16 mmol/L 06/12/22 05:48 BUN 36 mg/dL (7-17) H 06/12/22 05:48 Creatinine 2.4 mg/dL (0.6-1.2) H 06/12/22 05:48 Estimated GFR 25 ml/min 06/12/22 05:48 BUN/Creatinine Ratio 15 % 06/12/22 05:48 Glucose 102 mg/dL (65-100) H 06/12/22 05:48 POC Glucose 114 mg/dL (70-105) H 06/12/22 07:57 Calcium 7.7 mg/dL (8.4-10.2) L 06/12/22 05:48 Magnesium 1.60 mg/dL (1.7-2.3) L 06/10/22 12:08 Iron 33 ug/dL (37-170) L 06/11/22 11:38 TIBC 246 mcg/dL (250-450) L 06/11/22 11:38 Total Bilirubin 0.20 mg/dL (0.1-1.2) 06/11/22 04:53 AST 16 units/L (5-40) 06/11/22 04:53 ALT 46 units/L (7-56) 06/11/22 04:53 Alkaline Phosphatase 174 units/L (35-129) H 06/11/22 04:53 Troponin T 0.039 ng/mL (0.00-0.029) H 06/10/22 12:08 NT-Pro-B Natriuret Pep 44117 pg/mL (0-900) H 06/10/22 12:08 Total Protein 5.4 g/dL (6.3-8.2) L 06/11/22 04:53 Albumin 2.6 g/dL (3.9-5) L 06/11/22 04:53 Albumin/Globulin Ratio 0.9 % 06/11/22 04:53 Triglycerides 82 mg/dL (2-149) 06/10/22 12:08 Cholesterol 146 mg/dL (50-199) 06/10/22 12:08 LDL Cholesterol Direct 72 mg/dL (50-130) 06/10/22 12:08 HDL Cholesterol 62 mg/dL (40-59) H 06/10/22 12:08 Cholesterol/HDL Ratio 2.35 % 06/10/22 12:08 Vitamin B12 1117 pg/mL (211-911) H 06/11/22 11:38 Urine Color Yellow (Yellow) 06/11/22 14:09 Urine Turbidity Clear (Clear) 06/11/22 14:09 Specific [place] (Man) 1.010 (1.003-1.030) 06/11/22 14:09 Ur Protein (Man) 2+ mg/dL (Negative) 06/11/22 14:09 Ur Ketones (Man) Negative (Negative) 06/11/22 14:09 Ur Nitrite (Man) Negative (Negative) 06/11/22 14:09 Ur Reducing Substances Not Reportable 06/11/22 14:09 Urine Bilirubin (Man) Negative (Negative) 06/11/22 14:09 Urine Ictotest Not Reportable 06/11/22 14:09 Leukocyte Esterase (Man) Negative (Negative) 06/11/22 14:09 Urine WBC (Auto) 1.0 /HPF (0.0-6.0) 06/11/22 14:09 Urine RBC (Auto) 1.0 /HPF (0.0-6.0) 06/11/22 14:09 U Epithel Cells (Auto) 1.0 /HPF (0-13.0) 06/11/22 14:09 Urine Bacteria (Auto) 4+ /HPF (Negative) 06/11/22 14:09 Urine RBC (Manual) Negative (Negative) 06/11/22 14:09 Urine Eosinophils None seen (None Seen) 06/11/22 14:09 Strickland/IV: Voiding Method External Female Catheter Active Medications - Current Medications Current Medications: Generic Name Dose Route Start Last Admin Trade Name Freq PRN Reason Stop Dose Admin Acetaminophen 650 mg 06/10/22 22:06 Acetaminophen 325 Mg Tab PO Q4H PRN Pain MILD(1-3)/Fever >100.5/AVILA Apixaban 5 mg 06/11/22 14:00 06/12/22 10:45 Apixaban 5 Mg Tab PO 5 mg Q12HR [facility] Administration Aspirin 81 mg 06/11/22 10:00 06/12/22 10:45 Aspirin Ec 81 Mg Tab PO 81 mg QDAY [facility] Administration Atorvastatin Calcium 20 mg 06/11/22 22:00 06/11/22 22:25 Atorvastatin 20 Mg Tab PO 20 mg QHS [facility] Administration Clopidogrel Bisulfate 75 mg 06/11/22 10:00 06/12/22 10:45 Clopidogrel 75 Mg Tab PO 75 mg QDAY [facility] Administration Famotidine 10 mg 06/11/22 10:00 06/12/22 10:45 Famotidine 10 Mg Tab PO 10 mg BID [facility] Administration Furosemide 40 mg 06/10/22 22:30 06/12/22 05:58 Furosemide 40 Mg/4 Ml Inj IV 40 mg 0600,1800 [facility] Administration Insulin Glargine 30 units 06/11/22 22:00 06/11/22 22:24 Insulin Glargine 100 Units/Ml SUB-Q 30 units QHS [facility] Administration Insulin Human Lispro 5 unit 06/11/22 11:30 06/12/22 10:44 Insulin Lispro 100 Unit/Ml SUB-Q 5 unit ACHS [facility] Administration Metoclopramide HCl 5 mg 06/10/22 22:15 Metoclopramide 10 Mg/2 Ml Inj IV Q6H PRN Nausea And Vomiting Morphine Sulfate 2 mg 06/10/22 16:59 Morphine 2 Mg/1 Ml Inj IV Q4H PRN Pain, Moderate (4-6) Ondansetron HCl 4 mg 06/10/22 22:06 Ondansetron 4 Mg/2 Ml Inj IV Q8H PRN Nausea And Vomiting Oxycodone/Acetaminophen 1 tab 06/10/22 22:06 06/12/22 06:03 Oxycodone /Acetaminophen 5-325mg Tab PO 1 tab Q6H PRN Administration Pain, Moderate (4-6) Sodium Chloride 10 ml 06/11/22 10:00 06/12/22 10:46 Sodium Chloride 0.9% 10 Ml Flush Syringe IV 10 ml BID [facility] Administration Sodium Chloride 10 ml 06/10/22 22:06 06/11/22 01:26 Sodium Chloride 0.9% 10 Ml Flush Syringe IV 10 ml PRN PRN Administration LINE FLUSH Spironolactone 50 mg 06/11/22 10:00 06/12/22 10:45 Spironolactone 50 Mg Tab PO 50 mg QDAY [facility] Administration
--- NOTE | 2022-06-12 16:18 | Progress Note ---
Assessment and Plan Impression: * Acute kidney injury secondary to ATN on ckd3/4 * chf/pulmonary edema * Pulmonary embolism--int probability * Metabolic alkalosis, resolved * Osteomyelitis * Gangrene, left toe --s/pTransmetatarsal amputation of first toe of left foot Plan: * SCr 2.4 at hospital discharge and stable today * noted IV diuretics for chf * No indication for renal replacement therapy * Dose medications for renal function * Glycemic control * Avoid nephrotoxins Subjective Date of service: 06/12/22 Interval history: resting in bed today labs and chart reivewed Objective - Exam Narrative Exam: - General Limitations: No Limitations General appearance: alert, in no apparent distress - Head Head exam: Present: atraumatic, normocephalic - Eye Eye exam: Present: normal appearance, PERRL, EOMI - ENT ENT exam: Present: mucous membranes moist - Neck Neck exam: Present: normal inspection - Respiratory Respiratory exam: Present: respiratory distress (Patient is in mild respiratory distress with tachypnea), decreased breath sounds - Cardiovascular Cardiovascular Exam: Present: normal rhythm, tachycardia. Absent: systolic murmur, diastolic murmur, rubs, gallop - GI/Abdominal GI/Abdominal exam: Present: soft, normal bowel sounds. Absent: distended, tenderness - Extremities Exam Extremities exam: Present: normal inspection - Back Exam Back exam: Present: normal inspection - Neurological Exam Neurological exam: Present: alert, oriented X3, CN II-XII intact. Absent: motor sensory deficit - Psychiatric Psychiatric exam: Present: normal affect, normal mood - Skin Skin exam: Present: warm, dry, intact, normal color. Absent: rash - Vital Signs Vital signs: Vital Signs - 12hr 06/12/22 06/12/22 06/12/22 07:57 10:00 11:22 Temperature 98.0 F 97.5 F L Pulse Rate 95 H 95 H 91 H Respiratory 18 18 Rate Blood Pressure 144/82 137/80 O2 Sat by Pulse 94 94 97 Oximetry - Lab 06/12/22 05:48 06/12/22 05:48 Most recent lab results Calcium 7.7 mg/dL (8.4-10.2) L 06/12/22 05:48 Magnesium 1.60 mg/dL (1.7-2.3) L 06/10/22 12:08 Medications & Allergies - Medications Allergies/Adverse Reactions: Allergies No Known Allergies Allergy (Verified 05/18/22 15:31) Home Medications: Home Medications Medication Instructions Recorded Confirmed Last Taken Type Apixaban [Eliquis] 2.5 mg PO Q12HR #60 tablet 05/29/22 06/11/22 Unknown Rx Aspirin EC [Halfprin EC] 81 mg PO QDAY #30 tablet 05/29/22 06/11/22 Unknown Rx AtorvaSTATin [Lipitor] 20 mg PO QHS #30 tablet 05/29/22 06/11/22 Unknown Rx Clopidogrel [Plavix] 75 mg PO QDAY #30 tablet 05/29/22 06/11/22 Unknown Rx Docusate Sodium [Colace CAP] 100 mg PO BID #60 capsule 05/29/22 06/11/22 Unknown Rx Insulin Glargine [Lantus VIAL] 30 units SUB-Q QHS 30 Days #2 vial 05/29/22 06/11/22 Unknown Rx Lispro Insulin [HumaLOG] 5 unit SUB-Q ACHS 30 Days #2 vial 05/29/22 06/11/22 Unknown Rx Pantoprazole [Protonix TAB] 40 mg PO QDAC #14 tablet 05/29/22 06/11/22 Unknown Rx Sodium Hypochlorite [Dakin's Half 1 applic TP BID #2 bottle 05/29/22 06/11/22 Unknown Rx Strength] levoFLOXacin [Levaquin TAB] 500 mg PO QDAY #14 tablet 05/29/22 06/11/22 Unknown Rx metroNIDAZOLE [Flagyl] 500 mg PO Q8HR 14 Days #42 tablet 05/29/22 06/11/22 Unknown Rx oxyCODONE /ACETAMINOPHEN [Percocet 1 tab PO Q6H PRN #20 tablet 05/29/22 06/11/22 Unknown Rx 5/325 mg] Active Medications: Generic Name Dose Route Start Last Admin Trade Name Freq PRN Reason Stop Dose Admin Acetaminophen 650 mg 06/10/22 22:06 Acetaminophen 325 Mg Tab PO Q4H PRN Pain MILD(1-3)/Fever >100.5/AVILA Apixaban 5 mg 06/11/22 14:00 06/12/22 10:45 Apixaban 5 Mg Tab PO 5 mg Q12HR [facility] Administration Aspirin 81 mg 06/11/22 10:00 06/12/22 10:45 Aspirin Ec 81 Mg Tab PO 81 mg QDAY [facility] Administration Atorvastatin Calcium 20 mg 06/11/22 22:00 06/11/22 22:25 Atorvastatin 20 Mg Tab PO 20 mg QHS [facility] Administration Clopidogrel Bisulfate 75 mg 06/11/22 10:00 06/12/22 10:45 Clopidogrel 75 Mg Tab PO 75 mg QDAY [facility] Administration Famotidine 10 mg 06/11/22 10:00 06/12/22 10:45 Famotidine 10 Mg Tab PO 10 mg BID [facility] Administration Furosemide 40 mg 06/10/22 22:30 06/12/22 05:58 Furosemide 40 Mg/4 Ml Inj IV 40 mg 0600,1800 [facility] Administration Insulin Glargine 30 units 06/11/22 22:00 06/11/22 22:24 Insulin Glargine 100 Units/Ml SUB-Q 30 units QHS [facility] Administration Insulin Human Lispro 5 unit 06/11/22 11:30 06/12/22 13:05 Insulin Lispro 100 Unit/Ml SUB-Q 5 unit ACHS [facility] Administration Metoclopramide HCl 5 mg 06/10/22 22:15 Metoclopramide 10 Mg/2 Ml Inj IV Q6H PRN Nausea And Vomiting Morphine Sulfate 2 mg 06/10/22 16:59 Morphine 2 Mg/1 Ml Inj IV Q4H PRN Pain, Moderate (4-6) Ondansetron HCl 4 mg 06/10/22 22:06 Ondansetron 4 Mg/2 Ml Inj IV Q8H PRN Nausea And Vomiting Oxycodone/Acetaminophen 1 tab 06/10/22 22:06 06/12/22 13:13 Oxycodone /Acetaminophen 5-325mg Tab PO 1 tab Q6H PRN Administration Pain, Moderate (4-6) Sodium Chloride 10 ml 06/11/22 10:00 06/12/22 10:46 Sodium Chloride 0.9% 10 Ml Flush Syringe IV 10 ml BID [facility] Administration Sodium Chloride 10 ml 06/10/22 22:06 06/11/22 01:26 Sodium Chloride 0.9% 10 Ml Flush Syringe IV 10 ml PRN PRN Administration LINE FLUSH Spironolactone 50 mg 06/11/22 10:00 06/12/22 10:45 Spironolactone 50 Mg Tab PO 50 mg QDAY [facility] Administration
[2022-06-12] MEDS: INSULIN GLARGINE 100 UNITS/ML SUB-Q SCH (21:49)
[2022-06-13] MEDS: FUROSEMIDE 40 MG/4 ML INJ IV SCH (05:12)
[2022-06-13 07:49] LABS: Basophils # (Auto) 0.1 K/mm3 (0.0-0.1); Basophils % (Auto) 1.1 % (0.0-1.8); Eosinophils # (Auto) 0.3 K/mm3 (0.0-0.4); Hemoglobin 9.2 gm/dl (10.1-14.3); Lymphocytes % (Auto) 19.8 % (13.4-35.0); Mean Corpuscular HGB Conc 32 % (30-34); Mean Corpuscular Volume 91 fl (79-97); Monocytes # (Auto) 0.8 K/mm3 (0.0-0.8); Monocytes % (Auto) 7.9 % (0.0-7.3); Platelet Count 677 K/mm3 (140-440); Red Blood Count 3.19 M/mm3 (3.65-5.03); Red Cell Distribution Width 15.1 % (13.2-15.2)
[2022-06-13 07:54] LABS: Calcium 8.4 mg/dL (8.4-10.2)
[2022-06-13] MEDS: INSULIN LISPRO 100 UNIT/ML SUB-Q SCH ×3 (08:20→17:24)
[2022-06-13] MEDS: FAMOTIDINE 10 MG TAB PO SCH ×2 (10:16→21:38)
[2022-06-13] MEDS: APIXABAN 5 MG TAB PO SCH (10:16)
[2022-06-13] MEDS: SPIRONOLACTONE 50 MG TAB PO SCH (10:16)
[2022-06-13] MEDS: CLOPIDOGREL 75 MG TAB PO SCH (10:16)
[2022-06-13] MEDS: ASPIRIN EC 81 MG TAB PO SCH (10:16)
--- NOTE | 2022-06-13 10:22 | Progress Note ---
Assessment and Plan Impression: * Acute kidney injury secondary to ATN on ckd3/4 * chf/pulmonary edema * Pulmonary embolism--int probability * hyperkalemia * Metabolic alkalosis, resolved * Osteomyelitis * Gangrene, left toe --s/pTransmetatarsal amputation of first toe of left foot Plan: * SCr 2.4 at hospital discharge and stable today * noted IV diuretics for chf * kyexalate one dose, stop aldactone * renaal diet * No indication for renal replacement therapy * Dose medications for renal function * Glycemic control * Avoid nephrotoxins Subjective Date of service: 06/13/22 Interval history: resting in bed today labs and chart reivewed Objective - Exam Narrative Exam: - General Limitations: No Limitations General appearance: alert, in no apparent distress - Head Head exam: Present: atraumatic, normocephalic - Eye Eye exam: Present: normal appearance, PERRL, EOMI - ENT ENT exam: Present: mucous membranes moist - Neck Neck exam: Present: normal inspection - Respiratory Respiratory exam: Present: respiratory distress (Patient is in mild respiratory distress with tachypnea), decreased breath sounds - Cardiovascular Cardiovascular Exam: Present: normal rhythm, tachycardia. Absent: systolic murmur, diastolic murmur, rubs, gallop - GI/Abdominal GI/Abdominal exam: Present: soft, normal bowel sounds. Absent: distended, tenderness - Extremities Exam Extremities exam: Present: normal inspection - Back Exam Back exam: Present: normal inspection - Neurological Exam Neurological exam: Present: alert, oriented X3, CN II-XII intact. Absent: motor sensory deficit - Psychiatric Psychiatric exam: Present: normal affect, normal mood - Skin Skin exam: Present: warm, dry, intact, normal color. Absent: rash - Vital Signs Vital signs: Vital Signs - 12hr 06/13/22 06/13/22 06/13/22 00:00 02:00 05:55 Temperature 98.1 F 98.2 F Pulse Rate 94 H 94 H 99 H Respiratory 17 16 Rate Blood Pressure Blood Pressure 138/77 148/89 [Left] O2 Sat by Pulse 95 100 Oximetry 06/13/22 07:19 Temperature 98.0 F Pulse Rate 99 H Respiratory 18 Rate Blood Pressure 137/78 Blood Pressure [Left] O2 Sat by Pulse 94 Oximetry - Lab 06/13/22 05:00 06/13/22 05:00 Most recent lab results Calcium 8.4 mg/dL (8.4-10.2) 06/13/22 05:00 Magnesium 1.60 mg/dL (1.7-2.3) L 06/10/22 12:08 Medications & Allergies - Medications Allergies/Adverse Reactions: Allergies No Known Allergies Allergy (Verified 05/18/22 15:31) Home Medications: Home Medications Medication Instructions Recorded Confirmed Last Taken Type Apixaban [Eliquis] 2.5 mg PO Q12HR #60 tablet 05/29/22 06/11/22 Unknown Rx Aspirin EC [Halfprin EC] 81 mg PO QDAY #30 tablet 05/29/22 06/11/22 Unknown Rx AtorvaSTATin [Lipitor] 20 mg PO QHS #30 tablet 05/29/22 06/11/22 Unknown Rx Clopidogrel [Plavix] 75 mg PO QDAY #30 tablet 05/29/22 06/11/22 Unknown Rx Docusate Sodium [Colace CAP] 100 mg PO BID #60 capsule 05/29/22 06/11/22 Unknown Rx Insulin Glargine [Lantus VIAL] 30 units SUB-Q QHS 30 Days #2 vial 05/29/22 06/11/22 Unknown Rx Lispro Insulin [HumaLOG] 5 unit SUB-Q ACHS 30 Days #2 vial 05/29/22 06/11/22 Unknown Rx Pantoprazole [Protonix TAB] 40 mg PO QDAC #14 tablet 05/29/22 06/11/22 Unknown Rx Sodium Hypochlorite [Dakin's Half 1 applic TP BID #2 bottle 05/29/22 06/11/22 Unknown Rx Strength] levoFLOXacin [Levaquin TAB] 500 mg PO QDAY #14 tablet 05/29/22 06/11/22 Unknown Rx metroNIDAZOLE [Flagyl] 500 mg PO Q8HR 14 Days #42 tablet 05/29/22 06/11/22 Unknown Rx oxyCODONE /ACETAMINOPHEN [Percocet 1 tab PO Q6H PRN #20 tablet 05/29/22 06/11/22 Unknown Rx 5/325 mg] Active Medications: Generic Name Dose Route Start Last Admin Trade Name Freq PRN Reason Stop Dose Admin Acetaminophen 650 mg 06/10/22 22:06 Acetaminophen 325 Mg Tab PO Q4H PRN Pain MILD(1-3)/Fever >100.5/AVILA Apixaban 5 mg 06/11/22 14:00 06/13/22 10:16 Apixaban 5 Mg Tab PO 5 mg Q12HR TATUM Administration Aspirin 81 mg 06/11/22 10:00 06/13/22 10:16 Aspirin Ec 81 Mg Tab PO 81 mg QDAY TATUM Administration Atorvastatin Calcium 20 mg 06/11/22 22:00 06/12/22 21:49 Atorvastatin 20 Mg Tab PO 20 mg QHS TATUM Administration Clopidogrel Bisulfate 75 mg 06/11/22 10:00 06/13/22 10:16 Clopidogrel 75 Mg Tab PO 75 mg QDAY TATUM Administration Famotidine 10 mg 06/11/22 10:00 06/13/22 10:16 Famotidine 10 Mg Tab PO 10 mg BID TATUM Administration Furosemide 40 mg 06/10/22 22:30 06/13/22 05:12 Furosemide 40 Mg/4 Ml Inj IV 40 mg 0600,1800 TATUM Administration Insulin Glargine 30 units 06/11/22 22:00 06/12/22 21:49 Insulin Glargine 100 Units/Ml SUB-Q 30 units QHS [facility] Administration Insulin Human Lispro 5 unit 06/11/22 11:30 06/13/22 08:20 Insulin Lispro 100 Unit/Ml SUB-Q Not Given [facility] Metoclopramide HCl 5 mg 06/10/22 22:15 Metoclopramide 10 Mg/2 Ml Inj IV Q6H PRN Nausea And Vomiting Morphine Sulfate 2 mg 06/10/22 16:59 Morphine 2 Mg/1 Ml Inj IV Q4H PRN Pain, Moderate (4-6) Ondansetron HCl 4 mg 06/10/22 22:06 Ondansetron 4 Mg/2 Ml Inj IV Q8H PRN Nausea And Vomiting Oxycodone/Acetaminophen 1 tab 06/10/22 22:06 06/12/22 20:34 Oxycodone /Acetaminophen 5-325mg Tab PO 1 tab Q6H PRN Administration Pain, Moderate (4-6) Sodium Chloride 10 ml 06/11/22 10:00 06/13/22 10:16 Sodium Chloride 0.9% 10 Ml Flush Syringe IV 10 ml BID TATUM Administration Sodium Chloride 10 ml 06/10/22 22:06 06/11/22 01:26 Sodium Chloride 0.9% 10 Ml Flush Syringe IV 10 ml PRN PRN Administration LINE FLUSH
[2022-06-13] MEDS ORDERED: SODIUM POLYSTYRENE 15 GM/60 ML ORAL LIQD PO ONE (11:00)
[2022-06-13] MEDS: MORPHINE 2 MG/1 ML INJ IV PRN ×3 (11:21→21:39)
--- NOTE | 2022-06-13 13:07 | Discharge Summary ---
Providers - Providers Date of Admission: 06/11/22 14:07 Date of discharge: 06/13/22 Attending physician: JULY HENRIQUEZ 06/10/22 22:14 Consult to Physician [CONS] Routine Comment: Consulting Provider: DAVID CARABALLO Physician Instructions: Reason For Exam: CELY/CKD 06/12/22 19:07 Physical Therapy Evaluation and Treat [CONS] Routine Comment: Reason For Exam: General debility/evaluate /DC needs Primary care physician: KENDRICK SHAH Hospitalization Reason for admission: Acute hypoxic respiratory failure/worsening shortness of breath Condition: Good Pertinent studies: Chest x-ray cardiomegaly with findings of pulmonary edema indicative of CHF VQ scan; intermediate probability for PE Echocardiogram; LVEF 55 to 60% moderate to severe pulmonary hypertension Hospital course: 55-year-old -[place] female patient with significant past medical history of congestive heart failure type 2 diabetes mellitus on insulin gastroesophageal reflux disease peripheral vascular disease status post amputation of the great toe TMA was admitted through emergency room with worsening shortness of breath of 2 days duration patient was noted to be in acute hypoxic respiratory failure requiring supplemental oxygen patient also underwent VQ scan which was intermediate probability for PE patient is already on Eliquis 2.5 mg twice a day for peripheral vascular disease I discussed with pharmacy and they recommended 5 mg of Eliquis twice a day would cover even PE patient was closely monitored medications optimized symptoms slowly but gradually improving Home O2 evaluation showed that patient is not a candidate for home oxygen as her O2 sats are more than 95% resting room air and ambulatory room air patient received physical therapy recommended home health PT and quad cane today patient is comfortable, no new complaints, physical examination is unremarkable, patient is hemodynamically and clinically stable at discharge Case management has assisted with home health and home wound care that was arranged prior to discharge patient is stable at discharge Discharge diagnosis: -- Acute respiratory failure with hypoxia present on admission Patient was hypoxic in the emergency room Improved with oxygen supplementation --Acute exacerbation of CHF (congestive heart failure) Unknown ejection fraction, follow equal for LV function ejection fraction IV Lasix and Aldactone initiated Daily weights and intake and output Echo; LV function and ejection fraction , abnormal wall motion Cardiology consult requested --Acute pulmonary embolism present on admission VQ scan was intermediate probability for PE Patient is already on Eliquis 2.5 mg twice a day for peripheral vascular disease Will DC heparin drip, increase dose to 5 mg every 12[check with pharmacy agreed] Home or to evaluation prior to discharge --Acute kidney injury superimposed on CKD Vasomotor nephropathy Nephrology consult requested Gentle hydration, avoid nephrotoxins Renal dosing of medications -- Hypertension Continue current antihypertensives As needed medications --T2DM (type 2 diabetes mellitus) Accu-Chek, sliding scale coverage, ADA diet Insulin as needed --Hyperlipidemia Continue statins, low-cholesterol diet -- Anemia Probably iron deficiency anemia Closely monitor H&H and transfuse as needed Check stool for occult blood Patient on anticoagulation Eliquis at home for PVD -- Severe protein calorie malnutrition; Nutrition supplements, nutrition consult And supportive care -- DVT prophylaxis Patient is on Eliquis --Advance care planning Disease education conducted care plan discussed prognosis discussed and diagnosis discussed. Patient acknowledged understanding with care plan. +30 minutes. Patient is hemodynamically and clinically stable at discharge with home health . . . Disposition: HOME / SELF CARE / HOMELESS Final Discharge Diagnosis (Prints w/discharge instructions): Acute hypoxic respiratory failure present on admission. acute exacerbation of congestive heart failure present on admission. Acute kidney injury on chronic kidney disease. acute pulmonary embolism present on admission. Hypertension. Type 2 diabetes mellitus. Hyperlipidemia. Anemia Time spent for discharge: 35 minutes Core Measure Documentation - Palliative Care Palliative Care/ Comfort Measures: Not Applicable - Core Measures Any of the following diagnoses?: DVT/PE - VTE Discharge Requirements Deep Vein Thrombosis/Pulmonary Embolism Present on Admission: Yes Has pt received <5 days of overlap therapy or INR<2.0: No (Not indicated patient on Eliquis) Anticoagulant overlap therapy prescribed at discharge: No Contraindication No Overlap Therapy order at DC: Not Indicated (Patient is on Eliquis) Exam - Constitutional Vitals: Temp Pulse Resp BP Pulse Ox 98.4 F 95 H 18 111/55 95 06/13/22 11:58 06/13/22 11:58 06/13/22 11:58 06/13/22 11:58 06/13/22 11:58 General appearance: Present: no acute distress, well-nourished - EENT Eyes: Present: PERRL, EOM intact - Neck Neck: Present: supple, normal ROM - Respiratory Respiratory effort: normal Respiratory: bilateral: diminished, negative: rales, rhonchi, wheezing - Cardiovascular Rhythm: regular Heart Sounds: Present: S1 & S2 - Extremities Extremities: no ischemia, abnormal (Foot dressing in place) - Abdominal General gastrointestinal: Present: soft, non-tender, non-distended, normal bowel sounds - Integumentary Integumentary: Present: clear, warm - Musculoskeletal Musculoskeletal: strength equal bilaterally - Psychiatric Psychiatric: appropriate mood/affect, cooperative Plan Activity: advance as tolerated Diet: renal Wound: per wound nurse instructions Additional Instructions: If you have worsening symptoms contact MD or go to the nearest emergency room as needed. Advised to go to nephrology/kidney doctor in 3 days and check your BMP. Wound dressing as needed Follow up with: KENDRICK SHAH MD [Primary Care Provider] - 3-5 Days MI SPAULDING MD [Staff Physician] - 3 Days CHRISTIAN ARAMBULA MD [Staff Physician] - 10 Days Prescriptions: Apixaban [Eliquis] 5 mg PO Q12HR #60 tablet oxyCODONE /ACETAMINOPHEN [Percocet 5/325 mg] 1 tab PO BID PRN #10 tablet PRN Reason: Pain, Moderate (4-6)
--- NOTE | 2022-06-13 16:12 | Progress Note ---
Assessment and Plan Assessment and plan: -- Acute respiratory failure with hypoxia Patient was hypoxic in the emergency room Improved with oxygen supplementation --Acute exacerbation of chronic systolic CHF (congestive heart failure) EF 35%, continue heart failure medications IV Lasix , Coreg, no YVONNE inhibitors due to acute kidney injury Echo; LV EF 35%, cardiology follow-up upon discharge --Acute pulmonary embolism VQ scan was intermediate probability for PE Patient is already on Eliquis 2.5 mg twice a day for peripheral vascular disease Will DC heparin drip, increase dose to 5 mg every 12[check with pharmacy agreed] Home or to evaluation prior to discharge --Acute kidney injury superimposed on CKD Nephrology consult requested Gentle hydration, avoid nephrotoxins Renal dosing of medications --S/P TMA of left great toe Dressing in place, wound care Change dressing per protocol Patient will follow up with wound care clinic versus home wound care Follow-up with surgeon per schedule -- Hypertension Continue current antihypertensives As needed medications --T2DM (type 2 diabetes mellitus) Accu-Chek, sliding scale coverage, ADA diet Insulin as needed --Hyperlipidemia Continue statins, low-cholesterol diet -- Anemia Probably iron deficiency anemia Closely monitor H&H and transfuse as needed Check stool for occult blood Patient on anticoagulation Eliquis at home for PVD -- Severe protein calorie malnutrition; Nutrition supplements, nutrition consult And supportive care -- DVT prophylaxis Patient is on Eliquis --Advance care planning Disease education conducted care plan discussed prognosis discussed and diagnosis discussed. Patient acknowledged understanding with care plan. +30 minutes. 06/12; will check home O2 evaluation prior to discharge 06/13; patient was initially discharged today, however nurse reports that patient's wound needs to be Seen by wound care nurse/surgeon History Interval history: I have seen and examined the patient at the bedside patient's chart and medications reviewed No new events reported by the nursing Patient is anxious to go home, initially planned discharge However nurse reports that wound care nurse has not seen the wound Patient also needs home health wound care DC held, vital signs reviewed Hospitalist Physical - Constitutional Vitals: Temp Pulse Resp BP Pulse Ox 98.4 F 95 H 18 111/55 95 06/13/22 11:58 06/13/22 11:58 06/13/22 11:58 06/13/22 11:58 06/13/22 11:58 General appearance: Present: no acute distress, well-nourished - EENT Eyes: Present: PERRL, EOM intact - Neck Neck: Present: supple, normal ROM - Respiratory Respiratory effort: normal Respiratory: bilateral: diminished, negative: rales, rhonchi, wheezing - Cardiovascular Rhythm: regular Heart Sounds: Present: S1 & S2 - Extremities Extremities: no ischemia, No edema, abnormal (Left foot dressing in place) - Abdominal General gastrointestinal: soft, non-tender, non-distended, normal bowel sounds - Integumentary Integumentary: Present: clear, warm - Psychiatric Psychiatric: appropriate mood/affect, cooperative - Neurologic Neurologic: CNII-XII intact, moves all extremities HEART Score - HEART Score Age: 45-65 Risk factors: > 3 risk factors or hx of atherosclerotic disease Troponin: Troponin T 0.039 ng/mL (0.00-0.029) H 06/10/22 12:08 Troponin: 1-3x normal limit - Critical Actions Critical Actions: 4-6 pts:12-16.6% risk of adverse cardiac event. Should be admitted Results - Labs CBC & Chem 7: 06/13/22 05:00 06/13/22 05:00 Labs: Laboratory Last Values WBC 10.0 K/mm3 (4.5-11.0) 06/13/22 05:00 RBC 3.19 M/mm3 (3.65-5.03) L 06/13/22 05:00 Hgb 9.2 gm/dl (10.1-14.3) L 06/13/22 05:00 Hct 29.0 % (30.3-42.9) L 06/13/22 05:00 MCV 91 fl (79-97) 06/13/22 05:00 MCH 29 pg (28-32) 06/13/22 05:00 MCHC 32 % (30-34) 06/13/22 05:00 RDW 15.1 % (13.2-15.2) 06/13/22 05:00 Plt Count 677 K/mm3 (140-440) H 06/13/22 05:00 Lymph % (Auto) 19.8 % (13.4-35.0) 06/13/22 05:00 [place] % (Auto) 7.9 % (0.0-7.3) H 06/13/22 05:00 Eos % (Auto) 3.0 % (0.0-4.3) 06/13/22 05:00 Baso % (Auto) 1.1 % (0.0-1.8) 06/13/22 05:00 Lymph # (Auto) 2.0 K/mm3 (1.2-5.4) 06/13/22 05:00 [place] # (Auto) 0.8 K/mm3 (0.0-0.8) 06/13/22 05:00 Eos # (Auto) 0.3 K/mm3 (0.0-0.4) 06/13/22 05:00 Baso # (Auto) 0.1 K/mm3 (0.0-0.1) 06/13/22 05:00 Seg Neutrophils % 68.2 % (40.0-70.0) 06/13/22 05:00 Seg Neutrophils # 6.8 K/mm3 (1.8-7.7) 06/13/22 05:00 PT 16.0 Sec. (12.2-14.9) H 06/10/22 12:08 INR 1.15 (0.87-1.13) H 06/10/22 12:08 APTT 31.7 Sec. (24.2-36.6) 06/10/22 12:08 Heparin Anti-Xa Level 0.73 U.I./ml (0.3-0.7) H 06/11/22 11:38 Sodium 133 mmol/L (137-145) L 06/13/22 05:00 Potassium 5.5 mmol/L (3.6-5.0) H 06/13/22 05:00 Chloride 95.8 mmol/L (98-107) L 06/13/22 05:00 Carbon Dioxide 26 mmol/L (22-30) 06/13/22 05:00 Anion Gap 17 mmol/L 06/13/22 05:00 BUN 39 mg/dL (7-17) H 06/13/22 05:00 Creatinine 2.3 mg/dL (0.6-1.2) H 06/13/22 05:00 Estimated GFR 27 ml/min 06/13/22 05:00 BUN/Creatinine Ratio 17 % 06/13/22 05:00 Glucose 148 mg/dL (65-100) H 06/13/22 05:00 POC Glucose 312 mg/dL (70-105) H 06/13/22 11:57 Calcium 8.4 mg/dL (8.4-10.2) 06/13/22 05:00 Magnesium 1.60 mg/dL (1.7-2.3) L 06/10/22 12:08 Iron 33 ug/dL (37-170) L 06/11/22 11:38 TIBC 246 mcg/dL (250-450) L 06/11/22 11:38 Total Bilirubin 0.20 mg/dL (0.1-1.2) 06/11/22 04:53 AST 16 units/L (5-40) 06/11/22 04:53 ALT 46 units/L (7-56) 06/11/22 04:53 Alkaline Phosphatase 174 units/L (35-129) H 06/11/22 04:53 Troponin T 0.039 ng/mL (0.00-0.029) H 06/10/22 12:08 NT-Pro-B Natriuret Pep 38582 pg/mL (0-900) H 06/10/22 12:08 Total Protein 5.4 g/dL (6.3-8.2) L 06/11/22 04:53 Albumin 2.6 g/dL (3.9-5) L 06/11/22 04:53 Albumin/Globulin Ratio 0.9 % 06/11/22 04:53 Triglycerides 82 mg/dL (2-149) 06/10/22 12:08 Cholesterol 146 mg/dL (50-199) 06/10/22 12:08 LDL Cholesterol Direct 72 mg/dL (50-130) 06/10/22 12:08 HDL Cholesterol 62 mg/dL (40-59) H 06/10/22 12:08 Cholesterol/HDL Ratio 2.35 % 06/10/22 12:08 Vitamin B12 1117 pg/mL (211-911) H 06/11/22 11:38 Urine Color Yellow (Yellow) 06/11/22 14:09 Urine Turbidity Clear (Clear) 06/11/22 14:09 Specific [place] (Man) 1.010 (1.003-1.030) 06/11/22 14:09 Ur Protein (Man) 2+ mg/dL (Negative) 06/11/22 14:09 Ur Ketones (Man) Negative (Negative) 06/11/22 14:09 Ur Nitrite (Man) Negative (Negative) 06/11/22 14:09 Ur Reducing Substances Not Reportable 06/11/22 14:09 Urine Bilirubin (Man) Negative (Negative) 06/11/22 14:09 Urine Ictotest Not Reportable 06/11/22 14:09 Leukocyte Esterase (Man) Negative (Negative) 06/11/22 14:09 Urine WBC (Auto) 1.0 /HPF (0.0-6.0) 06/11/22 14:09 Urine RBC (Auto) 1.0 /HPF (0.0-6.0) 06/11/22 14:09 U Epithel Cells (Auto) 1.0 /HPF (0-13.0) 06/11/22 14:09 Urine Bacteria (Auto) 4+ /HPF (Negative) 06/11/22 14:09 Urine RBC (Manual) Negative (Negative) 06/11/22 14:09 Urine Eosinophils None seen (None Seen) 06/11/22 14:09 Strickland/IV: Voiding Method External Female Catheter Active Medications - Current Medications Current Medications: Generic Name Dose Route Start Last Admin Trade Name Freq PRN Reason Stop Dose Admin Acetaminophen 650 mg 06/10/22 22:06 Acetaminophen 325 Mg Tab PO Q4H PRN Pain MILD(1-3)/Fever >100.5/AVILA Apixaban 5 mg 06/11/22 14:00 06/13/22 10:16 Apixaban 5 Mg Tab PO 5 mg Q12HR TATUM Administration Aspirin 81 mg 06/11/22 10:00 06/13/22 10:16 Aspirin Ec 81 Mg Tab PO 81 mg QDAY TATUM Administration Atorvastatin Calcium 20 mg 06/11/22 22:00 06/12/22 21:49 Atorvastatin 20 Mg Tab PO 20 mg QHS TATUM Administration Clopidogrel Bisulfate 75 mg 06/11/22 10:00 06/13/22 10:16 Clopidogrel 75 Mg Tab PO 75 mg QDAY TATUM Administration Famotidine 10 mg 06/11/22 10:00 06/13/22 10:16 Famotidine 10 Mg Tab PO 10 mg BID TATUM Administration Furosemide 40 mg 06/10/22 22:30 06/13/22 05:12 Furosemide 40 Mg/4 Ml Inj IV 40 mg 0600,1800 TATUM Administration Insulin Glargine 30 units 06/11/22 22:00 06/12/22 21:49 Insulin Glargine 100 Units/Ml SUB-Q 30 units QHS TATUM Administration Insulin Human Lispro 5 unit 06/11/22 11:30 06/13/22 12:03 Insulin Lispro 100 Unit/Ml SUB-Q 5 unit ACHS TATUM Administration Metoclopramide HCl 5 mg 06/10/22 22:15 Metoclopramide 10 Mg/2 Ml Inj IV Q6H PRN Nausea And Vomiting Morphine Sulfate 2 mg 06/10/22 16:59 Morphine 2 Mg/1 Ml Inj IV Q4H PRN Pain, Moderate (4-6) Ondansetron HCl 4 mg 06/10/22 22:06 Ondansetron 4 Mg/2 Ml Inj IV Q8H PRN Nausea And Vomiting Oxycodone/Acetaminophen 1 tab 06/10/22 22:06 06/12/22 20:34 Oxycodone /Acetaminophen 5-325mg Tab PO 1 tab Q6H PRN Administration Pain, Moderate (4-6) Sodium Chloride 10 ml 06/11/22 10:00 06/13/22 10:16 Sodium Chloride 0.9% 10 Ml Flush Syringe IV 10 ml BID TATUM Administration Sodium Chloride 10 ml 06/10/22 22:06 06/11/22 01:26 Sodium Chloride 0.9% 10 Ml Flush Syringe IV 10 ml PRN PRN Administration LINE FLUSH
[2022-06-13] MEDS: carvediloL 3.125 MG TAB PO SCH (21:38)
[2022-06-13] MEDS: INSULIN GLARGINE 100 UNITS/ML SUB-Q SCH (21:39)
[2022-06-14] MEDS: FUROSEMIDE 40 MG/4 ML INJ IV SCH (05:16)
[2022-06-14] MEDS: MORPHINE 2 MG/1 ML INJ IV PRN ×2 (05:22→10:26)
[2022-06-14 08:32] VITALS: BP 142/77
[2022-06-14] MEDS: CLOPIDOGREL 75 MG TAB PO SCH (10:25)
[2022-06-14] MEDS: ASPIRIN EC 81 MG TAB PO SCH (10:25)
[2022-06-14] MEDS: INSULIN LISPRO 100 UNIT/ML SUB-Q SCH (10:25)
[2022-06-14] MEDS: APIXABAN 5 MG TAB PO SCH (10:25)
[2022-06-14] MEDS: carvediloL 3.125 MG TAB PO SCH (10:25)
[2022-06-14] MEDS: FAMOTIDINE 10 MG TAB PO SCH (10:26)
--- NOTE | 2022-06-14 11:48 | Progress Note ---
Assessment and Plan Impression: * Acute kidney injury secondary to ATN on ckd3/4 * chf/pulmonary edema * Pulmonary embolism--int probability * hyperkalemia * Metabolic alkalosis, resolved * Osteomyelitis * Gangrene, left toe --s/pTransmetatarsal amputation of first toe of left foot Plan: * SCr 2.4, stable today * noted IV diuretics for chf, can transition to PO lasix * S/p kyexalatex1, continue to hold aldactone * renal diet * No indication for renal replacement therapy * Dose medications for renal function * Glycemic control * Avoid nephrotoxins Subjective Date of service: 06/14/22 Principal diagnosis: Heart failure exacerbation Interval history: Resting in bed. Vitals, labs and I/os reviewed Objective - Exam Narrative Exam: Constitutional: no acute distress Head: NC/AT Neck: supple Lungs: clear to auscultation CV: RRR, no M/R/G Abdomen: soft, non-tender, bowel sounds present Back: nontender Extremities: no edema, pulses WNL Skin: intact Neuro: no focal deficits, alert and oriented x4 - Vital Signs Vital signs: Vital Signs - 12hr 06/14/22 06/14/22 06/14/22 01:12 04:05 08:30 Temperature 97.3 F L 97.9 F Pulse Rate 101 H 97 H 95 H Respiratory 17 16 Rate Blood Pressure 142/77 Blood Pressure 125/76 [Left] O2 Sat by Pulse 97 100 Oximetry - Lab 06/13/22 05:00 06/14/22 Unknown Most recent lab results Calcium 8.0 mg/dL (8.4-10.2) L 06/14/22 Unknown Magnesium 1.60 mg/dL (1.7-2.3) L 06/10/22 12:08 Medications & Allergies - Medications Allergies/Adverse Reactions: Allergies No Known Allergies Allergy (Verified 05/18/22 15:31) Home Medications: Home Medications Medication Instructions Recorded Confirmed Last Taken Type Aspirin EC [Halfprin EC] 81 mg PO QDAY #30 tablet 05/29/22 06/11/22 Unknown Rx AtorvaSTATin [Lipitor] 20 mg PO QHS #30 tablet 05/29/22 06/11/22 Unknown Rx Clopidogrel [Plavix] 75 mg PO QDAY #30 tablet 05/29/22 06/11/22 Unknown Rx Docusate Sodium [Colace CAP] 100 mg PO BID #60 capsule 05/29/22 06/11/22 Unknown Rx Insulin Glargine [Lantus VIAL] 30 units SUB-Q QHS 30 Days #2 vial 05/29/22 06/11/22 Unknown Rx Lispro Insulin [HumaLOG] 5 unit SUB-Q ACHS 30 Days #2 vial 05/29/22 06/11/22 Unknown Rx Pantoprazole [Protonix TAB] 40 mg PO QDAC #14 tablet 05/29/22 06/11/22 Unknown Rx Sodium Hypochlorite [Dakin's Half 1 applic TP BID #2 bottle 05/29/22 06/11/22 Unknown Rx Strength] levoFLOXacin [Levaquin TAB] 500 mg PO QDAY #14 tablet 05/29/22 06/11/22 Unknown Rx metroNIDAZOLE [Flagyl TAB] 500 mg PO Q8HR 14 Days #42 tablet 05/29/22 06/11/22 Unknown Rx Apixaban [Eliquis] 5 mg PO Q12HR #60 tablet 06/13/22 Unknown Rx oxyCODONE /ACETAMINOPHEN [Percocet 1 tab PO BID PRN #10 tablet 06/13/22 Unknown Rx 5/325 mg] Active Medications: Generic Name Dose Route Start Last Admin Trade Name Freq PRN Reason Stop Dose Admin Acetaminophen 650 mg 06/10/22 22:06 Acetaminophen 325 Mg Tab PO Q4H PRN Pain MILD(1-3)/Fever >100.5/AVILA Apixaban 5 mg 06/11/22 14:00 06/14/22 10:25 Apixaban 5 Mg Tab PO 5 mg Q12HR TATUM Administration Aspirin 81 mg 06/11/22 10:00 06/14/22 10:25 Aspirin Ec 81 Mg Tab PO 81 mg QDAY TATUM Administration Atorvastatin Calcium 20 mg 06/11/22 22:00 06/13/22 21:39 Atorvastatin 20 Mg Tab PO 20 mg QHS TATUM Administration Carvedilol 3.125 mg 06/13/22 22:00 06/14/22 10:25 Carvedilol 3.125 Mg Tab PO 3.125 mg BID TATUM Administration Clopidogrel Bisulfate 75 mg 06/11/22 10:00 06/14/22 10:25 Clopidogrel 75 Mg Tab PO 75 mg QDAY TATUM Administration Famotidine 10 mg 06/11/22 10:00 06/14/22 10:26 Famotidine 10 Mg Tab PO 10 mg BID TATUM Administration Furosemide 40 mg 06/10/22 22:30 06/14/22 05:16 Furosemide 40 Mg/4 Ml Inj IV 40 mg 0600,1800 TATUM Administration Insulin Glargine 30 units 06/11/22 22:00 06/13/22 21:39 Insulin Glargine 100 Units/Ml SUB-Q 30 units QHS TATUM Administration Insulin Human Lispro 5 unit 06/11/22 11:30 06/14/22 10:25 Insulin Lispro 100 Unit/Ml SUB-Q Not Given ACHS [facility] Metoclopramide HCl 5 mg 06/10/22 22:15 Metoclopramide 10 Mg/2 Ml Inj IV Q6H PRN Nausea And Vomiting Morphine Sulfate 2 mg 06/10/22 16:59 06/14/22 10:26 Morphine 2 Mg/1 Ml Inj IV 2 mg Q4H PRN Administration Pain, Moderate (4-6) Ondansetron HCl 4 mg 06/10/22 22:06 Ondansetron 4 Mg/2 Ml Inj IV Q8H PRN Nausea And Vomiting Oxycodone/Acetaminophen 1 tab 06/10/22 22:06 06/12/22 20:34 Oxycodone /Acetaminophen 5-325mg Tab PO 1 tab Q6H PRN Administration Pain, Moderate (4-6) Sodium Chloride 10 ml 06/11/22 10:00 06/14/22 10:26 Sodium Chloride 0.9% 10 Ml Flush Syringe IV 10 ml BID TATUM Administration Sodium Chloride 10 ml 06/10/22 22:06 06/11/22 01:26 Sodium Chloride 0.9% 10 Ml Flush Syringe IV 10 ml PRN PRN Administration LINE FLUSH
[2022-06-14] MEDS ORDERED: FUROSEMIDE 40 MG TAB PO SCH (18:00)
== END 2022-06-14 15:13 | disposition home health service (06) | DRG 175 ==
LOC: ED 10:03 → INTOOBSV 17:00 → 4A 17:00 → OBSVTOIN 06-11 14:07 → INTOOBSV 06-11 14:07
PROVIDERS: ADMIT Internal Medicine; ATTEND Internal Medicine
DX: I26.99 Other pulmonary embolism without acute cor pulmonale (principal); I50.43 Acute on chronic combined systolic (congestive) and diastolic (congestive) heart failure; J96.01 Acute respiratory failure with hypoxia; E43 Unspecified severe protein-calorie malnutrition; N17.0 Acute kidney failure with tubular necrosis; J81.1 Chronic pulmonary edema; F31.9 Bipolar disorder, unspecified; F20.9 Schizophrenia, unspecified; E78.00 Pure hypercholesterolemia, unspecified; K21.9 Gastro-esophageal reflux disease without esophagitis; I12.9 Hypertensive chronic kidney disease with stage 1 through stage 4 chronic kidney disease, or unspecified chronic kidney disease; E11.22 Type 2 diabetes mellitus with diabetic chronic kidney disease; E78.2 Mixed hyperlipidemia; D64.9 Anemia, unspecified; Z68.24 Body mass index [BMI] 24.0-24.9, adult; E87.3 Alkalosis; N18.4 Chronic kidney disease, stage 4 (severe); Z82.49 Family history of ischemic heart disease and other diseases of the circulatory system; Z79.82 Long term (current) use of aspirin; Z79.4 Long term (current) use of insulin
CPT/HCPCS: 36415; 71045; 78580; 80048; 80053; 80061; 81001; 82607; 82747; 82962; 83550; 83735; 83880; 84484; 85014; 85018; 85025; 85520; 85610; 85730; 89050; 93005; 93306; 96374; 99291; G0378; J3490; Q9967; A9540; C8929; J1644; J1815; J1940; J2270

== ENCOUNTER 2022-06-28 20:34 | Inpatient (IN) | payer MEDICAID ==
--- NOTE | 2022-06-28 21:48 | Emergency Department Report ---
ED General Adult HPI - General Chief complaint: Dyspnea/Respdistress Stated complaint: SHORTNESS OF BREATH Time Seen by Provider: 06/28/22 21:33 Source: patient, EMS ( EMS documentation not available at time of chart dictation ), RN notes reviewed, old records reviewed Mode of arrival: Stretcher Limitations: Physical Limitation - History of Present Illness Initial comments: This is a 57-year-old female. Her past medical history includes congestive he art failure, preserved ejection fraction, EF of 55 to 60%, moderate to severe pulmonary hypertension, possible pulmonary embolism, history of indeterminate V/Q study, renal insufficiency, hypertension, diabetes, hyperlipidemia, and peripheral artery disease. The patient is intermittently compliant with her medications, including her Eliquis. She presents to the department today with complaints of bilateral lower extremity swelling, shortness of breath, and unintentional weight gain. She denies physical pain. She denies loss of taste and smell. -: days(s) Location: left, right, lower extremity Consistency: constant Improves with: none Worsens with: none - Related Data Previous Rx's Medication Instructions Recorded Last Taken Type Aspirin EC [Halfprin EC] 81 mg PO QDAY #30 tablet 05/29/22 Unknown Rx AtorvaSTATin [Lipitor] 20 mg PO QHS #30 tablet 05/29/22 Unknown Rx Clopidogrel [Plavix] 75 mg PO QDAY #30 tablet 05/29/22 Unknown Rx Docusate Sodium [Colace CAP] 100 mg PO BID #60 capsule 05/29/22 Unknown Rx Insulin Glargine [Lantus VIAL] 30 units SUB-Q QHS 30 Days #2 vial 05/29/22 Unknown Rx Lispro Insulin [HumaLOG] 5 unit SUB-Q ACHS 30 Days #2 vial 05/29/22 Unknown Rx Pantoprazole [Protonix TAB] 40 mg PO QDAC #14 tablet 05/29/22 Unknown Rx Sodium Hypochlorite [Dakin's Half 1 applic TP BID #2 bottle 05/29/22 Unknown Rx Strength] levoFLOXacin [Levaquin TAB] 500 mg PO QDAY #14 tablet 05/29/22 Unknown Rx metroNIDAZOLE [Flagyl TAB] 500 mg PO Q8HR 14 Days #42 tablet 05/29/22 Unknown Rx Apixaban [Eliquis] 5 mg PO Q12HR #60 tablet 06/13/22 Unknown Rx oxyCODONE /ACETAMINOPHEN [Percocet 1 tab PO BID PRN #10 tablet 06/13/22 Unknown Rx 5/325 mg] Allergies Allergy/AdvReac Type Severity Reaction Status Date / Time No Known Allergies Allergy Verified 05/18/22 15:31 ED Review of Systems ROS: Stated complaint: SHORTNESS OF BREATH Other details as noted in HPI Constitutional: denies: fever Eyes: denies: eye discharge ENT: denies: epistaxis Respiratory: shortness of breath Cardiovascular: edema. denies: chest pain Gastrointestinal: denies: abdominal pain, hematemesis, melena, hematochezia Musculoskeletal: myalgia Neurological: weakness Psychiatric: anxiety ED Past Medical Hx - Past Medical History Hx Congestive Heart Failure: No Hx Diabetes: Yes Hx Deep Vein Thrombosis: Yes Hx Psychiatric Treatment: Yes (bipolar, schizophrenic, depression) Hx Asthma: No Hx COPD: No Additional medical history: high cholesterol, - Social History Smoking Status: Unknown if ever smoked - Medications Home Medications: Home Medications Medication Instructions Recorded Confirmed Last Taken Type Aspirin EC [Halfprin EC] 81 mg PO QDAY #30 tablet 05/29/22 06/11/22 Unknown Rx AtorvaSTATin [Lipitor] 20 mg PO QHS #30 tablet 05/29/22 06/11/22 Unknown Rx Clopidogrel [Plavix] 75 mg PO QDAY #30 tablet 05/29/22 06/11/22 Unknown Rx Docusate Sodium [Colace CAP] 100 mg PO BID #60 capsule 05/29/22 06/11/22 Unknown Rx Insulin Glargine [Lantus VIAL] 30 units SUB-Q QHS 30 Days #2 vial 05/29/22 06/11/22 Unknown Rx Lispro Insulin [HumaLOG] 5 unit SUB-Q ACHS 30 Days #2 vial 05/29/22 06/11/22 Unknown Rx Pantoprazole [Protonix TAB] 40 mg PO QDAC #14 tablet 05/29/22 06/11/22 Unknown Rx Sodium Hypochlorite [Dakin's Half 1 applic TP BID #2 bottle 05/29/22 06/11/22 Unknown Rx Strength] levoFLOXacin [Levaquin TAB] 500 mg PO QDAY #14 tablet 05/29/22 06/11/22 Unknown Rx metroNIDAZOLE [Flagyl TAB] 500 mg PO Q8HR 14 Days #42 tablet 05/29/22 06/11/22 Unknown Rx Apixaban [Eliquis] 5 mg PO Q12HR #60 tablet 06/13/22 Unknown Rx oxyCODONE /ACETAMINOPHEN [Percocet 1 tab PO BID PRN #10 tablet 06/13/22 Unknown Rx 5/325 mg] ED Physical Exam - General Limitations: Physical Limitation General appearance: alert, anxious, in distress - Head Head exam: Present: atraumatic, normocephalic - Eye Eye exam: Present: normal appearance, EOMI. Absent: nystagmus - ENT ENT exam: Present: normal exam, normal orophraynx, mucous membranes moist, normal external ear exam - Neck Neck exam: Present: normal inspection, full ROM. Absent: tenderness, meningismus - Respiratory Respiratory exam: Present: respiratory distress, rales - Cardiovascular Cardiovascular Exam: Present: normal rhythm, tachycardia, normal heart sounds, JVD. Absent: bradycardia, irregular rhythm, systolic murmur, diastolic murmur, rubs, gallop - GI/Abdominal GI/Abdominal exam: Present: soft. Absent: distended, tenderness, guarding, rebound, rigid, pulsatile mass - Extremities Exam Extremities exam: Present: full ROM, pedal edema (2+ edema noted in the bilateral lower extremities), other (2+ pulses noted in the bilateral upper and lower extremities. There is no long bony tenderness. The muscular compartments are soft). Absent: normal inspection (Status post left great toe amputation. Good granulation tissue. Minimal necrotic tissue noted. Sutures are in place.), calf tenderness - Back Exam Back exam: Present: normal inspection. Absent: tenderness, CVA tenderness (R), CVA tenderness (L), paraspinal tenderness, vertebral tenderness - Neurological Exam Neurological exam: Present: alert, oriented X3, other (No facial droop. Tongue midline. Extraocular movements intact bilaterally. Facial sensation intact to light touch in V1, V2, V3 distribution bilaterally. 5 and a 5 strength in 4 extremities. Sensation intact to light touch in 4 extremities.). Absent: motor sensory deficit - Psychiatric Psychiatric exam: Present: anxious - Skin Skin exam: Present: warm, dry, intact ED Course Vital Signs 06/28/22 06/28/22 06/28/22 20:46 21:06 21:16 Temperature 98.4 F Pulse Rate 101 H Respiratory 16 Rate Blood Pressure 174/103 174/103 Blood Pressure 168/99 [Right] O2 Sat by Pulse 99 99 97 Oximetry 06/28/22 21:26 Temperature Pulse Rate Respiratory Rate Blood Pressure Blood Pressure [Right] O2 Sat by Pulse 98 Oximetry - Reevaluation(s) Reevaluation #1: 06/28/22 23:47 Differential diagnosis, including but not limited to: Cardiorenal syndrome, congestive heart failure, lower extremity edema, DVT, pulmonary embolism, volume overload, hypertensive urgency Assessment and plan: 57-year-old female complaining of acute on chronic shortness of breath. She is found to have evidence of decompensated congestive heart failure, manifested by lower extremity edema, JVD, orthopnea, crackles and rales, and chest x-ray findings. Lower extremity DVT study preliminary negative for DVT. Nuclear medicine study inconclusive. Dosed with Lasix, and eliquis. Also initiated on labetalol for hypertensive urgency. Laboratory studies pending. Patient is agreeable to admission hospitalization. Left great toe surgical site with granulation tissue, without redness, pus or streaking. Xeroform gauze is in place. Sutures are in place. Does not appear to be acutely infected Reevaluation #2: 06/28/22 23:49 Patient reports that multiple people around her smoke marijuana. She reports that she does not consume marijuana. Patient advised to avoid secondhand exposure. 06/29/22 00:10 Elevated troponin is likely a type II troponin leak. We will also replete hypomagnesemia. Renal insufficiency is chronic. proBNP markedly elevated. This is most likely acute congestive heart failure, with a possible component of cardiorenal syndrome. Awaiting callback from hospital physician to arrange admission 06/29/22 01:07 Dr Delia Hurd to admit to [facility] Medical Decision Making - Lab Data Result diagrams: 06/28/22 22:54 06/28/22 22:54 Vital Signs 06/28/22 06/28/22 06/28/22 20:46 21:06 21:16 Temperature 98.4 F Pulse Rate 101 H Respiratory 16 Rate Blood Pressure 174/103 174/103 Blood Pressure 168/99 [Right] O2 Sat by Pulse 99 99 97 Oximetry 06/28/22 21:26 Temperature Pulse Rate Respiratory Rate Blood Pressure Blood Pressure [Right] O2 Sat by Pulse 98 Oximetry Lab Results 06/28/22 06/28/22 06/28/22 Range/Units 22:54 22:54 22:54 WBC 12.9 H (4.5-11.0) K/mm3 RBC 3.37 L (3.65-5.03) M/mm3 Hgb 9.6 L (10.1-14.3) gm/dl Hct 30.5 (30.3-42.9) % MCV 91 (79-97) fl MCH 29 (28-32) pg MCHC 32 (30-34) % RDW 17.5 H (13.2-15.2) % Plt Count 518 H (140-440) K/mm3 Lymph % (Auto) 18.2 (13.4-35.0) % [place] % (Auto) 4.4 (0.0-7.3) % Eos % (Auto) 1.3 (0.0-4.3) % Baso % (Auto) 1.6 (0.0-1.8) % Lymph # (Auto) 2.3 (1.2-5.4) K/mm3 [place] # (Auto) 0.6 (0.0-0.8) K/mm3 Eos # (Auto) 0.2 (0.0-0.4) K/mm3 Baso # (Auto) 0.2 H (0.0-0.1) K/mm3 Seg Neutrophils % 74.5 H (40.0-70.0) % Seg Neutrophils # 9.6 H (1.8-7.7) K/mm3 PT 13.7 (12.2-14.9) Sec. INR 0.93 (0.87-1.13) APTT 28.5 (24.2-36.6) Sec. D-Dimer 1970.02 H (0-234) ng/mlDDU Sodium 137 (137-145) mmol/L Potassium 4.5 (3.6-5.0) mmol/L Chloride 104.3 (98-107) mmol/L Carbon Dioxide 18 L (22-30) mmol/L Anion Gap 19 mmol/L BUN 27 H (7-17) mg/dL Creatinine 2.2 H (0.6-1.2) mg/dL Estimated GFR 28 ml/min BUN/Creatinine Ratio 12 % Glucose 274 H (65-100) mg/dL Calcium 8.3 L (8.4-10.2) mg/dL Magnesium 1.50 L (1.7-2.3) mg/dL Total Bilirubin 0.60 (0.1-1.2) mg/dL AST 21 (5-40) units/L ALT 40 (7-56) units/L Alkaline Phosphatase 192 H (35-129) units/L Total Creatine Kinase 169 H (30-135) units/L Troponin T 0.045 H (0.00-0.029) ng/mL NT-Pro-B Natriuret Pep 29257 H (0-900) pg/mL Total Protein 5.8 L (6.3-8.2) g/dL Albumin 2.7 L (3.9-5) g/dL Albumin/Globulin Ratio 0.9 % - EKG Data -: EKG Interpreted by Ri Rate: tachycardia - EKG Data 06/28/22 23:37 The EKG is interpreted at 21: 20 Sinus tachycardia, with a rate of 103 bpm. Normal axis, normal P wave axis, atrial enlargement, and motion artifact. This is an abnormal EKG. This is not a STEMI - Radiology Data Radiology results: pending, report reviewed, image reviewed CHEST 1 VIEW 06/28/2022 9:51 PM INDICATION / CLINICAL INFORMATION: Dyspnea. COMPARISON: 06/22/2022 FINDINGS: SUPPORT DEVICES: None. HEART / MEDIASTINUM: Cardiomegaly. LUNGS / PLEURA: Bilateral perihilar opacities and mild interstitial prominence. Small bilateral pleural effusions. No pneumothorax. ADDITIONAL FINDINGS: No significant additional findings. IMPRESSION: 1. Cardiomegaly with mild pulmonary edema and small bilateral pleural effusions. Signer Name: Kody Gutierres MD Signed: 06/28/2022 9:48 PM Workstation Name: [employer] NUCLEAR MEDICINE PERFUSION LUNG SCAN INDICATION / CLINICAL INFORMATION: dyspnea. TECHNIQUE: 5 mCi of Tc-99m MAA were given by IV. COMPARISON: Chest radiograph dated 06/28/2022; perfusion study dated 06/10/2022. FINDINGS: PERFUSION: Small perfusion defect in the posterolateral right lower lobe. Moderate perfusion defect in the posterolateral left lung. ADDITIONAL FINDINGS: None. IMPRESSION: 1. Intermediate probability for pulmonary embolism. Signer Name: Kody Gutierres MD Signed: 06/28/2022 10:00 PM Workstation Name: [employer] Critical Care Time: Yes Critical care time in (mins) excluding proc time.: 35 Critical care attestation.: If time is entered above; I have spent that time in minutes in the direct care of this critically ill patient, excluding procedure time. ED Disposition Clinical Impression: Hypertensive urgency, Acute congestive heart failure, Swelling of lower extremity, Noncompliance with medication regimen, Hypomagnesemia Disposition: 09 ADMITTED INPATIENT Is pt being admited?: Yes Condition: Good Referrals: PRIMARY CARE, [Primary Care Provider] - 3-5 Days
--- NOTE | 2022-06-28 22:52 | XRay Report ---
CHEST 1 VIEW 06/28/2022 9:51 PM INDICATION / CLINICAL INFORMATION: Dyspnea. COMPARISON: 06/22/2022 FINDINGS: SUPPORT DEVICES: None. HEART / MEDIASTINUM: Cardiomegaly. LUNGS / PLEURA: Bilateral perihilar opacities and mild interstitial prominence. Small bilateral pleur al effusions. No pneumothorax. ADDITIONAL FINDINGS: No significant additional findings. IMPRESSION: 1. Cardiomegaly with mild pulmonary edema and small bilateral pleural effusions. Signer Name: Kody Gutierres MD Signed: 06/28/2022 10:48 PM Workstation Name: [email or web address]
--- NOTE | 2022-06-28 23:04 | Nuclear Medicine Report ---
NUCLEAR MEDICINE PERFUSION LUNG SCAN INDICATION / CLINICAL INFORMATION: dyspnea. TECHNIQUE: 5 mCi of Tc-99m MAA were given by IV. COMPARISON: Chest radiograph dated 06/28/2022; perfusion study dated 06/10/2022. FINDINGS: PERFUSION: Small perfusion defect in the posterolateral right lower lobe. Moderate perfusion defect i n the posterolateral left lung. ADDITIONAL FINDINGS: None. IMPRESSION: 1. Intermediate probability for pulmonary embolism. Signer Name: Kody Gutierres MD Signed: 06/28/2022 11:00 PM Workstation Name: [email or web address]
[2022-06-28] MEDS ORDERED: APIXABAN 5 MG TAB PO STA (23:25)
[2022-06-28] MEDS ORDERED: FUROSEMIDE 40 MG/4 ML INJ IV ONE (23:25)
[2022-06-28 23:41] LABS: Basophils # (Auto) 0.2 K/mm3 (0.0-0.1); Basophils % (Auto) 1.6 % (0.0-1.8); Eosinophils # (Auto) 0.2 K/mm3 (0.0-0.4); Eosinophils % (Auto) 1.3 % (0.0-4.3); Hematocrit 30.5 % (30.3-42.9); Hemoglobin 9.6 gm/dl (10.1-14.3); Lymphocytes # (Auto) 2.3 K/mm3 (1.2-5.4); Lymphocytes % (Auto) 18.2 % (13.4-35.0); Mean Corpuscular HGB Conc 32 % (30-34); Mean Corpuscular Volume 91 fl (79-97); Monocytes # (Auto) 0.6 K/mm3 (0.0-0.8); Monocytes % (Auto) 4.4 % (0.0-7.3); Platelet Count 518 K/mm3 (140-440); Red Blood Count 3.37 M/mm3 (3.65-5.03); Red Cell Distribution Width 17.5 % (13.2-15.2)
[2022-06-28] MEDS ORDERED: oxyCODONE /ACETAMINOPHEN 5-325MG TAB PO ONE (23:47)
[2022-06-28 23:52] LABS: INR 0.93 (0.87-1.13); Partial Thromboplastin Time 28.5 Sec. (24.2-36.6)
[2022-06-28 23:58] LABS: Albumin 2.7 g/dL (3.9-5); Calcium 8.3 mg/dL (8.4-10.2)
[2022-06-29] MEDS ORDERED: MAGNESIUM OXIDE 400 MG TAB PO STA (00:09)
--- NOTE | 2022-06-29 00:11 | Vascular Lab Report ---
DUPLEX DOPPLER LOWER EXTREMITY VEINS, BILATERAL INDICATION / CLINICAL INFORMATION: Bilateral lower extremities. TECHNIQUE: Duplex doppler imaging was performed through the veins of both lower extremities using jose ous compression and other maneuvers. COMPARISON: None available. FINDINGS: RIGHT COMMON FEMORAL VEIN: Negative. RIGHT FEMORAL VEIN: Negative. RIGHT POPLITEAL VEIN: Negative. RIGHT CALF VEINS: Negative. LEFT COMMON FEMORAL VEIN: Negative. LEFT FEMORAL VEIN: Negative. LEFT POPLITEAL VEIN: Negative. LEFT CALF VEINS: Negative. ADDITIONAL FINDINGS: Bilateral lower extremity subcutaneous edema. IMPRESSION: 1. No sonographic evidence for DVT in either lower extremity. Signer Name: Omi Andrew MD Signed: 06/29/2022 12:07 AM Workstation Name: [email or web address]
[2022-06-29] MEDS ORDERED: ONDANSETRON 4 MG/2 ML INJ IV PRN ×2 (01:07→02:20)
[2022-06-29] MEDS ORDERED: ACETAMINOPHEN 325 MG TAB PO PRN ×2 (01:07→02:20)
[2022-06-29] MEDS ORDERED: NALOXONE 0.4 MG/1 ML INJ IV PRN (01:07)
[2022-06-29] MEDS ORDERED: MORPHINE 4 MG/1 ML INJ IV PRN (02:20)
[2022-06-29] MEDS ORDERED: MAGNESIUM HYDROXIDE (MOM) ORAL LIQD UDC PO PRN (02:20)
[2022-06-29] MEDS ORDERED: DEXTROSE 50% IN WATER (25GM) 50 ML SYRINGE IV PRN (02:20)
--- NOTE | 2022-06-29 02:38 | History and Physical Report ---
History of Present Illness Date of examination: 06/29/22 Date of admission: 06/29/22 01:07 Chief complaint: Shortness of Breath History of present illness: 57-year-old female with known history of hypertension, renal insufficiency, diabetes mellitus, hyperlipidemia, moderate to severe pulmonary hypertension, CHF with ejection fraction of 55 to 60% presents to the emergency room today complaining of shortness of breath. She has also been having progressive swell ing of her lower extremity. She denies any chest pain. No headache or dizziness and no diaphoresis. Denies any fever or chills. Patient states she has been compliant with her medications including anticoagulation-Eliquis. Work-up in the emergency room today, labs significant for leukocytosis of 12.9, D-dimer of 1970, BUN of 27 and creatinine of 2.2. Troponin 0.045. BNP of 28,294 Chest x-ray shows cardiomegaly with mild pulmonary edema and small bilateral pleural effusions. VQ scan shows intermediate probability for PE. Ultra sound of the lower extremities shows no evidence of DVT. Past History Past Medical History: diabetes, heart failure, hypertension, renal failure Past Surgical History: Other (Amputation of the left great toe) Social history: no significant social history Family history: no significant family history Medications and Allergies Allergies Allergy/AdvReac Type Severity Reaction Status Date / Time No Known Allergies Allergy Verified 06/29/22 15:40 Home Medications Medication Instructions Recorded Confirmed Last Taken Type Aspirin EC [Halfprin EC] 81 mg PO QDAY #30 tablet 05/29/22 06/29/22 Unknown Rx AtorvaSTATin [Lipitor] 20 mg PO QHS #30 tablet 05/29/22 06/29/22 Unknown Rx Clopidogrel [Plavix] 75 mg PO QDAY #30 tablet 05/29/22 06/29/22 Unknown Rx Docusate Sodium [Colace CAP] 100 mg PO BID #60 capsule 05/29/22 06/29/22 Unknown Rx Insulin Glargine [Lantus VIAL] 30 units SUB-Q QHS 30 Days #2 vial 05/29/22 06/29/22 Unknown Rx Lispro Insulin [HumaLOG] 5 unit SUB-Q ACHS 30 Days #2 vial 05/29/22 06/29/22 Unknown Rx Pantoprazole [Protonix TAB] 40 mg PO QDAC #14 tablet 05/29/22 06/29/22 Unknown Rx Apixaban [Eliquis] 5 mg PO Q12HR #60 tablet 06/13/22 06/29/22 Unknown Rx oxyCODONE /ACETAMINOPHEN [Percocet 1 tab PO BID PRN #10 tablet 06/13/22 06/29/22 Unknown Rx 5/325 mg] Active Meds: Active Medications Acetaminophen (Acetaminophen 325 Mg Tab) 650 mg PO Q4H PRN PRN Reason: Pain MILD(1-3)/Fever >100.5/AVILA Naloxone HCl (Naloxone 0.4 Mg/1 Ml Inj) 0.1 mg IV Q2MIN PRN PRN Reason: Res Rate </= 8 or 02 SAT < 92% Ondansetron HCl (Ondansetron 4 Mg/2 Ml Inj) 4 mg IV Q8H PRN PRN Reason: Nausea And Vomiting Sodium Chloride (Sodium Chloride 0.9% 10 Ml Flush Syringe) 10 ml IV BID TATUM Sodium Chloride (Sodium Chloride 0.9% 10 Ml Flush Syringe) 10 ml IV PRN PRN PRN Reason: LINE FLUSH Review of Systems ROS unobtainable: due to mental status Exam - Constitutional Vitals: Temp Pulse Resp BP Pulse Ox 98.4 F 101 H 16 174/103 98 06/28/22 20:46 06/28/22 20:46 06/28/22 20:46 06/28/22 21:16 06/28/22 21:26 General appearance: Present: no acute distress, well-nourished - EENT Eyes: Present: PERRL, EOM intact. Absent: scleral icterus ENT: hearing intact, clear oral mucosa, dentition normal - Neck Neck: Present: supple, normal ROM - Respiratory Respiratory effort: normal Respiratory: bilateral: rales - Cardiovascular Rhythm: regular Heart Sounds: Present: S1 & S2. Absent: gallop, systolic murmur, diastolic murm ur, rub, click - Extremities Extremities: no ischemia, pulses intact, pulses symmetrical, Full ROM Extremity abnormal: edema (2+ bilateral lower extremity edema), ulceration (Dressing over left foot wound.) Peripheral Pulses: within normal limits - Abdominal General gastrointestinal: Present: soft, non-tender, distended, normal bowel sounds - Integumentary Integumentary: Present: clear, warm, dry. Absent: rash, decreased turgor - Psychiatric Psychiatric: no appropriate mood/affect, no memory intact - Neurologic Neurologic: CNII-XII intact - Allied Health Allied health notes reviewed: case management HEART Score - HEART Score Troponin: Troponin T 0.045 ng/mL (0.00-0.029) H 06/28/22 22:54 Results - Labs CBC & Chem 7: 06/28/22 22:54 06/28/22 22:54 Labs: Abnormal lab results 06/28/22 06/28/22 06/28/22 Range/Units 22:54 22:54 22:54 WBC 12.9 H (4.5-11.0) K/mm3 RBC 3.37 L (3.65-5.03) M/mm3 Hgb 9.6 L (10.1-14.3) gm/dl RDW 17.5 H (13.2-15.2) % Plt Count 518 H (140-440) K/mm3 Baso # (Auto) 0.2 H (0.0-0.1) K/mm3 Seg Neutrophils % 74.5 H (40.0-70.0) % Seg Neutrophils # 9.6 H (1.8-7.7) K/mm3 D-Dimer 1970.02 H (0-234) ng/mlDDU Carbon Dioxide 18 L (22-30) mmol/L BUN 27 H (7-17) mg/dL Creatinine 2.2 H (0.6-1.2) mg/dL Glucose 274 H (65-100) mg/dL Calcium 8.3 L (8.4-10.2) mg/dL Magnesium 1.50 L (1.7-2.3) mg/dL Alkaline Phosphatase 192 H (35-129) units/L Total Creatine Kinase 169 H (30-135) units/L Troponin T 0.045 H (0.00-0.029) ng/mL NT-Pro-B Natriuret Pep 35462 H (0-900) pg/mL Total Protein 5.8 L (6.3-8.2) g/dL Albumin 2.7 L (3.9-5) g/dL Assessment and Plan Assessment: 1. CHF exacerbation-EF 35% on echo done June 10 2022. 2. Hypertension 3. Diabetes mellitus 4. History of pulmonary hypertension 5.CELY Plan: 1. Patient admitted and placed on diuretics. We will monitor input and output and also monitor daily weight. 2. Consult placed to cardiology for evaluation. 3. We will resume routine home medications and monitor vital signs closely. 4. Patient placed on sliding scale insulin. We will monitor Accu-Cheks. DVT Prophylaxis: Patient on anticoagulation with Eliquis Code Status: Patient is full code.
[2022-06-29 02:43] LABS: Chol/HDL Ratio 3.62 %
[2022-06-29] MEDS: MORPHINE 2 MG/1 ML INJ IV PRN ×2 (03:24→22:53)
[2022-06-29] MEDS: FUROSEMIDE 40 MG/4 ML INJ IV SCH ×2 (07:11→18:15)
[2022-06-29] MEDS: INSULIN LISPRO 100 UNIT/ML SUB-Q SCH ×4 (09:30→22:20)
--- NOTE | 2022-06-29 12:39 | Consultation ---
History of Present Illness Consult date: 06/29/22 Consult reason: congestive heart failure History of present illness: The patient is a 57-year-old woman with multiple comorbidities. She has chronic kidney disease, peripheral arterial disease and diabetes. She was hospitalized here 2 weeks ago with lower extremity ischemia and osteomyelitis which necessitated amputation of her toes. At that time, she was also treated for sepsis and there was a suggestion of intermediate probability of pulmonary embolism. She was ultimately discharged on Eliquis and Plavix. Notably, an ec hocardiogram was done on that presentation that reported a dilated cardiomyopathy, with left ventricular ejection fraction 30 to 35%, and moderate to severe mitral regurgitation. There was no cardiac consultation requested during that admission, and the chronicity of her cardiomyopathy before that time is not documented. The patient is admitted to the hospital at this time with shortness of breath, reports no chest pain, no palpitations and no syncope. Patient is frail and cachectic, and a poor historian. She is currently on the telemetry unit, appears comfortable on bedrest. Work-up so far in the hospital: EKG on presentation showed sinus rhythm at 103, otherwise normal ECG. Chest x-ray revealed borderline cardiomegaly, with very small right pleural effusion, otherwise no significant interstitial edema. A VQ scan done on this presentation also reports intermediate probability for pulmonary embolism. Past History Past Medical History: diabetes, heart failure, hypertension, renal failure Past Surgical History: Other (Amputation of the left great toe) Social history: no significant social history Family history: no significant family history Medications and Allergies Allergies Allergy/AdvReac Type Severity Reaction Status Date / Time No Known Allergies Allergy Verified 05/18/22 15:31 Home Medications Medication Instructions Recorded Confirmed Last Taken Type Aspirin EC [Halfprin EC] 81 mg PO QDAY #30 tablet 05/29/22 06/11/22 Unknown Rx AtorvaSTATin [Lipitor] 20 mg PO QHS #30 tablet 05/29/22 06/11/22 Unknown Rx Clopidogrel [Plavix] 75 mg PO QDAY #30 tablet 05/29/22 06/11/22 Unknown Rx Docusate Sodium [Colace CAP] 100 mg PO BID #60 capsule 05/29/22 06/11/22 Unknown Rx Insulin Glargine [Lantus VIAL] 30 units SUB-Q QHS 30 Days #2 vial 05/29/22 Unknown Rx Lispro Insulin [HumaLOG] 5 unit SUB-Q ACHS 30 Days #2 vial 05/29/22 06/11/22 Unk nown Rx Pantoprazole [Protonix TAB] 40 mg PO QDAC #14 tablet 05/29/22 06/11/22 Unknown Rx Sodium Hypochlorite [Dakin's Half 1 applic TP BID #2 bottle 05/29/22 06/11/22 Unknown Rx Strength] levoFLOXacin [Levaquin TAB] 500 mg PO QDAY #14 tablet 05/29/22 06/11/22 Unknown Rx metroNIDAZOLE [Flagyl TAB] 500 mg PO Q8HR 14 Days #42 tablet 05/29/22 06/11/22 Unknown Rx Apixaban [Eliquis] 5 mg PO Q12HR #60 tablet 06/13/22 Unknown Rx oxyCODONE /ACETAMINOPHEN [Percocet 1 tab PO BID PRN #10 tablet 06/13/22 Unknown Rx 5/325 mg] Active Meds: Active Medications Acetaminophen (Acetaminophen 325 Mg Tab) 650 mg PO Q4H PRN PRN Reason: Pain MILD(1-3)/Fever >100.5/AVILA Atorvastatin Calcium (Atorvastatin 20 Mg Tab) 20 mg PO QHS [facility]UM Dextrose (Dextrose 50% In Water (25gm) 50 Ml Syringe) 50 ml IV Q30MIN PRN; Protocol PRN Reason: Hypoglycemia Furosemide (Furosemide 40 Mg/4 Ml Inj) 40 mg IV BID@0600,1800 TATUM Last Admin: 06/29/22 07:11 Dose: 40 mg Insulin Human Lispro (Insulin Lispro 100 Unit/Ml) 0 unit SUB-Q ACHS [facility]; Protocol Last Admin: 06/29/22 09:30 Dose: 3 unit Magnesium Hydroxide (Magnesium Hydroxide (Mom) Oral Liqd Udc) 30 ml PO Q4H PRN PRN Reason: Constipation Morphine Sulfate (Morphine 2 Mg/1 Ml Inj) 2 mg IV Q4H PRN PRN Reason: Pain, Moderate (4-6) Last Admin: 06/29/22 03:24 Dose: 2 mg Morphine Sulfate (Morphine 4 Mg/1 Ml Inj) 4 mg IV Q4H PRN PRN Reason: Pain , Severe (7-10) Naloxone HCl (Naloxone 0.4 Mg/1 Ml Inj) 0.1 mg IV Q2MIN PRN PRN Reason: Res Rate </= 8 or 02 SAT < 92% Ondansetron HCl (Ondansetron 4 Mg/2 Ml Inj) 4 mg IV Q8H PRN PRN Reason: Nausea And Vomiting Pantoprazole Sodium (Pantoprazole 40 Mg Tab) 40 mg PO QDAC TATUM Sodium Chloride (Sodium Chloride 0.9% 10 Ml Flush Syringe) 10 ml IV BID TATUM Sodium Chloride (Sodium Chloride 0.9% 10 Ml Flush Syringe) 10 ml IV PRN PRN PRN Reason: LINE FLUSH Review of Systems Cardiovascular: shortness of breath, no chest pain, no orthopnea, no palpitations, no rapid/irregular heart beat, no edema, no syncope, no lig htheadedness Physical Examination Vital Signs Temp Pulse Resp BP Pulse Ox 98.4 F 101 H 16 168/99 99 06/28/22 20:46 06/28/22 20:46 06/28/22 20:46 06/28/22 20:46 06/28/22 20:46 General appearance: no acute distress, cachectic HEENT: Positive: PERRL Neck: Positive: neck supple Cardiac: Positive: Reg Rate and Rhythm Lungs: Positive: Decreased Breath Sounds Neuro: Positive: Weakness (Generalized lethargy) Abdomen: Positive: Soft Female genitourinary: deferred Skin: Positive: Clear Extremities: Absent: edema Results 06/28/22 22:54 06/28/22 22:54 Cardiac Enzymes 06/28/22 Range/Units 22:54 AST 21 (5-40) units/L Coagulation 06/28/22 Range/Units 22:54 PT 13.7 (12.2-14.9) Sec. INR 0.93 (0.87-1.13) APTT 28.5 (24.2-36.6) Sec. Lipids 06/28/22 Range/Units 22:54 Triglycerides 135 (2-149) mg/dL Cholesterol 196 (50-199) mg/dL HDL Cholesterol 54 (40-59) mg/dL Cholesterol/HDL Ratio 3.62 % CBC 06/28/22 Range/Units 22:54 WBC 12.9 H (4.5-11.0) K/mm3 RBC 3.37 L (3.65-5.03) M/mm3 Hgb 9.6 L (10.1-14.3) gm/dl Hct 30.5 (30.3-42.9) % Plt Count 518 H (140-440) K/mm3 Lymph # (Auto) 2.3 (1.2-5.4) K/mm3 [place] # (Auto) 0.6 (0.0-0.8) K/mm3 Eos # (Auto) 0.2 (0.0-0.4) K/mm3 Baso # (Auto) 0.2 H (0.0-0.1) K/mm3 Comprehensive Metabolic Panel 06/28/22 Range/Units 22:54 Sodium 137 (137-145) mmol/L Potassium 4.5 (3.6-5.0) mmol/L Chloride 104.3 (98-107) mmol/L Carbon Dioxide 18 L (22-30) mmol/L BUN 27 H (7-17) mg/dL Creatinine 2.2 H (0.6-1.2) mg/dL Glucose 274 H (65-100) mg/dL Calcium 8.3 L (8.4-10.2) mg/dL AST 21 (5-40) units/L ALT 40 (7-56) units/L Alkaline Phosphatase 192 H (35-129) units/L Total Protein 5.8 L (6.3-8.2) g/dL Albumin 2.7 L (3.9-5) g/dL EKG interpretations - Telemetry EKG Rhythm: Sinus Tachycardia (At 103, otherwise normal ECG) Assessment and Plan - Patient Problems (1) Dilated cardiomyopathy Current Visit: Yes Status: Acute Plan to address problem: Patient has a dilated cardiomyopathy, left ventricular ejection fraction 30 to 35%, documented on a prior admission with no report of prior cardiac evaluation. At this time, we will commence guideline directed medical therapy with afterload agents, beta-blockers and continue oral antiplatelets. Due to chronic kidney disease with a creatinine of 2.2, we will use hydralazine and nitrates in place of an YVONNE inhibitor or ARB.
--- NOTE | 2022-06-29 12:44 | Event Note ---
Date: 06/29/22 Patient admitted overnight for chest pain and shortness of breath. Patient has history of systolic heart failure and was recently admitted to the hospital for similar symptoms. VQ scan this admission showed intermediate probability for PE, same as V/q. scan on 06/10/2022. Cardiology was consulted, appreciate recommendations. According to patient description of chest pain, seems to be epigastric in nature. We will restart Protonix for now.
[2022-06-29] MEDS: ISOSORB DINIT/HYDRALAZINE 20-37.5MG TAB PO SCH ×2 (13:35→21:55)
[2022-06-29] MEDS: carvediloL 3.125 MG TAB PO SCH (21:55)
[2022-06-30] MEDS: BENZOCAINE/MENTHOL LOZENGE MM PRN ×2 (05:02→21:49)
[2022-06-30] MEDS: ISOSORB DINIT/HYDRALAZINE 20-37.5MG TAB PO SCH ×3 (05:02→21:46)
[2022-06-30] MEDS: FUROSEMIDE 40 MG/4 ML INJ IV SCH ×2 (05:02→17:50)
[2022-06-30 06:34] LABS: Basophils # (Auto) 0.1 K/mm3 (0.0-0.1); Basophils % (Auto) 0.6 % (0.0-1.8); Eosinophils # (Auto) 0.4 K/mm3 (0.0-0.4); Eosinophils % (Auto) 4.4 % (0.0-4.3); Hematocrit 26.4 % (30.3-42.9); Hemoglobin 8.4 gm/dl (10.1-14.3); Lymphocytes # (Auto) 2.5 K/mm3 (1.2-5.4); Lymphocytes % (Auto) 26.3 % (13.4-35.0); Mean Corpuscular HGB Conc 32 % (30-34); Mean Corpuscular Volume 89 fl (79-97); Monocytes # (Auto) 0.6 K/mm3 (0.0-0.8); Monocytes % (Auto) 6.3 % (0.0-7.3); Platelet Count 474 K/mm3 (140-440); Red Blood Count 2.96 M/mm3 (3.65-5.03); Red Cell Distribution Width 17.6 % (13.2-15.2)
[2022-06-30] MEDS: INSULIN LISPRO 100 UNIT/ML SUB-Q SCH ×4 (08:30→22:19)
[2022-06-30] MEDS: carvediloL 3.125 MG TAB PO SCH ×2 (09:17→21:45)
[2022-06-30] MEDS: PANTOPRAZOLE 40 MG TAB PO SCH (09:17)
--- NOTE | 2022-06-30 09:35 | Consultation ---
History of Present Illness - Reason for Consult Consult date: 06/30/22 acute renal failure, chronic renal failure - History of Present Illness The patient is a 57 YO female with known history of DM(poorly controlled), Hypertension, HLD, moderate to severe pulmonary hypertension, HFrEF and CKD 3/4 who presented to [facility] ED 06/28/22 with complaining of shortness of breath. She has reports swelling of her lower extremities. She denies any chest pain, cough, feevr, chills, headache, dizziness, diaphoresis, N, V, D, dysuria or hematuria. Patient states that she has been compliant with her medications including anticoagulation-Eliquis. She was hospitalized here 2 weeks ago with L LE ischemia and osteomyelitis which required amputation of her toes. At that time, she was also treated for sepsis and there was a suggestion of intermediate probability of pulmonary embolism. She was ultimately discharged on Eliquis and Plavix. Notably, an echocardiogram was done on that presentation that reported a dilated cardiomyopathy, with left ventricular ejection fraction 30 to 35%, and moderate to severe mitral regurgitation. Work-up in the ED, labs significant for wbc 12.9, D-dimer of 1970, BUN of 27, creatinine of 2.2, Troponin 0.045 and BNP 28,294. Chest X-ray showed Cardiomegaly with mild pulmonary edema and small bilateral pleural effusions. VQ scan showed intermediate probability for PE. Ultra sound of the lower extremities shows no evidence of DVT. Nephrology consulted for further evaluation and treatment of CELY. Past History Past Medical History: diabetes, heart failure, hypertension, renal failure Past Surgical History: Other (Amputation of the left great toe) Social history: no significant social history Family history: no significant family history Medications and Allergies Allergies Allergy/AdvReac Type Severity Reaction Status Date / Time No Known Allergies Allergy Verified 06/29/22 15:40 Home Medications Medication Instructions Recorded Confirmed Last Taken Type Aspirin EC [Halfprin EC] 81 mg PO QDAY #30 tablet 05/29/22 06/29/22 Unknown Rx AtorvaSTATin [Lipitor] 20 mg PO QHS #30 tablet 05/29/22 06/29/22 Unknown Rx Clopidogrel [Plavix] 75 mg PO QDAY #30 tablet 05/29/22 06/29/22 Unknown Rx Docusate Sodium [Colace CAP] 100 mg PO BID #60 capsule 05/29/22 06/29/22 Unknown Rx Insulin Glargine [Lantus VIAL] 30 units SUB-Q QHS 30 Days #2 vial 05/29/22 06/29/22 Unknown Rx Lispro Insulin [HumaLOG] 5 unit SUB-Q ACHS 30 Days #2 vial 05/29/22 06/29/22 Unknown Rx Pantoprazole [Protonix TAB] 40 mg PO QDAC #14 tablet 05/29/22 06/29/22 Unknown Rx Apixaban [Eliquis] 5 mg PO Q12HR #60 tablet 06/13/22 06/29/22 Unknown Rx oxyCODONE /ACETAMINOPHEN [Percocet 1 tab PO BID PRN #10 tablet 06/13/22 06/29/22 Unknown Rx 5/325 mg] Active Meds: Active Medications Acetaminophen (Acetaminophen 325 Mg Tab) 650 mg PO Q4H PRN PRN Reason: Pain MILD(1-3)/Fever >100.5/AVILA Atorvastatin Calcium (Atorvastatin 20 Mg Tab) 20 mg PO QHS [facility] Last Admin: 06/29/22 21:55 Dose: 20 mg Benzocaine/Menthol (Benzocaine/Menthol Lozenge) 1 each MM Q2HR PRN PRN Reason: Sore Throat Last Admin: 06/30/22 05:02 Dose: 1 each Carvedilol (Carvedilol 3.125 Mg Tab) 3.125 mg PO BID [facility] Last Admin: 06/30/22 09:17 Dose: 3.125 mg Dextrose (Dextrose 50% In Water (25gm) 50 Ml Syringe) 50 ml IV Q30MIN PRN; Protocol PRN Reason: Hypoglycemia Furosemide (Furosemide 40 Mg/4 Ml Inj) 40 mg IV BID@0600,1800 [facility] Last Admin: 06/30/22 05:02 Dose: 40 mg Insulin Human Lispro (Insulin Lispro 100 Unit/Ml) 0 unit SUB-Q ACHS [facility]; Protocol Last Admin: 06/30/22 08:30 Dose: 3 unit Isosorbide Dinitrate/Hydralazine (Isosorb Dinit/Hydralazine 20-37.5mg Tab) 1 each PO Q8HR [facility] Last Admin: 06/30/22 05:02 Dose: 1 each Magnesium Hydroxide (Magnesium Hydroxide (Mom) Oral Liqd Udc) 30 ml PO Q4H PRN PRN Reason: Constipation Morphine Sulfate (Morphine 2 Mg/1 Ml Inj) 2 mg IV Q4H PRN PRN Reason: Pain, Moderate (4-6) Last Admin: 06/29/22 22:53 Dose: 2 mg Morphine Sulfate (Morphine 4 Mg/1 Ml Inj) 4 mg IV Q4H PRN PRN Reason: Pain , Severe (7-10) Naloxone HCl (Naloxone 0.4 Mg/1 Ml Inj) 0.1 mg IV Q2MIN PRN PRN Reason: Res Rate </= 8 or 02 SAT < 92% Ondansetron HCl (Ondansetron 4 Mg/2 Ml Inj) 4 mg IV Q8H PRN PRN Reason: Nausea And Vomiting Pantoprazole Sodium (Pantoprazole 40 Mg Tab) 40 mg PO QDAC [facility] Last Admin: 06/30/22 09:17 Dose: 40 mg Sodium Chloride (Sodium Chloride 0.9% 10 Ml Flush Syringe) 10 ml IV BID [facility] Last Admin: 06/30/22 09:19 Dose: 10 ml Sodium Chloride (Sodium Chloride 0.9% 10 Ml Flush Syringe) 10 ml IV PRN PRN PRN Reason: LINE FLUSH Last Admin: 06/29/22 18:16 Dose: 10 ml Review of Systems All systems: negative Exam - Vital Signs Vital signs: Vital Signs Temp Pulse Resp BP Pulse Ox 98.4 F 101 H 16 168/99 99 06/28/22 20:46 06/28/22 20:46 06/28/22 20:46 06/28/22 20:46 06/28/22 20:46 Results - Lab Results 06/30/22 06:03 07/01/22 16:24 Most recent lab results Calcium 7.0 mg/dL (8.4-10.2) L D 06/30/22 06:03 Magnesium 1.50 mg/dL (1.7-2.3) L 06/28/22 22:54 Assessment and Plan 1. Acute kidney injury: CELY superimposed on CKD-4 in the setting of CHF. Recent Renal US negative for hydro/stone. Urine studies ordered. Monitor renal function. Avoid nephrotoxic agents. Meds dosage based on GFR. 2. FEN: Hyperchloremic metabolic acidosis, monitor. On Lasix. Replete lytes as needed. Monitor lytes and volume status. 3. Acute on chroic HFrEF, POA: TTE 06/2022: EF 35%. On BB. Cardiology following. 4. Pulmonary hypertension: Pulmonary embolism. Eliquis. 5. Type II Diabetes Mellitus with hyperglycemia: Lantus + SSI. Monitor. 6. H/o toe osteomyelitis: 05/24/22: s/p Transmetatarsal amputation of first toe of left foot. On Statin. 7. Hypertension: BP controlled. 8. Normocytic Anemia, POA: Trend. Subjective: Patient was seen and examined at the bedside. Examination: General appearance: well-developed, appears stated age, no distress HEENT: atraumatic, no icterus Neck: trachea midline Respiratory: ctab Heart: S1S2, regular, no murmur Abdomen: soft, bowel sounds heard, NT Integumentary: L foot dressing, great toe amputated Neurologic: AO, conversing, able to move extremities Ext: trace LE edema
--- NOTE | 2022-06-30 12:09 | Progress Note ---
Assessment and Plan Assessment and plan: #Acute on chronic systolic heart failure -TTE 06/2022: EF 35% -Continue Lasix, BiDil, Coreg -Cardiology following assistance appreciated #Acute kidney injury vs CKD -avoid nephrotoxins and renally dose medications -Nephrology consulted, assistance appreciated #Hypertension -Continue medications as above #Type II Diabetes Mellitus with hyperglycemia -patient takes lantus 30U QHS -currently on lantus 20U + SSI; will adjust and monitor -goal glucose 140-180 while inpatient #Pulmonary hypertension #Pulmonary embolism -continue eliquis at current dose -will follow up with Pulmonology outpatient #Status post TMA of left great toe -continue wound care #Severe protein calorie malnutrition -albumin 2.7 -nutrition consult #Advanced care planning -Disease education conducted, care plan discussed, diagnoses discussed, prognosis discussed, and patient acknowledges understanding with care plan -Time: +30 min History Interval history: No acute events overnight. Patient worried about her medical problems causing . She plans to move with her sister in [place] after discharge. She reports shortness of breath at baseline, but required oxygen while inpatient. She is currently chest pain-free. Hospitalist Physical - Physical exam Narrative exam: GENERAL: Well-developed well-nourished. In no acute distress. HEENT: Normocephalic. Atraumatic. NECK: Supple. CHEST/LUNGS: CTAB on room air HEART/CARDIOVASCULAR: RRR. No murmur, rubs or gallops appreciated. ABDOMEN: +BS. NT/ND. SKIN: No rashes noted. NEURO: No focal motor deficit. Follows all commands and is ambulatory. MUSCULOSKELETAL: No joint effusion EXTREMITIES: No cyanosis, clubbing. LLE bandage intact. PSYCH: Cooperative. - Constitutional Vitals: Temp Pulse Resp BP Pulse Ox 98.0 F 91 H 18 119/68 98 06/30/22 07:57 06/30/22 07:57 06/30/22 07:57 06/30/22 07:57 06/30/22 07:57 HEART Score - HEART Score Troponin: Troponin T 0.045 ng/mL (0.00-0.029) H 06/28/22 22:54 Results - Labs CBC & Chem 7: 06/30/22 06:03 07/01/22 16:24 Labs: Laboratory Last Values WBC 9.6 K/mm3 (4.5-11.0) 06/30/22 06:03 RBC 2.96 M/mm3 (3.65-5.03) L 06/30/22 06:03 Hgb 8.4 gm/dl (10.1-14.3) L 06/30/22 06:03 Hct 26.4 % (30.3-42.9) L 06/30/22 06:03 MCV 89 fl (79-97) 06/30/22 06:03 MCH 28 pg (28-32) 06/30/22 06:03 MCHC 32 % (30-34) 06/30/22 06:03 RDW 17.6 % (13.2-15.2) H 06/30/22 06:03 Plt Count 474 K/mm3 (140-440) H 06/30/22 06:03 Lymph % (Auto) 26.3 % (13.4-35.0) 06/30/22 06:03 Faulk % (Auto) 6.3 % (0.0-7.3) 06/30/22 06:03 Eos % (Auto) 4.4 % (0.0-4.3) H 06/30/22 06:03 Baso % (Auto) 0.6 % (0.0-1.8) 06/30/22 06:03 Lymph # (Auto) 2.5 K/mm3 (1.2-5.4) 06/30/22 06:03 Faulk # (Auto) 0.6 K/mm3 (0.0-0.8) 06/30/22 06:03 Eos # (Auto) 0.4 K/mm3 (0.0-0.4) 06/30/22 06:03 Baso # (Auto) 0.1 K/mm3 (0.0-0.1) 06/30/22 06:03 Seg Neutrophils % 62.4 % (40.0-70.0) 06/30/22 06:03 Seg Neutrophils # 6.0 K/mm3 (1.8-7.7) 06/30/22 06:03 PT 13.7 Sec. (12.2-14.9) 06/28/22 22:54 INR 0.93 (0.87-1.13) 06/28/22 22:54 APTT 28.5 Sec. (24.2-36.6) 06/28/22 22:54 D-Dimer 1970.02 ng/mlDDU (0-234) H 06/28/22 22:54 Sodium 129 mmol/L (137-145) L D 06/30/22 06:03 Potassium 3.8 mmol/L (3.6-5.0) 06/30/22 06:03 Chloride 97.9 mmol/L (98-107) L 06/30/22 06:03 Carbon Dioxide 19 mmol/L (22-30) L 06/30/22 06:03 Anion Gap 16 mmol/L 06/30/22 06:03 BUN 31 mg/dL (7-17) H 06/30/22 06:03 Creatinine 2.8 mg/dL (0.6-1.2) H 06/30/22 06:03 Estimated GFR 21 ml/min 06/30/22 06:03 BUN/Creatinine Ratio 11 % 06/30/22 06:03 Glucose 269 mg/dL (65-100) H 06/30/22 06:03 POC Glucose 240 mg/dL (70-105) H 06/30/22 07:57 Calcium 7.0 mg/dL (8.4-10.2) L D 06/30/22 06:03 Magnesium 1.50 mg/dL (1.7-2.3) L 06/28/22 22:54 Total Bilirubin 0.60 mg/dL (0.1-1.2) 06/28/22 22:54 AST 21 units/L (5-40) 06/28/22 22:54 ALT 40 units/L (7-56) 06/28/22 22:54 Alkaline Phosphatase 192 units/L (35-129) H 06/28/22 22:54 Total Creatine Kinase 169 units/L (30-135) H 06/28/22 22:54 Troponin T 0.045 ng/mL (0.00-0.029) H 06/28/22 22:54 NT-Pro-B Natriuret Pep 73841 pg/mL (0-900) H 06/28/22 22:54 Total Protein 5.8 g/dL (6.3-8.2) L 06/28/22 22:54 Albumin 2.7 g/dL (3.9-5) L 06/28/22 22:54 Albumin/Globulin Ratio 0.9 % 06/28/22 22:54 Triglycerides 135 mg/dL (2-149) 06/28/22 22:54 Cholesterol 196 mg/dL (50-199) 06/28/22 22:54 LDL Cholesterol Direct 119 mg/dL (50-130) 06/28/22 22:54 HDL Cholesterol 54 mg/dL (40-59) 06/28/22 22:54 Cholesterol/HDL Ratio 3.62 % 06/28/22 22:54 Strickland/IV: Voiding Method Toilet Active Medications - Current Medications Current Medications: Generic Name Dose Route Start Last Admin Trade Name Freq PRN Reason Stop Dose Admin Acetaminophen 650 mg 06/29/22 02:20 Acetaminophen 325 Mg Tab PO Q4H PRN Pain MILD(1-3)/Fever >100.5/AVILA Atorvastatin Calcium 20 mg 06/29/22 22:00 06/29/22 21:55 Atorvastatin 20 Mg Tab PO 20 mg QHS TATUM Administration Benzocaine/Menthol 1 each 06/29/22 21:55 06/30/22 05:02 Benzocaine/Menthol Lozenge MM 1 each Q2HR PRN Administration Sore Throat Carvedilol 3.125 mg 06/29/22 22:00 06/30/22 09:17 Carvedilol 3.125 Mg Tab PO 3.125 mg BID TATUM Administration Dextrose 50 ml 06/29/22 02:20 Dextrose 50% In Water (25gm) 50 Ml Syringe IV Q30MIN PRN Hypoglycemia Protocol Furosemide 40 mg 06/29/22 06:00 06/30/22 05:02 Furosemide 40 Mg/4 Ml Inj IV 40 mg BID@0600,1800 TATUM Administration Insulin Human Lispro 0 unit 06/29/22 07:30 06/30/22 08:30 Insulin Lispro 100 Unit/Ml SUB-Q 3 unit ACHS TATUM Administration Protocol Isosorbide Dinitrate/Hydralazine 1 each 06/29/22 14:00 06/30/22 05:02 Isosorb Dinit/Hydralazine 20-37.5mg Tab PO 1 each Q8HR TATUM Administration Magnesium Hydroxide 30 ml 06/29/22 02:20 Magnesium Hydroxide (Mom) Oral Liqd Udc PO Q4H PRN Constipation Morphine Sulfate 2 mg 06/29/22 02:20 06/29/22 22:53 Morphine 2 Mg/1 Ml Inj IV 2 mg Q4H PRN Administration Pain, Moderate (4-6) Morphine Sulfate 4 mg 06/29/22 02:20 Morphine 4 Mg/1 Ml Inj IV Q4H PRN Pain , Severe (7-10) Naloxone HCl 0.1 mg 06/29/22 01:07 Naloxone 0.4 Mg/1 Ml Inj IV Q2MIN PRN Res Rate </= 8 or 02 SAT < 92% Ondansetron HCl 4 mg 06/29/22 02:20 Ondansetron 4 Mg/2 Ml Inj IV Q8H PRN Nausea And Vomiting Pantoprazole Sodium 40 mg 06/30/22 07:30 06/30/22 09:17 Pantoprazole 40 Mg Tab PO 40 mg QDAC TATUM Administration Sodium Chloride 10 ml 06/29/22 10:00 06/30/22 09:19 Sodium Chloride 0.9% 10 Ml Flush Syringe IV 10 ml BID TATUM Administration Sodium Chloride 10 ml 06/29/22 02:20 06/29/22 18:16 Sodium Chloride 0.9% 10 Ml Flush Syringe IV 10 ml PRN PRN Administration LINE FLUSH Nutrition/Malnutrition Assess - Dietary Evaluation Nutrition/Malnutrition Findings: Nutrition Notes Start: 06/29/22 16:43 Freq: Status: Active Protocol: Document 06/29/22 16:44 GEOVANY (Rec: 06/29/22 17:14 GEOVANY [email or web address]) Nutrition Notes Need for Assessment generated from: MD Order,collections assistant,MST, Education Initial or Follow up Assessment Current Diagnosis CKD(stage I-IV),Diabetes, Hypertension,Hyperlipidemia Other Pertinent Diagnosis CHF, Pulmonary Edema/Pleural Effusion, PE, PAD, SOB, Leukocytosis, ... Current Diet Cardiac/Consistent Carbohydrates -Renal- Diet+D Suppl (since B 06/30). Labs/Tests 06/29: CO2 18, BUN 27, Crea 2. 2, Glu 274, Ca 8.3, Mg 1.5. Pertinent Medications 06/29: Humalog 2U, others nutritionally unremarkable. Height 5 ft 5 in Weight 59.2 kg [place] Body Weight (kg) 56.81 BMI 21.7 Intake Prior to Admission Poor Weight change and time frame Pt states having, unintentionally, loss between 2 and 13 lb of body weight recently. Weight Status Appropriate Subjective/Other Information RD consult for risk of malnutriton, poor PO intake of meals, nutrition education, and difficulty chewing assessments. Pt's PO intake of meals has been Fair (50-75%), according to ADL notes. I will prescribe Renal modification to current diet, to support Pt's CELY condition during LOS. I will prescribe dietary supplements to compensate for poor or insufficient PO intake of meals during LOS. Pt is on Nasal Cannula, O2 saturation @ 97%, according to Physical Assessment History notes. Pt shows an unspecified Rash as sign of concern for skin risk at the time, according to Physical Assessment History notes. There is no mention of any difficulty chewing in the chart, I will disregard this consult for now, will assess at F/U. Pt shows unintentional body weight loss and poor appetite as signs of concern for risk of malnutrition at the time, according to Admission notes. Pt still in critical condition , not a candidate for Nutrition Education at the time, will assess feasibility on F/U. Percent of energy/protein needs met: Prescribed Cardiac/Consistent Carbohydrates -Renal- Diet provides for energy/protein needs (1,977 Kcal/86 g) during LOS; additionally, Dietary Supplements will compensate for possible poor or insufficient PO intake of meals with 850 Kcal and 38 g of protein. Burn Absent Trauma Absent GI Symptoms None Food Allergy No Skin Integrity/Comment Unspecified Rash. 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 As Evidenced by Signs and Symptoms Pt shows unintentional body weight loss and poor appetite as signs of concern for risk of malnutrition at the time, according to Admission notes. #1 Nutrition Diagnosis Altered nutrition-related laboratory values Etiology CELY. As Evidenced by Signs and Symptoms 06/29: CO2 18, BUN 27, Crea 2. 2, Glu 274, Ca 8.3, Mg 1.5. Is patient on ventilator? No Is Patient Ambulatory and/or Out of Bed Yes REE-([facility]. or-ambulatory/OOB) [ [id number] [id number]] Calculation Used for Recommendations [facility] Additional Notes Protein: 0.8-1.2 g/Kg ABW; 47- 71 g/day. Fluids: 1 ml/Kcal, or as per MD. Nutrition Intervention Change Diet Order: Continue Cardiac/Consistent Carbohydrates -Renal- Diet as tolerated. Add Supplement/Snack (indicate name/kcal Start 8 fl oz Nepro w/ /protein ) CARBSTEADY; BID. Provides kCal: 480 Provides Protein (gm) 38 Goal #1 Compensate, through dietary supplementation, for possible poor or insufficient PO intake of meals during LOS. Goal #2 Help reach and maintain acceptable chemistry lab values during LOS. Goal #3 Adjust the dietary intervention to better serve Pt's energy/protein needs and clinical conditions during LOS . Follow-Up By: 07/06/22 Additional Comments Continue monitoring food tolerance, %PO intake of meals , dietary supplements, and BM.
[2022-06-30] MEDS ORDERED: ALBUTEROL 2.5 MG/3 ML NEBU IH PRN (13:00)
[2022-06-30] MEDS: MORPHINE 2 MG/1 ML INJ IV PRN ×2 (13:16→21:46)
--- NOTE | 2022-06-30 15:04 | Progress Note ---
Assessment and Plan - Patient Problems (1) Dilated cardiomyopathy Current Visit: Yes Status: Acute Plan to address problem: Patient has a dilated cardiomyopathy, left ventricular ejection fraction 30 to 35%, documented on a prior admission with no report of prior cardiac evaluation. Continue guideline directed medical therapy as previously outlined. Defer to pulmonary and internal medicine for management of pulmonary embolism. Subjective Date of service: 06/30/22 Principal diagnosis: Acute pulmonary embolism, chronic systolic heart failure Interval history: Patient is comfortable in no acute distress, no new cardiac complaints. Heart rate is 91, stable sinus rhythm. Objective Vital Signs Temp Pulse Resp BP Pulse Ox 06/30/22 12:18 97.9 F 94 H 18 127/70 97 06/30/22 10:00 18 98 06/30/22 07:57 98.0 F 91 H 18 119/68 98 06/30/22 05:00 94 H 06/30/22 03:56 98.3 F 92 H 18 120/72 97 06/29/22 23:07 98.3 F 98 H 16 104/61 95 06/29/22 22:30 96 06/29/22 19:56 98.2 F 97 H 17 115/60 95 06/29/22 17:17 97.4 F L 94 H 18 117/65 98 - Physical Examination General: No Apparent Distress HEENT: Positive: PERRL Neck: Positive: neck supple Cardiac: Positive: Reg Rate and Rhythm Lungs: Positive: Decreased Breath Sounds Neuro: Positive: Weakness (Generalized lethargy) Abdomen: Positive: Soft Skin: Positive: Clear Extremities: Absent: edema - Labs and Meds CBC 06/30/22 Range/Units 06:03 WBC 9.6 (4.5-11.0) K/mm3 RBC 2.96 L (3.65-5.03) M/mm3 Hgb 8.4 L (10.1-14.3) gm/dl Hct 26.4 L (30.3-42.9) % Plt Count 474 H (140-440) K/mm3 Lymph # (Auto) 2.5 (1.2-5.4) K/mm3 Dickson # (Auto) 0.6 (0.0-0.8) K/mm3 Eos # (Auto) 0.4 (0.0-0.4) K/mm3 Baso # (Auto) 0.1 (0.0-0.1) K/mm3 Comprehensive Metabolic Panel 06/30/22 Range/Units 06:03 Sodium 129 L D (137-145) mmol/L Potassium 3.8 (3.6-5.0) mmol/L Chloride 97.9 L (98-107) mmol/L Carbon Dioxide 19 L (22-30) mmol/L BUN 31 H (7-17) mg/dL Creatinine 2.8 H (0.6-1.2) mg/dL Glucose 269 H (65-100) mg/dL Calcium 7.0 L D (8.4-10.2) mg/dL
[2022-06-30 19:31] LABS: Bilirubin,Urine NEG (Negative); Blood,Urine NEG (Negative); Color,Urine Yellow (Yellow); Urobilinogen,Urine < 2 mg/dL (<2.0)
[2022-06-30 19:34] LABS: Bacteria,Urine 1+ /HPF (Negative); Mucus,Urine FEW /HPF; RBC,Urine < 1.0 /HPF (0.0-6.0)
[2022-06-30 19:43] LABS: Protein,Urine >500 mg/dL (Negative)
[2022-06-30 19:57] LABS: Creatinine,Urine 76.8 mg/dL (0.1-20.0)
[2022-06-30 20:14] LABS: Protein/Creatinine Ratio,Urine 8.13
[2022-07-01] MEDS: BENZOCAINE/MENTHOL LOZENGE MM PRN (07:18)
[2022-07-01] MEDS: ISOSORB DINIT/HYDRALAZINE 20-37.5MG TAB PO SCH ×4 (07:19→21:50)
[2022-07-01] MEDS: FUROSEMIDE 40 MG/4 ML INJ IV SCH ×2 (07:19→21:43)
[2022-07-01] MEDS: PANTOPRAZOLE 40 MG TAB PO SCH (09:51)
[2022-07-01] MEDS: CLOPIDOGREL 75 MG TAB PO SCH (09:51)
[2022-07-01] MEDS: INSULIN LISPRO 100 UNIT/ML SUB-Q SCH ×4 (09:51→21:45)
[2022-07-01] MEDS: carvediloL 3.125 MG TAB PO SCH ×2 (09:51→21:43)
[2022-07-01] MEDS: ASPIRIN EC 81 MG TAB PO SCH (09:51)
[2022-07-01] MEDS ORDERED: NON-FORMULARY EACH (Apixaban 5 MG Tablet) PO SCH (10:00)
--- NOTE | 2022-07-01 10:36 | Progress Note ---
Assessment and Plan 1. Acute kidney injury: CELY superimposed on CKD-4 in the setting of CHF. Recent Renal US negative for hydro/stone. Monitor renal function. Creatinine level increasing. Renal prognosis is guarded. Avoid nephrotoxic agents. Meds dosage based on GFR. 2. FEN: Hyperchloremic metabolic acidosis, monitor. On Lasix. Replete lytes as needed. Monitor lytes and volume status. 3. Nephrotic Syndrome: 2/2 Diabetic nephropathy. Doubt other causes, appropriate tests ordered. Hold off any ACEI/ARB due to worsening CELY. Monitor. 4. Acute on chroic HFrEF, POA: TTE 06/2022: EF 35%. On BB. Cardiology following. 5. Pulmonary hypertension: Pulmonary embolism. Eliquis. 6. Type II Diabetes Mellitus with hyperglycemia: Lantus + SSI. Monitor. 7. H/o toe osteomyelitis: 05/24/22: s/p Transmetatarsal amputation of first toe of left foot. On Statin. 8. Hypertension: BP controlled. 9. Normocytic Anemia, POA: Trend. Subjective: Patient was seen and examined at the bedside. No new complaint. Examination: General appearance: well-developed, appears stated age, no distress HEENT: atraumatic, no icterus Neck: trachea midline Respiratory: ctab Heart: S1S2, regular, no murmur Abdomen: soft, bowel sounds heard, NT Integumentary: L foot dressing, great toe amputated Neurologic: AO, conversing, able to move extremities Ext: trace LE edema Subjective Date of service: 07/01/22 Principal diagnosis: Acute pulmonary embolism, chronic systolic heart failure Objective - Vital Signs Vital signs: Vital Signs - 12hr 06/30/22 07/01/22 07/01/22 23:05 03:14 07:16 Temperature 98.5 F 98.2 F 98.2 F Pulse Rate 93 H 92 H 98 H Respiratory 16 18 18 Rate Blood Pressure 110/63 120/75 94/62 O2 Sat by Pulse 99 94 98 Oximetry 07/01/22 07:17 Temperature Pulse Rate 95 H Respiratory Rate Blood Pressure O2 Sat by Pulse 98 Oximetry - Lab 06/30/22 06:03 07/01/22 16:24 Most recent lab results Calcium 7.0 mg/dL (8.4-10.2) L D 06/30/22 06:03 Magnesium 1.50 mg/dL (1.7-2.3) L 06/28/22 22:54 Urine Creatinine 76.8 mg/dL (0.1-20.0) H 06/30/22 10:00 Urine Sodium 53 mmol/L 06/30/22 10:00 Urine Total Protein 624 mg/dL (5-11.8) H 06/30/22 10:00 Medications & Allergies - Medications Allergies/Adverse Reactions: Allergies No Known Allergies Allergy (Verified 06/29/22 15:40) Home Medications: Home Medications Medication Instructions Recorded Confirmed Last Taken Type Aspirin EC [Halfprin EC] 81 mg PO QDAY #30 tablet 05/29/22 06/29/22 Unknown Rx AtorvaSTATin [Lipitor] 20 mg PO QHS #30 tablet 05/29/22 06/29/22 Unknown Rx Clopidogrel [Plavix] 75 mg PO QDAY #30 tablet 05/29/22 06/29/22 Unknown Rx Docusate Sodium [Colace CAP] 100 mg PO BID #60 capsule 05/29/22 06/29/22 Unknown Rx Insulin Glargine [Lantus VIAL] 30 units SUB-Q QHS 30 Days #2 vial 05/29/22 06/29/22 Unknown Rx Lispro Insulin [HumaLOG] 5 unit SUB-Q ACHS 30 Days #2 vial 05/29/22 06/29/22 Unknown Rx Pantoprazole [Protonix TAB] 40 mg PO QDAC #14 tablet 05/29/22 06/29/22 Unknown Rx Apixaban [Eliquis] 5 mg PO Q12HR #60 tablet 06/13/22 06/29/22 Unknown Rx oxyCODONE /ACETAMINOPHEN [Percocet 1 tab PO BID PRN #10 tablet 06/13/22 06/29/22 Unknown Rx 5/325 mg] Active Medications: Generic Name Dose Route Start Last Admin Trade Name Freq PRN Reason Stop Dose Admin Acetaminophen 650 mg 06/29/22 02:20 Acetaminophen 325 Mg Tab PO Q4H PRN Pain MILD(1-3)/Fever >100.5/AVILA Albuterol 2.5 mg 06/30/22 13:00 Albuterol 2.5 Mg/3 Ml Nebu IH Q4HRT PRN Shortness Of Breath Aspirin 81 mg 07/01/22 10:00 07/01/22 09:51 Aspirin Ec 81 Mg Tab PO 81 mg QDAY TATUM Administration Atorvastatin Calcium 20 mg 06/29/22 22:00 06/30/22 21:46 Atorvastatin 20 Mg Tab PO 20 mg QHS TATUM Administration Benzocaine/Menthol 1 each 06/29/22 21:55 07/01/22 07:18 Benzocaine/Menthol Lozenge MM 1 each Q2HR PRN Administration Sore Throat Carvedilol 3.125 mg 06/29/22 22:00 07/01/22 09:51 Carvedilol 3.125 Mg Tab PO 3.125 mg BID TATUM Administration Clopidogrel Bisulfate 75 mg 07/01/22 10:00 07/01/22 09:51 Clopidogrel 75 Mg Tab PO 75 mg QDAY [facility] Administration Dextrose 50 ml 06/29/22 02:20 Dextrose 50% In Water (25gm) 50 Ml Syringe IV Q30MIN PRN Hypoglycemia Protocol Furosemide 40 mg 06/29/22 06:00 07/01/22 07:19 Furosemide 40 Mg/4 Ml Inj IV 40 mg BID@0600,1800 [facility] Administration Insulin Human Lispro 0 unit 06/29/22 07:30 07/01/22 09:51 Insulin Lispro 100 Unit/Ml SUB-Q 8 unit ACHS [facility] Administration Protocol Isosorbide Dinitrate/Hydralazine 1 each 06/29/22 14:00 07/01/22 07:19 Isosorb Dinit/Hydralazine 20-37.5mg Tab PO 1 each Q8HR TATUM Administration Magnesium Hydroxide 30 ml 06/29/22 02:20 Magnesium Hydroxide (Mom) Oral Liqd Udc PO Q4H PRN Constipation Miscellaneous Medication 5 mg 07/01/22 10:00 Apixaban PO Q12HR [facility] Morphine Sulfate 2 mg 06/29/22 02:20 06/30/22 21:46 Morphine 2 Mg/1 Ml Inj IV 2 mg Q4H PRN Administration Pain, Moderate (4-6) Morphine Sulfate 4 mg 06/29/22 02:20 Morphine 4 Mg/1 Ml Inj IV Q4H PRN Pain , Severe (7-10) Naloxone HCl 0.1 mg 06/29/22 01:07 Naloxone 0.4 Mg/1 Ml Inj IV Q2MIN PRN Res Rate </= 8 or 02 SAT < 92% Ondansetron HCl 4 mg 06/29/22 02:20 Ondansetron 4 Mg/2 Ml Inj IV Q8H PRN Nausea And Vomiting Pantoprazole Sodium 40 mg 06/30/22 07:30 07/01/22 09:51 Pantoprazole 40 Mg Tab PO 40 mg QDAC TATUM Administration Sodium Chloride 10 ml 06/29/22 10:00 07/01/22 09:51 Sodium Chloride 0.9% 10 Ml Flush Syringe IV 10 ml BID TATUM Administration Sodium Chloride 10 ml 06/29/22 02:20 06/29/22 18:16 Sodium Chloride 0.9% 10 Ml Flush Syringe IV 10 ml PRN PRN Administration LINE FLUSH
[2022-07-01] MEDS: APIXABAN 5 MG TAB PO SCH ×2 (12:40→21:43)
[2022-07-01] MEDS: MORPHINE 2 MG/1 ML INJ IV PRN ×2 (12:40→21:44)
--- NOTE | 2022-07-01 16:58 | Progress Note ---
Assessment and Plan - Patient Problems (1) Dilated cardiomyopathy Current Visit: Yes Status: Acute Plan to address problem: Patient has a dilated cardiomyopathy, left ventricular ejection fraction 30 to 35%, documented on a prior admission with no report of prior cardiac evaluation. Continue guideline directed medical therapy as previously outlined. Defer to pulmonary and internal medicine for management of pulmonary embolism. Subjective Date of service: 07/01/22 Principal diagnosis: Acute pulmonary embolism, chronic systolic heart failure Interval history: Patient is comfortable in no acute distress, no new cardiac complaints. Objective Vital Signs Temp Pulse Resp BP Pulse Ox 07/01/22 15:40 98.0 F 87 17 108/62 98 07/01/22 14:00 93 H 07/01/22 12:49 98.5 F 89 16 116/62 99 07/01/22 10:00 98 07/01/22 07:17 95 H 98 07/01/22 07:16 98.2 F 98 H 18 94/62 98 07/01/22 03:14 98.2 F 92 H 18 120/75 94 06/30/22 23:05 98.5 F 93 H 16 110/63 99 06/30/22 22:00 96 06/30/22 21:45 90 06/30/22 20:00 96 06/30/22 19:06 98.2 F 93 H 16 95/51 100 06/30/22 17:31 88 18 108/63 98 - Physical Examination General: No Apparent Distress HEENT: Positive: PERRL Neck: Positive: neck supple Cardiac: Positive: Reg Rate and Rhythm Lungs: Positive: Decreased Breath Sounds Neuro: Positive: Weakness (Generalized lethargy) Abdomen: Positive: Soft Skin: Positive: Clear Extremities: Absent: edema
[2022-07-01 19:00] LABS: Calcium 7.9 mg/dL (8.4-10.2)
[2022-07-01] MEDS ORDERED: INSULIN GLARGINE 100 UNITS/ML SUB-Q SCH (22:00)
[2022-07-02] MEDS: MORPHINE 2 MG/1 ML INJ IV PRN (05:27)
[2022-07-02] MEDS: FUROSEMIDE 40 MG/4 ML INJ IV SCH (05:34)
[2022-07-02] MEDS: ISOSORB DINIT/HYDRALAZINE 20-37.5MG TAB PO SCH ×3 (05:34→20:31)
--- NOTE | 2022-07-02 09:27 | Progress Note ---
Assessment and Plan 1. Acute kidney injury: CELY superimposed on CKD-4 in the setting of CHF. Renal US ordered. Monitor renal function. Creatinine level increasing. Hold / stop diuretics. Renal prognosis is guarded. Avoid nephrotoxic agents. Meds dosage based on GFR. Labs not done today. 2. FEN: Hyperchloremic metabolic acidosis, monitor. Lasix stopped. Replete lytes as needed. Monitor lytes and volume status. 3. Nephrotic Syndrome: 2/2 Diabetic nephropathy. Doubt other causes, appropriate tests ordered. Hold off any ACEI/ARB due to worsening CELY. Monitor. 4. Acute on chroic HFrEF, POA: TTE 06/2022: EF 35%. On BB. Cardiology following. 5. Pulmonary hypertension: Pulmonary embolism. Eliquis. 6. Type II Diabetes Mellitus with hyperglycemia: Lantus + SSI. Monitor. 7. H/o toe osteomyelitis: 05/24/22: s/p Transmetatarsal amputation of first toe of left foot. On Statin. 8. Hypertension: BP controlled. 9. Normocytic Anemia, POA: Trend. Subjective: Patient was seen and examined at the bedside. Doing better today. Examination: General appearance: well-developed, appears stated age, no distress HEENT: atraumatic, no icterus, MAX Neck: trachea midline Respiratory: ctab Heart: S1S2, regular, no murmur Abdomen: soft, bowel sounds heard, NT Integumentary: L foot dressing, great toe amputated Neurologic: AO, conversing, able to move extremities Ext: trace LE edema, L > R Subjective Date of service: 07/02/22 Principal diagnosis: Acute pulmonary embolism, chronic systolic heart failure Objective - Vital Signs Vital signs: Vital Signs - 12hr 07/01/22 07/01/22 07/02/22 22:00 23:27 03:17 Temperature 98.0 F 98.1 F Pulse Rate 91 H 90 90 Respiratory 18 18 Rate Blood Pressure 137/79 110/61 O2 Sat by Pulse 98 98 Oximetry 07/02/22 07/02/22 05:34 07:48 Temperature 97.7 F Pulse Rate 90 90 Respiratory 16 Rate Blood Pressure 130/79 109/68 O2 Sat by Pulse 98 Oximetry - Lab 06/30/22 06:03 07/01/22 16:24 Most recent lab results Calcium 7.9 mg/dL (8.4-10.2) L 07/01/22 16:24 Magnesium 1.50 mg/dL (1.7-2.3) L 06/28/22 22:54 Urine Creatinine 76.8 mg/dL (0.1-20.0) H 06/30/22 10:00 Urine Sodium 53 mmol/L 06/30/22 10:00 Urine Total Protein 624 mg/dL (5-11.8) H 06/30/22 10:00 Medications & Allergies - Medications Allergies/Adverse Reactions: Allergies No Known Allergies Allergy (Verified 06/29/22 15:40) Home Medications: Home Medications Medication Instructions Recorded Confirmed Last Taken Type Aspirin EC [Halfprin EC] 81 mg PO QDAY #30 tablet 05/29/22 06/29/22 Unknown Rx AtorvaSTATin [Lipitor] 20 mg PO QHS #30 tablet 05/29/22 06/29/22 Unknown Rx Clopidogrel [Plavix] 75 mg PO QDAY #30 tablet 05/29/22 06/29/22 Unknown Rx Docusate Sodium [Colace CAP] 100 mg PO BID #60 capsule 05/29/22 06/29/22 Unknown Rx Insulin Glargine [Lantus VIAL] 30 units SUB-Q QHS 30 Days #2 vial 05/29/22 06/29/22 Unknown Rx Lispro Insulin [HumaLOG] 5 unit SUB-Q ACHS 30 Days #2 vial 05/29/22 06/29/22 Unknown Rx Pantoprazole [Protonix TAB] 40 mg PO QDAC #14 tablet 05/29/22 06/29/22 Unknown Rx Apixaban [Eliquis] 5 mg PO Q12HR #60 tablet 06/13/22 06/29/22 Unknown Rx oxyCODONE /ACETAMINOPHEN [Percocet 1 tab PO BID PRN #10 tablet 06/13/22 06/29/22 Unknown Rx 5/325 mg] Active Medications: Generic Name Dose Route Start Last Admin Trade Name Freq PRN Reason Stop Dose Admin Acetaminophen 650 mg 06/29/22 02:20 Acetaminophen 325 Mg Tab PO Q4H PRN Pain MILD(1-3)/Fever >100.5/AVILA Albuterol 2.5 mg 06/30/22 13:00 Albuterol 2.5 Mg/3 Ml Nebu IH Q4HRT PRN Shortness Of Breath Apixaban 5 mg 07/01/22 12:00 07/01/22 21:43 Apixaban 5 Mg Tab PO 5 mg Q12HR TATUM Administration Protocol Aspirin 81 mg 07/01/22 10:00 07/01/22 09:51 Aspirin Ec 81 Mg Tab PO 81 mg QDAY TATUM Administration Atorvastatin Calcium 20 mg 06/29/22 22:00 07/01/22 21:43 Atorvastatin 20 Mg Tab PO 20 mg QHS TATUM Administration Benzocaine/Menthol 1 each 06/29/22 21:55 07/01/22 07:18 Benzocaine/Menthol Lozenge MM 1 each Q2HR PRN Administration Sore Throat Carvedilol 3.125 mg 06/29/22 22:00 07/01/22 21:43 Carvedilol 3.125 Mg Tab PO 3.125 mg BID TATUM Administration Clopidogrel Bisulfate 75 mg 07/01/22 10:00 07/01/22 09:51 Clopidogrel 75 Mg Tab PO 75 mg QDAY TATUM Administration Dextrose 50 ml 06/29/22 02:20 Dextrose 50% In Water (25gm) 50 Ml Syringe IV Q30MIN PRN Hypoglycemia Protocol Insulin Glargine 25 units 07/02/22 08:00 Insulin Glargine 100 Units/Ml SUB-Q QHS [facility] Insulin Human Lispro 0 unit 06/29/22 07:30 07/01/22 21:45 Insulin Lispro 100 Unit/Ml SUB-Q 6 unit ACHS TATUM Administration Protocol Isosorbide Dinitrate/Hydralazine 1 each 06/29/22 14:00 07/02/22 05:34 Isosorb Dinit/Hydralazine 20-37.5mg Tab PO 1 each Q8HR TATUM Administration Magnesium Hydroxide 30 ml 06/29/22 02:20 Magnesium Hydroxide (Mom) Oral Liqd Udc PO Q4H PRN Constipation Morphine Sulfate 2 mg 06/29/22 02:20 07/02/22 05:27 Morphine 2 Mg/1 Ml Inj IV 2 mg Q4H PRN Administration Pain, Moderate (4-6) Morphine Sulfate 4 mg 06/29/22 02:20 Morphine 4 Mg/1 Ml Inj IV Q4H PRN Pain , Severe (7-10) Naloxone HCl 0.1 mg 06/29/22 01:07 Naloxone 0.4 Mg/1 Ml Inj IV Q2MIN PRN Res Rate </= 8 or 02 SAT < 92% Ondansetron HCl 4 mg 06/29/22 02:20 Ondansetron 4 Mg/2 Ml Inj IV Q8H PRN Nausea And Vomiting Pantoprazole Sodium 40 mg 06/30/22 07:30 07/01/22 09:51 Pantoprazole 40 Mg Tab PO 40 mg QDAC TATUM Administration Sodium Chloride 10 ml 06/29/22 10:00 07/01/22 21:43 Sodium Chloride 0.9% 10 Ml Flush Syringe IV 10 ml BID TATUM Administration Sodium Chloride 10 ml 06/29/22 02:20 06/29/22 18:16 Sodium Chloride 0.9% 10 Ml Flush Syringe IV 10 ml PRN PRN Administration LINE FLUSH
[2022-07-02] MEDS: APIXABAN 5 MG TAB PO SCH ×2 (09:49→20:32)
[2022-07-02] MEDS: PANTOPRAZOLE 40 MG TAB PO SCH (09:49)
[2022-07-02] MEDS: carvediloL 3.125 MG TAB PO SCH ×2 (09:49→20:32)
[2022-07-02] MEDS: INSULIN LISPRO 100 UNIT/ML SUB-Q SCH ×3 (09:49→18:42)
[2022-07-02] MEDS: CLOPIDOGREL 75 MG TAB PO SCH (09:49)
[2022-07-02] MEDS: ASPIRIN EC 81 MG TAB PO SCH (09:49)
--- NOTE | 2022-07-02 12:39 | Electrocardiograph Report ---
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
--- NOTE | 2022-07-02 13:44 | Progress Note ---
Assessment and Plan - Patient Problems (1) Dilated cardiomyopathy Current Visit: Yes Status: Acute Plan to address problem: Patient has a dilated cardiomyopathy, left ventricular ejection fraction 30 to 35%, documented on a prior admission with no report of prior cardiac evaluation. Continue guideline directed medical therapy as previously outlined. Defer to pulmonary and internal medicine for management of pulmonary embolism. Subjective Date of service: 07/02/22 Principal diagnosis: Acute pulmonary embolism, chronic systolic heart failure Interval history: Patient is comfortable in no acute distress, no new cardiac complaints. Objective Vital Signs Temp Pulse Resp BP Pulse Ox 07/02/22 12:21 98.0 F 88 16 89/48 97 07/02/22 12:19 91/42 07/02/22 10:00 98 H 98 07/02/22 07:48 97.7 F 90 16 109/68 98 07/02/22 05:34 90 130/79 07/02/22 03:17 98.1 F 90 18 110/61 98 07/01/22 23:27 98.0 F 90 18 137/79 98 07/01/22 22:00 91 H 07/01/22 20:00 96 07/01/22 19:10 98.2 F 91 H 18 112/64 100 07/01/22 15:40 98.0 F 87 17 108/62 98 07/01/22 14:00 93 H - Physical Examination General: No Apparent Distress HEENT: Positive: PERRL Neck: Positive: neck supple Cardiac: Positive: Reg Rate and Rhythm Lungs: Positive: Decreased Breath Sounds Neuro: Positive: Weakness (Generalized lethargy) Abdomen: Positive: Soft Skin: Positive: Clear Extremities: Absent: edema - Labs and Meds Comprehensive Metabolic Panel 07/01/22 Range/Units 16:24 Sodium 133 L (137-145) mmol/L Potassium 4.7 D (3.6-5.0) mmol/L Chloride 99.3 (98-107) mmol/L Carbon Dioxide 21 L (22-30) mmol/L BUN 46 H (7-17) mg/dL Creatinine 3.3 H (0.6-1.2) mg/dL Glucose 249 H (65-100) mg/dL Calcium 7.9 L (8.4-10.2) mg/dL
--- NOTE | 2022-07-02 15:00 | Progress Note ---
Assessment and Plan Assessment and plan: #Acute on chronic systolic heart failure -TTE 06/2022: EF 35% -Continue Lasix, BiDil, Coreg -Cardiology following assistance appreciated #Acute kidney injury on CKD stage IV -SCr increased to 3.3 -avoid nephrotoxins and renally dose medications -Nephrology consulted, assistance appreciated #Hypertension -Continue medications as above #Type II Diabetes Mellitus with hyperglycemia -patient takes lantus 30U QHS -currently on lantus 20U + SSI; will adjust and monitor -goal glucose 140-180 while inpatient #Pulmonary hypertension #Pulmonary embolism -continue eliquis at current dose -will follow up with Pulmonology outpatient #Status post TMA of left great toe due to osteomyelitis -continue wound care #Severe protein calorie malnutrition -albumin 2.7 -nutrition consult #Advanced care planning -Disease education conducted, care plan discussed, diagnoses discussed, prognosis discussed, and patient acknowledges understanding with care plan -Time: +30 min History Interval history: No acute events overnight. Patient has no complaints at this time. She is eager to go home. I explained to her, her current medical issues that warrant further treatment. Hospitalist Physical - Physical exam Narrative exam: GENERAL: Well-developed well-nourished. In no acute distress. HEENT: Normocephalic. Atraumatic. NECK: Supple. CHEST/LUNGS: CTAB on room air HEART/CARDIOVASCULAR: RRR. No murmur, rubs or gallops appreciated. ABDOMEN: +BS. NT/ND. SKIN: No rashes noted. NEURO: No focal motor deficit. Follows all commands and is ambulatory. MUSCULOSKELETAL: No joint effusion EXTREMITIES: No cyanosis, clubbing. LLE bandage intact. PSYCH: Cooperative. - Constitutional Vitals: Temp Pulse Resp BP Pulse Ox 98.0 F 88 16 89/48 97 07/02/22 12:21 07/02/22 12:21 07/02/22 12:21 07/02/22 12:21 07/02/22 12:21 General appearance: Present: no acute distress, well-nourished HEART Score - HEART Score Troponin: WBC 9.6 K/mm3 (4.5-11.0) 06/30/22 06:03 RBC 2.96 M/mm3 (3.65-5.03) L 06/30/22 06:03 Hgb 8.4 gm/dl (10.1-14.3) L 06/30/22 06:03 Hct 26.4 % (30.3-42.9) L 06/30/22 06:03 MCV 89 fl (79-97) 06/30/22 06:03 MCH 28 pg (28-32) 06/30/22 06:03 MCHC 32 % (30-34) 06/30/22 06:03 RDW 17.6 % (13.2-15.2) H 06/30/22 06:03 Plt Count 474 K/mm3 (140-440) H 06/30/22 06:03 Lymph % (Auto) 26.3 % (13.4-35.0) 06/30/22 06:03 [place] % (Auto) 6.3 % (0.0-7.3) 06/30/22 06:03 Eos % (Auto) 4.4 % (0.0-4.3) H 06/30/22 06:03 Baso % (Auto) 0.6 % (0.0-1.8) 06/30/22 06:03 Lymph # (Auto) 2.5 K/mm3 (1.2-5.4) 06/30/22 06:03 [place] # (Auto) 0.6 K/mm3 (0.0-0.8) 06/30/22 06:03 Eos # (Auto) 0.4 K/mm3 (0.0-0.4) 06/30/22 06:03 Baso # (Auto) 0.1 K/mm3 (0.0-0.1) 06/30/22 06:03 Seg Neutrophils % 62.4 % (40.0-70.0) 06/30/22 06:03 Seg Neutrophils # 6.0 K/mm3 (1.8-7.7) 06/30/22 06:03 PT 13.7 Sec. (12.2-14.9) 06/28/22 22:54 INR 0.93 (0.87-1.13) 06/28/22 22:54 APTT 28.5 Sec. (24.2-36.6) 06/28/22 22:54 D-Dimer 1970.02 ng/mlDDU (0-234) H 06/28/22 22:54 Sodium 133 mmol/L (137-145) L 07/01/22 16:24 Potassium 4.7 mmol/L (3.6-5.0) D 07/01/22 16:24 Chloride 99.3 mmol/L (98-107) 07/01/22 16:24 Carbon Dioxide 21 mmol/L (22-30) L 07/01/22 16:24 Anion Gap 17 mmol/L 07/01/22 16:24 BUN 46 mg/dL (7-17) H 07/01/22 16:24 Creatinine 3.3 mg/dL (0.6-1.2) H 07/01/22 16:24 Estimated GFR 17 ml/min 07/01/22 16:24 BUN/Creatinine Ratio 14 % 07/01/22 16:24 Glucose 249 mg/dL (65-100) H 07/01/22 16:24 POC Glucose 252 mg/dL (70-105) H 07/02/22 07:38 Calcium 7.9 mg/dL (8.4-10.2) L 07/01/22 16:24 Magnesium 1.50 mg/dL (1.7-2.3) L 06/28/22 22:54 Total Bilirubin 0.60 mg/dL (0.1-1.2) 06/28/22 22:54 AST 21 units/L (5-40) 06/28/22 22:54 ALT 40 units/L (7-56) 06/28/22 22:54 Alkaline Phosphatase 192 units/L (35-129) H 06/28/22 22:54 Total Creatine Kinase 169 units/L (30-135) H 06/28/22 22:54 Troponin T 0.045 ng/mL (0.00-0.029) H 06/28/22 22:54 NT-Pro-B Natriuret Pep 12169 pg/mL (0-900) H 06/28/22 22:54 Total Protein 5.8 g/dL (6.3-8.2) L 06/28/22 22:54 Albumin 2.7 g/dL (3.9-5) L 06/28/22 22:54 Albumin/Globulin Ratio 0.9 % 06/28/22 22:54 Triglycerides 135 mg/dL (2-149) 06/28/22 22:54 Cholesterol 196 mg/dL (50-199) 06/28/22 22:54 LDL Cholesterol Direct 119 mg/dL (50-130) 06/28/22 22:54 HDL Cholesterol 54 mg/dL (40-59) 06/28/22 22:54 Cholesterol/HDL Ratio 3.62 % 06/28/22 22:54 PTH Intact 287.9 pg/mL (15-65) H 07/01/22 16:24 Urine Color Yellow (Yellow) 06/30/22 10:00 Urine Turbidity Slightly-cloudy (Clear) 06/30/22 10:00 Urine pH 8.0 (5.0-7.0) H 06/30/22 10:00 Ur Specific [place] 1.012 (1.003-1.030) 06/30/22 10:00 Urine Protein >500 mg/dL (Negative) 06/30/22 10:00 Urine Glucose (UA) 150 mg/dL (Negative) 06/30/22 10:00 Urine Ketones Neg mg/dL (Negative) 06/30/22 10:00 Urine Blood Neg (Negative) 06/30/22 10:00 Urine Nitrite Neg (Negative) 06/30/22 10:00 Urine Bilirubin Neg (Negative) 06/30/22 10:00 Urine Urobilinogen < 2 mg/dL (<2.0) 06/30/22 10:00 Ur Leukocyte Esterase Tr (Negative) 06/30/22 10:00 Urine WBC (Auto) 6.0 /HPF (0.0-6.0) 06/30/22 10:00 Urine RBC (Auto) < 1.0 /HPF (0.0-6.0) 06/30/22 10:00 U Epithel Cells (Auto) 1.0 /HPF (0-13.0) 06/30/22 10:00 Urine Bacteria (Auto) 1+ /HPF (Negative) 06/30/22 10:00 Urine Mucus Few /HPF 06/30/22 10:00 Urine Creatinine 76.8 mg/dL (0.1-20.0) H 06/30/22 10:00 Protein/Creatinin Ratio 8.13 06/30/22 10:00 Urine Sodium 53 mmol/L 06/30/22 10:00 Urine Urea Nitrogen 308 06/30/22 10:00 Urine Total Protein 624 mg/dL (5-11.8) H 06/30/22 10:00 Nasal Screen MRSA (PCR) Negative (Negative) 06/29/22 Unknown Results - Labs CBC & Chem 7: 06/30/22 06:03 07/01/22 16:24 Labs: Laboratory Last Values WBC 9.6 K/mm3 (4.5-11.0) 06/30/22 06:03 RBC 2.96 M/mm3 (3.65-5.03) L 06/30/22 06:03 Hgb 8.4 gm/dl (10.1-14.3) L 06/30/22 06:03 Hct 26.4 % (30.3-42.9) L 06/30/22 06:03 MCV 89 fl (79-97) 06/30/22 06:03 MCH 28 pg (28-32) 06/30/22 06:03 MCHC 32 % (30-34) 06/30/22 06:03 RDW 17.6 % (13.2-15.2) H 06/30/22 06:03 Plt Count 474 K/mm3 (140-440) H 06/30/22 06:03 Lymph % (Auto) 26.3 % (13.4-35.0) 06/30/22 06:03 [place] % (Auto) 6.3 % (0.0-7.3) 06/30/22 06:03 Eos % (Auto) 4.4 % (0.0-4.3) H 06/30/22 06:03 Baso % (Auto) 0.6 % (0.0-1.8) 06/30/22 06:03 Lymph # (Auto) 2.5 K/mm3 (1.2-5.4) 06/30/22 06:03 [place] # (Auto) 0.6 K/mm3 (0.0-0.8) 06/30/22 06:03 Eos # (Auto) 0.4 K/mm3 (0.0-0.4) 06/30/22 06:03 Baso # (Auto) 0.1 K/mm3 (0.0-0.1) 06/30/22 06:03 Seg Neutrophils % 62.4 % (40.0-70.0) 06/30/22 06:03 Seg Neutrophils # 6.0 K/mm3 (1.8-7.7) 06/30/22 06:03 PT 13.7 Sec. (12.2-14.9) 06/28/22 22:54 INR 0.93 (0.87-1.13) 06/28/22 22:54 APTT 28.5 Sec. (24.2-36.6) 06/28/22 22:54 D-Dimer 1970.02 ng/mlDDU (0-234) H 06/28/22 22:54 Sodium 133 mmol/L (137-145) L 07/01/22 16:24 Potassium 4.7 mmol/L (3.6-5.0) D 07/01/22 16:24 Chloride 99.3 mmol/L (98-107) 07/01/22 16:24 Carbon Dioxide 21 mmol/L (22-30) L 07/01/22 16:24 Anion Gap 17 mmol/L 07/01/22 16:24 BUN 46 mg/dL (7-17) H 07/01/22 16:24 Creatinine 3.3 mg/dL (0.6-1.2) H 07/01/22 16:24 Estimated GFR 17 ml/min 07/01/22 16:24 BUN/Creatinine Ratio 14 % 07/01/22 16:24 Glucose 249 mg/dL (65-100) H 07/01/22 16:24 POC Glucose 252 mg/dL (70-105) H 07/02/22 07:38 Calcium 7.9 mg/dL (8.4-10.2) L 07/01/22 16:24 Magnesium 1.50 mg/dL (1.7-2.3) L 06/28/22 22:54 Total Bilirubin 0.60 mg/dL (0.1-1.2) 06/28/22 22:54 AST 21 units/L (5-40) 06/28/22 22:54 ALT 40 units/L (7-56) 06/28/22 22:54 Alkaline Phosphatase 192 units/L (35-129) H 06/28/22 22:54 Total Creatine Kinase 169 units/L (30-135) H 06/28/22 22:54 Troponin T 0.045 ng/mL (0.00-0.029) H 06/28/22 22:54 NT-Pro-B Natriuret Pep 66799 pg/mL (0-900) H 06/28/22 22:54 Total Protein 5.8 g/dL (6.3-8.2) L 06/28/22 22:54 Albumin 2.7 g/dL (3.9-5) L 06/28/22 22:54 Albumin/Globulin Ratio 0.9 % 06/28/22 22:54 Triglycerides 135 mg/dL (2-149) 06/28/22 22:54 Cholesterol 196 mg/dL (50-199) 06/28/22 22:54 LDL Cholesterol Direct 119 mg/dL (50-130) 06/28/22 22:54 HDL Cholesterol 54 mg/dL (40-59) 06/28/22 22:54 Cholesterol/HDL Ratio 3.62 % 06/28/22 22:54 PTH Intact 287.9 pg/mL (15-65) H 07/01/22 16:24 Urine Color Yellow (Yellow) 06/30/22 10:00 Urine Turbidity Slightly-cloudy (Clear) 06/30/22 10:00 Urine pH 8.0 (5.0-7.0) H 06/30/22 10:00 Ur Specific [place] 1.012 (1.003-1.030) 06/30/22 10:00 Urine Protein >500 mg/dL (Negative) 06/30/22 10:00 Urine Glucose (UA) 150 mg/dL (Negative) 06/30/22 10:00 Urine Ketones Neg mg/dL (Negative) 06/30/22 10:00 Urine Blood Neg (Negative) 06/30/22 10:00 Urine Nitrite Neg (Negative) 06/30/22 10:00 Urine Bilirubin Neg (Negative) 06/30/22 10:00 Urine Urobilinogen < 2 mg/dL (<2.0) 06/30/22 10:00 Ur Leukocyte Esterase Tr (Negative) 06/30/22 10:00 Urine WBC (Auto) 6.0 /HPF (0.0-6.0) 06/30/22 10:00 Urine RBC (Auto) < 1.0 /HPF (0.0-6.0) 06/30/22 10:00 U Epithel Cells (Auto) 1.0 /HPF (0-13.0) 06/30/22 10:00 Urine Bacteria (Auto) 1+ /HPF (Negative) 06/30/22 10:00 Urine Mucus Few /HPF 06/30/22 10:00 Urine Creatinine 76.8 mg/dL (0.1-20.0) H 06/30/22 10:00 Protein/Creatinin Ratio 8.13 06/30/22 10:00 Urine Sodium 53 mmol/L 06/30/22 10:00 Urine Urea Nitrogen 308 06/30/22 10:00 Urine Total Protein 624 mg/dL (5-11.8) H 06/30/22 10:00 Nasal Screen MRSA (PCR) Negative (Negative) 06/29/22 Unknown [place]/IV: Voiding Method Toilet Active Medications - Current Medications Current Medications: Generic Name Dose Route Start Last Admin Trade Name Freq PRN Reason Stop Dose Admin Acetaminophen 650 mg 06/29/22 02:20 Acetaminophen 325 Mg Tab PO Q4H PRN Pain MILD(1-3)/Fever >100.5/AVILA Albuterol 2.5 mg 06/30/22 13:00 Albuterol 2.5 Mg/3 Ml Nebu IH Q4HRT PRN Shortness Of Breath Apixaban 5 mg 07/01/22 12:00 07/02/22 09:49 Apixaban 5 Mg Tab PO 5 mg Q12HR TATUM Administration Protocol Aspirin 81 mg 07/01/22 10:00 07/02/22 09:49 Aspirin Ec 81 Mg Tab PO 81 mg QDAY TATUM Administration Atorvastatin Calcium 20 mg 06/29/22 22:00 07/01/22 21:43 Atorvastatin 20 Mg Tab PO 20 mg QHS TATUM Administration Benzocaine/Menthol 1 each 06/29/22 21:55 07/01/22 07:18 Benzocaine/Menthol Lozenge MM 1 each Q2HR PRN Administration Sore Throat Carvedilol 3.125 mg 06/29/22 22:00 07/02/22 09:49 Carvedilol 3.125 Mg Tab PO 3.125 mg BID TATUM Administration Clopidogrel Bisulfate 75 mg 07/01/22 10:00 07/02/22 09:49 Clopidogrel 75 Mg Tab PO 75 mg QDAY TATUM Administration Dextrose 50 ml 06/29/22 02:20 Dextrose 50% In Water (25gm) 50 Ml Syringe IV Q30MIN PRN Hypoglycemia Protocol Insulin Glargine 25 units 07/02/22 22:00 Insulin Glargine 100 Units/Ml SUB-Q QHS TATUM Insulin Human Lispro 0 unit 06/29/22 07:30 07/02/22 14:40 Insulin Lispro 100 Unit/Ml SUB-Q Not Given ACHS [facility] Protocol Isosorbide Dinitrate/Hydralazine 1 each 06/29/22 14:00 07/02/22 14:40 Isosorb Dinit/Hydralazine 20-37.5mg Tab PO Not Given Q8HR TATUM Magnesium Hydroxide 30 ml 06/29/22 02:20 Magnesium Hydroxide (Mom) Oral Liqd Udc PO Q4H PRN Constipation Morphine Sulfate 2 mg 06/29/22 02:20 07/02/22 05:27 Morphine 2 Mg/1 Ml Inj IV 2 mg Q4H PRN Administration Pain, Moderate (4-6) Morphine Sulfate 4 mg 06/29/22 02:20 Morphine 4 Mg/1 Ml Inj IV Q4H PRN Pain , Severe (7-10) Naloxone HCl 0.1 mg 06/29/22 01:07 Naloxone 0.4 Mg/1 Ml Inj IV Q2MIN PRN Res Rate </= 8 or 02 SAT < 92% Ondansetron HCl 4 mg 06/29/22 02:20 Ondansetron 4 Mg/2 Ml Inj IV Q8H PRN Nausea And Vomiting Pantoprazole Sodium 40 mg 06/30/22 07:30 07/02/22 09:49 Pantoprazole 40 Mg Tab PO 40 mg QDAC TATUM Administration Sodium Chloride 10 ml 06/29/22 10:00 07/02/22 09:49 Sodium Chloride 0.9% 10 Ml Flush Syringe IV 10 ml BID TATUM Administration Sodium Chloride 10 ml 06/29/22 02:20 06/29/22 18:16 Sodium Chloride 0.9% 10 Ml Flush Syringe IV 10 ml PRN PRN Administration LINE FLUSH Nutrition/Malnutrition Assess - Dietary Evaluation Nutrition/Malnutrition Findings: Nutrition Notes Start: 06/29/22 16:43 Freq: Status: Active Protocol: Document 06/29/22 16:44 GEOVANY (Rec: 06/29/22 17:14 GEOVANY [id number]) Nutrition Notes Need for Assessment generated from: MD Order,gas appliance adjuster,MST, Education Initial or Follow up Assessment Current Diagnosis CKD(stage I-IV),Diabetes, Hypertension,Hyperlipidemia Other Pertinent Diagnosis CHF, Pulmonary Edema/Pleural Effusion, PE, PAD, SOB, Leukocytosis, ... Current Diet Cardiac/Consistent Carbohydrates -Renal- Diet+D Suppl (since B 06/30). Labs/Tests 06/29: CO2 18, BUN 27, Crea 2. 2, Glu 274, Ca 8.3, Mg 1.5. Pertinent Medications 06/29: Humalog 2U, others nutritionally unremarkable. Height 5 ft 5 in Weight 59.2 kg [place] Body Weight (kg) 56.81 BMI 21.7 Intake Prior to Admission Poor Weight change and time frame Pt states having, unintentionally, loss between 2 and 13 lb of body weight recently. Weight Status Appropriate Subjective/Other Information RD consult for risk of malnutriton, poor PO intake of meals, nutrition education, and difficulty chewing assessments. Pt's PO intake of meals has been Fair (50-75%), according to ADL notes. I will prescribe Renal modification to current diet, to support Pt's CELY condition during LOS. I will prescribe dietary supplements to compensate for poor or insufficient PO intake of meals during LOS. Pt is on Nasal Cannula, O2 saturation @ 97%, according to Physical Assessment History notes. Pt shows an unspecified Rash as sign of concern for skin risk at the time, according to Physical Assessment History notes. There is no mention of any difficulty chewing in the chart, I will disregard this consult for now, will assess at F/U. Pt shows unintentional body weight loss and poor appetite as signs of concern for risk of malnutrition at the time, according to Admission notes. Pt still in critical condition , not a candidate for Nutrition Education at the time, will assess feasibility on F/U. Percent of energy/protein needs met: Prescribed Cardiac/Consistent Carbohydrates -Renal- Diet provides for energy/protein needs (1,977 Kcal/86 g) during LOS; additionally, Dietary Supplements will compensate for possible poor or insufficient PO intake of meals with 850 Kcal and 38 g of protein. Burn Absent Trauma Absent GI Symptoms None Food Allergy No Skin Integrity/Comment Unspecified Rash. Current % PO Fair (50-74%) Minimum of two criteria No Fluid Accumulation Mild (non-severe) Reduced It [employer] Strength N/A (non-severe) Protein-Calorie Malnutrition N\A #2 Nutrition Diagnosis Predicted suboptimal energy intake Etiology Ongoing and concomitant chronic metabolic conditions. As Evidenced by Signs and Symptoms Pt shows unintentional body weight loss and poor appetite as signs of concern for risk of malnutrition at the time, according to Admission notes. #1 Nutrition Diagnosis Altered nutrition-related laboratory values Etiology CELY. As Evidenced by Signs and Symptoms 06/29: CO2 18, BUN 27, Crea 2. 2, Glu 274, Ca 8.3, Mg 1.5. Is patient on ventilator? No Is Patient Ambulatory and/or Out of Bed Yes REE-([place]-[facility] Jeor-ambulatory/OOB) [ 1537.744 [id number]] [facility] Additional Notes Protein: 0.8-1.2 g/Kg ABW; 47- 71 g/day. Fluids: 1 ml/Kcal, or as per MD. Nutrition Intervention Change Diet Order: Continue Cardiac/Consistent Carbohydrates -Renal- Diet as tolerated. Add Supplement/Snack (indicate name/kcal Start 8 fl oz Nepro w/ /protein ) CARBSTEADY; BID. Provides kCal: 480 Provides Protein (gm) 38 Goal #1 Compensate, through dietary supplementation, for possible poor or insufficient PO intake of meals during LOS. Goal #2 Help reach and maintain acceptable chemistry lab values during LOS. Goal #3 Adjust the dietary intervention to better serve Pt's energy/protein needs and clinical conditions during LOS . Follow-Up By: 07/06/22 Additional Comments Continue monitoring food tolerance, %PO intake of meals , dietary supplements, and BM.
--- NOTE | 2022-07-02 15:01 | Progress Note ---
Assessment and Plan Assessment and plan: #Acute on chronic systolic heart failure -TTE 06/2022: EF 35% -Continue Lasix, BiDil, Coreg -Cardiology following assistance appreciated #Acute kidney injury on CKD stage IV -BMP pending -avoid nephrotoxins and renally dose medications -Nephrology consulted, assistance appreciated #Hypertension -Continue medications as above #Type II Diabetes Mellitus with hyperglycemia -patient takes lantus 30U QHS -currently on lantus 20U + SSI; will adjust and monitor -goal glucose 140-180 while inpatient #Pulmonary hypertension #Pulmonary embolism -continue eliquis at current dose -will follow up with Pulmonology outpatient #Status post TMA of left great toe due to osteomyelitis -continue wound care #Severe protein calorie malnutrition -albumin 2.7 -nutrition consult #Advanced care planning -Disease education conducted, care plan discussed, diagnoses discussed, prognosis discussed, and patient acknowledges understanding with care plan -Time: +30 min History Interval history: No acute events overnight. Patient is eager to leave tomorrow to go to [place] with sister. She has no complaints at this time. We discussed her creatinine and the possibility that she may not be able to leave if her creatinine continues to increase. She voiced understanding. Hospitalist Physical - Physical exam Narrative exam: GENERAL: Well-developed well-nourished. In no acute distress. HEENT: Normocephalic. Atraumatic. NECK: Supple. CHEST/LUNGS: CTAB on room air HEART/CARDIOVASCULAR: RRR. No murmur, rubs or gallops appreciated. ABDOMEN: +BS. NT/ND. SKIN: No rashes noted. NEURO: No focal motor deficit. Follows all commands and is ambulatory. MUSCULOSKELETAL: No joint effusion EXTREMITIES: No cyanosis, clubbing. LLE bandage intact. PSYCH: Cooperative. - Constitutional Vitals: Temp Pulse Resp BP Pulse Ox 98.0 F 88 16 89/48 97 07/02/22 12:21 07/02/22 12:21 07/02/22 12:21 07/02/22 12:21 07/02/22 12:21 General appearance: Present: no acute distress, well-nourished HEART Score - HEART Score Troponin: Troponin T 0.045 ng/mL (0.00-0.029) H 06/28/22 22:54 Results - Labs CBC & Chem 7: 06/30/22 06:03 07/01/22 16:24 Labs: Laboratory Last Values WBC 9.6 K/mm3 (4.5-11.0) 06/30/22 06:03 RBC 2.96 M/mm3 (3.65-5.03) L 06/30/22 06:03 Hgb 8.4 gm/dl (10.1-14.3) L 06/30/22 06:03 Hct 26.4 % (30.3-42.9) L 06/30/22 06:03 MCV 89 fl (79-97) 06/30/22 06:03 MCH 28 pg (28-32) 06/30/22 06:03 MCHC 32 % (30-34) 06/30/22 06:03 RDW 17.6 % (13.2-15.2) H 06/30/22 06:03 Plt Count 474 K/mm3 (140-440) H 06/30/22 06:03 Lymph % (Auto) 26.3 % (13.4-35.0) 06/30/22 06:03 [place] % (Auto) 6.3 % (0.0-7.3) 06/30/22 06:03 Eos % (Auto) 4.4 % (0.0-4.3) H 06/30/22 06:03 Baso % (Auto) 0.6 % (0.0-1.8) 06/30/22 06:03 Lymph # (Auto) 2.5 K/mm3 (1.2-5.4) 06/30/22 06:03 [place] # (Auto) 0.6 K/mm3 (0.0-0.8) 06/30/22 06:03 Eos # (Auto) 0.4 K/mm3 (0.0-0.4) 06/30/22 06:03 Baso # (Auto) 0.1 K/mm3 (0.0-0.1) 06/30/22 06:03 Seg Neutrophils % 62.4 % (40.0-70.0) 06/30/22 06:03 Seg Neutrophils # 6.0 K/mm3 (1.8-7.7) 06/30/22 06:03 PT 13.7 Sec. (12.2-14.9) 06/28/22 22:54 INR 0.93 (0.87-1.13) 06/28/22 22:54 APTT 28.5 Sec. (24.2-36.6) 06/28/22 22:54 D-Dimer 1970.02 ng/mlDDU (0-234) H 06/28/22 22:54 Sodium 133 mmol/L (137-145) L 07/01/22 16:24 Potassium 4.7 mmol/L (3.6-5.0) D 07/01/22 16:24 Chloride 99.3 mmol/L (98-107) 07/01/22 16:24 Carbon Dioxide 21 mmol/L (22-30) L 07/01/22 16:24 Anion Gap 17 mmol/L 07/01/22 16:24 BUN 46 mg/dL (7-17) H 07/01/22 16:24 Creatinine 3.3 mg/dL (0.6-1.2) H 07/01/22 16:24 Estimated GFR 17 ml/min 07/01/22 16:24 BUN/Creatinine Ratio 14 % 07/01/22 16:24 Glucose 249 mg/dL (65-100) H 07/01/22 16:24 POC Glucose 252 mg/dL (70-105) H 07/02/22 07:38 Calcium 7.9 mg/dL (8.4-10.2) L 07/01/22 16:24 Magnesium 1.50 mg/dL (1.7-2.3) L 06/28/22 22:54 Total Bilirubin 0.60 mg/dL (0.1-1.2) 06/28/22 22:54 AST 21 units/L (5-40) 06/28/22 22:54 ALT 40 units/L (7-56) 06/28/22 22:54 Alkaline Phosphatase 192 units/L (35-129) H 06/28/22 22:54 Total Creatine Kinase 169 units/L (30-135) H 06/28/22 22:54 Troponin T 0.045 ng/mL (0.00-0.029) H 06/28/22 22:54 NT-Pro-B Natriuret Pep 26755 pg/mL (0-900) H 06/28/22 22:54 Total Protein 5.8 g/dL (6.3-8.2) L 06/28/22 22:54 Albumin 2.7 g/dL (3.9-5) L 06/28/22 22:54 Albumin/Globulin Ratio 0.9 % 06/28/22 22:54 Triglycerides 135 mg/dL (2-149) 06/28/22 22:54 Cholesterol 196 mg/dL (50-199) 06/28/22 22:54 LDL Cholesterol Direct 119 mg/dL (50-130) 06/28/22 22:54 HDL Cholesterol 54 mg/dL (40-59) 06/28/22 22:54 Cholesterol/HDL Ratio 3.62 % 06/28/22 22:54 PTH Intact 287.9 pg/mL (15-65) H 07/01/22 16:24 Urine Color Yellow (Yellow) 06/30/22 10:00 Urine Turbidity Slightly-cloudy (Clear) 06/30/22 10:00 Urine pH 8.0 (5.0-7.0) H 06/30/22 10:00 Ur Specific [place] 1.012 (1.003-1.030) 06/30/22 10:00 Urine Protein >500 mg/dL (Negative) 06/30/22 10:00 Urine Glucose (UA) 150 mg/dL (Negative) 06/30/22 10:00 Urine Ketones Neg mg/dL (Negative) 06/30/22 10:00 Urine Blood Neg (Negative) 06/30/22 10:00 Urine Nitrite Neg (Negative) 06/30/22 10:00 Urine Bilirubin Neg (Negative) 06/30/22 10:00 Urine Urobilinogen < 2 mg/dL (<2.0) 06/30/22 10:00 Ur Leukocyte Esterase Tr (Negative) 06/30/22 10:00 Urine WBC (Auto) 6.0 /HPF (0.0-6.0) 06/30/22 10:00 Urine RBC (Auto) < 1.0 /HPF (0.0-6.0) 06/30/22 10:00 U Epithel Cells (Auto) 1.0 /HPF (0-13.0) 06/30/22 10:00 Urine Bacteria (Auto) 1+ /HPF (Negative) 06/30/22 10:00 Urine Mucus Few /HPF 06/30/22 10:00 Urine Creatinine 76.8 mg/dL (0.1-20.0) H 06/30/22 10:00 Protein/Creatinin Ratio 8.13 06/30/22 10:00 Urine Sodium 53 mmol/L 06/30/22 10:00 Urine Urea Nitrogen 308 06/30/22 10:00 Urine Total Protein 624 mg/dL (5-11.8) H 06/30/22 10:00 Nasal Screen MRSA (PCR) Negative (Negative) 06/29/22 Unknown Strickland/IV: Voiding Method Toilet Active Medications - Current Medications Current Medications: Generic Name Dose Route Start Last Admin Trade Name Freq PRN Reason Stop Dose Admin Acetaminophen 650 mg 06/29/22 02:20 Acetaminophen 325 Mg Tab PO Q4H PRN Pain MILD(1-3)/Fever >100.5/AVILA Albuterol 2.5 mg 06/30/22 13:00 Albuterol 2.5 Mg/3 Ml Nebu IH Q4HRT PRN Shortness Of Breath Apixaban 5 mg 07/01/22 12:00 07/02/22 09:49 Apixaban 5 Mg Tab PO 5 mg Q12HR TATUM Administration Protocol Aspirin 81 mg 07/01/22 10:00 07/02/22 09:49 Aspirin Ec 81 Mg Tab PO 81 mg QDAY TATUM Administration Atorvastatin Calcium 20 mg 06/29/22 22:00 07/01/22 21:43 Atorvastatin 20 Mg Tab PO 20 mg QHS TATUM Administration Benzocaine/Menthol 1 each 06/29/22 21:55 07/01/22 07:18 Benzocaine/Menthol Lozenge MM 1 each Q2HR PRN Administration Sore Throat Carvedilol 3.125 mg 06/29/22 22:00 07/02/22 09:49 Carvedilol 3.125 Mg Tab PO 3.125 mg BID TATUM Administration Clopidogrel Bisulfate 75 mg 07/01/22 10:00 07/02/22 09:49 Clopidogrel 75 Mg Tab PO 75 mg QDAY TATUM Administration Dextrose 50 ml 06/29/22 02:20 Dextrose 50% In Water (25gm) 50 Ml Syringe IV Q30MIN PRN Hypoglycemia Protocol Insulin Glargine 25 units 07/02/22 22:00 Insulin Glargine 100 Units/Ml SUB-Q QHS TATUM Insulin Human Lispro 0 unit 06/29/22 07:30 07/02/22 14:40 Insulin Lispro 100 Unit/Ml SUB-Q Not Given ACHS [facility] Protocol Isosorbide Dinitrate/Hydralazine 1 each 06/29/22 14:00 07/02/22 14:40 Isosorb Dinit/Hydralazine 20-37.5mg Tab PO Not Given Q8HR TATUM Magnesium Hydroxide 30 ml 06/29/22 02:20 Magnesium Hydroxide (Mom) Oral Liqd Udc PO Q4H PRN Constipation Morphine Sulfate 2 mg 06/29/22 02:20 07/02/22 05:27 Morphine 2 Mg/1 Ml Inj IV 2 mg Q4H PRN Administration Pain, Moderate (4-6) Morphine Sulfate 4 mg 06/29/22 02:20 Morphine 4 Mg/1 Ml Inj IV Q4H PRN Pain , Severe (7-10) Naloxone HCl 0.1 mg 06/29/22 01:07 Naloxone 0.4 Mg/1 Ml Inj IV Q2MIN PRN Res Rate </= 8 or 02 SAT < 92% Ondansetron HCl 4 mg 06/29/22 02:20 Ondansetron 4 Mg/2 Ml Inj IV Q8H PRN Nausea And Vomiting Pantoprazole Sodium 40 mg 06/30/22 07:30 07/02/22 09:49 Pantoprazole 40 Mg Tab PO 40 mg QDAC TATUM Administration Sodium Chloride 10 ml 06/29/22 10:00 07/02/22 09:49 Sodium Chloride 0.9% 10 Ml Flush Syringe IV 10 ml BID TATUM Administration Sodium Chloride 10 ml 06/29/22 02:20 06/29/22 18:16 Sodium Chloride 0.9% 10 Ml Flush Syringe IV 10 ml PRN PRN Administration LINE FLUSH Nutrition/Malnutrition Assess - Dietary Evaluation Nutrition/Malnutrition Findings: Nutrition Notes Start: 06/29/22 16:43 Freq: Status: Active Protocol: Document 06/29/22 16:44 GEOVANY (Rec: 06/29/22 17:14 GEOVANY [email or web address]) Nutrition Notes Need for Assessment generated from: MD Order,forex trader,MST, Education Initial or Follow up Assessment Current Diagnosis CKD(stage I-IV),Diabetes, Hypertension,Hyperlipidemia Other Pertinent Diagnosis CHF, Pulmonary Edema/Pleural Effusion, PE, PAD, SOB, Leukocytosis, ... Current Diet Cardiac/Consistent Carbohydrates -Renal- Diet+D Suppl (since B 06/30). Labs/Tests 06/29: CO2 18, BUN 27, Crea 2. 2, Glu 274, Ca 8.3, Mg 1.5. Pertinent Medications 06/29: Humalog 2U, others nutritionally unremarkable. Height 5 ft 5 in Weight 59.2 kg [place] Body Weight (kg) 56.81 BMI 21.7 Intake Prior to Admission Poor Weight change and time frame Pt states having, unintentionally, loss between 2 and 13 lb of body weight recently. Weight Status Appropriate Subjective/Other Information RD consult for risk of malnutriton, poor PO intake of meals, nutrition education, and difficulty chewing assessments. Pt's PO intake of meals has been Fair (50-75%), according to ADL notes. I will prescribe Renal modification to current diet, to support Pt's CELY condition during LOS. I will prescribe dietary supplements to compensate for poor or insufficient PO intake of meals during LOS. Pt is on Nasal Cannula, O2 saturation @ 97%, according to Physical Assessment History notes. Pt shows an unspecified Rash as sign of concern for skin risk at the time, according to Physical Assessment History notes. There is no mention of any difficulty chewing in the chart, I will disregard this consult for now, will assess at F/U. Pt shows unintentional body weight loss and poor appetite as signs of concern for risk of malnutrition at the time, according to Admission notes. Pt still in critical condition , not a candidate for Nutrition Education at the time, will assess feasibility on F/U. Percent of energy/protein needs met: Prescribed Cardiac/Consistent Carbohydrates -Renal- Diet provides for energy/protein needs (1,977 Kcal/86 g) during LOS; additionally, Dietary Supplements will compensate for possible poor or insufficient PO intake of meals with 850 Kcal and 38 g of protein. Burn Absent Trauma Absent GI Symptoms None Food Allergy No Skin Integrity/Comment Unspecified Rash. 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 As Evidenced by Signs and Symptoms Pt shows unintentional body weight loss and poor appetite as signs of concern for risk of malnutrition at the time, according to Admission notes. #1 Nutrition Diagnosis Altered nutrition-related laboratory values Etiology CELY. As Evidenced by Signs and Symptoms 06/29: CO2 18, BUN 27, Crea 2. 2, Glu 274, Ca 8.3, Mg 1.5. Is patient on ventilator? No Is Patient Ambulatory and/or Out of Bed Yes REE-([facility]-ambulatory/OOB) [ [id number] [id number]] Calculation Used for Recommendations [facility] Additional Notes Protein: 0.8-1.2 g/Kg ABW; 47- 71 g/day. Fluids: 1 ml/Kcal, or as per MD. Nutrition Intervention Change Diet Order: Continue Cardiac/Consistent Carbohydrates -Renal- Diet as tolerated. Add Supplement/Snack (indicate name/kcal Start 8 fl oz Nepro w/ /protein ) CARBSTEADY; BID. Provides kCal: 480 Provides Protein (gm) 38 Goal #1 Compensate, through dietary supplementation, for possible poor or insufficient PO intake of meals during LOS. Goal #2 Help reach and maintain acceptable chemistry lab values during LOS. Goal #3 Adjust the dietary intervention to better serve Pt's energy/protein needs and clinical conditions during LOS . Follow-Up By: 07/06/22 Additional Comments Continue monitoring food tolerance, %PO intake of meals , dietary supplements, and BM.
[2022-07-02] MEDS ORDERED: SODIUM CHLORIDE 0.9% 500 ML 500 ML IV SCH (16:00)
[2022-07-02 16:46] LABS: Calcium 8.1 mg/dL (8.4-10.2)
[2022-07-02 20:08] VITALS: BP 125/78
[2022-07-02] MEDS ORDERED: INSULIN GLARGINE 100 UNITS/ML SUB-Q SCH (22:00)
[2022-07-04 23:53] LABS: Albumin 2.1 g/dL (3.8-4.8); Gamma Globulin 0.8 g/dL (0.8-1.7)
[2022-07-07 07:44] LABS: ANA Screen, IFA Negative (Negative)
== END 2022-07-02 22:56 | disposition home or self-care (01) | DRG 291 ==
LOC: ED 20:34 → 4A 06-29 01:07 → OBSVTOIN 06-29 12:01
PROVIDERS: ADMIT Internal Medicine Geriatric Medicine; ATTEND Student in an Organized Health Care Education/Training Program
DX: I13.0 Hypertensive heart and chronic kidney disease with heart failure and stage 1 through stage 4 chronic kidney disease, or unspecified chronic kidney disease (principal); I50.23 Acute on chronic systolic (congestive) heart failure; E43 Unspecified severe protein-calorie malnutrition; N18.4 Chronic kidney disease, stage 4 (severe); N17.9 Acute kidney failure, unspecified; I10 Essential (primary) hypertension; E11.65 Type 2 diabetes mellitus with hyperglycemia; Z68.22 Body mass index [BMI] 22.0-22.9, adult; E87.1 Hypo-osmolality and hyponatremia
CPT/HCPCS: 36415; 71045; 78580; 80048; 80053; 80061; 81001; 82550; 82570; 82962; 83735; 83880; 83970; 84156; 84165; 84300; 84484; 84520; 85025; 85379; 85610; 85730; 86038; 86160; 87641; 93005; 93970; 94640; 99291; 99406; G0378; Q9967; A9540; J1815; J1940; J2270